=== PATIENT | female | born 1945 | race Caucasian/White ===

== ENCOUNTER → 2020-01-08 14:26 | Outpatient (CLI) | payer MEDICARE, SELFPAY ==
--- NOTE | 2020-01-08 | CT_ITS ---
PROCEDURE: CT SINUS WO CON CLINICAL HISTORY: DYSFUNCTION OF RT EUSTACHIAN TUBE Syncope COMPARISON: No exams were available for comparison TECHNIQUE: Axial images obtained with sagittal and coronal reformats. All CT scans at the facility use one or more dose reduction, viz: automated exposure control, ma/kV adjustment per patient size (including targeted exams where dose is matched to indication, i.e. head), or iterative reconstruction technique. FINDINGS: No sinus air-fluid level. Only minimal mucosal thickening of the ethmoid sinuses. The maxillary, sphenoid, and frontal sinuses are unremarkable. There is mild rightward nasal septal deviation superiorly. A small septal spur projects toward the left inferiorly which appears to be causing some luminal narrowing of the nasal passage. The mastoid sinuses have an unremarkable appearance. The middle ears are well aerated. Artifact is present from patient's dental work. There are moderate to severe osteoarthritic changes of the right TMJ and [id number] osteoarthritis of the left TMJ. IMPRESSION: 1. No evidence of acute sinusitis. There is only minimal mucosal thickening of the ethmoid sinuses. 2. Rightward nasal septal deviation superiorly with a small septal spur projecting toward the left inferiorly causing mild narrowing of the left nasal airway. 3. Bilateral TMJ osteoarthritic changes Dictated by: Oscar Cabrera MD 01/08/2020 17:16 Electronically signed by Oscar Cabrera MD in [facility] 01/08/2020 17:16
--- NOTE | 2020-01-08 | CT_ITS ---
PROCEDURE: CT HEAD/BRAIN WO CON CLINICAL INDICATION: SYNCOPE COMPARISON: No exams were available for comparison TECHNIQUE: Axial images obtained. All CT scans at the facility use one or more dose reduction, viz: automated exposure control, ma/kV adjustment per patient size (including targeted exams where dose is matched to indication, i.e. head), or iterative reconstruction technique. FINDINGS: No midline shift, mass effect, intracranial hemorrhage, hydrocephalus, or extra-axial fluid collection is evident. There is generalized atrophy with hypoattenuation of the periventricular white matter consistent with microangiopathic changes. 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 No mastoid effusion. No sinus air-fluid level. IMPRESSION: No acute intracranial finding Dictated by: Oscar Cabrera MD 01/08/2020 17:12 Electronically signed by Oscar Cabrera MD in [facility] 01/08/2020 17:12
== END ==
PROVIDERS: PCP Family Medicine; Visit Provider Nurse Practitioner
DX: R55 Syncope and collapse (principal); H69.81 Other specified disorders of Eustachian tube, right ear
CPT/HCPCS: 70450; 70486

== ENCOUNTER → 2020-05-31 15:03 | Outpatient (CLI) | payer MEDICARE, SELFPAY ==
[2020-05-31 16:53] LABS: Adenovirus,PCR Not Detected (NotDetected); Bordetella Pertussis Not Detected (NotDetected); Chlamydophila Pneumoniae, PCR Not Detected (NotDetected); Coronavirus 229E Not Detected (NotDetected); Coronavirus NL63 Not Detected (NotDetected); Coronavirus OC43 Not Detected (NotDetected); Coronovirus HKU1,PCR Not Detected (NotDetected); Human Metapneumovirus Not Detected (NotDetected); Influenza A, PCR Not Detected (NotDetected); Influenza AH1, 2009 Not Detected (NotDetected); Influenza AH1, PCR Not Detected (NotDetected); Influenza AH3,PCR Not Detected (NotDetected); Influenza B, PCR Not Detected (NotDetected); Mycoplasma Pneumoniae, PCR Not Detected (NotDetected); Parainfluenza 1, PCR Not Detected (NotDetected); Parainfluenza 2, PCR Not Detected (NotDetected); Parainfluenza 3, PCR Not Detected (NotDetected); Parainfluenza 4, PCR Not Detected (NotDetected); Respiratory Syncytial Virus Not Detected (NotDetected); Rhinovirus/Enterovirus Not Detected (NotDetected)
[2020-05-31 17:01] LABS: Basophils # 0.1 K/mm3 (0-0.2); Basophils % 0.8 % (0.1-2.0); Eosinophils # 0.1 K/mm3 (0.0-0.4); Eosinophils % 1.2 % (0.1-12.0); Hematocrit 44.7 % (37.0-47.0); Hemoglobin 14.6 g/dL (12.2-16.2); Lymphocytes # 1.9 K/mm3 (0.7-4.5); Lymphocytes % 26.6 % (10-50); Mean Corpuscular HGB Conc 32.5 g/dL (31.8-35.4); Mean Corpuscular Hemoglobin 30.1 pg (27.0-31.2); Mean Corpuscular Volume 92.4 fl (81-99); Mean Platelet Volume 8.5 fl (7.4-10.4); Monocytes # 0.3 K/mm3 (0.1-1.0); Monocytes % 4.8 % (1.7-9.3); Neutrophils # 4.7 K/mm3 (1.8-7.8); Neutrophils % 66.6 % (37.0-80.0); Platelet Count 204 K/mm3 (142-424); Red Blood Count 4.84 M/mm3 (4.20-5.40); Red Cell Distribution Width 14.3 % (11.5-17.5)
[2020-06-01 10:23] LABS: Adenovirus,PCR Not Detected (NotDetected); Bordetella Pertussis Not Detected (NotDetected); Chlamydophila Pneumoniae, PCR Not Detected (NotDetected); Coronavirus 19, PCR Not Detected (NotDetected); Coronavirus 229E Not Detected (NotDetected); Coronavirus NL63 Not Detected (NotDetected); Coronavirus OC43 Not Detected (NotDetected); Coronovirus HKU1,PCR Not Detected (NotDetected); Human Metapneumovirus Not Detected (NotDetected); Influenza A, PCR Not Detected (NotDetected); Influenza AH1, 2009 Not Detected (NotDetected); Influenza AH1, PCR Not Detected (NotDetected); Influenza AH3,PCR Not Detected (NotDetected); Influenza B, PCR Not Detected (NotDetected); Mycoplasma Pneumoniae, PCR Not Detected (NotDetected); Parainfluenza 1, PCR Not Detected (NotDetected); Parainfluenza 2, PCR Not Detected (NotDetected); Parainfluenza 3, PCR Not Detected (NotDetected); Parainfluenza 4, PCR Not Detected (NotDetected); Respiratory Syncytial Virus Not Detected (NotDetected); Rhinovirus/Enterovirus Not Detected (NotDetected)
== END ==
PROVIDERS: PCP Family Medicine; Visit Provider Nurse Practitioner
DX: Z03.818 Encounter for observation for suspected exposure to other biological agents ruled out (principal)
CPT/HCPCS: 36415; 85025; 87486; 87581; 87633; 87798; U0003; U0004

== ENCOUNTER → 2020-06-14 10:06 | Outpatient (CLI) | payer MEDICARE, SELFPAY ==
[2020-06-14 12:32] LABS: Adenovirus,PCR Not Detected (NotDetected); Bordetella Pertussis Not Detected (NotDetected); Chlamydophila Pneumoniae, PCR Not Detected (NotDetected); Coronavirus 229E Not Detected (NotDetected); Coronavirus NL63 Not Detected (NotDetected); Coronavirus OC43 Not Detected (NotDetected); Coronovirus HKU1,PCR Not Detected (NotDetected); Human Metapneumovirus Not Detected (NotDetected); Influenza A, PCR Not Detected (NotDetected); Influenza AH1, 2009 Not Detected (NotDetected); Influenza AH1, PCR Not Detected (NotDetected); Influenza AH3,PCR Not Detected (NotDetected); Influenza B, PCR Not Detected (NotDetected); Mycoplasma Pneumoniae, PCR Not Detected (NotDetected); Parainfluenza 1, PCR Not Detected (NotDetected); Parainfluenza 2, PCR Not Detected (NotDetected); Parainfluenza 3, PCR Not Detected (NotDetected); Parainfluenza 4, PCR Not Detected (NotDetected); Respiratory Syncytial Virus Not Detected (NotDetected); Rhinovirus/Enterovirus Not Detected (NotDetected)
[2020-06-14 12:49] LABS: Basophils # 0.1 K/mm3 (0-0.2); Basophils % 1.1 % (0.1-2.0); Eosinophils # 0.1 K/mm3 (0.0-0.4); Eosinophils % 2.9 % (0.1-12.0); Hematocrit 39.3 % (37.0-47.0); Hemoglobin 12.5 g/dL (12.2-16.2); Lymphocytes # 0.9 K/mm3 (0.7-4.5); Lymphocytes % 18.3 % (10-50); Mean Corpuscular HGB Conc 31.9 g/dL (31.8-35.4); Mean Corpuscular Hemoglobin 30.2 pg (27.0-31.2); Mean Corpuscular Volume 94.5 fl (81-99); Mean Platelet Volume 8.4 fl (7.4-10.4); Monocytes # 0.2 K/mm3 (0.1-1.0); Monocytes % 4.9 % (1.7-9.3); Neutrophils # 3.5 K/mm3 (1.8-7.8); Neutrophils % 72.8 % (37.0-80.0); Platelet Count 151 K/mm3 (142-424); Red Blood Count 4.15 M/mm3 (4.20-5.40); Red Cell Distribution Width 14.7 % (11.5-17.5); White Blood Count 4.9 K/mm3 (4.8-10.8)
[2020-06-14 17:15] LABS: Coronavirus 19, PCR Detected (NotDetected)
== END ==
PROVIDERS: PCP Nurse Practitioner; Visit Provider Nurse Practitioner
DX: Z20.828 Contact with and (suspected) exposure to other viral communicable diseases (principal); U07.1 COVID-19
CPT/HCPCS: 36415; 85025; 87581; 87633; 87798

== ENCOUNTER 2020-06-22 15:32 | Emergency (ER) | payer MEDICARE, SELFPAY ==
--- NOTE | 2020-06-22 15:40 | ECG_ITS ---
APPROVED REPORT Exam: Resting ECG HR:96 bpm ECG Measurements Heart Rate 96 AXES IA 138 P 40 QRSd 74 QRS 11 QT 346 T 40 QTc 437 Conclusion Normal sinus rhythm Normal ECG Electronically signed by : Jeff Gaona, 06/27/2020 07:40:26
--- NOTE | 2020-06-22 15:42 | XR_ITS ---
PROCEDURE: XR CHEST PORTABLE CLINICAL HISTORY: cough COVID 19 positive with shortness of air COMPARISON: No exams were available for comparison FINDINGS: The cardiomediastinal silhouette and pulmonary vascularity are within normal limits. Increased density is present in the mid and lower lung zones on both sides right greater than left consistent with pneumonia with atelectatic change. There are degenerative changes in the shoulders with severe right subacromial stenosis. IMPRESSION: Bilateral lower lobe pneumonia with atelectatic change Dictated by: Oscar Cabrera MD 06/22/2020 17:46 Oscar Cabrera MD in [facility] 06/22/2020 17:46
--- NOTE | 2020-06-22 15:46 | [facility].EDGENADL ---
ED Disposition Clinical Impression: Pneumonia due to COVID-19 virus Disposition: Home, Self-Care Condition on Discharge: Fair Instructions: DI for Pneumonia -- Adult, Preventing the Spread of Coronavirus Discharge Instructions Additional Instructions: You have been evaluated for generalized malaise, weakness. This is likely due to Covid pneumonia. Please take azithromycin and doxycycline as prescribed. Follow-up with your primary care doctor for recheck. Return to the emergency department if you have any new or worsening symptoms. Prescriptions: Azithromycin 500 mg PO DAILY 5 Days #5 tab Transmission Status: Pending to [facility] Doxycycline Hyclate [Doxycycline 100mg Capsule] 100 mg PO Q12 5 Days #10 cap Transmission Status: Pending to [facility] Referrals: Reshma Joshi APRN [Primary Care Provider] - Time of Disposition: 17:11 - Critical Care Critical Care Time: No Attestation: On 06/22/20, the high probability of a clinically significant, sudden or life threatening deterioration of the following system(s) required my full and direct attention, intervention and personal management. The time I documented below is in addition to time spent performing reported procedures but includes the following listed in this critical care notation. Medical Decision Making - Medical Records Medical records reviewed: Yes: I reviewed the patient's medical records. - [facility] Inquiry Pt receiving controlled substance: No Vital Signs: 06/22/20 15:57 06/22/20 16:16 06/22/20 16:37 Temperature 99.2 F Temperature Source Oral Pulse Rate [Right Radial] 100 H 97 H 96 H Respiratory Rate 22 Blood Pressure [Right Arm] 136/62 144/64 H 144/56 H Blood Pressure Mean [Right Arm] 86 90 85 Blood Pressure Source [Right Arm] Automatic Cuff Automatic Cuff Blood Pressure Position [Right Arm] Sitting Sitting 02 Sat by Pulse Oximetry 91 L 95 93 L Oxygen Delivery Method Room Air Room Air Room Air 06/22/20 17:19 Temperature Temperature Source Pulse Rate [Right Radial] 93 H Respiratory Rate Blood Pressure [Right Arm] 143/87 H Blood Pressure Mean [Right Arm] 105 Blood Pressure Source [Right Arm] Automatic Cuff Blood Pressure Position [Right Arm] Sitting 02 Sat by Pulse Oximetry 91 L Oxygen Delivery Method Room Air - Lab Data Lab Results 06/22/20 15:40: WBC 10.4, RBC 4.44, Hgb 13.1, Hct 40.8, MCV 91.9, MCH 29.5, MCHC 32.1, RDW 14.4, Plt Count 342, MPV 7.8, Neut % (Auto) 89.6 H, Lymph % (Auto) 8.0 L, Kem[place] % (Auto) 1.7, Eos % (Auto) 0.3, Baso % (Auto) 0.4, Neut # (Auto) 9.3 H, Lymph # (Auto) 0.8, Kem[place] # (Auto) 0.2, Eos # (Auto) 0.0, Baso # (Auto) 0.0, Total Counted 100, Neutrophils % (Manual) 87 H, Lymphocytes % (Manual) 13, Platelet Estimate Normal, RBC Morphology Normal 06/22/20 15:40: Sodium 138, Potassium 3.5, Chloride 106, Carbon Dioxide 25, Anion Gap 10.5, BUN 19 H, Creatinine 0.80, Estimated Creat Clear 57, Estimated GFR 70, Est GFR ( Amer) 84, Glucose 126 H, Calcium 8.3 L, Total Bilirubin 0.7, AST 60 H, ALT 55, Alkaline Phosphatase 167 H, Troponin I < 0.01, Total Protein 6.4, Albumin 3.3 L, Globulin 3.1, Albumin/Globulin Ratio 1.1 06/22/20 16:15: Influenza Type A Ag Negative, Influenza Type B Ag Negative 06/22/20 16:17: Urine Color Yellow, Urine Appearance Clear, Urine pH 6.0, Ur Specific [place] >= 1.030, Urine Protein 1+, Urine Glucose (UA) Negative, Urine Ketones Negative, Urine Blood Negative, Urine Nitrate Negative, Urine Bilirubin Negative, Urine Urobilinogen 1.0, Ur Leukocyte Esterase Negative, Urine WBC 3-5, Ur Squamous Epith Cells Occasional, Urine Bacteria 2+, Hyaline Casts 3-5, Fine Granular Casts Occasional Result diagrams: 06/22/20 15:40 06/22/20 15:40 Orders (Tests/Meds): ED MEDICATIONS Discontinued Medications Generic Name Dose Route Start Last Admin Trade Name Freq PRN Reason Stop Dose Admin Sodium Chloride 1,000 mls @ 999 mls/hr 06/22/20 15:45 06/22/20 15:54 S
[2020-06-22 15:57] VITALS: BP 136/62; PULSE 100; RESP 22; TEMP 37.3; O2SAT 91; BMI 28.5
[2020-06-22 16:16] VITALS: BP 144/64; PULSE 97; O2SAT 95
[2020-06-22 16:16] LABS: Basophils % 0.4 % (0.1-2.0); Eosinophils % 0.3 % (0.1-12.0); Hematocrit 40.8 % (37.0-47.0); Hemoglobin 13.1 g/dL (12.2-16.2); Lymphocytes # 0.8 K/mm3 (0.7-4.5); Mean Corpuscular HGB Conc 32.1 g/dL (31.8-35.4); Mean Corpuscular Hemoglobin 29.5 pg (27.0-31.2); Mean Corpuscular Volume 91.9 fl (81-99); Mean Platelet Volume 7.8 fl (7.4-10.4); Monocytes # 0.2 K/mm3 (0.1-1.0); Monocytes % 1.7 % (1.7-9.3); Neutrophils # 9.3 K/mm3 (1.8-7.8); Neutrophils % 89.6 % (37.0-80.0); Platelet Count 342 K/mm3 (142-424); Red Blood Count 4.44 M/mm3 (4.20-5.40); Red Cell Distribution Width 14.4 % (11.5-17.5); White Blood Count 10.4 K/mm3 (4.8-10.8)
[2020-06-22 16:17] LABS: MANUAL DIFFERENTIAL MANUAL DIFFERENTIAL (MANUAL DIFF)
[2020-06-22 16:18] LABS: Chloride 106 mmol/L (98-107); Potassium 3.5 mmoL/L (3.5-5.1); Sodium 138 mmol/L (136-145)
[2020-06-22 16:21] LABS: Alanine Aminotransferase 55 U/L (12-78); Albumin Level 3.3 g/dl (3.5-5.0); Albumin/Globulin Ratio 1.1 (1.1-1.8); Alkaline Phosphatase 167 U/L (38-126); Anion Gap 10.5 mEq/L (5-15); Aspartate Amino Transferase 60 U/L (14-36); Bilirubin,Total 0.7 mg/dl (0.2-1.3); Blood Urea Nitrogen 19 mg/dl (7-17); Carbon Dioxide 25 mmol/L (22.0-30.0); Creatinine Clearance Estimated 57 mL/min (50-200); Estimated Glomerular Filt Rate 70 ml/min (>60); GFR (African American) 84 ML/MIN (>60); Globulin 3.1 g/dL (1.3-3.2); Total Protein,Serum 6.4 g/dl (6.3-8.2)
[2020-06-22 16:22] LABS: Calcium 8.3 mg/dl (8.4-10.2); Glucose 126 mg/dl (74-100)
[2020-06-22 16:33] LABS: Lymphocytes % 13 % (10-50); Neutrophils % 87 % (42-76); Platelet Estimate Normal; RBC Morphology Normal; Total Cells Counted 100
[2020-06-22 16:37] VITALS: BP 144/56; PULSE 96; O2SAT 93
[2020-06-22 16:37] LABS: Microscopic, Urine URINE MICROSCOPIC (MICROSCOPIC)
[2020-06-22 16:39] LABS: Appearance,Urine CLEAR (Clear); Bilirubin,Urine Negative (Negative); Blood, Urine Negative (Negative); Color,Urine YELLOW (Yellow); Glucose,Urine (UA) Negative (Negative); Ketones,Urine Negative (Negative); Leukocyte Esterase,Urine Negative (Negative); Nitrate,Urine Negative (Negative); Protein,Urine 1+ (Negative); Specific Gravity, Urine >= 1.030 (1.005-1.030)
[2020-06-22 16:40] LABS: Troponin I < 0.01 ng/ml (0.00-0.034)
[2020-06-22 16:55] LABS: Bacteria,Urine 2+ /lpf; Fine Granular Casts,Urine Occasional #/lpf (0); Squamous Epithelial Cell,Urine Occasional #/hpf (0-5)
--- NOTE | 2020-06-22 16:56 | PC.NURSE ---
Pt given water upon request at this time.
[2020-06-22 17:19] VITALS: BP 143/87; PULSE 93; O2SAT 91
[2020-06-22 18:11] VITALS: BP 106/79; PULSE 91; RESP 19; TEMP 37.2; O2SAT 94
== END 2020-06-22 18:17 | disposition home or self-care (01) ==
PROVIDERS: Emergency Provider Emergency Medicine; PCP Nurse Practitioner
DX: J18.9 Pneumonia, unspecified organism (principal); U07.1 COVID-19; I10 Essential (primary) hypertension; E78.5 Hyperlipidemia, unspecified; Z79.899 Other long term (current) drug therapy; Z88.0 Allergy status to penicillin; Z88.2 Allergy status to sulfonamides
CPT/HCPCS: 71045; 80053; 81001; 84484; 85007; 85025; 87086; 87275; 87276; 93005; 96365; 99283

== ENCOUNTER → 2020-07-05 10:24 | Outpatient (CLI) | payer MEDICARE, SELFPAY ==
[2020-07-05 10:35] LABS: Adenovirus F 40/41, stool Not Detected (NotDetected); Astrovirus Not Detected (NotDetected); Campylobacter Not Detected (NotDetected); Clostridium Difficile A/B, PCR Not Detected (NotDetected); Cryptosporidium Not Detected (NotDetected); Cyclospora Cayetanesis Not Detected (NotDetected); Entamoeba histolytica Not Detected (NotDetected); Enteroaggregative E coli Not Detected (NotDetected); Enteropathogenic E coli Not Detected (NotDetected); Enterotoxigenic E coli Not Detected (NotDetected); Giardia lamblia Not Detected (NotDetected); Norovirus Not Detected (NotDetected); Plesimonas Shigalloides, PCR Not Detected (NotDetected); Rotavirus A Not Detected (NotDetected); Salmonella, PCR Not Detected (NotDetected); Sapovirus Not Detected (NotDetected); Shiga-like toxin E coli Not Detected (NotDetected); Shigella Enterovasive E coli Not Detected (NotDetected); Vibrio Cholerae Not Detected (NotDetected); Vibrio, PCR Not Detected (NotDetected); Yersinia Entercolitica, PCR Not Detected (NotDetected)
== END ==
PROVIDERS: Visit Provider Nurse Practitioner
DX: R19.7 Diarrhea, unspecified (principal)
CPT/HCPCS: 87506

== ENCOUNTER → 2021-06-07 09:19 | Outpatient (CLI) | payer MEDICARE, SELFPAY ==
[2021-06-07 10:08] LABS: Basophils # 0.1 K/mm3 (0-0.2); Basophils % 1.2 % (0.1-2.0); Eosinophils # 0.1 K/mm3 (0.0-0.4); Eosinophils % 2.3 % (0.1-12.0); Hematocrit 38.8 % (37.0-47.0); Hemoglobin 12.1 g/dL (12.2-16.2); Lymphocytes # 1.1 K/mm3 (0.7-4.5); Lymphocytes % 21.5 % (10-50); Mean Corpuscular HGB Conc 31.1 g/dL (31.8-35.4); Mean Corpuscular Hemoglobin 26.5 pg (27.0-31.2); Mean Corpuscular Volume 85.2 fl (81-99); Mean Platelet Volume 8.2 fl (7.4-10.4); Monocytes # 0.4 K/mm3 (0.1-1.0); Monocytes % 7.3 % (1.7-9.3); Neutrophils # 3.5 K/mm3 (1.8-7.8); Neutrophils % 67.8 % (37.0-80.0); Platelet Count 313 K/mm3 (142-424); Red Blood Count 4.55 M/mm3 (4.20-5.40); Red Cell Distribution Width 14.9 % (11.5-17.5); White Blood Count 5.2 K/mm3 (4.8-10.8)
[2021-06-07 10:53] LABS: Alanine Aminotransferase 22 U/L (12-78); Albumin Level 3.9 g/dl (3.5-5.0); Albumin/Globulin Ratio 1.4 (1.1-1.8); Alkaline Phosphatase 121 U/L (38-126); Amylase 60 U/L (30-110); Anion Gap 13.8 mEq/L (5-15); Aspartate Amino Transferase 27 U/L (14-36); Bilirubin,Total 0.2 mg/dl (0.2-1.3); Blood Urea Nitrogen 20 mg/dl (7-17); Calcium 9.3 mg/dl (8.4-10.2); Carbon Dioxide 24 mmol/L (22.0-30.0); Chloride 107 mmol/L (98-107); Estimated Glomerular Filt Rate 97 ml/min (>60); GFR (African American) 117 ML/MIN (>60); Globulin 2.8 g/dL (1.3-3.2); Glucose 99 mg/dl (74-100); Lipase 191 U/L (23-300); Potassium 4.8 mmoL/L (3.5-5.1); Sodium 140 mmol/L (136-145); Total Protein,Serum 6.7 g/dl (6.3-8.2)
[2021-06-08 14:12] LABS: H. pylori Breath Test Negative (Negative)
== END ==
PROVIDERS: Visit Provider Nurse Practitioner
DX: R10.13 Epigastric pain (principal); R19.7 Diarrhea, unspecified
CPT/HCPCS: 36415; 80053; 82150; 83013; 83690; 85025

== ENCOUNTER → 2021-06-09 10:59 | Outpatient (CLI) | payer MEDICARE, SELFPAY ==
[2021-06-09 11:03] LABS: Campylobacter Not Detected (NotDetected); Clostridium Difficile A/B, PCR Not Detected (NotDetected); Enteroaggregative E coli Not Detected (NotDetected); Plesimonas Shigalloides, PCR Not Detected (NotDetected); Salmonella, PCR Not Detected (NotDetected); Vibrio Cholerae Not Detected (NotDetected); Vibrio, PCR Not Detected (NotDetected); Yersinia Entercolitica, PCR Not Detected (NotDetected)
[2021-06-09 11:04] LABS: Adenovirus F 40/41, stool Not Detected (NotDetected); Astrovirus Not Detected (NotDetected); Cryptosporidium Not Detected (NotDetected); Cyclospora Cayetanesis Not Detected (NotDetected); Entamoeba histolytica Not Detected (NotDetected); Enteropathogenic E coli Not Detected (NotDetected); Enterotoxigenic E coli Not Detected (NotDetected); Giardia lamblia Not Detected (NotDetected); Norovirus Not Detected (NotDetected); Rotavirus A Not Detected (NotDetected); Sapovirus Not Detected (NotDetected); Shiga-like toxin E coli Not Detected (NotDetected); Shigella Enterovasive E coli Not Detected (NotDetected)
== END ==
PROVIDERS: Visit Provider Nurse Practitioner
DX: R10.13 Epigastric pain (principal); R19.7 Diarrhea, unspecified
CPT/HCPCS: 87506

== ENCOUNTER → 2021-07-30 11:00 | Outpatient (CLI) | payer MEDICARE, SELFPAY | PROVIDERS: PCP Nurse Practitioner; Visit Provider Nurse Practitioner Family | DX: Z20.822 Contact with and (suspected) exposure to COVID-19 (principal) | CPT/HCPCS: C9803; U0003; U0005 ==

== ENCOUNTER → 2022-02-07 08:24 | Outpatient (CLI) | payer MEDICARE, SELFPAY ==
--- NOTE | 2022-02-07 08:30 | MM_ITS ---
PROCEDURE INFORMATION: Exam: MG Bilateral Screening 3D Mammography Exam date and time: 02/07/2022 8:27 AM Age: 76 years old Clinical indication: Screening examination TECHNIQUE: Imaging protocol: Bilateral Screening tomosynthesis and 2D mammography including computer-aided detection (CAD) when performed. COMPARISON: MG MM MAMMO DIGITAL FAWAD SCREEN BILAT 12/03/2020 9:05 AM FINDINGS: MAMMOGRAPHY: Breast composition: The breast is heterogeneously dense, which may obscure small masses. Mass: None. Architectural distortion: No new or suspicious architectural distortion. Calcifications: No new or suspicious calcifications are present Asymmetric density: No new or suspicious asymmetric density is present Skin thickening: None. Axillary adenopathy: None. IMPRESSION: No mammographic evidence of malignancy. Recommend annual screening mammography unless otherwise clinically indicated. ASSESSMENT: BI-RADS category 1: Negative
--- NOTE | 2022-02-07 08:30 | XR_ITS ---
FINAL REPORT TECHNIQUE: Bone densitometry calculations of the lumbar spine and left hip were obtained. CLINICAL HISTORY: . osteoporosis, screening FINDINGS: DEXA BONE DENSITY AXIAL SKELETON Using L1-4, the bone mineral density of the spine is 1.379 g/cm2, corresponding to T-score of 3.0. Classified as normal bone mineral density however these values are likely falsely elevated secondary to sclerosis. Using the right hip, the bone mineral density of the femoral neck is 0.627 g/cm2, corresponding to a T-score of -2.0. Classified as osteopenia. Using the left forearm, the bone mineral density of the distal 1/3 is 0.633 g/cm2, corresponding to a T-score of -1.0. Classified as osteopenia. NOTE: T-score: Standard deviation compared with peak bone mass of young adult mean. *Following the recommendations of the International Society of Bone densitometry, classification of hip BMD is based on the lower of two T-scores; total hip or femoral neck. IMPRESSION: Diminished bone mineral density of the left forearm and right hip consistent with osteopenia. FRAX not reported because: treated for osteoporosis. Reviewed, Interpreted and Dictated by Gumaro Maldonado MD Transcribed by Breana Melendez Authenticated and . [facility]
== END ==
PROVIDERS: PCP Nurse Practitioner; Visit Provider Nurse Practitioner
DX: Z12.31 Encounter for screening mammogram for malignant neoplasm of breast (principal); M81.0 Age-related osteoporosis without current pathological fracture
CPT/HCPCS: 77063; 77067; 77080

== ENCOUNTER → 2022-03-01 06:06 | Outpatient (CLI) | payer MEDICARE, SELFPAY ==
[2022-02-28 18:02] LABS: Adenovirus,PCR Not Detected (NotDetected); Bordetella Pertussis Not Detected (NotDetected); Chlamydophila Pneumoniae, PCR Not Detected (NotDetected); Coronavirus 19, PCR Not Detected (NotDetected); Coronavirus 229E Not Detected (NotDetected); Coronavirus NL63 Not Detected (NotDetected); Coronavirus OC43 Not Detected (NotDetected); Coronovirus HKU1,PCR Not Detected (NotDetected); Human Metapneumovirus Not Detected (NotDetected); Influenza A, PCR Not Detected (NotDetected); Influenza AH1, 2009 Not Detected (NotDetected); Influenza AH1, PCR Not Detected (NotDetected); Influenza AH3,PCR Not Detected (NotDetected); Influenza B, PCR Not Detected (NotDetected); Mycoplasma Pneumoniae, PCR Not Detected (NotDetected); Parainfluenza 1, PCR Not Detected (NotDetected); Parainfluenza 2, PCR Not Detected (NotDetected); Parainfluenza 3, PCR Not Detected (NotDetected); Parainfluenza 4, PCR Not Detected (NotDetected); Respiratory Syncytial Virus Not Detected (NotDetected); Rhinovirus/Enterovirus Not Detected (NotDetected)
[2022-02-28 18:27] LABS: Basophils % 0.9 % (0.1-2.0); Eosinophils # 0.1 K/mm3 (0.0-0.4); Eosinophils % 1.7 % (0.1-12.0); Hematocrit 39.1 % (37.0-47.0); Hemoglobin 12.3 g/dL (12.2-16.2); Lymphocytes % 20.9 % (10-50); Mean Corpuscular HGB Conc 31.5 g/dL (31.8-35.4); Mean Corpuscular Hemoglobin 27.8 pg (27.0-31.2); Mean Corpuscular Volume 88.2 fl (81-99); Mean Platelet Volume 8.9 fl (7.4-10.4); Monocytes # 0.3 K/mm3 (0.1-1.0); Monocytes % 6.7 % (1.7-9.3); Neutrophils # 3.2 K/mm3 (1.8-7.8); Neutrophils % 69.8 % (37.0-80.0); Platelet Count 171 K/mm3 (142-424); Red Blood Count 4.43 M/mm3 (4.20-5.40); Red Cell Distribution Width 15.5 % (11.5-17.5); White Blood Count 4.6 K/mm3 (4.8-10.8)
== END ==
PROVIDERS: PCP Nurse Practitioner; Visit Provider Nurse Practitioner
DX: J06.9 Acute upper respiratory infection, unspecified (principal); R05.9 Cough, unspecified; Z20.822 Contact with and (suspected) exposure to COVID-19
CPT/HCPCS: 85025; 87581; 87632; 87798; C9803; U0003; U0005

== ENCOUNTER → 2022-11-06 23:28 | Outpatient (CLI) | payer MEDICARE, SELFPAY ==
[2022-11-06 19:09] LABS: Adenovirus,PCR Not Detected (NotDetected); Bordetella Pertussis Not Detected (NotDetected); Chlamydophila Pneumoniae, PCR Not Detected (NotDetected); Coronavirus 19, PCR Not Detected (NotDetected); Coronavirus 229E Not Detected (NotDetected); Coronavirus NL63 Not Detected (NotDetected); Coronavirus OC43 Not Detected (NotDetected); Coronovirus HKU1,PCR Not Detected (NotDetected); Human Metapneumovirus Not Detected (NotDetected); Influenza A, PCR Not Detected (NotDetected); Influenza AH1, 2009 Not Detected (NotDetected); Influenza AH1, PCR Not Detected (NotDetected); Influenza AH3,PCR Not Detected (NotDetected); Influenza B, PCR Not Detected (NotDetected); Mycoplasma Pneumoniae, PCR Not Detected (NotDetected); Parainfluenza 1, PCR Not Detected (NotDetected); Parainfluenza 2, PCR Not Detected (NotDetected); Parainfluenza 3, PCR Not Detected (NotDetected); Parainfluenza 4, PCR Not Detected (NotDetected); Respiratory Syncytial Virus Not Detected (NotDetected); Rhinovirus/Enterovirus Not Detected (NotDetected)
[2022-11-06 19:37] LABS: Basophils % 0.3 % (0.1-2.0); Eosinophils # 0.1 K/mm3 (0.0-0.4); Eosinophils % 1.3 % (0.1-12.0); Hematocrit 41.6 % (37.0-47.0); Hemoglobin 13.2 g/dL (12.2-16.2); Lymphocytes # 0.7 K/mm3 (0.7-4.5); Lymphocytes % 20.5 % (10-50); Mean Corpuscular HGB Conc 31.7 g/dL (31.8-35.4); Mean Corpuscular Hemoglobin 27.9 pg (27.0-31.2); Mean Corpuscular Volume 88.2 fl (81-99); Mean Platelet Volume 10.6 fl (7.4-10.4); Monocytes # 0.4 K/mm3 (0.1-1.0); Monocytes % 9.9 % (1.7-9.3); Neutrophils # 2.4 K/mm3 (1.8-7.8); Platelet Count 106 K/mm3 (142-424); Red Blood Count 4.72 M/mm3 (4.20-5.40); Red Cell Distribution Width 14.3 % (11.5-17.5); White Blood Count 3.6 K/mm3 (4.8-10.8)
[2022-11-06 19:46] LABS: Chloride 105 mmol/L (98-107); Potassium 4.8 mmoL/L (3.5-5.1); Sodium 139 mmol/L (136-145)
[2022-11-06 19:49] LABS: Anion Gap 13.8 mEq/L (5-15); Blood Urea Nitrogen 21 mg/dl (7-17); Calcium 9.2 mg/dl (8.4-10.2); Carbon Dioxide 25 mmol/L (22.0-30.0); Estimated Glomerular Filt Rate 69 ml/min (>60); GFR (African American) 84 ML/MIN (>60); Glucose 77 mg/dl (74-100)
== END ==
PROVIDERS: PCP Nurse Practitioner; Visit Provider Nurse Practitioner
DX: J06.9 Acute upper respiratory infection, unspecified (principal); J02.9 Acute pharyngitis, unspecified
CPT/HCPCS: 80048; 85025; 87581; 87632; 87798; C9803; U0003; U0005

== ENCOUNTER → 2022-12-12 23:32 | Outpatient (CLI) | payer MEDICARE, SELFPAY ==
[2022-12-12 19:14] LABS: Basophils % 0.6 % (0.1-2.0); Eosinophils # 0.1 K/mm3 (0.0-0.4); Eosinophils % 1.1 % (0.1-12.0); Hematocrit 44.3 % (37.0-47.0); Hemoglobin 14.3 g/dL (12.2-16.2); Lymphocytes # 1.1 K/mm3 (0.7-4.5); Lymphocytes % 21.8 % (10-50); Mean Corpuscular HGB Conc 32.2 g/dL (31.8-35.4); Monocytes # 0.3 K/mm3 (0.1-1.0); Monocytes % 5.9 % (1.7-9.3); Neutrophils # 3.6 K/mm3 (1.8-7.8); Neutrophils % 70.6 % (37.0-80.0); Platelet Count 169 K/mm3 (142-424); Red Blood Count 4.93 M/mm3 (4.20-5.40); Red Cell Distribution Width 14.7 % (11.5-17.5); White Blood Count 5.1 K/mm3 (4.8-10.8)
== END ==
LOC: LAB.DROPOF 23:32
PROVIDERS: PCP Nurse Practitioner; Visit Provider Nurse Practitioner
DX: J06.9 Acute upper respiratory infection, unspecified (principal); H92.03 Otalgia, bilateral
CPT/HCPCS: 85025; C9803; U0003; U0005

== ENCOUNTER → 2023-02-04 23:17 | Outpatient (CLI) | payer MEDICARE, SELFPAY ==
[2023-02-04 18:28] LABS: Microscopic, Urine URINE MICROSCOPIC (MICROSCOPIC)
[2023-02-04 19:27] LABS: Alanine Aminotransferase 25 U/L (12-78); Albumin Level 4.5 g/dl (3.5-5.0); Albumin/Globulin Ratio 1.7 (1.1-1.8); Alkaline Phosphatase 75 U/L (38-126); Anion Gap 13.4 mEq/L (5-15); Aspartate Amino Transferase 33 U/L (14-36); Bilirubin,Total 0.4 mg/dl (0.2-1.3); Blood Urea Nitrogen 21 mg/dl (7-17); Calcium 9.7 mg/dl (8.4-10.2); Carbon Dioxide 27 mmol/L (22.0-30.0); Chloride 105 mmol/L (98-107); Estimated Glomerular Filt Rate 69 ml/min (>60); GFR (African American) 84 ML/MIN (>60); Globulin 2.7 g/dL (1.3-3.2); Glucose 89 mg/dl (74-100); HDL Cholesterol 61 mg/dl (40-60); Potassium 4.4 mmoL/L (3.5-5.1); Sodium 141 mmol/L (136-145); Total Protein,Serum 7.2 g/dl (6.3-8.2); Triglycerides 278 mg/dl (30-150); VLDL Cholesterol 56 mg/dL (0-40)
[2023-02-04 19:28] LABS: Basophils % 0.6 % (0.1-2.0); Eosinophils # 0.1 K/mm3 (0.0-0.4); Eosinophils % 2.5 % (0.1-12.0); Hematocrit 42.6 % (37.0-47.0); Hemoglobin 13.6 g/dL (12.2-16.2); Lymphocytes % 20.8 % (10-50); Mean Corpuscular Hemoglobin 28.1 pg (27.0-31.2); Mean Corpuscular Volume 87.9 fl (81-99); Mean Platelet Volume 10.2 fl (7.4-10.4); Monocytes # 0.3 K/mm3 (0.1-1.0); Monocytes % 6.6 % (1.7-9.3); Neutrophils # 3.3 K/mm3 (1.8-7.8); Neutrophils % 69.5 % (37.0-80.0); Platelet Count 137 K/mm3 (142-424); Red Blood Count 4.84 M/mm3 (4.20-5.40); Red Cell Distribution Width 14.8 % (11.5-17.5); White Blood Count 4.7 K/mm3 (4.8-10.8)
[2023-02-04 19:37] LABS: Chol/HDL Ratio 5.3 (1-3.5); Cholesterol 324 mg/dl (140-200); Direct LDL Cholesterol 179.36 mg/dL (100-129)
[2023-02-04 19:42] LABS: Free T4 (Free Thyroxine) 1.38 ng/dl (0.78-2.19)
[2023-02-04 19:48] LABS: 25-OH Vitamin D, Total 43.5 ng/mL (30-100)
[2023-02-04 19:58] LABS: Thyroid Stimulating Hormone 0.03 uIU/mL (0.465-4.68)
[2023-02-04 20:04] LABS: Appearance,Urine CLEAR (Clear); Bilirubin,Urine Negative (Negative); Blood, Urine Negative (Negative); Color,Urine YELLOW (Yellow); Glucose,Urine (UA) Negative (Negative); Ketones,Urine Negative (Negative); Leukocyte Esterase,Urine 1+ (Negative); Nitrate,Urine Negative (Negative); PH,Urine 5.5 (5.0-8.5); Protein,Urine Negative (Negative); Specific Gravity, Urine 1.015 (1.005-1.030); Urobilinogen,Urine 0.2 EU/dl (0.2)
[2023-02-04 20:41] LABS: Erythrocyte Sedimentation Rate 63 mm/hr (0-30)
[2023-02-04 20:47] LABS: Vitamin B12 > 1000 pg/mL (239-931)
[2023-02-04 23:24] LABS: Creatinine,Urine Random 35 mg/dL (Not Estab.); Microalbumin < 6.000 mg/L (0-16.7)
[2023-02-06 16:24] LABS: Anti-Centromere B Antibodies <0.2 AI (0.0-0.9); Anti-DNA (DS) Ab Qn <1 IU/mL (0-9); Anti-Jo-1 <0.2 AI (0.0-0.9); Anti-Smith Antibody <0.2 AI (0.0-0.9); Antichromatin Antibodies 0.7 AI (0.0-0.9); Antiscleroderma-70 Antibodies <0.2 AI (0.0-0.9); RNP Antibodies 1.8 AI (0.0-0.9); Sjogren's Anti-SS-A <0.2 AI (0.0-0.9); Sjogren's Anti-SS-B 0.6 AI (0.0-0.9)
== END ==
PROVIDERS: PCP Nurse Practitioner; Visit Provider Nurse Practitioner
DX: E03.9 Hypothyroidism, unspecified (principal); E53.8 Deficiency of other specified B group vitamins; E55.9 Vitamin D deficiency, unspecified; E78.5 Hyperlipidemia, unspecified; I10 Essential (primary) hypertension; K21.9 Gastro-esophageal reflux disease without esophagitis; R53.83 Other fatigue; Z86.12 Personal history of poliomyelitis
CPT/HCPCS: 80053; 80061; 81001; 82043; 82306; 82570; 82607; 84439; 84443; 85025; 85651; 86140; 86225; 86235; 87086

== ENCOUNTER → 2023-02-13 11:21 | Outpatient (CLI) | payer MEDICARE, SELFPAY | PROVIDERS: PCP Nurse Practitioner; Visit Provider Nurse Practitioner | DX: R60.0 Localized edema (principal); Z86.12 Personal history of poliomyelitis | CPT/HCPCS: 93306 ==

== ENCOUNTER → 2023-03-18 23:00 | Outpatient (CLI) | payer MEDICARE, SELFPAY ==
[2023-03-18 18:57] LABS: Blood Urea Nitrogen 18 mg/dl (7-17); Calcium 9.5 mg/dl (8.4-10.2); Carbon Dioxide 28 mmol/L (22.0-30.0); Chloride 105 mmol/L (98-107); Estimated Glomerular Filt Rate 61 ml/min (>60); GFR (African American) 73 ML/MIN (>60); Glucose 95 mg/dl (74-100); Sodium 140 mmol/L (136-145)
[2023-03-18 19:14] LABS: Free T4 (Free Thyroxine) 0.98 ng/dl (0.78-2.19)
[2023-03-18 19:29] LABS: Thyroid Stimulating Hormone 0.11 uIU/mL (0.465-4.68)
== END ==
PROVIDERS: PCP Nurse Practitioner; Visit Provider Nurse Practitioner
DX: E03.9 Hypothyroidism, unspecified (principal); I10 Essential (primary) hypertension; K21.9 Gastro-esophageal reflux disease without esophagitis; J12.89 Other viral pneumonia; U07.1 COVID-19
CPT/HCPCS: 80048; 84439; 84443

== ENCOUNTER → 2023-05-15 23:20 | Outpatient (CLI) | payer MEDICARE, SELFPAY ==
[2023-05-15 18:28] LABS: Coronavirus 19, PCR Not Detected (NotDetected); Influenza A, PCR Not Detected (NotDetected); Influenza B, PCR Not Detected (NotDetected)
== END ==
PROVIDERS: PCP Nurse Practitioner; Visit Provider Nurse Practitioner
DX: J06.9 Acute upper respiratory infection, unspecified (principal)
CPT/HCPCS: 87636

== ENCOUNTER → 2023-06-17 08:26 | Outpatient (CLI) | payer MEDICARE, SELFPAY ==
[2023-06-17 19:31] LABS: Basophils # 0.1 K/mm3 (0-0.2); Eosinophils # 0.1 K/mm3 (0.0-0.4); Eosinophils % 1.4 % (0.1-12.0); Hematocrit 41.4 % (37.0-47.0); Hemoglobin 13.2 g/dL (12.2-16.2); Lymphocytes # 1.1 K/mm3 (0.7-4.5); Lymphocytes % 22.7 % (10-50); Mean Corpuscular HGB Conc 31.9 g/dL (31.8-35.4); Mean Corpuscular Hemoglobin 29.5 pg (27.0-31.2); Mean Corpuscular Volume 92.6 fl (81-99); Mean Platelet Volume 10.3 fl (7.4-10.4); Monocytes # 0.4 K/mm3 (0.1-1.0); Monocytes % 7.8 % (1.7-9.3); Neutrophils # 3.2 K/mm3 (1.8-7.8); Neutrophils % 67.2 % (37.0-80.0); Platelet Count 142 K/mm3 (142-424); Red Blood Count 4.47 M/mm3 (4.20-5.40); Red Cell Distribution Width 15.1 % (11.5-17.5); White Blood Count 4.7 K/mm3 (4.8-10.8)
[2023-06-17 19:54] LABS: Anion Gap 11.6 mEq/L (5-15); Blood Urea Nitrogen 15 mg/dl (7-17); Calcium 9.1 mg/dl (8.4-10.2); Carbon Dioxide 26 mmol/L (22.0-30.0); Chloride 104 mmol/L (98-107); Estimated Glomerular Filt Rate 69 ml/min (>60); GFR (African American) 84 ML/MIN (>60); Glucose 78 mg/dl (74-100); Potassium 4.6 mmoL/L (3.5-5.1); Sodium 137 mmol/L (136-145)
== END ==
PROVIDERS: PCP Nurse Practitioner; Visit Provider Nurse Practitioner
DX: Z01.818 Encounter for other preprocedural examination (principal)
CPT/HCPCS: 80048; 85025

== ENCOUNTER → 2023-07-18 09:18 | Outpatient (CLI) | payer MEDICARE, SELFPAY | LOC: LAB.DROPOF 07-19 09:19 | PROVIDERS: PCP Nurse Practitioner; Visit Provider Nurse Practitioner | DX: R30.0 Dysuria (principal) | CPT/HCPCS: 87086 ==

== ENCOUNTER 2024-02-19 18:59 | Outpatient (CLI) | payer MEDICARE, SELFPAY | END 2024-02-19 23:59 | disposition home or self-care (01) | LOC: LAB.DROPOF 19:00 | PROVIDERS: PCP Nurse Practitioner; Visit Provider Nurse Practitioner | DX: R30.0 Dysuria (principal) | CPT/HCPCS: 87086 ==

== ENCOUNTER 2024-09-28 15:46 | Outpatient (CLI) | payer MEDICARE, SELFPAY ==
[2024-09-28 20:47] LABS: Coronavirus 19, PCR Not Detected (NotDetected); Human Rhinovirus Not Detected (NotDetected); Influenza A, PCR Not Detected (NotDetected); Influenza B, PCR Not Detected (NotDetected); Respiratory Syncytial Virus Not Detected (NotDetected)
== END 2024-09-28 23:59 | disposition home or self-care (01) ==
LOC: LAB.DROPOF 10-01 09:18
PROVIDERS: PCP Nurse Practitioner; Visit Provider Nurse Practitioner
DX: J06.9 Acute upper respiratory infection, unspecified (principal); N39.0 Urinary tract infection, site not specified
CPT/HCPCS: 87086; 87631

== ENCOUNTER 2024-11-16 13:20 | Outpatient (CLI) | payer MEDICARE, SELFPAY | END 2024-11-16 23:59 | disposition home or self-care (01) | LOC: LAB.DROPOF 11-17 13:06 | PROVIDERS: PCP Nurse Practitioner; Visit Provider Nurse Practitioner | DX: N30.00 Acute cystitis without hematuria (principal); B96.20 Unspecified Escherichia coli [E. coli] as the cause of diseases classified elsewhere | CPT/HCPCS: 87086; 87088; 87186 ==

== ENCOUNTER 2024-12-22 14:20 | Outpatient (CLI) | payer MEDICARE, SELFPAY ==
[2024-12-22 18:27] LABS: Coronavirus 19, PCR Not Detected (NotDetected); Human Rhinovirus Not Detected (NotDetected); Influenza A, PCR Not Detected (NotDetected); Influenza B, PCR Not Detected (NotDetected); Respiratory Syncytial Virus Not Detected (NotDetected)
[2024-12-22 18:42] LABS: Basophils % 0.5 % (0.1-2.0); Eosinophils # 0.1 Kmm3 (0.0-0.4); Eosinophils % 0.9 % (0.1-12.0); Hematocrit 43.9 % (37.0-47.0); Hemoglobin 13.8 g/dL (12.2-16.2); Immature Granulocytes # 0.03 10^3uL; Immature Granulocytes % 0.5 %; Lymphocytes # 1.4 K/mm3 (0.7-4.5); Lymphocytes % 21.1 % (10-50); Mean Corpuscular HGB Conc 31.4 g/dL (31.8-35.4); Mean Corpuscular Hemoglobin 29.1 pg (27.0-31.2); Mean Corpuscular Volume 92.4 fl (81-99); Mean Platelet Volume 13.3 fl (7.4-10.4); Monocytes # 0.5 K/mm3 (0.1-1.0); Monocytes % 7.5 % (1.7-9.3); Neutrophils # 4.4 K/mm3 (1.8-7.8); Neutrophils % 69.5 % (37.0-80.0); Nucleated Red Blood Cells # 0 10^3/uL; Nucleated Red Blood Cells % 0 %; Red Blood Count 4.75 M/mm3 (4.20-5.40); Red Cell Distribution Width 14.6 % (11.5-17.5); White Blood Count 6.4 K/mm3 (4.8-10.8)
[2024-12-22 19:30] LABS: Platelet Count 93 K/mm3 (142-424)
== END 2024-12-22 23:59 | disposition home or self-care (01) ==
LOC: LAB.DROPOF 12-23 10:57
PROVIDERS: PCP Nurse Practitioner; Visit Provider Nurse Practitioner
DX: J06.9 Acute upper respiratory infection, unspecified (principal)
CPT/HCPCS: 85025; 87631

== ENCOUNTER 2025-03-08 11:14 | Outpatient (CLI) | payer MEDICARE, SELFPAY ==
--- OUTSIDE RECORDS SUMMARY | 2025-02-28 22:33 | XMS_ITS | Encounter Summary ---
Author Organization [place] [address] Care Team Providers Care Help Desk Rep Name Role Phone Theo Musa Primary Care Provider [phone] Bronson Raygoza MD Unavailable [phone] Reason for Referral * Vascular Imaging (Emergency) - Closed Specialty Diagnoses / Procedures Referred By Contac t Referred To Contact Radiology Diagnoses Cellulitis of right leg Procedures [facility] LOWER EXTREMITY VENOUS RIGHT Mu Stephens MD [address] [place] [phone] Phone: tel: fax: [facility] [address] [place] [address] Phone: tel: fax: Referral ID Status Reason Start Date Expiration Date Visits Re quested Visits Authorized [id number] Closed 02/28/2025 02/28/2027 1 1 Reason for Visit * Reason Comments Leg Swelling Right leg swelling & red. Started this afternoon. Encounter Details Date Type Department Care Team (Late st Contact Info) Description 02/28/2025 10:33 PM EDT - 02/28/2025 11:07 PM EDT Emergency [facility] Emergency [address] [place] [address] Mu Stephens MD [address] [facility] [address] Cellulitis of right leg (Primary Dx); History of poliomyelitis Discharge Disposition: Home or Self Care Social History Tobacco Use Types Packs/Day Years Used Date Smoking Tobacco: Never Smokeless Tobacco: Never Alcohol Use Standard Drinks/Week Comments No 0 (1 standard drink = 0.6 oz pur e alcohol) Overall Financial Resource Strain (CARDIA) Answe r Date Recorded How hard is it for you to pa y for the very basics like food, housing, medical care, and heating? Not hard at all 09/04/2021 Hunger Vital Sign Answer Date Recorded Within the past 12 months, y ou worried that your food would run out before you got the money to buy more. Never true 09/04/19 22 Within the past 12 months, t he food you bought just didn't last and you didn't have money to get more. Never true 09/04/2021 PRAPARE - Transportation Answer Date Re corded In the past 12 months, has l ack of transportation kept you from medical appointments or from getting medications? No 01/2022 In the past 12 months, has l ack of transportation kept you from meetings, work, or from getting things needed for daily living? No 09/04/2021 Sexually Active Control Partners Comments Never Comments No Sex and Gender Information Value Date Recorded Sex Assigned at Not on file Legal Sex Female 10:50 AM EDT Gender Identity Not on file Sexual Orientation Not on file Occupation Industry Job Start Date Job End Date Not on file Not on file Not on file Not on file documented as of this encounter Last Filed Vital Signs Vital Sign Reading Time Taken Comments Blood Pressure 155/79 02/28/2025 10:40 PM EDT Pulse 86 02/28/2025 10:29 PM EDT Temperature 35.9 C (96.7 F) 02/28/2025 10:29 PM EDT Respiratory Rate 16 02/28/2025 10:28 PM EDT Oxygen Saturation 100% 02/28/2025 11:00 PM EDT Inhaled Oxygen Concentration - - Weight 73.6 kg (162 lb 4.8 oz) 02/28/2025 10:29 PM EDT Height 160 cm (5' 3 ) 02/28/2025 10:29 PM EDT Body Mass Index 28.75 02/28/2025 10:29 PM EDT documented in this encounter Functional Status * Is the person deaf or does he/she have serious difficulty hearing? Answer Date of Assessment Author No 09/05/2021 2:18 PM Cherie Florez RN * Is the person blind or does he/she have serious difficulty seeing even when wearing glasses? Answer Date of Assessment Author No 09/05/2021 2:18 PM Cherie Florez RN * Does this person have serious difficulty walking or climbing stairs? Answer Date of Assessment Author Yes 09/05/2021 2:18 PM Cherie Florez RN * Does this person have difficulty dressing or bathing? Answer Date of Assessment Author Yes 09/05/2021 2:18 PM Cherie Florez RN * Because of a physical, mental or emotional condition, does this person have difficulty doing errands alone such as visiting a doctor's office or shopping? Answer Date of Assessment Author Yes 09/05/2021 2:18 PM Cherie Florez RN * Suicide Severity Rating Answer Date of Assessment Author No Risk 02/28/2025 10:34 PM EDT Rubén Mata, Validation Software Facilitator * Powell Suicide Severity Rating Scale (Q shift for moderate and high) Question Answer Date of Assessment Author 1. In the past month, have you wished you were or wished you could go to sleep and not wake up? 0 02/28/2025 10:34 PM EDT Pavan Mata Nur sing Student 2. In the past month, have you actually had any thoughts of killing yourself? (If no, skip to question 6) 0 02/28/2025 10:34 PM EDT Pavan Mata [employer] Student 6. Have you ever done anything, started to do anything, or prepared to do anything to end your life? 0 02/28/2025 10:34 PM EDT Stefano Mata, Validation Software Facilitator documented as of this encounter Mental Status * Because of a physical, mental or emotional condition, does this person have serious difficulty concentrating, remembering or making decisions? Answer Entry Date Author No 12/14/2018 1:39 PM EDT Jesi Kelsey RN documented in this encounter Discharge Instructions * Discharge Instructions* Mu Stephens MD - 02/28/2025 10:58 PM EDT You received an antibiotic injection for right leg cellulitis. Prescription antibiotic sent to pharmacy, take as directed. Next dose due in the morning Doppler study to look for possible DVT in your right leg ordered. Contact central scheduling to geta time slot. * Attachments The following attachments cannot be sent through Care Everywhere. * Cellulitis (skin infection) in adults ??? Discharge instructions (Cuban) documented in this encounter Medications at Time of Discharge albuterol (PROVENTIL HFA;VENTOLIN HFA) 90 mcg/actuation Inhl HFA Aerosol Inhaler 03/05/2022 alendronate (FOSAMAX) 70 mg Oral Tablet once a week. Take on Saturday's 06/23/2021 Bifidobacterium Infantis (ALIGN) 4 mg Oral CapsuleIndication s:Epigastric abdominal pain,Atrophic gastritis without hemorrhage,Passag e of loose stools Take 1 Capsule by mouth daily. 30 Capsule 2 09/23/2023 Biotin 5 mg Oral Capsule Take 5,000 Capsules by mouth. CALCIUM CITRATE/VITAMIN D3 (CITRACAL + D ORAL) Take 1 Tablet by mouth 2 times daily. Cholecalciferol, Vitamin D3, (VITAMIN D3) 125 mcg (5,000 unit) Oral Tablet Take 5,000 Units by mouth daily. cyanocobalamin 1,000 mcg tablet Take 1,000 mcg by mouth daily. cycloSPORINE (RESTASIS) 0.05 % Opht Dropperette Place 1 Drop into both eyes every 12 hours. docusate sodium (COLACE) 100 mg Oral Capsule Take 1 Capsule by mouth 2 times daily as needed for Constipation. 30 Capsule 09/04/2021 DULoxetine (CYMBALTA) 30 mg Oral Capsule, Delayed Release(E.C.) Take 1 Capsule by mouth daily. 90 Capsule 1 12/07/2024 guaiFENesin (MUCINEX) 600 mg Oral Tablet Extended Release 12hr Take 1,200 mg by mouth 2 times daily. ipratropium (ATROVENT) 42 mcg (0.06 %) Nasl [place], Non-AerosolIndica tions:Acute non-recurrent maxillary sinusitis 2 Sprays by Nasal route 4 times daily as needed for Rhinitis. 2 sprays each nostril 15 mL 04/24/2024 levoFLOXacin (LEVAQUIN) 500 mg Oral Tablet Take 500 mg by mouth every 24 hours. 04/16/2024 levothyroxine (SYNTHROID) 25 mcg tablet Take 25 mcg by mouth daily. lisinopril (PRINIVIL;ZESTRIL ) 20 mg tablet Take 20 mg by mouth daily. meclizine (ANTIVERT) 12.5 mg Oral Tablet Take 12.5 mg by mouth 2 times daily as needed. 02/28/2022 MULTIVITAMINS (MULTI-VITAMIN ORAL) Take 1 Tab by mouth daily. OMEGA-3 FATTY ACIDS/VITAMIN E (OMEGA-3 FISH OIL ORAL) Take 1,000 mg by mouth daily. pantoprazole (PROTONIX) 20 mg Oral Tablet, Delayed Release (E.C.) Take 20 mg by mouth 2 times daily. 07/25/2023 polyethylene glycol (GLYCOLAX, MIRALAX) 17 gram Oral Powder in Packet Take 2.9 g by mouth nightly. predniSONE (DELTASONE) 20 mg Oral Tablet TAKE 1 TABLET BY MOUTH TWICE DAILY FOR 5 DAYS. THEN TAKE 1 TABLET BY MOUTH ONCE DAILY FOR 5 DAYS. 06/24/2024 pregabalin (LYRICA) 50 mg Oral Capsule Take 50 mg by mouth 2 times daily. 05/14/2024 Psyllium Seed-Sucrose (METAMUCIL, SUGAR,) Oral Powder Take by mouth as needed. sucralfate (CARAFATE) 1 gram Oral Tablet Take 1 g by mouth Before every meal. 04/16/2024 tiZANidine (ZANAFLEX) 4 mg Oral Tablet Take 1 Tablet by mouth daily as needed for Muscle spasms. 90 Tablet 3 12/07/2024 triamcinolone acetonide (NASACORT ALLERGY NASL) by Nasal route daily. In am vitamin D3-folic acid 2,500 unit- 1 mg Oral Tablet Take 5,000 Int'l Units/L by mouth daily. doxycycline hyclate (VIBRA-TABS) 100 mg Oral Tablet Take 1 Tablet by mouth 2 times daily for 7 days. 14 Tablet 02/28/2025 5 documented as of this encounter Ordered Prescriptions Prescription Sig Dispense Quantity Refills Last Filled Start Date End Date doxycycline hyclate (VIBRA-TABS) 100 mg Oral Tablet Take 1 Tablet by mouth 2 times daily for 7 days. 14 Tablet 02/28/2025 03/07/2025 documented in this encounter Discharge Disposition Disposition Code Departure Means Destination Comment s Home or Self Group Home documented in this encounter ED Notes * Mu Stephens MD - 02/28/2025 10:27 PM EDT Images from the original note were not included. CHIEF COMPLAINT Chief Complaint Patient presents with Leg Swelling Right leg swelling & red. Started this afternoon. MEDICAL DECISION MAKING /PROBLEM LIST 1-right lower extremity cellulitis Bedside exam consistent with acute cellulitis of the right lower extremity. Strong pulses in the right foot noted. I am starting her on antibiotics for acute cellulitis. Rocephin IM injection given, prescription for doxycycline completed. No sign of sepsis related to cellulitis at this time 2-DVT? I am concerned about DVT of the right lower extremity. Evaluated during the late evening hours, no vascular lab staff available to complete Doppler study. I believe it can be done as an outpatient. Orders placed in epic. She is not having any chest pain or shortness of breath concerning for PE. 3-polio survivor HPI Darlene Hewitt is a 79 y.o. female. History from patient and EMR review Noted right leg redness for the past several days Slowly getting worse Can not recall any bite, scratch EXTR puncture wound Negative history of DVT Negative chest pain or shortness of breath over the last several days REVIEW OF SYSTEMS See HPI for pertinent ROS ROS otherwise negative. 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 Documented on 10/24/2021 by LISSETH ROTHMAN Thyroid disease FAMILY HISTORY Family History Problem Relation Age of Onset Arthritis Mother Heart Disease Mother High Blood Pressure Mother Hypertension Mother Arthritis Father Heart Disease Father High Blood Pressure Father Hypertension Father Hypertension Sister Arthritis Other Anesth Problems Neg Hx SOCIAL HISTORY Social History Socioeconomic History Marital status: Spouse name: Giancarlo Number of children: 0 Years of education: None Highest education level: None Occupational History Employer: [employer] Tobacco Use Smoking status: Never Smokeless tobacco: Never Vaping Use Vaping status: Never Used Substance and Sexual Activity Alcohol use: No Drug use: No Sexual activity: Never Social Drivers of Health Financial Resource Strain: Low Risk (09/04/2021) Overall Financial Resource Strain (CARDIA) Difficulty of Paying Living Expenses: Not hard at all Food Insecurity: No Food Insecurity (09/04/2021) Hunger Vital Sign Worried About Running Out of Food in the Last Year: Never true Ran Out of Food in the Last Year: Never true Transportation Needs: No Transportation Needs (09/04/2021) PRAPARE - Transportation Lack of Transportation (Medical): No Lack of Transportation (Non-Medical): No SURGICAL HISTORY Past Surgical History: Procedure Laterality Date CATARACT EXTRACTION W/ INTRAOCULAR LENS IMPLANT Right 08/26/2018 Dr. Puneet Madison CATARACT EXTRACTION W/ INTRAOCULAR LENS IMPLANT Right 09/02/2018 Dr. Puneet Madison CHOLECYSTECTOMY FOOT SURGERY x6 HAND SURGERY carpal tunnel right HARDWARE REMOVAL Right 09/01/2021 RIGHT TOTAL KNEE ARTHROPLASTY EXPLANT AND ANTIBIOTIC SPACER; Surgeon: Cristian Grossman MD; Location: [facility] OR; Service: Orthopedics HIP ARTHROPLASTY Left 12/11/2018 left hip total replacement anterior; Surgeon: Donnell Kim MD; Location: [facility] OR; Service: Orthopedics HIP SURGERY left pinning / pins removed KNEE SURGERY total knee replacement SHOULDER SURGERY x2 both shoulder rotator cuff TOENAIL EXCISION Right 04/22/2013 RIGHT GREAT TOE COMPLETE MATRIXECTOMY ; Surgeon: Romel Rutherford MD; Location: [facility]; Service: Orthopedics UPPER GASTROINTESTINAL ENDOSCOPY N/A 07/19/2021 Esophagogastroduodenoscopy with biopsy and control of bleeding; Surgeon: David Azar MD; Location: [facility]; Service: Endoscopy CURRENT MEDICATIONS No current facility-administered medications on file prior to encounter. Current Outpatient Medications on File Prior to Encounter Medication Sig Dispense Refill albuterol (PROVENTIL HFA;VENTOLIN HFA) 90 mcg/actuation Inhl HFA Aerosol Inhaler alendronate (FOSAMAX) 70 mg Oral Tablet once a week. Take on Bifidobacterium Infantis (ALIGN) 4 mg Oral Capsule Take 1 Capsule by mouth daily. 30 Capsule 2 Biotin 5 mg Oral Capsule Take 5,000 Capsules by mouth. CALCIUM CITRATE/VITAMIN D3 (CITRACAL + D ORAL) Take 1 Tablet by mouth 2 times daily. Cholecalciferol, Vitamin D3, (VITAMIN D3) 125 mcg (5,000 unit) Oral Tablet Take 5,000 Units by mouth daily. cyanocobalamin 1,000 mcg tablet Take 1,000 mcg by mouth daily. cycloSPORINE (RESTASIS) 0.05 % Opht Dropperette Place 1 Drop into both eyes every 12 hours. docusate sodium (COLACE) 100 mg Oral Capsule Take 1 Capsule by mouth 2 times daily as needed for Constipation. (Patient not taking: Reported on 12/07/2024) 30 Capsule 0 DULoxetine (CYMBALTA) 30 mg Oral Capsule, Delayed Release(E.C.) Take 1 Capsule by mouth daily. 90 Capsule 1 guaiFENesin (MUCINEX) 600 mg Oral Tablet Extended Release 12hr Take 1,200 mg by mouth 2 times daily. ipratropium (ATROVENT) 42 mcg (0.06 %) Nasl [place], Non-Aerosol 2 Sprays by Nasal route 4 times daily as needed for Rhinitis. 2 sprays each nostril 15 mL 0 levoFLOXacin (LEVAQUIN) 500 mg Oral Tablet Take 500 mg by mouth every 24 hours. (Patient not taking: Reported on 12/07/2024) levothyroxine (SYNTHROID) 25 mcg tablet Take 25 mcg by mouth daily. lisinopril (PRINIVIL;ZESTRIL) 20 mg tablet Take 20 mg by mouth daily. meclizine (ANTIVERT) 12.5 mg Oral Tablet Take 12.5 mg by mouth 2 times daily as needed. MULTIVITAMINS (MULTI-VITAMIN ORAL) Take 1 Tab by mouth daily. OMEGA-3 FATTY ACIDS/VITAMIN E (OMEGA-3 FISH OIL ORAL) Take 1,000 mg by mouth daily. pantoprazole (PROTONIX) 20 mg Oral Tablet, Delayed Release (E.C.) Take 20 mg by mouth 2 times daily. polyethylene glycol (GLYCOLAX, MIRALAX) 17 gram Oral Powder in Packet Take 2.9 g by mouth nightly. (Patient not taking: Reported on 12/07/2024) predniSONE (DELTASONE) 20 mg Oral Tablet TAKE 1 TABLET BY MOUTH TWICE DAILY FOR 5 DAYS. THEN TAKE 1TABLET BY MOUTH ONCE DAILY FOR 5 DAYS. (Patient not taking: Reported on 12/07/2024) pregabalin (LYRICA) 50 mg Oral Capsule Take 50 mg by mouth 2 times daily. (Patient not taking: Reported on 12/07/2024) Psyllium Seed-Sucrose (METAMUCIL, SUGAR,) Oral Powder Take by mouth as needed. sucralfate (CARAFATE) 1 gram Oral Tablet Take 1 g by mouth Before every meal. (Patient not taking: Reported on 12/07/2024) tiZANidine (ZANAFLEX) 4 mg Oral Tablet Take 1 Tablet by mouth daily as needed for Muscle spasms. 90Tablet 3 triamcinolone acetonide (NASACORT ALLERGY NASL) by Nasal route daily. In am vitamin D3-folic acid 2,500 unit- 1 mg Oral Tablet Take 5,000 Int'l Units/L by mouth daily. (Patient not taking: Reported on 12/07/2024) ALLERGIES Allergies Allergen Reactions Adhesive Other (See Comments) and Swelling Paper tape is acceptable Chocolate Flavor [place] Other (See Comments) Severe CUEVAS Erythromycin Guaifenesin Swelling Latex Rash Milk Penicillins Swelling and Other (See Comments) Edema of the hand, and erythema around injection site when patient was a child. Phenylpropanolamine Swelling Theobromine Other (See Comments) Severe CUEVAS Wheat Pseudoephedrine Nausea And Vomiting Savella [Milnacipran] Rash Skin reddness Skin reddness Sulfa (Sulfonamide Antibiotics) Rash Nausea Sulfasalazine Rash PHYSICAL EXAM VITAL SIGNS: ED Triage Vitals Temp 02/28/252228 96.7 ??F (35.9 ??C) Pulse 02/28/252227 92 Resp 02/28/252227 16 BP 02/28/252228 90/68 SpO2 02/28/252227 100 % Height 02/28/252228 5' 3 (1.6 m) Weight 02/28/252228 162 lb 4.8 oz (73.6 kg) Constitutional: Well-appearing, no acute distress HENT: Head: Normocephalic and atraumatic. Right Ear: External ear normal. Left Ear: External ear normal. Nose: Nose normal. Mouth/Throat: Oropharynx is clear and moist. Negative oropharyngeal exudate. Eyes: Conjunctivae and EOM are normal. Pupils are equal, round, and reactive to light. No scleral icterus. Neck: Normal range of motion. Neck supple. No JVD present. No tracheal deviation present. No thyromegaly present. Cardiovascular: Normal heart rate and rhythm, No murmurs, No rubs, No gallops. Normal pulses. Strong pulse in the right foot noted Pulmonary: Normal breath sounds, No respiratory distress, No wheezing, No chest tenderness. Abdominal: Normal abdomen exam, Bowel sounds normal, Soft, No tenderness, No masses, No pulsatile masses. No rebound or organomegly. Musculoskeletal: Right lower extremity below the knee noted to be erythematous and warm to touch. Negative Homans' sign. Negative visible abrasion, puncture wound or other skin injury noted to the right leg or right foot. Time spent inspecting the plantar surface of foot. Neuro: Alert and oriented x 3 All Cranial Nerves intact Fluent speech patern Symmetric 5/5 strength Nonfocal exam ED PROCEDURES DIAGNOSTIC STUDIES No results found for this visit on 02/28/25. ED MEDICATIONS Medications cefTRIAXone (ROCEPHIN) 1 g in lidocaine 10 mg/mL (1 %) 2.86 mL IM injection (1 g Intramuscular Given 02/28/25 9052) ED COURSE I reviewed the EMR for recent medical encounters including hospitalizations and office visits FINAL IMPRESSION 1. Cellulitis of right leg 2. History of poliomyelitis DISPOSITION Discharge DISCHARGE PRESCRIPTIONS : Venous Doppler right lower extremity rule out DVT Doxycycline Condition at Discharge/Transfer from Department: Improved CRITICAL CARE TIME NARXCARE report reviewed prior to completion of narcotic discharge prescription This chart was completed using voice recognition technology and may contain unintended errors Mu Stephens MD 03/02/25 0810 documented in this encounter Plan of Treatment Upcoming Encounters Date Type Department Care Team (Late st Contact Info) Description 03/10/2025 1:30 PM EDT Office Visit [facility] [address] [place] [id number] Lupe Church PA [address] [place] [address] [phone] 03/17/2025 9:45 AM EDT Office Visit [facility] [address] [place] [address] Bronson Raygoza MD [address] [place] [address] documented as of this encounter Results * [facility] LOWER EXTREMITY VENOUS RIGHT (03/02/2025 4:07 PM EDT) Anatomical Region Laterality Modality Vascular, Thigh, Leg Vascular Im aging 03/02/2025 3:46 PM EDT Impressions 03/02/2025 10:00 PM EDT Conclusions * No evidence of deep vein thrombosis identified in the right lower extremity. * No evidence of superficial vein thrombosis identified in the right lower extremity. * No evidence of thrombosis is noted in the contralateral left common femoral vein. Narrative Procedure Note Tuan Hoskins DO - 03/02/2025 IMPRESSION Conclusions * No evidence of deep vein thrombosis identified in the right lower extremity. * No evidence of superficial vein thrombosis identified in the rightlower extremity. * No evidence of thrombosis is noted in the contralateral left common femoral vein. Result [facility] Mu Stephens MD IMG VASCULAR ORDERABLES Rafaela caballero Result documented in this encounter Visit Diagnoses Diagnosis Cellulitis of right leg- Primary Cellulitis and abscess of leg, except foot History of poliomyelitis Personal history of poliomyelitis Cellulitis of right leg Cellulitis and abscess of leg, except foot documented in this encounter Administered Medications Inactive Administered Medications - up to 1 most recent administrations Medication Order MAR Action Action Date Dose Rate Site cefTRIAXone (ROCEPHIN) 1 g in lidocaine 10 mg/mL (1 %) 2.86 mL IM injection 1 g (rounded from 1,000 mg), Intramuscular, ONCE, 1 dose, On 02/28/25 at 2300, If using: - 250 mg vial - Reconstitute with 0.9 mL of lidocaine 1% for a final concentration of 250 mg/mL - 500 mg vial - Reconstitute with 1 mL of lidocaine 1% for a final concentration of 350 mg/mL - 1 g vial - Reconstitute with 2.1 mL of lidocaine 1% for a final concentration of 350 mg/mL, Reason for Therapy: Infection Documented, Indication: Skin/soft tissue Given 02/28/2025 11:02 PM EDT 1 g Left Ventral Gluteal documented in this encounter Active and Recently Administered Medications Times are shown in EDT. Scheduled Medication Order 02/26/2025 02/27/2025 02/28/2025 cefTRIAXone (ROCEPHIN) 1 g in lidocaine 10 mg/mL (1 %) 2.86 mL IM injection (COMPLETED) 1 g (rounded from 1,000 mg), Intramuscular, ONCE, 1 dose, On 02/28/25 at 2300, If using: - 250 mg vial - Reconstitute with 0.9 mL of lidocaine 1% for a final concentration of 250 mg/mL - 500 mg vial - Reconstitute with 1 mL of lidocaine 1% for a final concentration of 350 mg/mL - 1 g vial - Reconstitute with 2.1 mL of lidocaine 1% for a final concentration of 350 mg/mL, Reason for Therapy: Infection Documented, Indication: Skin/soft tissue 2302 (Given - Provid er: Scotty Baca RN) documented in this encounter Orders Medications Ordered That Juan J ht Not Have Been Administered Count Last Ordered Date First Ordered Date cefTRIAXone (ROCEPHIN) 1 g i n lidocaine 10 mg/mL (1 %) 2.86 mL IM injection 1 02/28/2025 documented in this encounter Care Teams Help Desk Rep Relationship Specialty Start Date End Date Theo Musa [address] [place] [address] [address] [place] [address] PCP - General 11/10/09 Bronson Raygoza MD [address] [place] [phone] Internal Medicine-Rheumatology 02/07/23 documented as of this encounter
--- OUTSIDE RECORDS SUMMARY | 2025-03-02 15:28 | XMS_ITS | Encounter Summary ---
Author Organization [place] [address] Care Team Providers Care Language Instructor Name Role Phone Theo Musa Primary Care Provider [phone] Bronson Raygoza MD Unavailable [phone] Reason for Referral * Vascular Imaging (Emergency) - Closed Specialty Diagnoses / Procedures Referred By Christy t Referred To Contact Radiology Diagnoses Cellulitis of right leg Procedures [facility] LOWER EXTREMITY VENOUS RIGHT Mu Stephens MD [address] [place] [address] [place] [address] Phone: tel: fax: [facility] [address] [place] [address] Phone: tel: fax: Referral ID Status Reason Start Date Expiration Date Visits Re quested Visits Authorized [id number] Closed 02/28/2025 02/28/2027 1 1 Reason for Visit * Vascular Imaging (Emergency) - Closed Specialty Diagnoses / Procedures Referred By Contmonster t Referred To Contact Radiology Diagnoses Cellulitis of right leg Procedures [facility] LOWER EXTREMITY VENOUS RIGHT Mu Stephens MD [address] [place] [address] [place] [address] Phone: tel: fax: [facility] [address] [place] [id number] Phone: tel: fax: Referral ID Status Reason Start Date Expiration Date Visits Re quested Visits Authorized [id number] Closed 02/28/2025 02/28/2027 1 1 Encounter Details Date Type Department Care Team (Latest Contact Info) Description 03/02/2025 3:28 PM EDT - 03/02/2025 11:59 PM EDT Hospital Encounter [facility] [address] [place] [phone] Mu Stephens MD [address] [place], [place] [address] Cellulitis of right leg Discharge Disposition: Home or Self Care Social [...] on file documented as of this encounter Functional Status * Is the [...] Yes 09/05/2021 2:18 PM Cherie Florez RN documented as of this encounter Mental Status * Because of a physical, mental or emotional condition, does this person have serious difficulty concentrating, remembering or making decisions? Answer Entry Date Author No 12/14/2018 1:39 PM RONNYT Jesi Kelsey RN documented in this encounter Medications at Time of Discharge albuterol (PROVENTIL HFA;VENTOLIN HFA) 90 mcg/actuation Inhl HFA Aerosol Inhaler 03/05/2022 alendronate (FOSAMAX) 70 mg Oral Tablet once a week. Take on Saturday'06/23/2021 Bifidobacterium Infantis (ALIGN) 4 mg Oral CapsuleIndication [...] ipratropium (ATROVENT) 42 mcg (0.06 %) Nasl [place], Non-AerosolIndica tions:Acute non-recurrent maxillary sinusitis 2 Sprays [...] daily for 7 days. 14 Tablet 02/28/2025 documented as of this encounter Discharge Disposition Disposition Code Departure Means Destination Home or Self Care documented in this encounter Plan of Treatment Upcoming Encounters Date Type Department Care Team (Late st Contact Info) Description 03/10/2025 1:30 PM EDT Office Visit [facility] [address] [id number] Lupe Church PA [address] [place] [address] [id number] 03/17/2025 9:45 AM EDT Office Visit [facility] [address] [place] [address] Bronson Raygoza MD [address] [place] [address] documented as of this encounter Procedures Procedure Name Priority Date/Time Associated Diagnosis Comments [facility] LOWER EXTREMITY VENOUS RIGHT STAT 03/02/2025 4:07 PM EDT Cellulitis of right leg documented in this encounter Results * [facility] LOWER EXTREMITY VENOUS RIGHT (03/02/2025 4:07 PM [...] common femoral vein. Narrative Procedure Note Tuan Hoskins, DO - 03/02/2025 IMPRESSION Conclusions * No evidence of deep vein thrombosis identified in the right lower extremity. * No evidence of superficial vein thrombosis identified in the rightlower extremity. * No evidence of thrombosis is noted in the contralateral left common femoral vein. Mu Stephens MD IMG VASCULAR ORDERABLES Rafaela federico Result documented in this encounter Visit Diagnoses Diagnosis Cellulitis of right leg Cellulitis and abscess of leg, except foot documented in this encounter Care Teams Language Instructor Relationship Specialty Start Date End Date Theo Musa [address] [place] [address] [address] [place] [address] PCP - General 11/10/09 Bronson Raygoza MD [address] [place] [address] Internal Medicine-Rheumatology 02/07/23 documented as of this encounter
[2025-03-08 15:13] LABS: Hematocrit 39.5 % (37.0-47.0); Hemoglobin 12.5 g/dL (12.2-16.2); Immature Granulocytes % 0.7 %; Mean Corpuscular HGB Conc 31.6 g/dL (31.8-35.4); Mean Corpuscular Hemoglobin 29.0 pg (27.0-31.2); Mean Corpuscular Volume 91.6 fl (81-99); Nucleated Red Blood Cells % 0 %; Platelet Count 101 K/mm3 (142-424); Red Blood Count 4.31 M/mm3 (4.20-5.40); Red Cell Distribution Width-SD 43.7 fL; White Blood Count 4.6 K/mm3 (4.8-10.8)
[2025-03-08 15:37] LABS: Chloride 104 mmol/L (98-107); Sodium 137 mmol/L (136-145)
[2025-03-08 15:38] LABS: Potassium 4.7 mmoL/L (3.5-5.1)
[2025-03-08 15:40] LABS: Blood Urea Nitrogen 25 mg/dl (7-17); Creatinine,Serum 0.80 mg/dl (0.52-1.04); Estimated Glomerular Filt Rate 69 ml/min (>60); GFR (African American) 84 ML/MIN (>60)
[2025-03-08 15:41] LABS: Anion Gap 9.7 mEq/L (5-15); Calcium 9.2 mg/dl (8.4-10.2); Carbon Dioxide 28 mmol/L (22.0-30.0); Glucose 92 mg/dl (74-100)
--- OUTSIDE RECORDS SUMMARY | 2025-03-09 10:52 | XMS_ITS | Encounter Summary ---
Author Organization [facility] Address [address] [place] [address] Care Team Providers Care Certified Master Safe Technician Name Role Phone Dimple Theo Kev Primary Care Provider [phone] Bronson Raygoza MD Unavailable [phone] Encounter Details Date Type Department Care Team (Late st Contact Info) Description 12/11/2024 Results Follow-Up [facility] [address] [place] [address] Bronson Raygoza MD [address] [place] [address] DX BONE DENSITY AXIAL SKELETON Social History Tobacco Use Types Packs/Day Years [...] Jesi Kelsey RN documented in this encounter Progress Notes * Bronson Raygoza MD - 12/11/2024 11:02 PM EDT Siddhartha Colon! I reviewed your DEXA results. Your bone density has declined a little since your previous bone denisty. However, you still do not have Osteoporosis, you have Osteopenia, which is good news. I will go over the results with you in more detail at your next visit. Hope you have a great day! -Dr. Simms documented in this encounter Plan of Treatment Upcoming Encounters Date Type Department Care Team (Late st Contact Info) Description 03/10/2025 1:30 PM EDT Office Visit [facility] [address] [address] Lupe Church PA [address] [place] [address] [id number] 03/17/2025 9:45 AM EDT Office Visit [facility] [address] [place] [address] Bronson Raygoza MD [address] [place] [address] documented as of this encounter Visit Diagnoses Not on filedocumented in this encounter Care Teams Certified Master Safe Technician Relationship Specialty Start Date End Date Theo Musa [address] [facility] [address] [place] [address] PCP - General 11/10/09 Bronson Raygoza MD [address] [place] [address] Internal Medicine-Rheumatology 02/07/23 documented as of this encounter
--- OUTSIDE RECORDS SUMMARY | 2025-03-09 10:52 | XMS_ITS | Encounter Summary ---
Author Organization [facility] [place] [address] Care Team Providers Care Application Analyst Name Role Phone Theo Musa Primary Care Provider [phone] Bronson Raygoza MD Unavailable [phone] Encounter Details Date Type Department Care Team (Latest Contact Info) Description 02/28/2025 Travel Social History Tobacco Use Types Packs/Day Years [...] Assessment Author No Risk 02/28/2025 10:34 PM Rubén Marsh, Shell Press Operator * [place] Suicide Severity Rating Scale (Q shift for moderate and high) Question Answer Date of Assessment Author 1. In the past month, have you wished you were or wished you could go to sleep and not wake up? 0 02/28/2025 10:34 PM Pavan Marsh Nur sing Student 2. In the past month, have you actually had any thoughts of killing yourself? (If no, skip to question 6) 0 02/28/2025 10:34 PM Pavan Marsh Nur sing Student 6. Have you ever done anything, started to do anything, or prepared to do anything to end your life? 0 02/28/2025 10:34 PM Stefano Marsh Shell Press Operator documented as of this encounter Mental Status * Because of a physical, mental or emotional condition, does this person have serious difficulty concentrating, remembering or making decisions? Answer Entry Date Author No 12/14/2018 1:39 PM EDT Jesi Kelsey RN documented in this encounter Plan of Treatment Upcoming Encounters Date Type Department Care Team (Late st Contact Info) Description 03/10/2025 1:30 PM EDT Office Visit [facility] [place] [address] [place] [address] Lupe Church PA [address] [place] [address] [phone] 03/17/2025 9:45 AM EDT Office Visit [facility] [address] [place] [address] Bronson Raygoza MD [address] [place] [address] documented as of this encounter Visit Diagnoses Not on filedocumented in this encounter Care Teams Application Analyst Relationship Specialty Start Date End Date Theo Musa [facility] [address] [place] [address] PCP - General 11/10/09 Bronson Raygoza MD [address] [place] [address] Internal Medicine-Rheumatology 02/07/23 documented as of this encounter
--- OUTSIDE RECORDS SUMMARY | 2025-03-09 10:52 | XMS_ITS | Encounter Summary ---
Author Organization [facility] Address [address] [place] [address] Care Team Providers Care Lugger Name Role Phone Theo Musa Primary Care Provider [phone] Bronson Raygoza MD Unavailable [phone] Encounter Details Date Type Department Care Team (Late st Contact Info) Description 12/11/2024 Results Follow-Up [facility] [address] [place] [address] Bronson Raygoza MD [address] [place] [address] XR HIP LEFT AP LATERAL W AP PELVIS Social History Tobacco Use Types Packs/Day Years [...] Notes * Bronson Raygoza MD - 12/11/2024 11:04 PM EDT Siddhartha Colon! I reviewed your Left Hip X-Ray results. The hip replacement looks to be in good shape, with no loosening, which is good news! Hope you have a great day! -Dr. Simms documented in this encounter Plan of Treatment Upcoming Encounters Date Type Department Care Team (Late st Contact Info) Description 03/10/2025 1:30 PM EDT Office Visit [facility] [place] [address] [place] [address] Lupe Church PA [address] [place] [address] [phone] 03/17/2025 9:45 AM EDT Office Visit [facility] [address] [place] [address] Bronson Raygoza MD [address] [place] [address] documented as of this encounter Visit Diagnoses Not on filedocumented in this encounter Care Teams Lugger Relationship Specialty Start Date End Date Theo Musa [address] [place] [address] PCP - General 11/10/09 Bronson Raygoza MD [address] [place] [address] Internal Medicine-Rheumatology 02/07/23 documented as of this encounter
--- OUTSIDE RECORDS SUMMARY | 2025-03-09 10:52 | XMS_ITS | Clinical Summary ---
Author Organization [facility] Address [address] [place] [address] Care Team Providers Care Bundles Hanger Name Role Phone Nonstaff, Referring MD Primary Care Provider [phone] Will Friedman MD Unavailable [phone] Cristian Grossman MD Unavailable [phone] Allergies Active Allergy Reactions Criticality Noted Date Comments Adhesive Medium 12/11/2018 Other reaction(s): Other (See Comments) Paper tape is acceptable Adhesive Tape-Silicones 12/20/2016 Irritates skin Can use paper tape Chocolate Flavor 04/16/2013 [place] Other (See Comments) 12/20/2016 Severe CUEVAS Erythromycin Diarrhea,Nausea Only Swelling Milk 04/16/2013 Milnacipran Rash Low 04/16/2013 Skin reddness Other 12/20/2016 Has had to have metal implants removed Penicillins Swelling 12/20/2016 Edema of the hand, and erythema around injection site when patient was a child. Pseudoephedrine Nausea And Vomiting Low 12/20/2016 Sulfa (Sulfonamide Antibiotics) Low Nausea Sulfasalazine Rash Low 12/20/2016 Theobromine 12/20/2016 Severe CUEVAS Wheat 04/16/2013 Wheat Containing Prod 12/20/2016 Nasal congestion Medications fexofenadine (MARIAN) 180 mg tablet Take 180 mg by mouth daily. Active lisinopril (PRINIVIL, ZESTRIL) 20 mg tablet Take 20 mg by mouth daily. Active venlafaxine (EFFEXOR) 75 mg tablet Take 75 mg by mouth daily. Active CALCIUM CARBONATE/VITAMI N D3 (CALCIUM 500 + D, D3, PO) Take by mouth. Active GLUCOSAMINE/EDD DR WERO PANTOJA (OSTEO BI-FLEX PO) Take by mouth daily. Active alendronate (FOSAMAX) 70 mg Tablet Take 70 mg by mouth every 7 days (once weekly). Active TIZANIDINE HCL (TIZANIDINE PO) Take 4 mg by mouth nightly. Active RESTASIS 0.05 % Dropperette 7 Active azelastine (ASTELIN) 137 mcg (0.1 %) Aerosol, [place] USE 2 SPRAYS IN EACH NOSTRIL TWICE A DAY 30 mL 7 9 Active Additional Information Patient taking differently: NIGHTLY, USE 2 SPRAYS IN EACH NOSTRIL TWICE A DAY, Reported on 05/26/2020 diclofenac (VOLTAREN) 75 mg EC tablet Take 75 mg by mouth daily. Active ciclesonide (Zetonna) 37 mcg/actuation HFA Aerosol Inhaler [place] 1 Puff into nose daily. 1 puff each nostril daily 3 Container 3 0 Active docosahexaenoic acid/epa (FISH OIL PO) Take by mouth. Activ e levothyroxine (SYNTHROID) 50 mcg tablet Take 50 mcg by mouth daily. Active CHOLECALCIFEROL, VITAMIN D3, PO Take 25 mcg by mouth. Active Guaifenesin (Mucinex) 1,200 mg Tablet Extended Release 12hr Take by mouth daily. Active multivitamin (THERAGRAN) Tablet Take 1 Tab by mouth daily. Active cyanocobalamin, vitamin B-12, (VITAMIN B12 PO) Take 2,500 mcg by mouth. Active docusate sodium (COLACE) 100 mg capsule Take 1 Cap (100 mg total) by mouth 3 times daily as needed for Constipation. 30 Cap 0 Active beclomethasone dipropionate (QNASL) 80 mcg/actuation HFA Aerosol InhalerIndicatio ns:Seasonal allergic rhinitis, unspecified trigger [place] 2 Sprays into nose daily. 1 Container 6 1 Active triamcinolone (NASACORT) 55 mcg Aerosol, SprayIndications :Seasonal allergic rhinitis, unspecified trigger [place] 2 Sprays into nose daily. 90 day supply 3 Inhaler 3 1 Active Active Problems Problem Noted Date Diagnosed Date Osteoarthritis of right knee 06/02/2020 Family History Medical History Relation Name Comments Stroke Father Heart Problems Mother Stroke Mother Anesthesia Complications Neg Hx Relation Name Status Comments Father Mother Social History Tobacco Use Types Packs/Day Years Used Date Smoking Tobacco: Never Smokeless Tobacco: Never Tobacco Cessation:Counseling Given: No Alcohol Use Standard Drinks/Week Comments Never 0 (1 standard drink = 0.6 oz pur e alcohol) AUDIT-C Answer Date Recorded Q1: How often do you have a drink containing alc ohol? Never 05/26/2020 Average Number of Drinks Not on file 020 Frequency of Binge Drinking Not on file 04/29 Comments No Sex and Gender Information Value Date Recorded Sex Assigned at Not on file Legal Sex Female 2:01 PM EST Gender Identity Not on file Sexual Orientation Not on file Last Filed Vital Signs Vital Sign Reading Time Taken Comments Blood Pressure 109/78 06/02/2020 4:47 PM EST Pulse 89 06/02/2020 4:47 PM EST Temperature 36.8 C (98.2 F) 06/02/2020 3:15 PM EST Respiratory Rate 16 06/02/2020 4:47 PM EST Oxygen Saturation 98% 06/02/2020 4:47 PM EST Inhaled Oxygen Concentration - - Weight 75 kg (165 lb 5.5 oz) 06/02/2020 9:19 AM EST Height 162.6 cm (5' 4 ) 06/02/2020 9:19 AM EST Body Mass Index 28.38 06/02/2020 9:19 AM EST Plan of Treatment Health Maintenance Due Date Last Done Comments Lipid Screening 1963 Tetanus Vaccination (Every 10 Years) 1962 Pneumococcal Vaccine: 50+ Ye ars (1 of 1 - PCV) 1994 Fall Risk Assessment 2009 Zoster-RZV(Shingrix) (2 of 2) 10/24/2018 08/29/2018 RSV Vaccines (1 - 1-dose 75+ series) 2019 COVID-19 Vaccine ( - season) 2024 Advance Care Planning 07/29/2024 Depression Screening 07/29/2024 Osteoporosis Screening 08/25/2024 08/25/2019 Influenza Vaccination (#1) 2025 03/29/2012, Influenza Vaccination (Yearly) Discontinued 03/29/2012 , 05/29/2007 Medical Devices Implanted Type Area Clinical Rehab Liaison Device Identifier Shelf Expiration Date Model / Serial / Lot [facility] [employer] Sz 3 - [id number] Implanted:Qty: 1 on 06/02/2020 by Cristian Grossman MD at [facility] Right: Knee * JAVIER \T\ NEPHEW 08/12/2027 [id number] / / [id number] Journey Ii Cruciate Retaining Cr Oxinium Fem Cmpnt Sz 4 Right - [id number] Implanted:Qty: 1 on 06/02/2020 by Cristian Grossman MD at [facility] Right: Knee * JAVIER \T\ NEPHEW 02/13/2030 [id number] / / [id number] Journey Ii Xlpe A/P 48mm,M/L 68mm Deep [facility] Articular Insert 9mm Size 3-4,Right - [id number] Implanted:Qty: 1 on 06/02/2020 by Cristian Grossman MD at [facility] Right: Knee * JAVIER \T\ NEPHEW 02/15/2030 [id number] / / [id number] Jrny Std 35mm 7.5mm Resfc Pat Compt - [id number] Implanted:Qty: 1 on 06/02/2020 by Cristian Grossman MD at [facility] Right: Knee * JAVIER \T\ NEPHEW 08/22/2028 [id number] / / [id number] Simplex Hv Full Dose Us - [id number] Implanted:Qty: 2 on 06/02/2020 by Cristian Grossman MD at [facility] Right: Knee * MEME 08/28/2021 [id number] / / [id number] Knee Sn Upchrg Jrny Ii Oxinium - [id number] Implanted:Qty: 1 on 06/02/2020 by Cristian Grossman MD at [facility] Right: Knee * HERRERA \T\ NEPHEW KNSNOXIN / / Knee Sn Upchrg Adv Pat - [id number] Implanted:Qty: 1 on 06/02/2020 by Cristian Grossman MD at [facility] Right: Knee * HERRERA \T\ NEPHEW KNSNADVPAT / / Knee Sn Cemented [employer] - [id number] Implanted:Qty: 1 on 06/02/2020 by Cristian Grossman MD at [facility] Right: Knee * HERRERA \T\ NEPHEW COURTNEYSDARNELLEMKIN / / Insurance [place] [id number] [facility] MEDICARE [facility] MEDICARE [place] [id number] Care Teams Bundles Hanger Relationship Specialty Start Date End Date RenaetaTay proctor MD [address] [facility] PCP - General 09/24/17 Will Friedman MD [address] [place] [address] [address] [place] [address] Otolaryngology 09/19/20 Cristian Grossman MD [address] [place] [address] Orthopedic Surgery 08/05/22
--- OUTSIDE RECORDS SUMMARY | 2025-03-09 10:52 | XMS_ITS | Encounter Summary ---
Author Organization [facility] [place] [address] Care Team Providers Care Assessment Clinician Name Role Phone Theo Musa Primary Care Provider Bronson Raygoza MD Unavailable [phone] Encounter Details Date Type Department Care Team (Latest Contact Info) Description 03/05/2025 Travel Social History Tobacco Use Types Packs/Day [...] 1:30 PM EDT Office Visit [facility] [address] [address] Lupe Church PA [address] [place] [address] 03/17/2025 9:45 AM EDT Office Visit [facility] [address] [place] [address] Bronson Raygoza MD [address] [place] [address] documented as of this encounter Visit Diagnoses Not on filedocumented in this encounter Care Teams Assessment Clinician Relationship Specialty Start Date End Date Theo Musa [address] [place] [address] PCP - General 11/10/09 Bronson Raygoza MD [address] [place] [address] Internal Medicine-Rheumatology 02/07/23 documented as of this encounter
--- OUTSIDE RECORDS SUMMARY | 2025-03-09 10:52 | XMS_ITS | Clinical Summary ---
Author Organization [facility] Address [address] [facility], [address] [place] [address] Care Team Providers Care Therapist Name Role Phone Shaun Musa MD Primary Care Provider [phone] Allergies Active Allergy Reactions Criticality Noted Date Comments Chocolate 12/20/2016 Severe CUEVAS Pseudoephedrine-Gg & Dm Nausea And Vomiting Low 12/20/2016 Other 12/20/2016 Has had to have metal implants removed Penicillins Swelling 12/20/2016 Milnacipran Rash Low 12/20/2016 Sulfa Antibiotics Rash Low 12/20/2016 Adhesive Tape 12/20/2016 Irritates skin Can use paper tape Wheat Extract 12/20/2016 Nasal congestion Medications lisinopril (PRINIVIL;ZESTR IL) 20 MG tablet Take 20 mg by mouth daily Active venlafaxine (EFFEXOR) 75 MG tablet Take 75 mg by mouth 3 times daily Active furosemide (LASIX) 20 MG tablet Take 20 mg by mouth 2 times daily Active fexofenadine (MARIAN ALLERGY) 180 MG tablet Take 180 mg by mouth daily Active Calcium Citrate (CITRACAL PO) Take 1 tablet by mouth 2 times daily Active tiZANidine (ZANAFLEX) 4 MG tablet Take 4 mg by mouth daily Take 1/2 tab daily Active Cholecalciferol (VITAMIN D3) 2000 UNITS CAPS Take 1,000 Units by mouth daily Active Sterling 3 1000 MG CAPS Take 1 capsule by mouth daily Active alendronate (FOSAMAX) 70 MG tablet Take 70 mg by mouth every 7 days Dose is 1500mg/70 mg Active Multiple Vitamins-Minera ls (OSTEO COMPLEX PO) Take 2 tablets by mouth daily Active levothyroxine (SYNTHROID) 25 MCG tablet Take 25 mcg by mouth Daily Active nitrofurantoin, macrocrystal-mo nohydrate, (MACROBID) 100 MG capsule TAKE 1 CAPSULE BY MOUTH EVERY 12 HOURS FOR 7 DAYS. TAKE WITH MEAL/FOOD 03/02/2024 Active pantoprazole (PROTONIX) 20 MG tablet Take 1 tablet by mouth 2 times daily 03/29/2023 Active PEG 8395-LDg-JhDir- NaCl-NaSulf (PEG-3350/ELECT ROLYTES) 236 g SOLR TAKE 4,000 ML BY MOUTH ONCE FOR 1 DOSE. 01/18/2024 Active guaiFENesin 1200 MG TB12 Take by mouth daily 02/28/2022 Active DULoxetine (CYMBALTA) 60 MG extended release capsule 01/16/2024 Act melissa docusate (COLACE, DULCOLAX) 100 MG CAPS Take 100 mg by mouth 2 times daily as needed 06/02/2020 Active triamcinolone (NASACORT) 55 MCG/ACT nasal inhaler 2 sprays by Nasal route daily 10/26/2020 Active Probiotic Product (ALIGN) 4 MG CAPS Take 1 capsule by mouth daily 09/23/2023 Active Family History Medical History Relation Name Comments Stroke Father Stroke Mother Relation Name Status Comments Father Mother Social History Tobacco Use Types Packs/Day Years Used Date Smoking Tobacco: Never Smokeless Tobacco: Never Tobacco Cessation:Counseling Given: Not Answered Alcohol Use Standard Drinks/Week Comments No 0 (1 standard drink = 0.6 oz pur e alcohol) Comments Unknown Sex and Gender Information Value Date Recorded Sex Assigned at Not on file Legal Sex Female 10:27 AM EDT Gender Identity Not on file Sexual Orientation Not on file Last Filed Vital Signs Vital Sign Reading Time Taken Comments Blood Pressure 117/62 12/20/2016 12:13 PM EDT Pulse 75 12/20/2016 12:13 PM EDT Temperature 36.8 C (98.3 F) 12/20/2016 12:17 PM EDT Respiratory Rate 18 12/20/2016 9:29 AM EDT Oxygen Saturation 96% 12/20/2016 12:13 PM EDT Inhaled Oxygen Concentration - - Weight 69.4 kg (153 lb) 04/09/2024 9:35 AM EDT Height 162.6 cm (5' 4 ) 04/09/2024 9:35 AM EDT Body Mass Index 26.26 04/09/2024 9:35 AM EDT Plan of Treatment Health Maintenance Due Date Last Done Comments Depression Screen 1957 Pneumococcal 50+ years Vaccine (1 of 1 - PCV) 1994 DTaP/Tdap/Td vaccine (1 - Tdap) 10/03/1996 10/02/1996 DEXA (modify frequency per FRAX score) 1999 Shingles vaccine (3 of 3) 10/24/2018 08/29/2018, Respiratory Syncytial Virus (RSV) or age 60 yrs+ (1 - 1-dose 75+ series) 2019 COVID-19 Vaccine ( season) 2024 05/30/2022, 05/29/2021, 10/17/2020, Additional history exists Annual Wellness Visit (Medicare Advantage) 07/29/2024 Flu vaccine (#1) 02/26/2025 05/03/2022, 05/2021, 04/14/2020, Additional history exists Hepatitis A vaccine Aged Out No longe r eligible based on patient's age to complete this topic Hepatitis B vaccine Aged Out No longe r eligible based on patient's age to complete this topic Hib vaccine Aged Out No longer eligi ble based on patient's age to complete this topic Meningococcal (ACWY) vaccine Aged Out No longer eligible based on patient's age to complete this topic Meningococcal B vaccine Aged Out No l onger eligible based on patient's age to complete this topic Polio vaccine Aged Out No longer elig ible based on patient's age to complete this topic Insurance [facility] [employer] Care Teams Therapist Relationship Specialty Start Date End Date Shaun Musa MD [facility] [address] [address] PCP - General 12/12/16
--- OUTSIDE RECORDS SUMMARY | 2025-03-09 10:52 | XMS_ITS | Clinical Summary ---
Author Organization [facility] Address [address] [place] [phone] Phone Care Team Providers Care Developer Designer Name Role Phone Unavailable Unavailable Conditions or Problems No information available. Medications No information available. Medications Administered No information available. Allergies, Adverse Reactions, Alerts No information available. Results No information available. Plan of Care No information available. Procedures No information available. Vital Signs No information available. Immunizations No information available. Advance Directives No information available.
--- OUTSIDE RECORDS SUMMARY | 2025-03-09 10:52 | XMS_ITS | Encounter Summary ---
Author Organization [facility] Address [address], [address] [place] [address] Care Team Providers Care Gate Tender Name Role Phone Shaun Musa MD Primary Care Provider [phone] Encounter Details Date Type Department Care Team (Late st Contact Info) Description 04/04/2021 Clinical Documentation [facility] [employer] Result, Unknown Provider Social History Tobacco Use Types Packs/Day Years Used Date Smoking Tobacco: Never Smokeless Tobacco: Never Alcohol Use Standard Drinks/Week Comments No 0 (1 standard drink = 0.6 oz pur e alcohol) Comments Unknown Sex and Gender Information Value Date Recorded Sex Assigned at Not on file Legal Sex Female 10:27 AM EDT Gender Identity Not on file Sexual Orientation Not on file documented as of this encounter Plan of Treatment Not on file documented as of this encounter Visit Diagnoses Not on filedocumented in this encounter Additional Health Concerns Assessment Noted Time A Body Mass Index follow-up plan has been documented for the patient 05/03/2020 10:43 AM EDT documented as of this encounter Care Teams Gate Tender Relationship Specialty Start Date End Date Shaun Musa MD [address] [place] [address] PCP - General 12/12/16 documented as of this encounter
--- OUTSIDE RECORDS SUMMARY | 2025-03-09 10:53 | XMS_ITS | Clinical Summary ---
Author Organization [facility] Address [facility] [place] [address] Care Team Providers Care Foxing Painter Name Role Phone Shaun Musa Primary Care Provider Anali lassiter Source Comments This information has been disclosed to you from confidential records protectedfrom disclosure by state law. You shall make no further disclosure of thisinformation without the specific, written, and informed release of theindividual to whom it pertains, or as otherwise permitted by law. A generalauthorization for the release of medical or other information is not sufficientfor the purposes of therelease of HIV test results or diagnoses. [id number] Active Problems Problem Noted Date Diagnosed Date Bicipital tenosynovitis 07/19/2009 Hypothyroidism 04/05/2009 Overview (04/28/2015): ICD-10 Transition Pure hypercholesterolemia 04/05/2009 Essential hypertension 04/05/2009 Overview (04/28/2015): ICD-10 Transition Allergic rhinitis due to pollen 04/05/2009 Esophageal reflux 04/05/2009 Myalgia and myositis 04/05/2009 Overview (04/28/2015): ICD-10 Transition Personal history of poliomyelitis 04/05/2009 Overview (11/16/2011): when 2 months old Rectocele 09/11/2006 Symptomatic menopausal or female climacteric sta estella 09/11/2006 Disorder of bone and cartilage 09/11/2006 Overview (04/28/2015): ICD-10 Transition Encounter for routine gynecological examination 09/11/2006 Overview (04/28/2015): ICD-10 Transition Immunizations Immunization Administration Dates Next Due Influenza, unspecified 05/29/2007 Social History Tobacco Use Types Packs/Day Years Used Date Smoking Tobacco: Never Assessed Comments Unknown Sex and Gender Information Value Date Recorded Sex Assigned at Not on file Legal Sex Female 4:13 PM EST Gender Identity Not on file Sexual Orientation Not on file Plan of Treatment Not on file Care Teams Foxing Painter Relationship Specialty Start Date End Date Shaun Musa PCP - General 08/21/06
--- OUTSIDE RECORDS SUMMARY | 2025-03-09 10:53 | XMS_ITS | Clinical Summary ---
Author Organization [facility] Address [address] [place] [address] Care Team Providers Care Store Host Name Role Phone AdiReshma Mendez PEDRAZA Primary Care Provider [phone] Social History Tobacco Use Types Packs/Day Years Used Date Smoking Tobacco: Never Assessed Comments Unknown Sex and Gender Information Value Date Recorded Sex Assigned at Not on file Legal Sex Female 1:44 PM EDT Gender Identity Not on file Sexual Orientation Not on file Last Filed Vital Signs Vital Sign Reading Time Taken Comments Blood Pressure 134/68 02/13/2023 4:59 PM EDT Pulse - - Temperature - - Respiratory Rate - - Oxygen Saturation - - Inhaled Oxygen Concentration - - Weight 72.1 kg (159 lb) 02/13/2023 4:59 PM EDT Height 160 cm (5' 3 ) 02/13/2023 4:59 PM EDT Body Mass Index 28.17 02/13/2023 4:59 PM EDT Plan of Treatment Health Maintenance Due Date Last Done Comments [facility]-Bone Density Scan 1944 [facility]-Depression Screening 1944 [facility]-Infant/Child/Adol SDOH Screenings 1944 [facility]- SDOH Screenings 1962 [facility]-Adult SDOH Screenings 1962 [facility]-Pneumococcal Vaccine: 50+ Years (1 of 1 - PCV) 1994 [facility]-DTaP,Tdap,and Td Vaccines (1 - Tdap) 10/03/1996 10/02/1996 [facility]-Zoster Vaccines (3 of 3) 10/24/2018 08/29/2018, 09/21/2009 [facility]-RSV Vaccine: 60+ Years or (1 - 1-dose 75+ series) 2019 DHN-WKJGY-24 Vaccine ( season) 2024 05/30/2022, 05/29/2021, 10/17/2020, Additional history exists [facility]-Influenza Vaccine (#1) 2025 05/08/2021 HPV Vaccines Aged Out No longer eligi ble based on patient's age to complete this topic [facility]-HIB Vaccines Aged Out No longer e ligible based on patient's age to complete this topic [facility]-Hepatitis A Vaccines Aged Out No longer eligible based on patient's age to complete this topic [facility]-IPV Vaccines Aged Out No longer e ligible based on patient's age to complete this topic [facility]-Rotavirus Vaccines Aged Out No lo nger eligible based on patient's age to complete this topic Insurance Care Teams Store Host Relationship Specialty Start Date End Date Reshma Joshi APRN [facility] [place] [address] PCP - General 02/14/23
--- OUTSIDE RECORDS SUMMARY | 2025-03-09 10:53 | XMS_ITS | Encounter Summary ---
Author Organization [place] [address] Care Team Providers Care Bar Steward Name Role Phone Theo Musa Primary Care Provider [phone] Bronson Raygoza MD Unavailable [phone] Encounter Details Date Type Department Care Team (Latest Contact Info) Description 09/20/2021 Lab Requisition [facility] [address] 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 No / Unsure 09/01/2021 11:57 AM EST documented as of this encounter Functional Status [...] PM EDT Office Visit [facility] [address] [facility] [place] [address] Lupe Church PA [address] [facility] [place], [place] [id number] 03/17/2025 9:45 AM EDT Office Visit [facility] [address] [place] [address] Bronson Raygoza MD [address] [place] [address] documented as of this encounter Procedures Procedure Name Priority Date/Time Associated Diagnosis Comments VANCOMYCIN LEVEL TROUGH Routine 09/20/2021 10:45 AM EST Other staphylococcus as the cause of diseases classified elsewhere documented in this encounter Results * (ABNORMAL) VANCOMYCIN LEVEL TROUGH (09/20/2021 10:45 AM EST) Vanco Tr 7.9(L) 10.0-<20.0 mcg/mL 09/20/2021 5:38 PM EST [facility] Blood VENOUS BLOOD / Unknown 09/20/2021 10:45 AM EST 09/20/2021 3:34 PM EST Narrative [facility] - 09/20/2021 5:38 PM EST Minimum serum concentration for infection control is 10 mcg/mL; a target therapeutic range of 15-20 mcg/mL is recommended for significant infections such as S. aureus. Toxicity does not correlate well with serum concentrations. Supratherapeutic levels are considered to be > 20 mcg/mL. 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
--- OUTSIDE RECORDS SUMMARY | 2025-03-09 10:53 | XMS_ITS | Encounter Summary ---
Author Organization [facility] [place] [address] Care Team Providers Care Inset Cutter Name Role Phone Theo Musa Primary Care Provider [phone] Bronson Raygoza MD Unavailable [phone] Encounter Details Date Type Department Care Team (Latest Contact Info) Description 09/18/2021 Lab Requisition [facility] [address] 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; Other staphylococcus as the cause of diseases classified elsewhere Social History Tobacco Use Types Packs/Day Years [...] PM EDT Office Visit [facility] [address] [place] [address] [place] [address] Lupe Church PA [address] [facility] [place], [place] [id number] 03/17/2025 9:45 AM EDT Office Visit [facility] [address] [place] [address] Bronson Raygoza MD [address] [place] [address] documented as of this encounter Procedures Procedure Name Priority Date/Time Associated Diagnosis Comments C-REACTIVE PROTEIN Routine 09/18/2021 10 :30 AM EST Infection and 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, initial encounter (HCC) snf (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 Other staphylococcus as the cause of diseases classified elsewhere VANCOMYCIN LEVEL TROUGH Routine 09/18/2021 10:30 AM EST Infection and 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, initial encounter (HCC) snf (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 Other staphylococcus as the cause of diseases classified elsewhere COMPREHENSIVE METABOLIC PANEL Routine 09/18/2021 10:30 AM EST Infection and 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, initial encounter (HCC) snf (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 Other staphylococcus as the cause of diseases classified elsewhere documented in this encounter Results * (ABNORMAL) COMPREHENSIVE METABOLIC PANEL (09/18/2021 10:30 AM EST) Sodium 144 136 - 145 mmol/L 09/18/2021 7:18 PM EST [facility] Potassium 4.1 3.5 - 5.0 mmol/L 09/18/2021 7:18 PM EST [facility] Chloride 108(H) 98 - 107 mmol/L 09/18/2021 7:18 PM EST [facility] Total CO2 20(L) 22 - 29 mmol/L 09/18/2021 7:18 PM EST [facility] Anion Gap 16 7 - 16 mmol/L 09/18/2021 7:18 PM EST [facility] Calcium 9.2 8.8 - 10.4 mg/dL 09/18/2021 7:18 PM EST [facility] Glucose Lvl 119(H) 82 - 100 mg/dL 09/18/2021 7:18 PM EST [facility] BUN 12 8 - 23 mg/dL 09/18/2021 7:18 PM EST [facility] Creatinine 0.77 0.51 - 1.30 mg/dL 09/18/2021 7:18 PM EST [facility] Albumin 3.9 3.2 - 4.6 gm/dL 09/18/2021 7:18 PM EST [facility] Total Protein 6.5 6.4 - 8.3 gm/dL 09/18/2021 7:18 PM EST [facility] Bili Total 0.2 0.1 - 1.3 mg/dL 09/18/2021 7:18 PM EST [facility] ALT 5 <=41 U/L 09/18/2021 7:18 PM EST [facility] AST 10 <=40 U/L 09/18/2021 7:18 PM EST [facility] Alk Phos 137(H) 36 - 123 U/L 09/18/2021 7:18 PM EST [facility] eGFR (CKD-EPIcr 2020) 79 >=60 mL/min/1.7 3 m2 09/18/2021 7:18 PM EST [facility] Comment:Estimated GFR was ca lculated using the CKD-EPIcr (2020) equation refit without race. The equation is recommended by the National Kidney [employer] - [employer] Neph[employer] Task Force. Blood VENOUS BLOOD / Unknown 09/18/2021 10:30 AM EST 09/18/2021 6:16 PM EST us Fior Armstrong MD CHEMISTRY ORDERABLES Fin al Result [facility] [address] [facility] , [address] [place] [id number] [facility] [address] [place] [id number] * (ABNORMAL) C-REACTIVE PROTEIN (09/18/2021 10:30 AM EST) CRP 89.21(H) <=5.00 mg/L 09/18/2021 7:18 PM EST [facility] Blood VENOUS BLOOD / Unknown 09/18/2021 10:30 AM EST 09/18/2021 6:16 PM EST Fior Armstrong MD CHEMISTRY ORDERABLES Fin al Result [facility] [id number] , [place] [address] * (ABNORMAL) VANCOMYCIN LEVEL TROUGH (09/18/2021 10:30 AM EST) Vanco Tr 33.0(HH) 10.0-<20.0 mcg/mL 09/18/2021 7:23 PM EST [facility] Blood VENOUS BLOOD / Unknown 09/18/2021 10:30 AM EST 09/18/2021 6:16 PM EST Narrative [facility] [facility] - 09/18/2021 7:23 PM EST Minimum serum concentration for infection control is 10 mcg/mL; a target therapeutic range of 15-20 mcg/mL is recommended for significant infections such as S. aureus. Toxicity does not correlate well with serum concentrations. Supratherapeutic levels are considered to be > 20 mcg/mL. 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
--- OUTSIDE RECORDS SUMMARY | 2025-03-09 10:53 | XMS_ITS | Clinical Summary ---
Author Organization [facility] Address [address] [place] [address] Phone Care Team Providers Care Top Loader Name Role Phone Theo Musa Primary Care Provider [phone] Dayna Raygoza MD Unavailable [phone] Allergies Active Allergy Reactions Criticality Noted Date Comments Adhesive Other (See Comments),Swellin g Medium 12/11/2018 Paper tape is acceptable Chocolate Flavor 04/16/2013 [place] Other (See Comments) 12/20/2016 Severe CUEVAS Erythromycin Guaifenesin Swelling 03/05/2022 Latex Rash 08/08/2021 Milk 04/16/2013 Penicillins Swelling,Other (See Comments) 06/04/2023 Edema of the hand, and erythema around injection site when patient was a child. Phenylpropanolamine Swelling 03/05/2022 Pseudoephedrine Nausea And Vomiting Low 12/20/2016 Milnacipran Rash Low 04/16/2013 Skin reddness Skin reddness Sulfa (Sulfonamide Antibiotics) Rash Low 12/20/2016 Nausea Sulfasalazine Rash Low 12/20/2016 Theobromine Other (See Comments) 12/20/2016 Severe CUEVAS Wheat 04/16/2013 Medications lisinopril (PRINIVIL;ZESTR IL) 20 mg tablet Take 20 mg by mouth daily. Active MULTIVITAMINS (MULTI-VITAMIN ORAL) Take 1 Tab by mouth daily. Active levothyroxine (SYNTHROID) 25 mcg tablet Take 25 mcg by mouth daily. Active CALCIUM CITRATE/VITAMIN D3 (CITRACAL + D ORAL) Take 1 Tablet by mouth 2 times daily. Active OMEGA-3 FATTY ACIDS/VITAMIN E (OMEGA-3 FISH OIL ORAL) Take 1,000 mg by mouth daily. Active cyanocobalamin 1,000 mcg tablet Take 1,000 mcg by mouth daily. Active triamcinolone acetonide (NASACORT ALLERGY NASL) by Nasal route daily. In am Active alendronate (FOSAMAX) 70 mg Oral Tablet once a week. Take on Saturday's 1 Active Biotin 5 mg Oral Capsule Take 5,000 Capsules by mouth. Active vitamin D3-folic acid 2,500 unit- 1 mg Oral Tablet Take 5,000 Int'l Units/L by mouth daily. Active docusate sodium (COLACE) 100 mg Oral Capsule Take 1 Capsule by mouth 2 times daily as needed for Constipation. 30 Capsule 2 Active Additional Information Patient not taking.Reason: Therapy Completed, Reported on 12/07/2024 albuterol (PROVENTIL HFA;VENTOLIN HFA) 90 mcg/actuation Inhl HFA Aerosol Inhaler 2 Active pantoprazole (PROTONIX) 20 mg Oral Tablet, Delayed Release (E.C.) Take 20 mg by mouth 2 times daily. 3 Active cycloSPORINE (RESTASIS) 0.05 % Opht [place] Place 1 Drop into both eyes every 12 hours. Active Bifidobacterium Infantis (ALIGN) 4 mg Oral CapsuleIndicati ons:Epigastric abdominal pain,Atrophic gastritis without hemorrhage,Pass age of loose stools Take 1 Capsule by mouth daily. 30 Capsule 2 4 Active meclizine (ANTIVERT) 12.5 mg Oral Tablet Take 12.5 mg by mouth 2 times daily as needed. 2 Active polyethylene glycol (GLYCOLAX, MIRALAX) 17 gram Oral Powder in Packet Take 2.9 g by mouth nightly. Active levoFLOXacin (LEVAQUIN) 500 mg Oral Tablet Take 500 mg by mouth every 24 hours. 4 Active sucralfate (CARAFATE) 1 gram Oral Tablet Take 1 g by mouth Before every meal. 4 Active ipratropium (ATROVENT) 42 mcg (0.06 %) Nasl [place], Non-AerosolIndi cations:Acute non-recurrent maxillary sinusitis 2 Sprays by Nasal route 4 times daily as needed for Rhinitis. 2 sprays each nostril 15 mL 4 Active pregabalin (LYRICA) 50 mg Oral Capsule Take 50 mg by mouth 2 times daily. 4 Active predniSONE (DELTASONE) 20 mg Oral Tablet TAKE 1 TABLET BY MOUTH TWICE DAILY FOR 5 DAYS. THEN TAKE 1 TABLET BY MOUTH ONCE DAILY FOR 5 DAYS. 4 Active Psyllium Seed-Sucrose (METAMUCIL, SUGAR,) Oral Powder Take by mouth as needed. Active Cholecalciferol , Vitamin D3, (VITAMIN D3) 125 mcg (5,000 unit) Oral Tablet Take 5,000 Units by mouth daily. Active guaiFENesin (MUCINEX) 600 mg Oral Tablet Extended Release 12hr Take 1,200 mg by mouth 2 times daily. Active DULoxetine (CYMBALTA) 30 mg Oral Capsule, Delayed Release(E.C.) Take 1 Capsule by mouth daily. 90 Capsule 1 5 Active tiZANidine (ZANAFLEX) 4 mg Oral Tablet Take 1 Tablet by mouth daily as needed for Muscle spasms. 90 Tablet 3 5 Active doxycycline hyclate (VIBRA-TABS) 100 mg Oral Tablet Take 1 Tablet by mouth 2 times daily for 7 days. 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 Overview (08/25/2021): Added automatically from request for surgery [id number] Allergic rhinitis due to pollen 04/05/2009 Esophageal reflux 04/05/2009 Personal history of poliomyelitis 04/05/2009 Overview (12/11/2018): Overview: when 2 months old Pure hypercholesterolemia 04/05/2009 Gastro-esophageal reflux disease without esophag itis 04/05/2009 Rectocele 09/11/2006 Essential hypertension Overview (12/11/2018): Overview: ICD-10 Transition Stomach disorder Arthritis Depression Hypothyroidism Overview (12/11/2018): Overview: ICD-10 Transition Osteopenia Resolved Problems Problem Noted Date Diagnosed Date Resolved Date Pneumonia due to COVID-19 virus 04/24/2024 04/24/2024 Staphylococcal arthritis, right knee 04/24/2024 04/24/2024 Overview (04/24/2024): Documented on 10/24/2021 by LISSETH ROTHMAN Infection and inflammatory r eaction due to internal right knee prosthesis, initial encounter 09/05/2021 04/24/2024 Epigastric abdominal pain 07/17/2021 Overview (07/17/2021): Added automatically from request for surgery [id number] Leukocytosis 07/12/2012 04/24/2024 Cellulitis of right leg 07/12/201203/30 Encounters Date Type Department Care Team Description 03/05/2025 Travel 03/02/2025 3:28 PM EDT - 03/02/2025 11:59 PM EDT Hospital Encounter [facility] [address] [place] [address] Mu Stephens MD Cellulitis of right leg Discharge Disposition: Home or Self Care 02/28/2025 10:33 PM EDT - 02/28/2025 11:07 PM EDT Emergency [facility] [address] [place] [address] Mu Stephens MD Cellulitis of right leg (Primary Dx); History of poliomyelitis Discharge Disposition: Home or Self Care 02/28/2025 Travel 12/11/2024 11:57 AM EDT - 12/11/2024 11:59 PM EDT Hospital Encounter [facility] [address] [place] [address] Left hip pain Discharge Disposition: Home or Self Care 12/11/2024 9:33 AM EDT - 12/11/2024 11:56 AM EDT Hospital Encounter [place] [facility] [address] [place] [address] Dayna Raygoza MD Age-related osteoporosis without current pathological fracture Discharge Disposition: Home or Self Care 12/11/2024 Results Follow-Up [facility] [address] [place] [address] Dayna Raygoza MD XR HIP LEFT AP LATERAL W AP PELVIS 12/11/2024 Abstract [facility] [address] [place] [address] Dayna Raygoza MD 12/11/2024 Results Follow-Up [facility] [address] [place] [address] Dayna Raygoza MD DX BONE DENSITY AXIAL SKELETON 12/07/2024 1:30 PM EDT Office Visit [facility] [address] [place] [address] Dayna Raygoza MD Cervical disc disease (Primary Dx); Degeneration of intervertebral disc of lumbar region with discogenic back pain; Fibromyalgia; High risk medication use; Left hip pain from Last 3 Months Immunizations Immunization Administration Dates Next Due Influenza High Dose 04/14/2020,04/07/2019,2017,04/02/2017 Influenza Patient Reported 03/29/2012,05/29/2007 Quadrivalent Influenza High Dose 05/08/2021 Td (Adult), Absorbed 10/02/1996 Zoster 09/21/2009 Zoster Recombinant 08/29/2018 Surgical History Surgery Date Site/Laterality Comments CHOLECYSTECTOMY FOOT SURGERY x6 HAND SURGERY carpal tunnel right TOENAIL EXCISION 04/22/2013 Foot/Right RIGHT GREAT TOE COMPLETE MATRIXECTOMY ; Surgeon: Romel Rutherford MD; Location: [facility]; Service: Orthopedics HIP SURGERY left pinning / pins removed SHOULDER SURGERY x2 both shoulder rotator cuff CATARACT EXTRACTION W/ INTRAOCULAR LENS IMPLANT 08/26/[address] Puneet [place] CATARACT EXTRACTION W/ INTRAOCULAR LENS IMPLANT 09/02/[address] Puneet [place] HIP ARTHROPLASTY 12/11/2018 Left left hip total replacement anterior; Surgeon: Donnell Kim MD; Location: [facility]; Service: Orthopedics Medical devices from this surgery are in the Medical Devices section. UPPER GASTROINTESTINAL ENDOSCOPY 07/19/2021 N/A Esophagogastroduodenoscopy with biopsy and control of bleeding; Surgeon: David Azar MD; Location: [facility]; Service: Endoscopy KNEE SURGERY total knee replacement HARDWARE REMOVAL 09/01/2021 Knee/Right RIGHT TOTAL KNEE ARTHROPLASTY EXPLANT AND ANTIBIOTIC SPACER; Surgeon: Cristian Grossman MD; Location: [facility]; Service: Orthopedics Medical devices from this surgery are in the Medical Devices section. 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 Hyperlipidemia Osteoarthritis Neuromuscular disorder (HCC) fib romyalgia Postoperative nausea and vomiting Osteoporosis Motion sickness Staphylococcal arthritis, ri ght knee (HCC) 04/24/2024 Documented on 10/24/2021 by LISSETH ROTHMAN Infection and inflammatory r eaction due to internal right knee prosthesis, initial encounter 09/05/2021 Shingles Family History Medical History Relation Name Comments Arthritis Father Heart Disease Father High Blood Pressure Father Hypertension Father Arthritis Mother Heart Disease Mother High Blood Pressure Mother Hypertension Mother Arthritis Other Hypertension Sister Anesth Problems Neg Hx Relation Name Status Comments Father Mother Other Sister Social History Tobacco Use Types Packs/Day Years [...] file Not on file Not on file Obstetrics History Para Term AB IAB SAB Ectopic Multiple Livin g Live Births 0 0 Last Filed Vital Signs Vital Sign Reading [...] Mass Index 28.75 02/28/2025 10:29 PM EDT Plan of Treatment Upcoming Encounters Date Type Department Care Team (Late st Contact Info) Description 03/10/2025 1:30 PM EDT Office Visit [facility] [address] [address] Lupe Church PA [address] [place] [id number] 03/17/2025 9:45 AM EDT Office Visit [facility] [address] [place] [address] Dayna Raygoza MD [address] [place] [address] Health Maintenance Due Date Last Done Comments Wellness Exam Medicare 1948 Pneumococcal Vaccine 50+ (1 of 1 - PCV) 1994 DTaP/TDaP/Td (1 - Tdap) 10/03/1996 10/02/1996 Zoster (3 of 3) 10/24/2018 08/29/2018, 09/21/2009 RSV or 60+ (1 - 1-dose 75+ series) 2019 COVID-19 Vaccine ( season) 2024 05/30/2022, 05/29/2021, 10/17/2020, Additional history exists Influenza Vaccine (#1) 2025 4, 05/03/2022, 05/08/2021, Additional history exists Colonoscopy Discontinued 01/23/2024 Bone Density Screening Completed 5, 12/03/2020, 08/25/2019, Additional history exists Hepatitis B Vaccine Aged Out No longe r eligible based on patient's age to complete this topic Meningococcal B Vaccine Aged Out No l onger eligible based on patient's age to complete this topic Medical Devices Implanted Type Area Health Administrator Device Identifier Shelf Expiration Date Model / Serial / Lot Hardware Right: Knee Shell Acetabular Trident Ii Tritanium D 50mm Screwhole Clust - [id number] Implanted:Qty: 1 on 12/11/2018 by Donnell Kim MD at [facility] Left: Hip [facility] 07/30/2023 [id number] / / [id number] Insert Trident X 3 0 Degree 36mm D - [id number] Implanted:Qty: 1 on 12/11/2018 by Donnell Kim MD at [facility] Left: Hip EMME:[facility] 09/04/2023 623-00-36D / / [id number] 6.5mm Low Profile Hex Screw 30mm - [id number] Implanted:Qty: 1 on 12/11/2018 by Donnell Kim MD at [facility] Left: Hip [facility]E:[facility] 11/02/2023 [id number] / / [id number] Screw Trident Ii Hex Low Profile 6.5mm X 25mm - [id number] Implanted:Qty: 1 on 12/11/2018 by Donnell Kim MD at [facility] Left: Hip [facility] 10/20/2023 [id number] / / [id number] Stem Hip Angle Neck 132 Degree V40 Accolade Ii Sz #3 30mm Neck 102mm Stem - [id number] Implanted:Qty: 1 on 12/11/2018 by Donnell Kim MD at [facility] Left: Hip [facility] 04/10/2022 [id number] / / [id number] Head Fem +0mm Ofst Tpr 36mm Hip Blx D V40 Strl - [id number] Implanted:Qty: 1 on 12/11/2018 by Donnell Kim MD at [facility] Left: Hip [facility] 01/08/2022 6570-0-136 / / [id number] Pin Speed Non Rim 65 Mm Sterile - [id number] Implanted:Qty: 1 on 09/01/2021 by Cristian Grossman MD at [facility] Right: Knee [employer]:ORTH[facility] [id number] 06/13/2031 [id number] / / [id number] Legion Ps Oxin Fem Sz3 Rt - [id number] Implanted:Qty: 1 on 09/01/2021 by Cristian Grossman MD at [facility] Right: Knee [employer] 04/06/2027 [id number] / / [id number] Pros Patella Gns Ii Sz 3 - [id number] Implanted:Qty: 1 on 09/01/2021 by Cristian Grossman MD at [facility] Right: Knee [employer]:OR[employer] 04/10/2031 [id number] / / [id number] Gii Cm Tib Size 2 {} Right - [id number] Implanted:Qty: 1 on 09/01/2021 by Cristian Grossman MD at [facility] Right: Knee [employer] 01/22/2031 [id number] / / [id number] G2 Const Insrt Sz1-2 25mm - [id number] Implanted:Qty: 1 on 09/01/2021 by Cristian Grossman MD at [facility] Right: Knee [employer]:ORTH[employer] 04/21/2028 [id number] / / [id number] Cement Simplx Hv 20ml 40gm Gent Antbtc Bn Pwdr - [id number] Implanted:Qty: 2 on 09/01/2021 by Cristian Grossman MD at [facility] Right: Knee MEME 12/26/2022 [id number] / / [id number] Pin Speed Rim 45mm Sterile - [id number] Implanted:Qty: 1 on 09/01/2021 by Cristian Grossman MD at [facility] Right: Knee [employer]:ORTHO [id number] 05/30/2031 [id number] / / [id number] Procedures Procedure Name Priority Date/Time Associated Diagnosis Comments [facility] LOWER EXTREMITY VENOUS RIGHT STAT 03/02/2025 4:07 PM EDT Cellulitis of right leg XR HIP LEFT AP LATERAL W AP PELVIS Routine 12/11/2024 12:02 PM EDT Left hip pain DX BONE DENSITY AXIAL SKELETON Routine 12/11/2024 10:13 AM EDT Age-related osteoporosis without current pathological fracture COLONOSCOPY Routine 01/23/2024 8:37 AM EDT Constipation, chronic Rectal pain from Last 3 Months or Most Recently Relevant to Health Maintenance Results * [facility] LOWER EXTREMITY VENOUS RIGHT (03/02/2025 4:07 [...] left common femoral vein. Mu Stephens MD [facility] ORDERABLES Rafaela l Result * XR HIP LEFT AP LATERAL W AP PELVIS (12/11/2024 12:02 PM EDT) Anatomical Region Laterality Modality Hip Radiographic Tiki ging 12/11/2024 12:0 2 PM EDT Impressions 12/11/2024 1:07 PM EDT No acute osseous findings. Narrative 12/11/2024 1:07 PM EDT XR HIP LEFT AP LATERAL W AP PELVIS, 12/11/2024 12:02 PM CLINICAL HISTORY: M25.552-Pain in left [id number]-32-CM COMPARISON: 09/09/2023. PROCEDURE COMMENTS: AP view of the pelvis with AP and frog-leg views of the hip. FINDINGS: There was previous left total hip arthroplasty. The femoral stem tip is slightly angled medially without periprosthetic osteolysis. No fracture is evident. Procedure Note Satish Brar MD - 12/11/2024 XR HIP LEFT AP LATERAL W AP PELVIS, 12/11/2024 12:02 PM CLINICAL HISTORY: M25.552-Pain in left upf-LRQ-24-[id number] COMPARISON: 09/09/2023. PROCEDURE COMMENTS: AP view of the pelvis with AP and frog-leg views ofthe hip. FINDINGS: There was previous left total hip arthroplasty. The femoral stem tip isslightly angled medially without periprosthetic osteolysis. No fracture isevident. IMPRESSION: No acute osseous findings. Dayna Raygoza MD [facility] NG ORDERABLES Final Result * DX BONE DENSITY AXIAL SKELETON (12/11/2024 10:13 AM EDT) Anatomical Region Laterality Modality Dexa Scan 12/11/2024 Impressions 12/11/2024 11:54 AM EDT Indication: The patient is a female age 65 or older who requires a bone density assessment. Study was performed on [employer] 5. Bone Density: Region BMD T-score Z-score Femoral Neck (Right) 0.623 -2.0 0.3 Total Hip (Right) 0.761 -1.5 0.6 1/3 Radius (Left) 0.634 -1.0 2.2 World Health Organization criteria for BMD interpretation classify patients as: Normal (T-score at or above -1.0), Low Bone Density (T-score between -1.0 and -2.5), or Osteoporotic (T-score at or below -2.5). T Scores are reported in Postmenopausal women and in men age 50 and older. Z-scores are reported in females prior to menopause and in males younger than age 50. 10-year Fracture Risk: FRAX not reported because: Prior hip or vertebral fracture Previous Exams: Region Date Age BMD T-score BMD Change Total Hip(Right) 12/11/2024 79 0.761 -1.5 -3.0%* 12/03/2020 75 0.784 -1.3 -3.3%* 08/25/2019 74 0.811 -1.1 2.0% 07/05/2014 69 0.795 -1.2 2.1% 05/01/2012 67 0.779 -1.3 1/3 Forearm(Left) 12/11/2024 79 0.634 -1.0 -7.4%* 12/03/2020 75 0.685 -0.2 1.0% 08/25/2019 74 0.678 -0.3 4.6%* 07/05/2014 69 0.648 -0.8 -2.9% 05/01/2012 67 0.667 -0.4 *Denotes significance at 95% confidence level, LSC for AP Spine = 0.032g/cm2, LSC for Total Hip = 0.024 g/cm2, LSC for Distal 1/3 Radius = 0.026 g/cm2, site specific LSC for Total Hip = 0.022 g/cm2, site specific LSC for 1/3 Forearm = 0.026 g/cm2 BMD is shown in g/cm2 and BMD Change indicates change vs previous BMD Clinical Information Provided by Patient: Have had a previous hip or vertebral fracture Has had a low trauma fracture Has used or is currently using the following medications: Calcium, Vitamin D, Thyroid medication Has had or currently has the following medical conditions: Back pain, Hip pain Patient maximum height was 63 Menopause Age: 52 Patient is Postmenopausal Woman Priors 06,12,14,20,21 Interpretation: Bone mineral density is in the low bone density range. A minimum of two years may be required between bone density studies due to inherent testing precision limitations. Intervals between BMD testing should be determined according to each patient's clinical status: typically one year after initiation or change of therapy is appropriate, with longer intervals once therapeutic effect is established. The spine portion of the study is omitted due to scoliosis within the region of interest. The right hip bone mineral density is significantly decreased since the last exam. Although not approved for monitoring therapy the forearm bone mineral density is significantly decreased since the last exam. Reported by: Erum Cabrera PA-C, CCD on 12/11/2024 10:20:00 AM. us Dayna Raygoza MD [facility] DEXA ORDERABLES Final Result * COLONOSCOPY (01/23/2024 8:37 AM EDT) Anatomical Region Laterality Modality Endoscopy Narrative 01/23/2024 8:38 AM EDT Table formatting from the original result was not included. Findings Multiple medium, scattered diverticula of moderate severity with no inflammation in the descending colon and sigmoid colon; no bleeding was identified One 10 mm sessile and benign-appearing polyp in the ascending colon; no bleeding was identified; performed cold snare with complete piecemeal removal; performed hot snare with complete en bloc removal and retrieved specimen Internal small hemorrhoids observed during retroflexion; no bleeding was identified Recommendation Await pathology results Recommend a high fiber diet. Follow up with PCP Pre-Procedure Diagnosis / Indication Rectal pain Change in bowel habit Post-Procedure Diagnosis Colon polyp Colonic diverticulosis Staff Staff Role Shereen Mcclelland RN News Agent David Azar MD Performing Provider Shauna Retana RN Endoscopy Nurse Shawnee Santiago MD Anesthesiologist Jodie Alejandro, SHARRI MANAGER OF SELECTION AND ASSESSMENT Medications See Anesthesia Record. Preprocedure A history and physical has been performed, and patient medication allergies have been reviewed. The patient's tolerance of previous anesthesia has been reviewed. The risks and benefits of the procedure and the sedation options and risks were discussed with the patient. All questions were answered and informed consent obtained. ASA 3 - Patient with severe systemic disease Details of the Procedure The patient underwent monitored anesthesia care, which was administered by an anesthesia professional. The patient's blood pressure, heart rate, level of consciousness, oxygen, respirations, ECG and ETCO2 were monitored throughout the procedure. A digital rectal exam was performed. The scope was introduced through the anus and advanced to the cecum. Retroflexion was performed in the rectum. Bowel prep was adequate. The patient's estimated blood loss was minimal (<5 mL). The procedure was not difficult. The patient tolerated the procedure well. There were no apparent adverse events. Patient provided education and educated on specific discharge instructions. Patient educated on medications given during the procedure and new medications for discharge. Patient verbalizes understanding of discharge education. Patient stable and awaiting transport for discharge. Events Procedure Events Event Event Time ENDO SCOPE IN TIME 01/23/2024 8:17 AM ENDO CECUM REACHED 01/23/2024 8:22 AM ENDO SCOPE OUT TIME 01/23/2024 8:35 AM Specimens ID Type Source Tests Collected by Time 1 : Gastric antrum biopsies via forceps Tissue Gastric PATHOLOGY TISSUE REQUEST David Azar MD 01/23/2024 0804 2 : gastric polypectomy via forceps Tissue Gastric PATHOLOGY TISSUE REQUEST David Azar MD 01/23/2024 0806 3 : gastric body biopsies via forceps Tissue Gastric PATHOLOGY TISSUE REQUEST David Azar MD 01/23/2024 0807 4 : gastric incisura biopsies via forceps Tissue Gastric PATHOLOGY TISSUE REQUEST David Azar MD 01/23/2024 0809 5 : ascending colon polypectomy via hot snare and cold snare Tissue Large Intestine, Right/Ascending Colon PATHOLOGY TISSUE REQUEST David Azar MD 01/23/2024 0830 Anesthesia Event Time In Patient In - Proc. Room 07:47 AM David Azar MD ENDOSCOPY PROCEDURE ORDERAB LES Final Result from Last 3 Months or Most Recently Relevant to Health Maintenance Insurance MEDICARE PPO MR [employer] MEDICARE PPO MR MEDICARE PPO MR MEDICARE PPO MR [employer] MEDICARE PPO MR Advance Directives For more information, please contact: [phone] * Full Code (Latest Code Status on File) Date Activated Date Inactivated Comments 09/02/2021 4:48 AM 09/05/2021 8:26 PM * Full Code Date Activated Date Inactivated Comments 12/11/2018 3:49 PM 12/14/2018 8:12 PM Care Teams Top Loader Relationship Specialty Start Date End Date Theo Musa [facility] [address] [place] [address] PCP - General 11/10/09 Dayna Raygoza MD [address] [place] [id number] Internal Medicine-Rheumatology 02/07/23
--- OUTSIDE RECORDS SUMMARY | 2025-03-09 10:53 | XMS_ITS | Encounter Summary ---
Author Organization [place] [address] Care Team Providers Care Water System Operator Name Role Phone Theo Musa Primary Care Provider [phone] Bronson Raygoza MD Unavailable [phone] Encounter Details Date Type Department Care Team (Latest Contact Info) Description 10/02/2021 Lab Requisition [facility] [address] 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; Other staphylococcus as [...] 1:30 PM EDT Office Visit [facility] [address] [address] Lupe Church, ABRAHAM [address] [place] [address] [place] [address] 03/17/2025 9:45 AM EDT Office Visit [facility] [address] [place] [address] Bronson Raygzoa MD [address] [place] [address] documented as of this encounter Procedures Procedure Name Priority Date/Time Associated Diagnosis Comments EXTRA GOLD SST Routine 10/02/2021 10:23 AM EST Infection and 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, initial encounter (HCC) prison (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 Other staphylococcus as the cause of diseases classified elsewhere SEDIMENTATION RATE AUTOMATED Routine 10/02/2021 10:23 AM EST Infection and 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, initial encounter (HCC) 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 care 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 Other staphylococcus as the cause of diseases classified elsewhere CBC WITH DIFF Routine 10/02/2021 10:23 AM EST Infection and 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, initial encounter (HCC) 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 care 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 Other staphylococcus as the cause of diseases classified elsewhere C-REACTIVE PROTEIN Routine 10/02/2021 10 :23 AM EST Infection and 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, initial encounter (HCC) 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 term care 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 Other staphylococcus as the cause of diseases classified elsewhere VANCOMYCIN LEVEL TROUGH Routine 10/02/2021 10:23 AM EST Infection and 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, initial encounter (HCC) 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 care 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 Other staphylococcus as the cause of diseases classified elsewhere COMPREHENSIVE METABOLIC PANEL Routine 10/02/2021 10:23 AM EST Infection and 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, initial encounter (HCC) prison (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 Other staphylococcus as the cause of diseases classified elsewhere documented in this encounter Results * EXTRA GOLD SST (10/02/2021 10:23 AM EST) Blood VENOUS BLOOD / Unknown 10/02/2021 10:23 AM EST 10/02/2021 6:30 PM EST us Fior Armstrong MD CHEMISTRY ORDERABLES [place] [address] * (ABNORMAL) COMPREHENSIVE METABOLIC PANEL (10/02/2021 10:23 AM EST) Sodium 141 136 - 145 mmol/L 10/02/2021 8:25 PM EST [facility] Potassium 4.0 3.5 - 5.0 mmol/L 10/02/2021 8:25 PM EST [facility] Chloride 107 98 - 107 mmol/L 10/02/2021 8:25 PM EST [facility] Total CO2 22 22 - 29 mmol/L 10/02/2021 8:25 PM EST [facility] Anion Gap 12 7 - 16 mmol/L 10/02/2021 8:25 PM EST [facility] Calcium 9.5 8.8 - 10.4 mg/dL 10/02/2021 8:25 PM EST [facility] Glucose Lvl 170(H) 82 - 100 mg/dL 10/02/2021 8:25 PM EST [facility] BUN 17 8 - 23 mg/dL 10/02/2021 8:25 PM EST [facility] Creatinine 0.77 0.51 - 1.30 mg/dL 10/02/2021 8:25 PM EST [facility] Albumin 3.9 3.2 - 4.6 gm/dL 10/02/2021 8:25 PM EST [facility] Total Protein 6.5 6.4 - 8.3 gm/dL 10/02/2021 8:25 PM EST [facility] Bili Total 0.2 0.1 - 1.3 mg/dL 10/02/2021 8:25 PM EST [facility] ALT 11 <=41 U/L 10/02/2021 8:25 PM EST [facility] AST 16 <=40 U/L 10/02/2021 8:25 PM EST [facility] Alk Phos 101 36 - 123 U/L 10/02/2021 8:25 PM EST [facility] [employer], [facility] eGFR (CKD-EPIcr 2020) 79 >=60 mL/min/1.7 3 m2 10/02/2021 8:25 PM EST [facility] Comment:Estimated GFR was ca lculated using the CKD-EPIcr (2020) equation refit without race. The equation is recommended by the National Kidney Foundation - [place] [employer] of Nephrology Task Force. Blood VENOUS BLOOD / Unknown 10/02/2021 10:23 AM EST 10/02/2021 6:30 PM EST Fior Armstrong MD CHEMISTRY ORDERABLES Fin al Result Performing Organization Address [facility] de Phone Number [facility] [employer], [place] [address] [facility] [address] [place] [address] * VANCOMYCIN LEVEL TROUGH (10/02/2021 10:23 AM EST) Vanco Tr 13.0 10.0-<20.0 mcg/mL 10/02/2021 8:31 PM EST [facility] [employer], [facility] Blood VENOUS BLOOD / Unknown 10/02/2021 10:23 AM EST 10/02/2021 6:30 PM EST Narrative [facility] - 10/02/2021 8:31 PM EST Minimum serum concentration for infection control is 10 mcg/mL; a target therapeutic range of 15-20 mcg/mL is recommended for significant infections such as S. aureus. Toxicity does not correlate well with serum concentrations. Supratherapeutic levels are considered to be > 20 mcg/mL. Fior Armstrong MD CHEMISTRY ORDERABLES Fin al Result Performing Organization Address [facility] Co de Phone Number [facility] [employer] , [place] [address] * C-REACTIVE PROTEIN (10/02/2021 10:23 AM EST) [facility] CRP <3.00 <=5.00 mg/L 10/02/2021 8:27 PM EST [facility] Blood VENOUS BLOOD / Unknown 10/02/2021 10:23 AM EST 10/02/2021 6:30 PM EST Fior Armstrong MD CHEMISTRY ORDERABLES Fin al Result Performing Organization Address City/[facility]/ZIP Co de Phone Number [facility] [address] [facility], [place] [address] * SEDIMENTATION RATE AUTOMATED (10/02/2021 10:23 AM EST) [facility] Sed Rate 25 0 - 30 mm/hr 10/02/2021 7:28 PM EST [facility] Blood VENOUS BLOOD / Unknown 10/02/2021 10:23 AM EST 10/02/2021 6:30 PM EST Fior Armstrong MD HEMATOLOGY ORDERABLES Fi nal Result Performing Organization Address [facility] [place] [address] * (ABNORMAL) CBC WITH DIFF (10/02/2021 10:23 AM EST) [facility] WBC 4.8 3.7 - 10.3 x10(3)/mcL 10/02/2021 7:12 PM EST [facility] RBC 4.20 3.90 - 5.20 x10(6)/mcL 10/02/2021 7:12 PM EST [facility] Hgb 9.6(L) 11.2 - 15.7 g/dL 10/02/2021 7:12 PM EST [facility] Hct 32.6(L) 34.0 - 45.0 % 10/02/2021 7:12 PM EST [facility] MCV 77.6(L) 80.0 - 100.0 fL 10/02/2021 7:12 PM EST [facility] MCH 22.9(L) 26.0 - 34.0 pg 10/02/2021 7:12 PM EST [facility], [facility] MCHC 29.4(L) 30.7 - 35.5 g/dL 10/02/2021 7:12 PM EST [facility], [facility] RDW 18.2(H) <=14.9 % 10/02/2021 7:12 PM EST [facility], [facility] Platelet 334 155 - 369 x10(3)/mcL 10/02/2021 7:12 PM EST [facility], [facility] MPV 10.2 8.8 - 12.5 fL 10/02/2021 7:12 PM EST [facility] Neut Percent 75.5 % 10/02/2021 7:12 PM EST [facility] Comment:Neutrophils equals s egs plus bands Imm Gran% 0.6 % 10/02/2021 7:12 PM EST [facility] Comment:Automated count of m etamyelocytes, myelocytes and promyelocytes. Lymph Percent 20.2 % 10/02/2021 7:12 PM EST [facility], [facility] [place] Percent 3.1 % 10/02/2021 7:12 PM EST [facility] Eos Percent 0.2 % 10/02/2021 7:12 PM EST [facility] Baso Percent 0.4 % 10/02/2021 7:12 PM EST [facility] Neut # 3.6 1.6 - 6.1 x10(3)/mcL 10/02/2021 7:12 PM EST [facility] Comment:Neutrophils equals s egs plus bands IMMGRAN# 0.0 0.0 - 0.1 x10(3)/mcL 10/02/2021 7:12 PM EST [facility] Comment:Automated count of m etamyelocytes, myelocytes and promyelocytes. An absolute IG <0.1 is reported as 0.0. Lymph # 1.0(L) 1.2 - 3.9 x10(3)/mcL 10/02/2021 7:12 PM EST [facility], [facility] [place] # 0.2(L) 0.3 - 0.9 x10(3)/mcL 10/02/2021 7:12 PM EST [facility] Eos# 0.0 0.0 - 0.5 x10(3)/mcL 10/02/2021 7:12 PM EST [facility] Baso # 0.0 0.0 - 0.1 x10(3)/mcL 10/02/2021 7:12 PM EST [facility] Blood VENOUS BLOOD / Unknown 10/02/2021 10:23 AM EST 10/02/2021 6:30 PM EST us Fior Armstrong MD HEMATOLOGY ORDERABLES Fi nal Result [facility] [employer] [facility], [facility] [address] [facility] , [place] [address] documented in this encounter Visit Diagnoses Diagnosis Infection and 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
--- OUTSIDE RECORDS SUMMARY | 2025-03-09 10:53 | XMS_ITS | Encounter Summary ---
Author Organization [place] [address] Care Team Providers Care Squad Leader Name Role Phone Theo Musa Primary Care Provider [phone] Bronson Raygoza MD Unavailable [phone] Encounter Details Date Type Department Care Team (Late st Contact Info) Description 09/15/2021 Lab Requisition [facility] [address] [place] [id number] Fior Armstrong MD [address] [place] [address] [address] Infection and 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, initial encounter Social History Tobacco Use Types Packs/Day Years [...] 1:30 PM EDT Office Visit [facility] [place] [address] [place] [address] Lupe Church PA [address] [place] [address] 03/17/2025 9:45 AM EDT Office Visit [facility] [address] [place] [address] Bronson Raygoza MD [address] [place] [address] documented as of this encounter Procedures Procedure Name Priority Date/Time Associated Diagnosis Comments EXTRA GOLD SST Routine 09/15/2021 10:15 AM EST Infection and 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, initial encounter (HCC) VANCOMYCIN LEVEL TROUGH Routine 09/15/2021 10:15 AM EST Infection and 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, initial encounter ([facility]) documented in this encounter Results * EXTRA GOLD SST (09/15/2021 10:15 AM EST) Blood VENOUS BLOOD / Unknown 09/15/2021 10:15 AM EST 09/15/2021 8:07 PM EST us Fior Armstrong MD CHEMISTRY ORDERABLES Fin al Result [facility] [address] [place] [address] * (ABNORMAL) VANCOMYCIN LEVEL TROUGH (09/15/2021 10:15 AM EST) Vanco Tr 9.1(L) 10.0-<20.0 mcg/mL 09/15/2021 9:30 PM EST [facility] Blood VENOUS BLOOD / Unknown 09/15/2021 10:15 AM EST 09/15/2021 8:06 PM EST Narrative [facility] - 09/15/2021 9:30 PM EST Minimum serum concentration for infection control is 10 mcg/mL; a target therapeutic range of 15-20 mcg/mL is recommended for significant infections such as S. aureus. Toxicity does not correlate well with serum concentrations. Supratherapeutic levels are considered to be > 20 mcg/mL. us Fior Armstrong MD CHEMISTRY ORDERABLES Fin al Result [facility] [address] [facility], [place] [address] documented in this encounter Visit Diagnoses Diagnosis Infection and 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, initial encounter documented in this encounter Care Teams Squad Leader Relationship Specialty Start Date End Date Theo Musa [facility] [address] [place] [address] PCP - General 11/10/09 [place] [address] [place] [address] Internal Medicine-Rheumatology 02/07/23 documented as of this encounter
--- OUTSIDE RECORDS SUMMARY | 2025-03-09 10:53 | XMS_ITS | Encounter Summary ---
Author Organization [facility] [place] [address] Care Team Providers Care Folder Machine Adjuster Name Role Phone Theo Musa Primary Care Provider [phone] Bronson Raygoza MD Unavailable [phone] Encounter Details Date Type Department Care Team (Late st Contact Info) Description 09/11/2021 Lab Requisition [facility] [place] [address] Fior Armstrong MD [address] [place] [address] DR MERLOS [address] [place] [address] Broken internal right knee prosthesis, initial encounter Social [...] of Assessment Author No 09/05/2021 2:18 PM EST Cherie Galvez RN * Does this person have serious difficulty walking or climbing stairs? Answer Date of Assessment Author Yes 09/05/2021 2:18 PM Cherie Florez RN * Does this person have difficulty dressing or bathing? Answer Date of Assessment Author Yes 09/05/2021 2:18 PM EST Cherie Galvez RN * Because of a physical, mental [...] EDT Office Visit [facility] [address] [place] [address] Lupe Church PA [address] [facility] [place] [address] 03/17/2025 9:45 AM EDT Office Visit [facility] [address] [place] [address] Bronson Raygoza MD [address] [place] [address] documented as of this encounter Procedures Procedure Name Priority Date/Time Associated Diagnosis Comments EXTRA GOLD SST Routine 09/11/2021 8:20 AM EST Broken internal right knee prosthesis, initial encounter (HCC) SEDIMENTATION RATE AUTOMATED Routine 09/11/2021 8:20 AM EST Broken internal right knee prosthesis, initial encounter ([facility]) CBC WITH DIFF Routine 09/11/2021 8:20 AM EST Broken internal right knee prosthesis, initial encounter (HCC) C-REACTIVE PROTEIN Routine 09/11/2021 8: 20 AM EST Broken internal right knee prosthesis, initial encounter (HCC) VANCOMYCIN LEVEL TROUGH Routine 09/11/2021 8:20 AM EST Broken internal right knee prosthesis, initial encounter ([facility]) COMPREHENSIVE METABOLIC PANEL Routine 09/11/2021 8:20 AM EST Broken internal right knee prosthesis, initial encounter ([facility]) documented in this encounter Results * EXTRA GOLD SST (09/11/2021 8:20 AM EST) Blood VENOUS BLOOD / Unknown 09/11/2021 8:20 AM EST 09/11/2021 2:43 PM EST us Fior Armstrong MD CHEMISTRY ORDERABLES Fin al Result [facility] [address] [place] [address] * (ABNORMAL) VANCOMYCIN LEVEL TROUGH (09/11/2021 8:20 AM EST) Vanco Tr 25.4(HH) 10.0-<20.0 mcg/mL 09/11/2021 3:47 PM EST [facility] Blood VENOUS BLOOD / Unknown 09/11/2021 8:20 AM EST 09/11/2021 2:42 PM EST Narrative [email or web address] - 09/11/2021 3:47 PM EST Minimum serum concentration for infection control is 10 mcg/mL; a target therapeutic range of 15-20 mcg/mL is recommended for significant infections such as S. aureus. Toxicity does not correlate well with serum concentrations. Supratherapeutic levels are considered to be > 20 mcg/mL. Fior Armstrong MD CHEMISTRY ORDERABLES Fin al Result Performing Organization Address [facility]/ZIP Co de Phone Number [email or web address] [address] , [place] [address] * (ABNORMAL) C-REACTIVE PROTEIN (09/11/2021 8:20 AM EST) Pathologist [facility] [place] CRP 113.75(H) <=5.00 mg/L 09/11/2021 3:44 PM EST [facility] Blood VENOUS BLOOD / Unknown 09/11/2021 8:20 AM EST 09/11/2021 2:42 PM EST Fior Armstrong MD CHEMISTRY ORDERABLES Fin al Result Performing Organization Address City/[facility]/ZIP Co de Phone Number [facility] [email or web address] [address] , [place] [address] * (ABNORMAL) COMPREHENSIVE METABOLIC PANEL (09/11/2021 8:20 AM EST) Pathologist [facility] [place] Sodium 141 136 - 145 mmol/L 09/11/2021 3:44 PM EST [facility] [place] Potassium 3.8 3.5 - 5.0 mmol/L 09/11/2021 3:44 PM EST [facility] [place] Chloride 108(H) 98 - 107 mmol/L 09/11/2021 3:44 PM EST [facility] Total CO2 22 22 - 29 mmol/L 09/11/2021 3:44 PM EST [facility] Anion Gap 11 7 - 16 mmol/L 09/11/2021 3:44 PM EST [facility] Calcium 9.0 8.8 - 10.4 mg/dL 09/11/2021 3:44 PM EST [facility] Glucose Lvl 103(H) 82 - 100 mg/dL 09/11/2021 3:44 PM EST [facility] BUN 10 8 - 23 mg/dL 09/11/2021 3:44 PM EST [facility] Creatinine 0.82 0.51 - 1.30 mg/dL 09/11/2021 3:44 PM EST [facility] Albumin 3.4 3.2 - 4.6 gm/dL 09/11/2021 3:44 PM EST [facility] Total Protein 6.2(L) 6.4 - 8.3 gm/dL 09/11/2021 3:44 PM EST [facility] Bili Total 0.3 0.1 - 1.3 mg/dL 09/11/2021 3:44 PM EST [facility] ALT 12 <=41 U/L 09/11/2021 3:44 PM EST [facility] AST 12 <=40 U/L 09/11/2021 3:44 PM EST [facility] Alk Phos 114 36 - 123 U/L 09/11/2021 3:44 PM EST [facility] eGFR (CKD-EPIcr 2020) 73 >=60 mL/min/1.7 3 m2 09/11/2021 3:44 PM EST [facility] Comment:Estimated GFR was ca lculated using the CKD-EPIcr (2020) equation refit without race. The equation is recommended by the National Kidney Foundation - [place] Society of Nephrology Task Force. Blood VENOUS BLOOD / Unknown 09/11/2021 8:20 AM EST 09/11/2021 2:42 PM EST us Fior Armstrong MD CHEMISTRY ORDERABLES Fin al Result Performing Organization Address City/[facility]/ZIP Co de Phone Number [facility] [address] [facility] , [address] [place] [id number] [facility] 1 [place] [address] * (ABNORMAL) SEDIMENTATION RATE AUTOMATED (09/11/2021 8:20 AM EST) Sed Rate 40(H) 0 - 30 mm/hr 09/11/2021 3:47 PM EST [facility] Blood VENOUS BLOOD / Unknown 09/11/2021 8:20 AM EST 09/11/2021 2:42 PM EST us Fior Armstrong MD HEMATOLOGY ORDERABLES Fi nal Result Performing Organization Address [facility]/ZIP Co de Phone Number [facility] [address] [facility] , [place] [address] * (ABNORMAL) CBC WITH DIFF (09/11/2021 8:20 AM EST) WBC 4.9 3.7 - 10.3 x10(3)/mcL 09/11/2021 3:13 PM EST [facility] RBC 3.84(L) 3.90 - 5.20 x10(6)/mcL 09/11/2021 3:13 PM EST [facility] Hgb 9.2(L) 11.2 - 15.7 g/dL 09/11/2021 3:13 PM EST [facility] Hct 30.9(L) 34.0 - 45.0 % 09/11/2021 3:13 PM EST [facility] MCV 80.5 80.0 - 100.0 fL 09/11/2021 3:13 PM EST [facility] MCH 24.0(L) 26.0 - 34.0 pg 09/11/2021 3:13 PM EST [facility] MCHC 29.8(L) 30.7 - 35.5 g/dL 09/11/2021 3:13 PM EST [facility] RDW 17.4(H) <=14.9 % 09/11/2021 3:13 PM EST [facility] Platelet 275 155 - 369 x10(3)/mcL 09/11/2021 3:13 PM EST [facility] MPV 10.7 8.8 - 12.5 fL 09/11/2021 3:13 PM EST [facility] Neut Percent 62.5 % 09/11/2021 3:13 PM EST [facility] Comment:Neutrophils equals s egs plus bands Imm Gran% 0.8 % 09/11/2021 3:13 PM EST [facility] Comment:Automated count of m etamyelocytes, myelocytes and promyelocytes. Lymph Percent 23.1 % 09/11/2021 3:13 PM EST [facility] [place] Percent 9.9 % 09/11/2021 3:13 PM EST [facility] Eos Percent 3.1 % 09/11/2021 3:13 PM EST [facility] Baso Percent 0.6 % 09/11/2021 3:13 PM EST [facility] Neut # 3.0 1.6 - 6.1 x10(3)/[facility] 09/11/2021 3:13 PM EST [facility] Comment:Neutrophils equals s egs plus bands IMMGRAN# 0.0 0.0 - 0.1 x10(3)/[facility] 09/11/2021 3:13 PM EST [facility] Comment:Automated count of m etamyelocytes, myelocytes and promyelocytes. An absolute IG <0.1 is reported as 0.0. Lymph # 1.1(L) 1.2 - 3.9 x10(3)/[facility] 09/11/2021 3:13 PM EST [facility] [place] # 0.5 0.3 - 0.9 x10(3)/mcL 09/11/2021 3:13 PM EST [facility] Eos# 0.2 0.0 - 0.5 x10(3)/[facility] 09/11/2021 3:13 PM EST [facility] Baso # 0.0 0.0 - 0.1 x10(3)/[facility] 09/11/2021 3:13 PM EST [facility] Blood VENOUS BLOOD / Unknown 09/11/2021 8:20 AM EST 09/11/2021 2:42 PM EST us Fior Armstrnog MD HEMATOLOGY ORDERABLES Fi nal Result [facility] [address] [facility], [place] [address] documented in this encounter Visit Diagnoses Diagnosis Broken internal right knee prosthesis, initial encounter documented in this encounter Care Teams Folder Machine Adjuster Relationship Specialty Start Date End Date Theo Musa [address] [facility] [address] [place] [address] PCP - General 11/10/09 Bronson Raygoza MD [address] [place] [address] Internal Medicine-Rheumatology 02/07/23 documented as of this encounter
--- OUTSIDE RECORDS SUMMARY | 2025-03-09 10:53 | XMS_ITS | Encounter Summary ---
Author Organization [place] [address] Care Team Providers Care Fund Raiser Name Role Phone Theo Musa Primary Care Provider [phone] Bronson Raygoza MD Unavailable [phone] Encounter Details Date Type Department Care Team (Latest Contact Info) Description 10/09/2021 Lab Requisition [facility] [address] [place] [id number] Fior Armstrong MD [address] [place] [phone] Infection and 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, initial encounter; Other staphylococcus as the cause of diseases classified elsewhere; 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 Social History Tobacco [...] 1:30 PM EDT Office Visit [facility] [address] [address] Lupe Church, ABRAHAM [address] [place] [address] [place] [address] 03/17/2025 9:45 AM EDT Office Visit [facility] [address] [place] [address] Bronson Raygoza MD [address] [place] [address] documented as of this encounter Procedures Procedure Name Priority Date/Time Associated Diagnosis Comments EXTRA GOLD SST Routine 10/09/2021 10:27 AM EDT Infection and 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, initial encounter (HCC) Other staphylococcus as the cause of diseases classified elsewhere 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 SEDIMENTATION RATE AUTOMATED Routine 10/09/2021 10:27 AM EDT Infection and 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, initial encounter (HCC) Other staphylococcus as the cause of diseases classified elsewhere 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 CBC WITH DIFF Routine 10/09/2021 10:27 AM EDT Infection and 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, initial encounter (HCC) Other staphylococcus as the cause of diseases classified elsewhere 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 C-REACTIVE PROTEIN Routine 10/09/2021 10 :27 AM EDT Infection and 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, initial encounter (HCC) Other staphylococcus as the cause of diseases classified elsewhere 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 VANCOMYCIN LEVEL TROUGH Routine 10/09/2021 10:27 AM EDT Infection and 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, initial encounter (HCC) Other staphylococcus as the cause of diseases classified elsewhere 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 COMPREHENSIVE METABOLIC PANEL Routine 10/09/2021 10:27 AM EDT Infection and 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, initial encounter (HCC) Other staphylococcus as the cause of diseases classified elsewhere 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/ZIP Co de Phone Number [facility] [address] [place] [address] * (ABNORMAL) VANCOMYCIN LEVEL TROUGH (10/09/2021 10:27 AM EDT) Vanco Tr 9.6(L) 10.0-<20.0 mcg/mL 10/09/2021 8:34 PM EDT [facility] Blood VENOUS BLOOD / Unknown 10/09/2021 10:27 AM EDT 10/09/2021 7:23 PM EDT Narrative [facility] - 10/09/2021 8:34 PM EDT Minimum serum concentration for infection control is 10 mcg/mL; a target therapeutic range of 15-20 mcg/mL is recommended for significant infections such as S. aureus. Toxicity does not correlate well with serum concentrations. Supratherapeutic levels are considered to be > 20 mcg/mL. us Fior Armstrong MD CHEMISTRY ORDERABLES Fin al Result Performing Organization Address [facility] Co de Phone Number [facility] [address] [facility], [place] [address] * (ABNORMAL) C-REACTIVE PROTEIN (10/09/2021 10:27 AM EDT) CRP 16.27(H) <=5.00 mg/L 10/09/2021 8:33 PM EDT [facility] Blood VENOUS BLOOD / Unknown 10/09/2021 10:27 AM EDT 10/09/2021 7:23 PM EDT us Fior Armstrong MD CHEMISTRY ORDERABLES Fin al Result [facility] [address] [facility] , [place] [address] * (ABNORMAL) COMPREHENSIVE METABOLIC PANEL (10/09/2021 10:27 AM EDT) Sodium 143 136 - 145 mmol/L 10/09/2021 8:35 PM EDT [facility] Potassium 3.9 3.5 - 5.0 mmol/L 10/09/2021 8:35 PM EDT [facility] Chloride 106 98 - 107 mmol/L 10/09/2021 8:35 PM EDT [facility] Total CO2 20(L) 22 - 29 mmol/L 10/09/2021 8:35 PM EDT [facility] Anion Gap 17(H) 7 - 16 mmol/L 10/09/2021 8:35 PM EDT [facility] Calcium 9.0 8.8 - 10.4 mg/dL 10/09/2021 8:35 PM EDT [facility] Glucose Lvl 125(H) 82 - 100 mg/dL 10/09/2021 8:35 PM EDT [facility] BUN 14 8 - 23 mg/dL 10/09/2021 8:35 PM EDT [facility] Creatinine 0.78 0.51 - 1.30 mg/dL 10/09/2021 8:35 PM EDT [facility] Albumin 3.9 3.2 - 4.6 gm/dL 10/09/2021 8:35 PM EDT [facility] Total Protein 6.1(L) 6.4 - 8.3 gm/dL 10/09/2021 8:35 PM EDT [facility] Bili Total 0.3 0.1 - 1.3 mg/dL 10/09/2021 8:35 PM EDT [facility] ALT 10 <=41 U/L 10/09/2021 8:35 PM EDT [facility] AST 17 <=40 U/L 10/09/2021 8:35 PM EDT [facility] Alk Phos 88 36 - 123 U/L 10/09/2021 8:35 PM EDT [facility] eGFR (CKD-EPIcr 2020) 78 >=60 mL/min/1.7 3 m2 10/09/2021 8:35 PM EDT [facility] Comment:Estimated GFR was ca lculated using the CKD-EPIcr (2020) equation refit without race. The equation is recommended by the National Kidney Foundation - [place] [employer] of Nephrology Task Force. Blood VENOUS BLOOD / Unknown 10/09/2021 10:27 AM EDT 10/09/2021 7:23 PM EDT Fior Armstrong MD CHEMISTRY ORDERABLES Fin al Result Performing Organization Address [facility]/ZIP Co de Phone Number [facility], [address] , [place] [address] [facility] [address] [place] [address] * SEDIMENTATION RATE AUTOMATED (10/09/2021 10:27 AM EDT) Sed Rate 19 0 - 30 mm/hr 10/09/2021 8:05 PM EDT [facility], [facility] Blood VENOUS BLOOD / Unknown 10/09/2021 10:27 AM EDT 10/09/2021 7:23 PM EDT Fior Armstrong MD HEMATOLOGY ORDERABLES Fi nal Result Performing Organization Address [facility]/ZIP Co de Phone Number [facility], [address] , [place] [phone] * (ABNORMAL) CBC WITH DIFF (10/09/2021 10:27 AM EDT) WBC 3.7 3.7 - 10.3 x10(3)/mcL 10/09/2021 7:53 PM EDT [facility], [facility] RBC 4.16 3.90 - 5.20 x10(6)/mcL 10/09/2021 7:53 PM EDT [facility] Hgb 9.7(L) 11.2 - 15.7 g/dL 10/09/2021 7:53 PM EDT [facility] Hct 33.5(L) 34.0 - 45.0 % 10/09/2021 7:53 PM EDT [facility] MCV 80.5 80.0 - 100.0 fL 10/09/2021 7:53 PM EDT [facility] MCH 23.3(L) 26.0 - 34.0 pg 10/09/2021 7:53 PM EDT [facility] MCHC 29.0(L) 30.7 - 35.5 g/dL 10/09/2021 7:53 PM EDT [facility] RDW 20.0(H) <=14.9 % 10/09/2021 7:53 PM EDT [facility] Platelet 161 155 - 369 x10(3)/mcL 10/09/2021 7:53 PM EDT [facility] MPV 10.7 8.8 - 12.5 fL 10/09/2021 7:53 PM EDT [facility] Neut Percent 69.3 % 10/09/2021 7:53 PM EDT [facility] Comment:Neutrophils equals s egs plus bands Imm Gran% 0.3 % 10/09/2021 7:53 PM EDT [facility] Comment:Automated count of m etamyelocytes, myelocytes and promyelocytes. Lymph Percent 17.5 % 10/09/2021 7:53 PM EDT [facility] [place] Percent 8.8 % 10/09/2021 7:53 PM EDT [facility] Eos Percent 3.3 % 10/09/2021 7:53 PM EDT [facility] Baso Percent 0.8 % 10/09/2021 7:53 PM EDT [facility] Neut # 2.5 1.6 - 6.1 x10(3)/mcL 10/09/2021 7:53 PM EDT [facility] Comment:Neutrophils equals s egs plus bands IMMGRAN# 0.0 0.0 - 0.1 x10(3)/mcL 10/09/2021 7:53 PM EDT [facility] Comment:Automated count of m etamyelocytes, myelocytes and promyelocytes. An absolute IG <0.1 is reported as 0.0. Lymph # 0.6(L) 1.2 - 3.9 x10(3)/mcL 10/09/2021 7:53 PM EDT [facility] [place] # 0.3 0.3 - 0.9 x10(3)/mcL 10/09/2021 7:53 PM EDT [facility] Eos# 0.1 0.0 - 0.5 x10(3)/mcL 10/09/2021 7:53 PM EDT [facility] Baso # 0.0 0.0 - 0.1 x10(3)/mcL 10/09/2021 7:53 PM EDT [facility] Blood VENOUS BLOOD / Unknown 10/09/2021 10:27 AM EDT 10/09/2021 7:23 PM EDT us Fior Armstrong MD HEMATOLOGY ORDERABLES Fi nal Result [facility] 1 [facility] , [place] [address] documented in this encounter Visit Diagnoses Diagnosis Infection and 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, initial encounter Other staphylococcus as the cause of diseases classified elsewhere 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 documented in this encounter Care Teams Fund Raiser Relationship Specialty Start Date End Date Theo Musa [address] [place] [address] PCP - General 11/10/09 Bronson Raygoza MD [address] [place] [id number] Internal Medicine-Rheumatology 02/07/23 documented as of this encounter
--- OUTSIDE RECORDS SUMMARY | 2025-03-09 10:53 | XMS_ITS | Encounter Summary ---
Author Organization [place] [address] Care Team Providers Care Financial Auditor Name Role Phone Theo Musa Primary Care Provider [phone] Bronson Raygoza MD Unavailable [phone] Encounter Details Date Type Department Care Team (Latest Contact Info) Description 09/25/2021 Lab Requisition [facility] [address] [place] [id number] Fior Armstrong MD [address] [place] [phone] Infection and 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, initial encounter; Other staphylococcus as the cause of diseases classified elsewhere; shelter (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 Social History Tobacco [...] PM EDT Office Visit [facility] [place] [address] [place] [address] [phone] Lupe Church PA [address] [facility] [place], [place] [phone] 03/17/2025 9:45 AM EDT Office Visit [facility] [address] [place] [address] Bronson Raygoza MD [address] [place] [address] documented as of this encounter Procedures Procedure Name Priority Date/Time Associated Diagnosis Comments EXTRA GOLD SST Routine 09/25/2021 10:44 AM EST Infection and 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, initial encounter (HCC) Other staphylococcus as the cause of diseases classified elsewhere 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 SEDIMENTATION RATE AUTOMATED Routine 09/25/2021 10:44 AM EST Infection and 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, initial encounter (HCC) Other staphylococcus as the cause of diseases classified elsewhere 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 CBC WITH DIFF Routine 09/25/2021 10:44 AM EST Infection and 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, initial encounter (HCC) Other staphylococcus as the cause of diseases classified elsewhere shelter (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 C-REACTIVE PROTEIN Routine 09/25/2021 10 :44 AM EST Infection and 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, initial encounter (HCC) Other staphylococcus as the cause of diseases classified elsewhere shelter (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 VANCOMYCIN LEVEL TROUGH Routine 09/25/2021 10:44 AM EST Infection and 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, initial encounter (HCC) Other staphylococcus as the cause of diseases classified elsewhere 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 COMPREHENSIVE METABOLIC PANEL Routine 09/25/2021 10:44 AM EST Infection and 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, initial encounter (HCC) Other staphylococcus as the cause of diseases classified elsewhere shelter (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 documented in this encounter Results * EXTRA GOLD SST (09/25/2021 10:44 AM EST) Blood VENOUS BLOOD / Unknown 09/25/2021 10:44 AM EST 09/25/2021 3:04 PM EST Fior Armstrong MD CHEMISTRY ORDERABLES Fin al Result Performing Organization Address [facility] de Phone Number [address] [address] * (ABNORMAL) VANCOMYCIN LEVEL TROUGH (09/25/2021 10:44 AM EST) Vanco Tr 8.4(L) 10.0-<20.0 mcg/mL 09/25/2021 5:24 PM EST [facility] [employer] Blood VENOUS BLOOD / Unknown 09/25/2021 10:44 AM EST 09/25/2021 3:04 PM EST Narrative [facility] [employer] - 09/25/2021 5:24 PM EST Minimum serum concentration for infection control is 10 mcg/mL; a target therapeutic range of 15-20 mcg/mL is recommended for significant infections such as S. aureus. Toxicity does not correlate well with serum concentrations. Supratherapeutic levels are considered to be > 20 mcg/mL. Fior Armstrong MD CHEMISTRY ORDERABLES Fin al Result Performing Organization Address [facility] Co de Phone Number [facility] [address] [place] [address], [place] [address] * (ABNORMAL) C-REACTIVE PROTEIN (09/25/2021 10:44 AM EST) Pathologist [facility] CRP 29.26(H) <=5.00 mg/L 09/25/2021 5:19 PM EST [facility] Blood VENOUS BLOOD / Unknown 09/25/2021 10:44 AM EST 09/25/2021 3:04 PM EST us Fior Armstrong MD CHEMISTRY ORDERABLES Fin al Result [facility] 1 [facility] , [address] [place] [phone] * (ABNORMAL) COMPREHENSIVE METABOLIC PANEL (09/25/2021 10:44 AM EST) Sodium 143 136 - 145 mmol/L 09/25/2021 5:19 PM EST [facility] Potassium 3.9 3.5 - 5.0 mmol/L 09/25/2021 5:19 PM EST [facility] Chloride 108(H) 98 - 107 mmol/L 09/25/2021 5:19 PM EST [facility] Total CO2 21(L) 22 - 29 mmol/L 09/25/2021 5:19 PM EST [facility] Anion Gap 14 7 - 16 mmol/L 09/25/2021 5:19 PM EST [facility] Calcium 9.1 8.8 - 10.4 mg/dL 09/25/2021 5:19 PM EST [facility] Glucose Lvl 139(H) 82 - 100 mg/dL 09/25/2021 5:19 PM EST [facility] BUN 12 8 - 23 mg/dL 09/25/2021 5:19 PM EST [facility] Creatinine 0.78 0.51 - 1.30 mg/dL 09/25/2021 5:19 PM EST [facility] Albumin 3.6 3.2 - 4.6 gm/dL 09/25/2021 5:19 PM EST [facility] Total Protein 6.4 6.4 - 8.3 gm/dL 09/25/2021 5:19 PM EST [facility] Bili Total 0.2 0.1 - 1.3 mg/dL 09/25/2021 5:19 PM EST [facility] ALT 7 <=41 U/L 09/25/2021 5:19 PM EST [facility] AST 18 <=40 U/L 09/25/2021 5:19 PM EST [facility] Alk Phos 125(H) 36 - 123 U/L 09/25/2021 5:19 PM EST [facility] [employer] [facility] eGFR (CKD-EPIcr 2020) 78 >=60 mL/min/1.7 3 m2 09/25/2021 5:19 PM EST [facility] Comment:Estimated GFR was ca lculated using the CKD-EPIcr (2020) equation refit without race. The equation is recommended by the National Kidney Foundation - [place] [employer] of Nephrology Task Force. Blood VENOUS BLOOD / Unknown 09/25/2021 10:44 AM EST 09/25/2021 3:04 PM EST Fior Armstrong MD CHEMISTRY ORDERABLES Fin al Result Performing Organization Address City/[facility]/ZIP Co de Phone Number [facility] [employer] [address] , [place] [address] [facility] [address] [place], [place] [id number] * (ABNORMAL) SEDIMENTATION RATE AUTOMATED (09/25/2021 10:44 AM EST) Sed Rate 51(H) 0 - 30 mm/hr 09/25/2021 5:10 PM EST [facility] [employer] [facility] Blood VENOUS BLOOD / Unknown 09/25/2021 10:44 AM EST 09/25/2021 3:04 PM EST Fior Armstrong MD HEMATOLOGY ORDERABLES Fi nal Result Performing Organization Address City/[facility]/ZIP Co de Phone Number [facility] [employer] , [place] [phone] * (ABNORMAL) CBC WITH DIFF (09/25/2021 10:44 AM EST) WBC 3.2(L) 3.7 - 10.3 x10(3)/mc L 09/25/2021 5:23 PM EST [facility] [employer] [facility] RBC 3.97 3.90 - 5.20 x10(6)/mc L 09/25/2021 5:23 PM EST [facility] [employer], [facility] Hgb 9.0(L) 11.2 - 15.7 g/dL 09/25/2021 5:23 PM EST [facility] Hct 31.4(L) 34.0 - 45.0 % 09/25/2021 5:23 PM EST [facility] MCV 79.1(L) 80.0 - 100.0 fL 09/25/2021 5:23 PM EST [facility] MCH 22.7(L) 26.0 - 34.0 pg 09/25/2021 5:23 PM EST [facility] MCHC 28.7(L) 30.7 - 35.5 g/dL 09/25/2021 5:23 PM EST [facility] RDW 17.0(H) <=14.9 % 09/25/2021 5:23 PM EST [facility] Platelet 299 155 - 369 x10(3)/mc L 09/25/2021 5:23 PM EST [facility] MPV 10.3 8.8 - 12.5 fL 09/25/2021 5:23 PM EST [facility] Neut Percent 62.4 % 09/25/2021 5:23 PM EST [facility] Comment:Neutrophils equals s egs plus bands Imm Gran% 0.6 % 09/25/2021 5:23 PM EST [facility] Comment:Automated count of m etamyelocytes, myelocytes and promyelocytes. Lymph Percent 20.2 % 09/25/2021 5:23 PM EST [facility] [place] Percent 10.9 % 09/25/2021 5:23 PM EST [facility] Eos Percent 5.0 % 09/25/2021 5:23 PM EST [facility] Baso Percent 0.9 % 09/25/2021 5:23 PM EST [facility] Neut # 2.0 1.6 - 6.1 x10(3)/mc L 09/25/2021 5:23 PM EST [facility] Comment:Neutrophils equals s egs plus bands IMMGRAN# 0.0 0.0 - 0.1 x10(3)/mc L 09/25/2021 5:23 PM EST [facility] Comment:Automated count of m etamyelocytes, myelocytes and promyelocytes. An absolute IG <0.1 is reported as 0.0. Lymph # 0.7(L) 1.2 - 3.9 x10(3)/mc L 09/25/2021 5:23 PM EST [facility] [place] # 0.4 0.3 - 0.9 x10(3)/mc L 09/25/2021 5:23 PM EST [facility] Eos# 0.2 0.0 - 0.5 x10(3)/mc L 09/25/2021 5:23 PM EST [facility] Baso # 0.0 0.0 - 0.1 x10(3)/mc L 09/25/2021 5:23 PM EST [facility] Aniso Slight 09/25/2021 5:23 PM EST [facility] Polychrom Slight 09/25/2021 5:23 PM EST [facility] Hypochrom Moderate 09/25/2021 5:23 PM EST [facility] Ovalocyte Occasional 09/25/2021 5:23 PM EST [facility] Elliptocyte Occasional 09/25/2021 5:23 PM EST [facility] Target Cell Occasional 09/25/2021 5:23 PM EST [facility] Teardrop Cell Occasional 09/25/2021 5:23 PM EST [facility] Schistocyte 0-1 /HPF 09/25/2021 5:23 PM EST [facility] Blood VENOUS BLOOD / Unknown 09/25/2021 10:44 AM EST 09/25/2021 3:04 PM EST us Fior Armstrong MD HEMATOLOGY ORDERABLES Fi nal Result [facility] 1 [facility] , [address] [place] [phone] documented in this encounter Visit Diagnoses Diagnosis Infection and 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, initial encounter Other staphylococcus as the cause of diseases classified elsewhere shelter (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 documented in this encounter Care Teams Financial Auditor Relationship Specialty Start Date End Date Theo Musa [address] [facility] [address] [place] [address] PCP - General 11/10/09 Bronson Raygoza MD [address] [place] [id number] Internal Medicine-Rheumatology 02/07/23 documented as of this encounter
--- OUTSIDE RECORDS SUMMARY | 2025-03-09 10:53 | XMS_ITS | Encounter Summary ---
Author [place] [address] Care Team Providers Care Manager Club Name Role Phone Theo Musa Primary Care Provider [phone] Bronson Raygoza MD Unavailable [phone] Encounter Details Date Type Department Care Team (Latest Contact Info) Description 09/19/2021 Lab Requisition [facility] [address] [place] [id number] Fior Armstrong MD [address] [place] [id number] Infection and 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, initial encounter; Other staphylococcus as the cause of diseases classified elsewhere; [facility] (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 Social History Tobacco [...] PM EDT Office Visit [facility] [place] [address] [place] [address] [place], [place] [id number] Lupe Church PA [address] [facility] [place] [phone] 03/17/2025 9:45 AM EDT Office Visit [facility] [address] [place] [address] Bronson Raygoza MD [address] [place] [address] documented as of this encounter Procedures Procedure Name Priority Date/Time Associated Diagnosis Comments EXTRA GOLD SST Routine 09/19/2021 8:15 AM EST Infection and 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, initial encounter (HCC) Other staphylococcus as the cause of diseases classified elsewhere 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 SEDIMENTATION RATE AUTOMATED Routine 09/19/2021 8:15 AM EST Infection and 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, initial encounter (HCC) Other staphylococcus as the cause of diseases classified elsewhere [facility] (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 CBC WITH DIFF Routine 09/19/2021 8:15 AM EST Infection and 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, initial encounter (HCC) Other staphylococcus as the cause of diseases classified elsewhere 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 C-REACTIVE PROTEIN Routine 09/19/2021 8: 15 AM EST Infection and 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, initial encounter (HCC) Other staphylococcus as the cause of diseases classified elsewhere [facility] (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 COMPREHENSIVE METABOLIC PANEL Routine 09/19/2021 8:15 AM EST Infection and 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, initial encounter (HCC) Other staphylococcus as the cause of diseases classified elsewhere [facility] (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 documented in this encounter Results * EXTRA GOLD SST (09/19/2021 8:15 AM EST) Blood VENOUS BLOOD / Unknown 09/19/2021 8:15 AM EST 09/19/2021 3:17 PM EST Fior Armstrong MD CHEMISTRY ORDERABLES Fin al Result [facility] [address] [place] [address] * (ABNORMAL) C-REACTIVE PROTEIN (09/19/2021 8:15 AM EST) CRP 73.25(H) <=5.00 mg/L 09/19/2021 4:29 PM EST [facility] Blood VENOUS BLOOD / Unknown 09/19/2021 8:15 AM EST 09/19/2021 3:16 PM EST Fior Armstrong MD CHEMISTRY ORDERABLES Fin al Result Performing Organization Address City/[facility]/ZIP Co de Phone Number [facility] [address] [facility], [place] [address] * (ABNORMAL) COMPREHENSIVE METABOLIC PANEL (09/19/2021 8:15 AM EST) Sodium 139 136 - 145 mmol/L 09/19/2021 4:29 PM EST [facility] Potassium 3.8 3.5 - 5.0 mmol/L 09/19/2021 4:29 PM EST [facility] Chloride 107 98 - 107 mmol/L 09/19/2021 4:29 PM EST [facility] Total CO2 21(L) 22 - 29 mmol/L 09/19/2021 4:29 PM EST [facility] Anion Gap 11 7 - 16 mmol/L 09/19/2021 4:29 PM EST [facility] Calcium 9.3 8.8 - 10.4 mg/dL 09/19/2021 4:29 PM EST [facility] Glucose Lvl 69(L) 82 - 100 mg/dL 09/19/2021 4:29 PM EST [facility] BUN 12 8 - 23 mg/dL 09/19/2021 4:29 PM EST [facility] Creatinine 0.75 0.51 - 1.30 mg/dL 09/19/2021 4:29 PM EST [facility] Albumin 3.6 3.2 - 4.6 gm/dL 09/19/2021 4:29 PM EST [facility] Total Protein 6.3(L) 6.4 - 8.3 gm/dL 09/19/2021 4:29 PM EST [facility] Bili Total 0.2 0.1 - 1.3 mg/dL 09/19/2021 4:29 PM EST [facility] ALT 6 <=41 U/L 09/19/2021 4:29 PM EST [facility] AST 15 <=40 U/L 09/19/2021 4:29 PM EST [facility] Alk Phos 118 36 - 123 U/L 09/19/2021 4:29 PM EST [facility] eGFR (CKD-EPIcr 2020) 82 >=60 mL/min/1.7 3 m2 09/19/2021 4:29 PM EST [facility] Comment:Estimated GFR was ca lculated using the CKD-EPIcr (2020) equation refit without race. The equation is recommended by the [employer] Kid[employer] - [place] [employer] Neph[employer] Task Force. Blood VENOUS BLOOD / Unknown 09/19/2021 8:15 AM EST 09/19/2021 3:16 PM EST us Fior Armstrong MD CHEMISTRY ORDERABLES Fin al Result [facility] [address] [facility] , [address] [place] [phone] [facility] [address] [place], [place] [phone] * (ABNORMAL) SEDIMENTATION RATE AUTOMATED (09/19/2021 8:15 AM EST) Sed Rate 60(H) 0 - 30 mm/hr 09/19/2021 4:25 PM EST [facility] Blood VENOUS BLOOD / Unknown 09/19/2021 8:15 AM EST 09/19/2021 3:16 PM EST us Fior Armstrong MD HEMATOLOGY ORDERABLES Fi nal Result [address] [address] * (ABNORMAL) CBC WITH DIFF (09/19/2021 8:15 AM EST) WBC 3.6(L) 3.7 - 10.3 x10(3)/mcL 09/19/2021 4:06 PM EST [facility] RBC 3.72(L) 3.90 - 5.20 x10(6)/mcL 09/19/2021 4:06 PM EST [facility] Hgb 8.6(L) 11.2 - 15.7 g/dL 09/19/2021 4:06 PM EST [facility] Hct 28.9(L) 34.0 - 45.0 % 09/19/2021 4:06 PM EST [facility] MCV 77.7(L) 80.0 - 100.0 fL 09/19/2021 4:06 PM EST [facility] MCH 23.1(L) 26.0 - 34.0 pg 09/19/2021 4:06 PM EST [facility] MCHC 29.8(L) 30.7 - 35.5 g/dL 09/19/2021 4:06 PM EST [facility] RDW 17.0(H) <=14.9 % 09/19/2021 4:06 PM EST [facility] Platelet 304 155 - 369 x10(3)/mcL 09/19/2021 4:06 PM EST [facility] MPV 9.9 8.8 - 12.5 fL 09/19/2021 4:06 PM EST [facility] Neut Percent 61.2 % 09/19/2021 4:06 PM EST [facility] Comment:Neutrophils equals s egs plus bands Imm Gran% 0.6 % 09/19/2021 4:06 PM EST [facility] Comment:Automated count of m etamyelocytes, myelocytes and promyelocytes. Lymph Percent 24.4 % 09/19/2021 4:06 PM EST [facility] Nye Percent 10.0 % 09/19/2021 4:06 PM EST [facility] Eos Percent 3.0 % 09/19/2021 4:06 PM EST [facility] Baso Percent 0.8 % 09/19/2021 4:06 PM EST [facility] Neut # 2.2 1.6 - 6.1 x10(3)/[facility] 09/19/2021 4:06 PM EST [facility] Comment:Neutrophils equals s egs plus bands IMMGRAN# 0.0 0.0 - 0.1 x10(3)/mcL 09/19/2021 4:06 PM EST [facility] Comment:Automated count of m etamyelocytes, myelocytes and promyelocytes. An absolute IG <0.1 is reported as 0.0. Lymph # 0.9(L) 1.2 - 3.9 x10(3)/[facility] 09/19/2021 4:06 PM EST [facility] Nye # 0.4 0.3 - 0.9 x10(3)/[facility] 09/19/2021 4:06 PM EST [facility] Eos# 0.1 0.0 - 0.5 x10(3)/[facility] 09/19/2021 4:06 PM EST [facility] Baso # 0.0 0.0 - 0.1 x10(3)/[facility] 09/19/2021 4:06 PM EST [facility] Blood VENOUS BLOOD / Unknown 09/19/2021 8:15 AM EST 09/19/2021 3:16 PM EST us Fior Armstrong MD HEMATOLOGY ORDERABLES Fi nal Result [facility] [address] [facility] , [place] [address] documented in this encounter Visit Diagnoses Diagnosis Infection and 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, initial encounter Other staphylococcus as the cause of diseases classified elsewhere [facility] (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 documented in this encounter Care Teams Manager Club Relationship Specialty Start Date End Date Theo Musa [facility] [address] [facility] [address] PCP - General 11/10/09 Bronson Raygoza MD [address] [place] [id number] Internal Medicine-Rheumatology 02/07/23 documented as of this encounter
== END 2025-03-08 23:59 | disposition home or self-care (01) ==
LOC: LAB.DROPOF 03-09 10:47
PROVIDERS: PCP Nurse Practitioner; Visit Provider Nurse Practitioner
DX: L03.115 Cellulitis of right lower limb (principal)
CPT/HCPCS: 80048; 85025

== ENCOUNTER 2025-07-08 14:29 | Outpatient (CLI) | payer MEDICARE, SELFPAY ==
[2025-07-08 18:46] LABS: Hematocrit 41.1 % (37.0-47.0); Hemoglobin 13.4 g/dL (12.2-16.2); Immature Granulocytes % 0.6 %; Mean Corpuscular HGB Conc 32.6 g/dL (31.8-35.4); Mean Corpuscular Hemoglobin 30.0 pg (27.0-31.2); Mean Corpuscular Volume 91.9 fl (81-99); Nucleated Red Blood Cells % 0 %; Platelet Count 77 K/mm3 (142-424); Red Blood Count 4.47 M/mm3 (4.20-5.40); Red Cell Distribution Width-SD 48.2 fL; White Blood Count 6.2 K/mm3 (4.8-10.8)
[2025-07-08 18:59] LABS: Albumin Level 4.2 g/dl (3.5-5.0); Chloride 106 mmol/L (98-107)
[2025-07-08 19:00] LABS: Potassium 4.6 mmoL/L (3.5-5.1); Sodium 142 mmol/L (136-145)
[2025-07-08 19:02] LABS: Alanine Aminotransferase 28 U/L (12-78); Albumin/Globulin Ratio 1.6 (1.1-1.8); Alkaline Phosphatase 65 U/L (38-126); Anion Gap 14.6 mEq/L (5-15); Aspartate Amino Transferase 27 U/L (14-36); Bilirubin,Total 0.4 mg/dl (0.2-1.3); Blood Urea Nitrogen 26 mg/dl (7-17); Carbon Dioxide 26 mmol/L (22.0-30.0); Cholesterol 233 mg/dl (140-200); Creatinine,Serum 0.90 mg/dl (0.52-1.04); Estimated Glomerular Filt Rate 60 ml/min (>60); GFR (African American) 73 ML/MIN (>60); Globulin 2.6 g/dL (1.3-3.2); Total Protein,Serum 6.8 g/dl (6.3-8.2); Triglycerides 230 mg/dl (30-150)
[2025-07-08 19:03] LABS: Calcium 9.2 mg/dl (8.4-10.2); Glucose 83 mg/dl (74-100); HDL Cholesterol 66 mg/dl (40-60); Magnesium 2.0 mg/dl (1.6-2.3); Phosphorous 4.0 mg/dl (2.5-4.5)
[2025-07-08 19:19] LABS: 25-OH Vitamin D, Total 53.1 ng/mL (30-100)
[2025-07-08 19:22] LABS: Free T4 (Free Thyroxine) 0.96 ng/dl (0.78-2.19)
[2025-07-08 19:37] LABS: Thyroid Stimulating Hormone 1.53 uIU/mL (0.465-4.68)
[2025-07-08 20:00] LABS: Vitamin B12 > 1000 pg/mL (239-931)
== END 2025-07-08 23:59 | disposition home or self-care (01) ==
LOC: LAB.DROPOF 07-09 12:29
PROVIDERS: PCP Nurse Practitioner; Visit Provider Nurse Practitioner
DX: E78.5 Hyperlipidemia, unspecified (principal); I10 Essential (primary) hypertension; E03.9 Hypothyroidism, unspecified; Z86.12 Personal history of poliomyelitis; K21.9 Gastro-esophageal reflux disease without esophagitis; E53.8 Deficiency of other specified B group vitamins; E55.9 Vitamin D deficiency, unspecified; N30.90 Cystitis, unspecified without hematuria
CPT/HCPCS: 80053; 80061; 82306; 82607; 83735; 84100; 84439; 84443; 85025; 87086; 87088; 87186

== ENCOUNTER 2025-07-13 13:46 | Outpatient (CLI) | payer MEDICARE, SELFPAY ==
--- OUTSIDE RECORDS SUMMARY | 2025-05-31 10:15 | XMS_ITS | Encounter Summary ---
Author Organization [facility] Address [address] [place] [address] Care Team Providers Care Medical Voucher Clerk Name Role Phone DimpleTheo munoz Primary Care Provider [phone] Bronson Raygoza MD Unavailable [phone] Reason for Visit * Reason Comments Degenerative Disc Disease Encounter Details Date Type Department Care Team (Late st Contact Info) Description 05/31/2025 10:15 AM EST Office Visit [facility] [address] [place] [address] Bronson Raygoza MD [address] [place] [address] Nontraumatic incomplete tear of right [...] her PCP for Osteopenia 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 # OSTEOARTHRITIS GENERALIZED # OSTEOARTHRITIS RIGHT KNEE [...] on 1st Toe by Dr. Daniels at [place] -Fibromyalgia Features of Widespread Pain in Muscles and Joints, Fatigue, Sleep Disturbance, Headaches, Neuropathic Features. -Degenerative Disc Disease on Imaging. 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 Low Back Pain. Left Hip Pain with a 12/11/[address] Kim. 12/11/2024 Left Hip X-Ray at [facility] without loosening. I advise to follow up with Dr. Kim if it is still causing issues. 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 IMAGING 05/22/2012 MRI of the Right Shoulder at [facility]: IMPRESSION: 1. Full-thickness, full width tear/re-tear of the supraspinatus with retraction and atrophy. 2. Full-thickness partial-width tear of the infraspinatus tendon. 3. Thinning and undermining of the subscapularis. 4. Thinning and tendinopathy of the long head of the biceps proximally. 5. Degenerative changes of the AC joint. 07/25/2018 MRI of the C-Spine at [facility]: IMPRESSION: 1.Multilevel cervical degenerative disc and facet disease as described in detail above. 2. For instance, at C3-4, advanced right-sided facet arthropathy in conjunction with relatively mild discogenic disease contributes to severe right foraminal stenosis. 3. Multilevel thecal sac effacement without cord compression. See above detailed level by level discussion. 02/18/2020 L-S Spine MRI at [facility]: IMPRESSION: 1. Multilevel degenerative disc disease as [...] on 1st Toe by Dr. Daniels at [place] 06/26/2023 Right Foot Surgery on 1st Toe by Dr. Daniels at [place] Today, I reviewed her 06/04/[address] Daniels at [place] Right foot hallux valgus with osteophyte Reviewed [...] facilities such as a gym with a care trainer, Yoga class, or Pilates class, which [...] SPINAL MANAGEMENT Consultation with Dr. Bradford at [place]. Responsive to MARY, but she prefers to Avoid due to SE of Corticosteroids. On the Last MARY, SE of Dryness from the Corticosteroids. Eyes Became Worse. She wants to Avoid MARY. CHRONIC PAIN Failed Tramadol. SE Drowsiness and Itching. SPINAL SURGERY Consultation with Dr. Ortiz at [place]. Right now, Dr. Ortiz does not Advise [...] Today, I reviewed her 12/11/2024 DEXA at [facility]: Right Femoral Neck T Score = -2.0 [...] tape is acceptable ??? Chocolate Flavor ??? [place] Other (See Comments) Severe CUEVAS ??? Erythromycin [...] ipratropium (ATROVENT) 42 mcg (0.06 %) Nasl [place], Non-Aerosol 2 Sprays by Nasal route 4 [...] for the 05/31/25 encounter (Office Visit) with Bronsno Raygoza MD Medication Dose Route Frequency Provider [...] Visit [facility] [address] [place] [address] 09/06/2025 10:30 AM EST Office Visit [facility] [address] [place] [address] Sarita Case MD [address] [place] [address] 11/29/2025 10:15 AM EDT Office Visit [facility] [address] [place] [address] Bronson Raygoza MD [address] [place] [address] documented as of this encounter Visit Diagnoses [...] documented as of this encounter Care Teams Medical Voucher Clerk Relationship Specialty Start Date End Date Theo Musa [address] [place] [address] [address] [place] [address] PCP - General 11/10/09 Bronson Raygoza MD [address] [place] [address] Internal Medicine-Rheumatology 02/07/23 documented as of this encounter
--- OUTSIDE RECORDS SUMMARY | 2025-07-13 13:53 | XMS_ITS | Clinical Summary ---
Author Organization [employer] [facility] Address [address] [place] [address] Phone Care Team Providers Care [employer] Name Role Phone Unavailable Unavailable Conditions or Problems No information available. Medications No information available. Medications Administered No information available. Allergies, Adverse Reactions, Alerts No information available. Results No information available. Plan of Care No information available. Procedures No information available. Vital Signs No information available. Immunizations No information available. Advance Directives No information available.
--- OUTSIDE RECORDS SUMMARY | 2025-07-13 13:54 | XMS_ITS | Clinical Summary ---
Author Organization [facility] Address [facility] [place] [address] Care Team Providers Care Fireproof Door Maker Name Role Phone Shaun Musa Primary Care [...] therelease of HIV test results or diagnoses. [id number] Active Problems Problem Noted Date Diagnosed [...] of Treatment Not on file Care Teams Fireproof Door Maker Relationship Specialty Start Date End Date Shaun Musa PCP - General 08/21/06
--- OUTSIDE RECORDS SUMMARY | 2025-07-13 13:54 | XMS_ITS | Encounter Summary ---
Author Organization [facility] Address [address], [address] [place] [address] Care Team Providers Care Lodging Facilities Attendant Name Role Phone Shaun Musa MD Primary Care Provider [phone] Encounter Details Date Type Department Care Team [...] documented as of this encounter Care Teams Lodging Facilities Attendant Relationship Specialty Start Date End Date Shaun Musa MD [address] [place] [address] PCP - General 12/12/16 documented as of this encounter
--- OUTSIDE RECORDS SUMMARY | 2025-07-13 13:54 | XMS_ITS | Encounter Summary ---
Author [place] [address] Care Team Providers Care Packer Fuser Name Role Phone Theo Musa Primary Care Provider [phone] Bronson Raygoza MD Unavailable [phone] Encounter Details Date Type Department Care Team (Latest Contact Info) Description 10/02/2021 Lab Requisition [facility] [address] [place] [phone] Fior Armstrong MD [address] [place] [phone] Infection and 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, initial encounter; half-way (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; Other staphylococcus as [...] Visit [facility] [address] [place] [address] 09/06/2025 10:30 AM EST Office Visit [facility] [place] [address] [place] [address] [place] [address] Sarita Case MD [address] [place] [address] [place] [address] 11/29/2025 10:15 AM EDT Office Visit [facility] [address] [place] [address] Bronson Raygoza MD [address] [place] [address] documented as of this encounter Procedures Procedure Name Priority Date/Time Associated Diagnosis Comments EXTRA GOLD SST Routine 10/02/2021 10:23 AM EST Infection and 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, initial encounter (HCC) half-way (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 Other staphylococcus as the cause of diseases classified elsewhere SEDIMENTATION RATE AUTOMATED Routine 10/02/2021 10:23 AM EST Infection and 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, initial encounter (HCC) exterminator termite (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 Other staphylococcus as the cause of diseases classified elsewhere CBC WITH DIFF Routine 10/02/2021 10:23 AM EST Infection and 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, initial encounter (HCC) half-way (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 Other staphylococcus as the cause of diseases classified elsewhere C-REACTIVE PROTEIN Routine 10/02/2021 10 :23 AM EST Infection and 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, initial encounter (HCC) half-way (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 Other staphylococcus as the cause of diseases classified elsewhere VANCOMYCIN LEVEL TROUGH Routine 10/02/2021 10:23 AM EST Infection and 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, initial encounter (HCC) half-way (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 Other staphylococcus as the cause of diseases classified elsewhere COMPREHENSIVE METABOLIC PANEL Routine 10/02/2021 10:23 AM EST Infection and 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, initial encounter (HCC) exterminator termite (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 Other staphylococcus as the cause of diseases classified elsewhere documented in this encounter Results * EXTRA GOLD SST (10/02/2021 10:23 AM EST) Blood VENOUS BLOOD / Unknown 10/02/2021 10:23 AM EST 10/02/2021 6:30 PM EST us Fior Armstrong MD CHEMISTRY ORDERABLES Joseph walters Result [facility] [address] [place], [place] [phone] * (ABNORMAL) COMPREHENSIVE METABOLIC PANEL (10/02/2021 10:23 [...] 11 <=41 U/L 10/02/2021 8:25 PM EST [facility], [facility] AST 16 <=40 U/L 10/02/2021 8:25 PM EST [email or web address], [facility] Alk Phos 101 36 - 123 U/L 10/02/2021 8:25 PM EST [facility], [facility] eGFR (CKD-EPIcr 2020) 79 >=60 mL/min/1.7 3 m2 10/02/2021 8:25 PM EST [facility] Comment:Estimated GFR was ca lculated using the CKD-EPIcr (2020) equation refit without race. The equation is recommended by the National Kidney Foundation - [place] [employer] Nephrology Task Force. Blood VENOUS BLOOD / Unknown 10/02/2021 10:23 AM EST 10/02/2021 6:30 PM EST Fior Armstrong MD CHEMISTRY ORDERABLES Fin al Result Performing Organization Address [facility] de Phone Number [email or web address], [address] , [place] [address] [facility] [address] [place] [address] * VANCOMYCIN LEVEL TROUGH (10/02/2021 10:23 AM EST) [facility] Vanco Tr 13.0 10.0-<20.0 mcg/mL 10/02/2021 8:31 PM EST [email or web address], [facility] Blood VENOUS BLOOD / Unknown 10/02/2021 10:23 AM EST 10/02/2021 6:30 PM EST Narrative [email or web address], [facility] - 10/02/2021 8:31 PM EST Minimum serum concentration for infection control is 10 mcg/mL; a target therapeutic range of 15-20 mcg/mL is recommended for significant infections such as S. aureus. Toxicity does not correlate well with serum concentrations. Supratherapeutic levels are considered to be > 20 mcg/mL. Fior Armstrong MD CHEMISTRY ORDERABLES Fin al Result Performing Organization Address [facility] de Phone Number [facility], [address] , [address] [place] [phone] * C-REACTIVE PROTEIN (10/02/2021 10:23 AM EST) [facility] CRP <3.00 <=5.00 mg/L 10/02/2021 8:27 PM EST [facility], [facility] Blood VENOUS BLOOD / Unknown 10/02/2021 10:23 AM EST 10/02/2021 6:30 PM EST Fior Armstrong MD CHEMISTRY ORDERABLES Fin al Result [email or web address], [address] , [place] [address] * SEDIMENTATION RATE AUTOMATED (10/02/2021 10:23 AM EST) [facility] Sed Rate 25 0 - 30 mm/hr 10/02/2021 7:28 PM EST [facility] Blood VENOUS BLOOD / Unknown 10/02/2021 10:23 AM EST 10/02/2021 6:30 PM EST Fior Armstrong MD HEMATOLOGY ORDERABLES Fi nal Result [facility] [address] [place] [address] * (ABNORMAL) CBC WITH DIFF (10/02/2021 10:23 AM EST) [facility] WBC 4.8 3.7 - 10.3 x10(3)/mcL 10/02/2021 7:12 PM EST [facility] RBC 4.20 3.90 - 5.20 x10(6)/mcL 10/02/2021 7:12 PM EST [facility], [facility] Hgb 9.6(L) 11.2 - 15.7 g/dL 10/02/2021 7:12 PM EST [facility], [facility] Hct 32.6(L) 34.0 - 45.0 % 10/02/2021 7:12 PM EST [facility], [facility] MCV 77.6(L) 80.0 - 100.0 fL 10/02/2021 7:12 PM EST [facility], [facility] MCH 22.9(L) 26.0 - 34.0 pg 10/02/2021 7:12 PM EST [facility], [facility] MCHC 29.4(L) 30.7 - 35.5 g/dL 10/02/2021 7:12 PM EST [facility], [facility] RDW 18.2(H) <=14.9 % 10/02/2021 7:12 PM EST [facility], [facility] Platelet 334 155 - 369 x10(3)/mcL 10/02/2021 7:12 PM EST [facility], [facility] MPV 10.2 8.8 - 12.5 fL 10/02/2021 7:12 PM EST [facility], [facility] Neut Percent 75.5 % 10/02/2021 7:12 PM EST [facility], [facility] Comment:Neutrophils equals s egs plus bands Imm Gran% 0.6 % 10/02/2021 7:12 PM EST [facility], [facility] Comment:Automated count of m etamyelocytes, myelocytes and promyelocytes. Lymph Percent 20.2 % 10/02/2021 7:12 PM EST [facility], [facility] [place] Percent 3.1 % 10/02/2021 7:12 PM EST [facility], [facility] Eos Percent 0.2 % 10/02/2021 7:12 PM EST [facility], [facility] Baso Percent 0.4 % 10/02/2021 7:12 PM EST [facility], [facility] Neut # 3.6 1.6 - 6.1 x10(3)/mcL 10/02/2021 7:12 PM EST [facility], [facility] Comment:Neutrophils equals s egs plus bands IMMGRAN# 0.0 0.0 - 0.1 x10(3)/mcL 10/02/2021 7:12 PM EST [facility], [facility] Comment:Automated count of m etamyelocytes, myelocytes and promyelocytes. An absolute IG <0.1 is reported as 0.0. Lymph # 1.0(L) 1.2 - 3.9 x10(3)/mcL 10/02/2021 7:12 PM EST [facility], [facility] [place] # 0.2(L) 0.3 - 0.9 x10(3)/mcL 10/02/2021 7:12 PM EST [facility] Eos# 0.0 0.0 - 0.5 x10(3)/mcL 10/02/2021 7:12 PM EST [facility] Baso # 0.0 0.0 - 0.1 x10(3)/mcL 10/02/2021 7:12 PM EST [facility], [facility] Blood VENOUS BLOOD / Unknown 10/02/2021 10:23 AM EST 10/02/2021 6:30 PM EST us Fior Armstrong MD HEMATOLOGY ORDERABLES Fi nal Result [email or web address], [facility] [address] [facility] , [place] [address] documented in this encounter Visit Diagnoses Diagnosis Infection and 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, initial encounter half-way (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 Other staphylococcus as the cause of diseases classified elsewhere documented in this encounter Care Teams Packer Fuser Relationship Specialty Start Date End Date Theo Musa [facility] [address] [place] [address] PCP - General 11/10/09 Bronson Raygoza MD [address] [place] [address] Internal Medicine-Rheumatology 02/07/23 documented as of this encounter
--- OUTSIDE RECORDS SUMMARY | 2025-07-13 13:54 | XMS_ITS | Encounter Summary ---
Author Organization [place] [address] Care Team Providers Care Systems Mgr Name Role Phone Theo Musa Primary Care Provider Bronson Raygoza MD Unavailable [phone] Encounter Details Date Type Department Care Team (Latest Contact Info) Description 10/09/2021 Lab Requisition [facility] [address] 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 Social History Tobacco [...] Visit [facility] [address] [place] [address] 09/06/2025 10:30 AM EST Office Visit [facility] [place] [address] [place] [address] [place] [address] [address] Sarita Case MD [address] [place] [address] [place] [address] 11/29/2025 10:15 AM EDT Office Visit [facility] [address] [place] [address] Bronson Raygoza MD [address] [place] [address] documented as of this encounter Procedures Procedure Name Priority Date/Time Associated Diagnosis Comments EXTRA GOLD SST Routine 10/09/2021 10:27 AM EDT Infection and 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, initial encounter (HCC) Other staphylococcus as the cause of diseases classified elsewhere [facility] (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 SEDIMENTATION RATE AUTOMATED Routine 10/09/2021 10:27 AM EDT Infection and 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, initial encounter (HCC) Other staphylococcus as the cause of diseases classified elsewhere [facility] (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 CBC WITH DIFF Routine 10/09/2021 10:27 AM EDT Infection and 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, initial encounter (HCC) Other staphylococcus as the cause of diseases classified elsewhere [facility] (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 C-REACTIVE PROTEIN Routine 10/09/2021 10 :27 AM EDT Infection and 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, initial encounter (HCC) Other staphylococcus as the cause of diseases classified elsewhere 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 VANCOMYCIN LEVEL TROUGH Routine 10/09/2021 10:27 AM EDT Infection and 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, initial encounter (HCC) Other staphylococcus as the cause of diseases classified elsewhere 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 COMPREHENSIVE METABOLIC PANEL Routine 10/09/2021 10:27 AM EDT Infection and 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, initial encounter (HCC) Other staphylococcus as the cause of diseases classified elsewhere [facility] (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 documented in this encounter Results * EXTRA GOLD SST (10/09/2021 10:27 AM EDT) Blood VENOUS BLOOD / Unknown 10/09/2021 10:27 AM EDT 10/09/2021 7:27 PM EDT Fior Armstrong MD CHEMISTRY ORDERABLES Fin al Result Performing Organization Address [facility] de Phone Number [address] [address] * (ABNORMAL) VANCOMYCIN LEVEL TROUGH (10/09/2021 10:27 AM EDT) Pathologist [facility] Vanco Tr 9.6(L) 10.0-<20.0 mcg/mL 10/09/2021 8:34 PM EDT [facility] Blood VENOUS BLOOD / Unknown 10/09/2021 10:27 AM EDT 10/09/2021 7:23 PM EDT Narrative [facility] - 10/09/2021 8:34 PM EDT Minimum serum concentration for infection control is 10 mcg/mL; a target therapeutic range of 15-20 mcg/mL is recommended for significant infections such as S. aureus. Toxicity does not correlate well with serum concentrations. Supratherapeutic levels are considered to be > 20 mcg/mL. Fior Armstrong MD CHEMISTRY ORDERABLES Fin al Result Performing Organization Address [facility] de Phone Number [facility] [employer] [address] [place] [address], [place] [address] * (ABNORMAL) C-REACTIVE PROTEIN (10/09/2021 10:27 AM EDT) Pathologist [facility] CRP 16.27(H) <=5.00 mg/L 10/09/2021 8:33 PM EDT [facility] Blood VENOUS BLOOD / Unknown 10/09/2021 10:27 AM EDT 10/09/2021 7:23 PM EDT us Fior Armstrong MD CHEMISTRY ORDERABLES Fin al Result [facility] [address] [facility] , [address] [place] [phone] * (ABNORMAL) COMPREHENSIVE METABOLIC PANEL (10/09/2021 10:27 [...] - 123 U/L 10/09/2021 8:35 PM EDT [facility] [employer], [facility] eGFR (CKD-EPIcr 2020) 78 >=60 mL/min/1.7 3 m2 10/09/2021 8:35 PM EDT [facility] Comment:Estimated GFR was ca lculated using the CKD-EPIcr (2020) equation refit without race. The equation is recommended by the National Kidney Foundation - [place] [employer] of Nephrology Task Force. Blood VENOUS BLOOD / Unknown 10/09/2021 10:27 AM EDT 10/09/2021 7:23 PM EDT Fior Armstrong MD CHEMISTRY ORDERABLES [facility] al Result Performing Organization Address [facility] Co de Phone Number [facility] [employer], [address] , [place] [address] [facility] [address] [place] [address] * SEDIMENTATION RATE AUTOMATED (10/09/2021 10:27 AM EDT) Sed Rate 19 0 - 30 mm/hr 10/09/2021 8:05 PM EDT [facility] [employer], [facility] Blood VENOUS BLOOD / Unknown 10/09/2021 10:27 AM EDT 10/09/2021 7:23 PM EDT Fior Armstrong MD HEMATOLOGY ORDERABLES Fi nal Result Performing Organization Address [facility]/ZIP Co de Phone Number [facility] [employer], [address] , [address] [place] [phone] * (ABNORMAL) CBC WITH DIFF (10/09/2021 10:27 AM EDT) WBC 3.7 3.7 - 10.3 x10(3)/mcL 10/09/2021 7:53 PM EDT [facility], [facility] RBC 4.16 3.90 - 5.20 x10(6)/mcL 10/09/2021 7:53 PM EDT [facility] Hgb 9.7(L) 11.2 - 15.7 g/dL 10/09/2021 7:53 PM EDT [facility] Hct 33.5(L) 34.0 - 45.0 % 10/09/2021 7:53 PM EDT [facility] MCV 80.5 80.0 - 100.0 fL 10/09/2021 7:53 PM EDT [facility] MCH 23.3(L) 26.0 - 34.0 pg 10/09/2021 7:53 PM EDT [facility] MCHC 29.0(L) 30.7 - 35.5 g/dL 10/09/2021 7:53 PM EDT [facility] RDW 20.0(H) <=14.9 % 10/09/2021 7:53 PM EDT [facility] Platelet 161 155 - 369 x10(3)/mcL 10/09/2021 7:53 PM EDT [facility] MPV 10.7 8.8 - 12.5 fL 10/09/2021 7:53 PM EDT [facility] Neut Percent 69.3 % 10/09/2021 7:53 PM EDT [facility] Comment:Neutrophils equals s egs plus bands Imm Gran% 0.3 % 10/09/2021 7:53 PM EDT [facility] Comment:Automated count of m etamyelocytes, myelocytes and promyelocytes. Lymph Percent 17.5 % 10/09/2021 7:53 PM EDT [facility] [place] Percent 8.8 % 10/09/2021 7:53 PM EDT [facility] Eos Percent 3.3 % 10/09/2021 7:53 PM EDT [facility] Baso Percent 0.8 % 10/09/2021 7:53 PM EDT [facility] Neut # 2.5 1.6 - 6.1 x10(3)/mcL 10/09/2021 7:53 PM EDT [facility] Comment:Neutrophils equals s egs plus bands IMMGRAN# 0.0 0.0 - 0.1 x10(3)/mcL 10/09/2021 7:53 PM EDT [facility] Comment:Automated count of m etamyelocytes, myelocytes and promyelocytes. An absolute IG <0.1 is reported as 0.0. Lymph # 0.6(L) 1.2 - 3.9 x10(3)/mcL 10/09/2021 7:53 PM EDT [facility] [place] # 0.3 0.3 - 0.9 x10(3)/mcL 10/09/2021 7:53 PM EDT [facility] Eos# 0.1 0.0 - 0.5 x10(3)/[facility] 10/09/2021 7:53 PM EDT [facility] [place] # 0.0 0.0 - 0.1 x10(3)/[facility] 10/09/2021 7:53 PM EDT [facility] Blood VENOUS BLOOD / Unknown 10/09/2021 10:27 AM EDT 10/09/2021 7:23 PM EDT us Fior Armstrong MD HEMATOLOGY ORDERABLES Fi nal Result [facility], [facility] [address] [facility] , [place] [address] documented in this encounter Visit Diagnoses Diagnosis Infection and 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, initial encounter Other staphylococcus as the cause of diseases classified elsewhere 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
--- OUTSIDE RECORDS SUMMARY | 2025-07-13 13:54 | XMS_ITS | Encounter Summary ---
Author [place] [address] Care Team Providers Care Vest Maker Name Role Phone Theo Musa Primary Care Provider [phone] Bronson Raygoza MD Unavailable [phone] Encounter Details Date Type Department Care Team (Latest Contact Info) Description 09/19/2021 Lab Requisition [facility] [address] 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 Social History Tobacco [...] of Assessment Author No 09/05/2021 2:18 PM hCerie Florez RN * Does this person have [...] Visit [facility] [address] [place] [address] 09/06/2025 10:30 AM EST Office Visit [facility] [address] [place], [place] [phone] Sarita Case MD [address] [place] [address] [place] [address] 11/29/2025 10:15 AM EDT Office Visit [facility] [address] [place] [address] Bronson Raygoza MD [address] [place] [address] documented as of this encounter Procedures Procedure Name Priority Date/Time Associated Diagnosis Comments EXTRA GOLD SST Routine 09/19/2021 8:15 AM EST Infection and 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, initial encounter (HCC) Other staphylococcus as the cause of diseases classified elsewhere 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 SEDIMENTATION RATE AUTOMATED Routine 09/19/2021 8:15 AM EST Infection and 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, initial encounter (HCC) Other staphylococcus as the cause of diseases classified elsewhere 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 CBC WITH DIFF Routine 09/19/2021 8:15 AM EST Infection and 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, initial encounter (HCC) Other staphylococcus as the cause of diseases classified elsewhere 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 C-REACTIVE PROTEIN Routine 09/19/2021 8: 15 AM EST Infection and 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, initial encounter (HCC) Other staphylococcus as the cause of diseases classified elsewhere 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 COMPREHENSIVE METABOLIC PANEL Routine 09/19/2021 8:15 AM EST Infection and 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, initial encounter (HCC) Other staphylococcus as the cause of diseases classified elsewhere 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 documented in this encounter Results * EXTRA GOLD SST (09/19/2021 8:15 AM EST) Blood VENOUS BLOOD / Unknown 09/19/2021 8:15 AM EST 09/19/2021 3:17 PM EST Fior Armstrong MD CHEMISTRY ORDERABLES Fin al Result Performing Organization Address City/[facility]/[place] [address] * (ABNORMAL) C-REACTIVE PROTEIN (09/19/2021 8:15 AM EST) CRP 73.25(H) <=5.00 mg/L 09/19/2021 4:29 PM EST [facility] Blood VENOUS BLOOD / Unknown 09/19/2021 8:15 AM EST 09/19/2021 3:16 PM EST Fior Armstrong MD CHEMISTRY ORDERABLES Fin al Result Performing Organization Address [facility]/ZIP Co de Phone Number [facility] 1 [facility], [place] [address] * (ABNORMAL) COMPREHENSIVE METABOLIC PANEL (09/19/2021 8:15 [...] 09/19/2021 4:29 PM EST [facility] BUN 12 8 - 23 mg/dL 09/19/2021 4:29 PM EST [facility] Creatinine 0.75 0.51 - 1.30 mg/dL 09/19/2021 4:29 PM EST [facility] Albumin 3.6 3.2 - 4.6 gm/dL 09/19/2021 4:29 PM EST [facility] Total Protein 6.3(L) 6.4 - 8.3 gm/dL 09/19/2021 4:29 PM EST [facility] Bili Total 0.2 0.1 - 1.3 mg/dL 09/19/2021 4:29 PM EST [facility] ALT 6 <=41 U/L 09/19/2021 4:29 PM EST [facility] AST 15 <=40 U/L 09/19/2021 4:29 PM EST [facility] Alk Phos 118 36 - 123 U/L 09/19/2021 4:29 PM EST [facility] eGFR (CKD-EPIcr 2020) 82 >=60 mL/min/1.7 3 m2 09/19/2021 4:29 PM EST [facility] Comment:Estimated GFR was ca lculated using the CKD-EPIcr (2020) equation refit without race. The equation is recommended by the National Kidney Foundation - [employer] Society of Nephrology Task Force. Blood VENOUS BLOOD / Unknown 09/19/2021 8:15 AM EST 09/19/2021 3:16 PM EST us Fior Armstrong MD CHEMISTRY ORDERABLES Fin al Result [facility] 1 [facility] , [place] [address] [facility] 1 [place] [address] * (ABNORMAL) SEDIMENTATION RATE AUTOMATED (09/19/2021 8:15 AM EST) Sed Rate 60(H) 0 - 30 mm/hr 09/19/2021 4:25 PM EST [facility] Blood VENOUS BLOOD / Unknown 09/19/2021 8:15 AM EST 09/19/2021 3:16 PM EST us Fior Armstrong MD HEMATOLOGY ORDERABLES Fi nal Result [facility] 1 [place] [address] * (ABNORMAL) CBC WITH DIFF (09/19/2021 8:15 [...] Gran% 0.6 % 09/19/2021 4:06 PM EST [facility] [employer], [facility] Comment:Automated count of m etamyelocytes, myelocytes and promyelocytes. Lymph Percent 24.4 % 09/19/2021 4:06 PM EST [facility] Whatcom Percent 10.0 % 09/19/2021 4:06 PM EST [facility] Eos Percent 3.0 % 09/19/2021 4:06 PM EST [facility] Baso Percent 0.8 % 09/19/2021 4:06 PM EST [facility] Neut # 2.2 1.6 - 6.1 x10(3)/[facility] 09/19/2021 4:06 PM EST [facility] Comment:Neutrophils equals s egs plus bands IMMGRAN# 0.0 0.0 - 0.1 x10(3)/[facility] 09/19/2021 4:06 PM EST [facility] [employer], [facility] Comment:Automated count of m etamyelocytes, myelocytes and promyelocytes. An absolute IG <0.1 is reported as 0.0. Lymph # 0.9(L) 1.2 - 3.9 x10(3)/[facility] 09/19/2021 4:06 PM EST [facility] Whatcom # 0.4 0.3 - 0.9 x10(3)/[facility] 09/19/2021 4:06 PM EST [facility] Eos# 0.1 0.0 - 0.5 x10(3)/[facility] 09/19/2021 4:06 PM EST [facility] Baso # 0.0 0.0 - 0.1 x10(3)/[facility] 09/19/2021 4:06 PM EST [facility] [employer], [facility] Blood VENOUS BLOOD / Unknown 09/19/2021 8:15 AM EST 09/19/2021 3:16 PM EST us Fior Armstrong MD HEMATOLOGY ORDERABLES Fi nal Result [facility] [employer] 1 [facility] , [place] [address] documented in this encounter Visit Diagnoses Diagnosis Infection and 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, initial encounter Other staphylococcus as the cause of diseases classified elsewhere 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
--- OUTSIDE RECORDS SUMMARY | 2025-07-13 13:54 | XMS_ITS | Clinical Summary ---
Author Organization [facility] Address [address] [facility], [address] [place] [address] Care Team Providers Care Post Office Markup Clerk Name Role Phone Shaun Musa MD Primary Care Provider [phone] Allergies Active Allergy Reactions Criticality Noted Date [...] Take 1,000 Units by mouth daily Active Huxford 3 1000 MG CAPS Take 1 capsule [...] mouth 2 times daily 03/29/2023 Active PEG [id number]-RsCge- NaCl-NaSulf (PEG-3350/ELECT ROLYTES) 236 g SOLR TAKE [...] yrs+ (1 - 1-dose 75+ series) 2019 Annual Wellness Visit (Medicare Advantage) 07/29/2024 Flu vaccine (#1) 02/26/2025 05/03/2022, 05/2021, 04/14/2020, Additional history exists COVID-19 Vaccine ( season) 2025 05/30/2022, 05/29/2021, 10/17/2020, Additional history exists Hepatitis A vaccine Aged [...] patient's age to complete this topic Insurance [facility] [employer] Care Teams Post Office Markup Clerk Relationship Specialty Start Date End Date Shaun Musa MD [facility] [address] [address] PCP - General 12/12/16
--- OUTSIDE RECORDS SUMMARY | 2025-07-13 13:54 | XMS_ITS | Encounter Summary ---
Author Organization [place] [address] Care Team Providers Care Manager Transition Name Role Phone Theo Musa Primary Care Provider [phone] Bronson Raygoza MD Unavailable [phone] Encounter Details Date Type Department Care Team (Latest Contact Info) Description 09/25/2021 Lab Requisition [facility] [address] 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 Social History [...] [facility] [address] [place] [address] 09/06/2025 10:30 AM EST Office Visit [facility] [address] [place] [address] Sarita Case MD [address] [place] [address] [place] [address] 11/29/2025 10:15 AM EDT Office Visit [facility] [address] [place] [address] Bronson Raygoza MD [address] [place] [address] documented as of this encounter Procedures Procedure Name Priority Date/Time Associated Diagnosis Comments EXTRA GOLD SST Routine 09/25/2021 10:44 AM EST Infection and 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, initial encounter (HCC) Other staphylococcus as the cause of diseases classified elsewhere 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 SEDIMENTATION RATE AUTOMATED Routine 09/25/2021 10:44 AM EST Infection and 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, initial encounter (HCC) Other staphylococcus as the cause of diseases classified elsewhere 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 CBC WITH DIFF Routine 09/25/2021 10:44 AM EST Infection and 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, initial encounter (HCC) Other staphylococcus as the cause of diseases classified elsewhere 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 C-REACTIVE PROTEIN Routine 09/25/2021 10 :44 AM EST Infection and 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, initial encounter (HCC) Other staphylococcus as the cause of diseases classified elsewhere 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 VANCOMYCIN LEVEL TROUGH Routine 09/25/2021 10:44 AM EST Infection and 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, initial encounter (HCC) Other staphylococcus as the cause of diseases classified elsewhere 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 COMPREHENSIVE METABOLIC [...] ORDERABLES Fin al Result Performing Organization Address [facility] Co de Phone Number [place] [phone] * (ABNORMAL) VANCOMYCIN LEVEL TROUGH (09/25/2021 10:44 AM EST) Vanco Tr 8.4(L) 10.0-<20.0 mcg/mL 09/25/2021 5:24 PM EST [facility] Blood VENOUS BLOOD / Unknown 09/25/2021 10:44 AM EST 09/25/2021 3:04 PM EST Narrative [facility] - 09/25/2021 5:24 PM EST Minimum serum concentration for infection control is 10 mcg/mL; a target therapeutic range of 15-20 mcg/mL is recommended for significant infections such as S. aureus. Toxicity does not correlate well with serum concentrations. Supratherapeutic levels are considered to be > 20 mcg/mL. Fior Armstrong MD CHEMISTRY ORDERABLES Fin al Result Performing Organization Address [facility] Co de Phone Number [employer] [address] [place] [address], [place] [address] * (ABNORMAL) C-REACTIVE PROTEIN (09/25/2021 10:44 AM EST) CRP 29.26(H) <=5.00 mg/L 09/25/2021 5:19 PM EST [facility] Blood VENOUS BLOOD / Unknown 09/25/2021 10:44 AM EST 09/25/2021 3:04 PM EST us Fior Armstrong MD CHEMISTRY ORDERABLES Joseph al Result [facility] 1 [facility], [place] [address] * (ABNORMAL) COMPREHENSIVE METABOLIC PANEL (09/25/2021 10:44 [...] U/L 09/25/2021 5:19 PM EST [facility] Alk Phos 125(H) 36 - 123 U/L 09/25/2021 5:19 PM EST [facility] Doctor [employer], [facility] eGFR (CKD-EPIcr 2020) 78 >=60 mL/min/1.7 3 m2 09/25/2021 5:19 PM EST [facility] Comment:Estimated GFR was ca lculated using the CKD-EPIcr (2020) equation refit without race. The equation is recommended by the National Kidney Foundation - Stateless Society of Nephrology Task Force. Blood VENOUS BLOOD / Unknown 09/25/2021 10:44 AM EST 09/25/2021 3:04 PM EST Fior Armstrong MD CHEMISTRY ORDERABLES [facility] al Result Performing Organization Address [facility] Co de Phone Number [facility] Doctor [employer] , [place] [address] [facility] [address] [place] [address] * (ABNORMAL) SEDIMENTATION RATE AUTOMATED (09/25/2021 10:44 AM EST) Pathologist [facility] Sed Rate 51(H) 0 - 30 mm/hr 09/25/2021 5:10 PM EST [facility] [employer] [facility] Blood VENOUS BLOOD / Unknown 09/25/2021 10:44 AM EST 09/25/2021 3:04 PM EST Fior Armstrong MD HEMATOLOGY ORDERABLES nal Result Performing Organization Address [facility]/ZIP Co de Phone Number [facility] Doctor [employer] , [address] [place] [phone] * (ABNORMAL) CBC WITH DIFF (09/25/2021 10:44 AM EST) Pathologist [facility] WBC 3.2(L) 3.7 - 10.3 x10(3)/mc L 09/25/2021 5:23 PM EST [facility] [employer], [facility] RBC 3.97 3.90 - 5.20 x10(6)/mc L 09/25/2021 5:23 PM EST [facility] Hgb 9.0(L) 11.2 - 15.7 g/dL 09/25/2021 5:23 PM EST [facility] Hct 31.4(L) 34.0 - 45.0 % 09/25/2021 5:23 PM EST [facility] MCV 79.1(L) 80.0 - 100.0 fL 09/25/2021 5:23 PM EST [facility] MCH 22.7(L) 26.0 - 34.0 pg 09/25/2021 5:23 PM EST [facility] MCHC 28.7(L) 30.7 - 35.5 g/dL 09/25/2021 5:23 PM EST [facility] RDW 17.0(H) <=14.9 % 09/25/2021 5:23 PM EST [facility] Platelet 299 155 - 369 x10(3)/mc L 09/25/2021 5:23 PM EST [facility] MPV 10.3 8.8 - 12.5 fL 09/25/2021 5:23 PM EST [facility] Neut Percent 62.4 % 09/25/2021 5:23 PM EST [facility] Comment:Neutrophils equals s egs plus bands Imm Gran% 0.6 % 09/25/2021 5:23 PM EST [facility] Comment:Automated count of m etamyelocytes, myelocytes and promyelocytes. Lymph Percent 20.2 % 09/25/2021 5:23 PM EST [facility] Wright Percent 10.9 % 09/25/2021 5:23 PM EST [facility] Eos Percent 5.0 % 09/25/2021 5:23 PM EST [facility] Baso Percent 0.9 % 09/25/2021 5:23 PM EST [facility] Neut # 2.0 1.6 - 6.1 x10(3)/mc L 09/25/2021 5:23 PM EST [facility] Comment:Neutrophils equals s egs plus bands IMMGRAN# 0.0 0.0 - 0.1 x10(3)/mc L 09/25/2021 5:23 PM EST [facility] Comment:Automated count of m etamyelocytes, myelocytes and promyelocytes. An absolute IG <0.1 is reported as 0.0. Lymph # 0.7(L) 1.2 - 3.9 x10(3)/mc L 09/25/2021 5:23 PM EST [facility] Wright # 0.4 0.3 - 0.9 x10(3)/mc L [...] nal Result [facility] 1 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
--- OUTSIDE RECORDS SUMMARY | 2025-07-13 13:54 | XMS_ITS | Encounter Summary ---
Author [place] [address] Care Team Providers Care Tattoo Identifier Name Role Phone Theo Musa Primary Care Provider [phone] Bronson Raygoza MD Unavailable [phone] Encounter Details Date Type Department Care Team (Latest Contact Info) Description 09/18/2021 Lab Requisition [facility] [address] [place] [phone] Fior Armstrong MD [address] [place] [phone] Infection and 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, initial encounter; detention (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; Other staphylococcus as [...] [facility] [address] [place] [address] 09/06/2025 10:30 AM EST Office Visit [facility] [address] [place] [address] Sarita Case MD [address] [place] [address] 11/29/2025 10:15 AM EDT Office Visit [facility] [address] [place] [address] Bronson Raygoza MD [address] [place] [address] documented as of this encounter Procedures Procedure Name Priority Date/Time Associated Diagnosis Comments C-REACTIVE PROTEIN Routine 09/18/2021 10 :30 AM EST Infection and 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, initial encounter (HCC) detention (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 Other staphylococcus as the cause of diseases classified elsewhere VANCOMYCIN LEVEL TROUGH Routine 09/18/2021 10:30 AM EST Infection and 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, initial encounter (HCC) detention (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 Other staphylococcus as the cause of diseases classified elsewhere COMPREHENSIVE METABOLIC PANEL Routine 09/18/2021 10:30 AM EST Infection and 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, 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 Total CO2 20(L) 22 - 29 mmol/L 09/18/2021 7:18 PM EST [facility] Anion Gap 16 7 - 16 mmol/L 09/18/2021 7:18 PM EST [facility] Calcium 9.2 8.8 - 10.4 mg/dL 09/18/2021 7:18 PM EST [facility] Glucose Lvl 119(H) 82 - 100 mg/dL 09/18/2021 7:18 PM EST [facility] BUN 12 8 - 23 mg/dL 09/18/2021 7:18 PM EST [facility] Creatinine 0.77 0.51 - 1.30 mg/dL 09/18/2021 7:18 PM EST [facility] Albumin 3.9 3.2 - 4.6 gm/dL 09/18/2021 7:18 PM EST [facility] Total Protein 6.5 6.4 - 8.3 gm/dL 09/18/2021 7:18 PM EST [facility] Bili Total 0.2 0.1 - 1.3 mg/dL 09/18/2021 7:18 PM EST [facility] ALT 5 <=41 U/L 09/18/2021 7:18 PM EST [facility] AST 10 <=40 U/L 09/18/2021 7:18 PM EST [facility] Alk Phos 137(H) 36 - 123 U/L 09/18/2021 7:18 PM EST [facility] eGFR (CKD-EPIcr 2020) 79 >=60 mL/min/1.7 3 m2 09/18/2021 7:18 PM EST [facility] Comment:Estimated GFR was ca lculated using the CKD-EPIcr (2020) equation refit without race. The equation is recommended by the National Kidney Foundation - [place] Society of Nephrology Task Force. Blood VENOUS BLOOD / Unknown 09/18/2021 10:30 AM EST 09/18/2021 6:16 PM EST us Fior Armstrong MD CHEMISTRY ORDERABLES Fin al Result [place] [employer], [address] , [place] [address] [facility] [address] [place] [address] * (ABNORMAL) C-REACTIVE PROTEIN (09/18/2021 10:30 AM EST) CRP 89.21(H) <=5.00 mg/L 09/18/2021 7:18 PM EST [facility] [employer] Blood VENOUS BLOOD / Unknown 09/18/2021 10:30 AM EST 09/18/2021 6:16 PM EST Fior Armstrong MD CHEMISTRY ORDERABLES Fin al Result Performing Organization Address [facility] de Phone Number [place] [employer] , [place] [address] * (ABNORMAL) VANCOMYCIN LEVEL TROUGH (09/18/2021 10:30 AM EST) Vanco Tr 33.0(HH) 10.0-<20.0 mcg/mL 09/18/2021 7:23 PM EST [facility] [employer] Blood VENOUS BLOOD / Unknown 09/18/2021 10:30 AM EST 09/18/2021 6:16 PM EST Narrative [place] [employer] [facility] - 09/18/2021 7:23 PM EST Minimum serum concentration for infection control is 10 mcg/mL; a target therapeutic range of 15-20 mcg/mL is recommended for significant infections such as S. aureus. Toxicity does not correlate well with serum concentrations. Supratherapeutic levels are considered to be > 20 mcg/mL. Fior Armstrong MD CHEMISTRY ORDERABLES Joseph al Result Performing Organization Address [facility] Co de Phone Number [place] [employer] [address] , [place] [address] documented in this encounter Visit Diagnoses Diagnosis Infection and 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, initial encounter detention (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 Other staphylococcus as the cause of diseases classified elsewhere documented in this encounter Care Teams Tattoo Identifier Relationship Specialty Start Date End Date Theo Musa [facility] [address] [facility] [address] PCP - General 11/10/09 Bronson Raygoza MD [address] [place] [address] Internal Medicine-Rheumatology 02/07/23 documented as of this encounter
--- OUTSIDE RECORDS SUMMARY | 2025-07-13 13:54 | XMS_ITS | Encounter Summary ---
Author Organization [place] [address] Care Team Providers Care Hamper Maker Machine Name Role Phone Theo Musa Primary Care Provider [phone] Bronson Raygoza MD Unavailable [phone] Encounter Details Date Type Department Care Team (Latest Contact Info) Description 09/20/2021 Lab Requisition [facility] [address] 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 Social History Tobacco [...] Visit [facility] [address] [place] [address] 09/06/2025 10:30 AM EST Office Visit [facility] [address] [facility] [place] [address] Sarita Case MD [address] [place] [address] 11/29/2025 10:15 AM EDT Office Visit [facility] [address] [place] [address] Bronson Raygoza MD [address] [place] [address] documented as of this encounter Procedures Procedure Name Priority Date/Time Associated Diagnosis Comments VANCOMYCIN LEVEL TROUGH Routine 09/20/2021 10:45 AM EST Other staphylococcus as the cause of diseases classified elsewhere documented in this encounter Results * (ABNORMAL) VANCOMYCIN LEVEL TROUGH (09/20/2021 10:45 AM EST) Vanco Tr 7.9(L) 10.0-<20.0 mcg/mL 09/20/2021 5:38 PM EST PREFERRED [employer] Blood VENOUS BLOOD / Unknown 09/20/2021 10:45 AM EST 09/20/2021 3:34 PM EST Narrative PREFERRED [employer] - 09/20/2021 5:38 PM EST Minimum serum concentration for infection control is 10 mcg/mL; a target therapeutic range of 15-20 mcg/mL is recommended for significant infections such as S. aureus. Toxicity does not correlate well with serum concentrations. Supratherapeutic levels are considered to be > 20 mcg/mL. us Fior Armstrong MD CHEMISTRY ORDERABLES Fin al Result PREFERRED [employer], [employer] [place] [employer] [address] [facility] , [address] [place] [id number] documented in this encounter Visit Diagnoses Diagnosis Other staphylococcus as the cause of diseases classified elsewhere Infection and 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, initial encounter detention (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 documented in this encounter Care Teams Hamper Maker Machine Relationship Specialty Start Date End Date Theo Musa [facility] [address] [place] [address] PCP - General 11/10/09 Bronson Raygoza MD [address] [place] [address] Internal Medicine-Rheumatology 02/07/23 documented as of this encounter
--- OUTSIDE RECORDS SUMMARY | 2025-07-13 13:54 | XMS_ITS | Clinical Summary ---
Author Organization [facility] Address [address] [place] [address] Care Team Providers Care Millinery Worker Name Role Phone Nonstaff, Referring MD Primary Care Provider [phone] Will Friedman MD Unavailable [phone] Cristian Grossman MD Unavailable [phone] Allergies Active Allergy Reactions Criticality Noted Date Comments Adhesive Medium 12/11/2018 Other reaction(s): Other (See Comments) Paper tape is acceptable Adhesive Tape-Silicones 12/20/2016 Irritates skin Can use paper tape Chocolate Flavor 04/16/2013 [place] Other (See Comments) 12/20/2016 Severe CUEVAS Erythromycin [...] azelastine (ASTELIN) 137 mcg (0.1 %) Aerosol, Grant USE 2 SPRAYS IN EACH NOSTRIL TWICE A DAY 30 mL 7 9 Active Additional Information Patient taking differently: NIGHTLY, USE 2 SPRAYS IN EACH NOSTRIL TWICE A DAY, Reported on 05/26/2020 diclofenac (VOLTAREN) 75 mg EC tablet Take 75 mg by mouth daily. Active ciclesonide (Zetonna) 37 mcg/actuation HFA Aerosol Inhaler Grant 1 Puff into nose daily. 1 puff [...] Aerosol InhalerIndicatio ns:Seasonal allergic rhinitis, unspecified trigger Grant 2 Sprays into nose daily. 1 Container 6 1 Active triamcinolone (NASACORT) 55 mcg Aerosol, SprayIndications :Seasonal allergic rhinitis, unspecified trigger Grant 2 Sprays into nose daily. 90 day [...] Maintenance Due Date Last Done Comments Lipid Monitoring 1961 Tetanus Vaccination (Every 10 Years) 1962 Pneumococcal Vaccine: 50+ Ye ars (1 of 1 - PCV) 1994 Fall Risk Assessment 2009 Zoster-RZV(Shingrix) (2 of 2) 10/24/2018 08/29/2018 RSV Vaccines (1 - 1-dose 75+ series) 2019 Advance Care Planning 07/29/2024 Depression Screening 07/29/2024 Osteoporosis Screening 08/25/2024 08/25/2019 COVID-19 Vaccine ( - season) 2025 Influenza Vaccination (#1) 2025 03/29/2012, Influenza Vaccination (Yearly) Discontinued 03/29/2012 , 05/29/2007 Medical Devices Implanted Type Area Maid Housekeeper Device Identifier Shelf Expiration Date Model / Serial / Lot [facility] [employer] Sz 3 - [id number] Implanted:Qty: 1 on 06/02/2020 by Cristian Grossman MD at [facility] Right: Knee * JAVIER \T\ NEPHEW 08/12/2027 [id number] / / [id number] Journey Ii Cruciate Retaining Cr Oxinium Fem Cmpnt Sz 4 Right - [id number] Implanted:Qty: 1 on 06/02/2020 by Cristian Grossman MD at [facility] Right: Knee * JAVIER \T\ NEPHEW 02/13/2030 [id number] / / [id number] Journey Ii Xlpe A/P 48mm,M/L 68mm Deep [place] Articular Insert 9mm Size 3-4,Right - [id number] Implanted:Qty: 1 on 06/02/2020 by Cristian Grossman MD at [facility] Right: Knee * JAVIER \T\ NEPHEW 02/15/2030 [id number] / / [id number] Jrny Std 35mm 7.5mm Resfc Pat Compt - [id number] Implanted:Qty: 1 on 06/02/2020 by Cristian Grossman MD at [facility] Right: Knee * JAVIER \T\ NEPHEW 08/22/2028 [id number] / / [id number] Simplex Hv Full Dose Us - [id number] Implanted:Qty: 2 on 06/02/2020 by Cristian Grossman MD at [facility] Right: Knee * MEME 08/28/2021 [id number] / / [id number] Knee Sn Upchrg Jrny Ii Oxinium - [id number] Implanted:Qty: 1 on 06/02/2020 by Cristian Grossman MD at [facility] Right: Knee * HERRERA \T\ NEPHEW KNSNOXIN / / Knee Sn Upchrg Adv Pat - [id number] Implanted:Qty: 1 on 06/02/2020 by Cristian Grossman MD at [facility] Right: Knee * HERRERA \T\ NEPHEW KNSNADVPAT / / Knee Sn Cemented [employer] - [id number] Implanted:Qty: 1 on 06/02/2020 by Cristian Grossman MD at [facility] Right: Knee * HERRERA \T\ NEPHEW COURTNEYSDARNELLEMKIN / / Insurance [place] [id number] [facility] MEDICARE [facility] MEDICARE [place] [id number] Care Teams Millinery Worker Relationship Specialty Start Date End Date RenaetaTay proctor MD [address] [facility] PCP - General 09/24/17 Will Friedman MD [address] [place] [address] [address] [place] [address] Otolaryngology 09/19/20 Cristian Grossman MD [address] [place] [address] Orthopedic Surgery 08/05/22
--- OUTSIDE RECORDS SUMMARY | 2025-07-13 13:54 | XMS_ITS | Clinical Summary ---
Author Organization [facility] Address [address] [place] [address] Phone Care Team Providers Care Cloth Roll Winder Name Role Phone Theo Musa Primary Care Provider [phone] Dayna Raygoza MD Unavailable [phone] Allergies Active Allergy Reactions Criticality Noted Date Comments Adhesive Other (See Comments),Swellin g Medium 12/11/2018 Paper tape is acceptable Chocolate Flavor 04/16/2013 [place] Other (See Comments) 12/20/2016 Severe CUEVAS Erythromycin [...] Oral Tablet once a week. Take on Saturday'06/23/20 21 Active Biotin 5 mg Oral Capsule Take 5,000 Capsules by mouth. Active vitamin D3-folic acid 2,500 unit- 1 mg Oral Tablet Take 5,000 Int'l Units/L by mouth daily. Active docusate sodium (COLACE) 100 mg Oral Capsule Take 1 Capsule by mouth 2 times daily as needed for Constipation. 30 Capsule 09/04/19 22 Active albuterol (PROVENTIL HFA;VENTOLIN HFA) 90 mcg/actuation Inhl HFA Aerosol Inhaler 03/05/20 22 Active pantoprazole (PROTONIX) 20 mg Oral Tablet, Delayed Release (E.C.) Take 20 mg by mouth 2 times daily. 07/25/20 23 Active cycloSPORINE (RESTASIS) 0.05 % Opht Dropperette Place 1 Drop into both eyes every 12 hours. Active Bifidobacterium Infantis (ALIGN) 4 mg Oral CapsuleIndicati ons:Epigastric abdominal pain,Atrophic gastritis without hemorrhage,Pass age of loose stools Take 1 Capsule by mouth daily. 30 Capsule 2 09/23/19 24 Active meclizine (ANTIVERT) 12.5 mg Oral Tablet Take 12.5 mg by mouth 2 times daily as needed. 02/29/20 22 Active ipratropium (ATROVENT) 42 mcg (0.06 %) Nasl Guy, Non-AerosolIndi cations:Acute non-recurrent maxillary sinusitis 2 Sprays by Nasal route 4 times daily as needed for Rhinitis. 2 sprays each nostril 15 mL 04/24/20 24 Active Psyllium Seed-Sucrose (METAMUCIL, SUGAR,) Oral Powder Take by mouth as needed. Active Cholecalciferol , Vitamin D3, (VITAMIN D3) 125 mcg (5,000 unit) Oral Tablet Take 5,000 Units by mouth daily. Active guaiFENesin (MUCINEX) 600 mg Oral Tablet Extended Release 12hr Take 1,200 mg by mouth 2 times daily. Active tiZANidine (ZANAFLEX) 4 mg Oral Tablet Take 1 Tablet by mouth daily as needed for Muscle spasms. 90 Tablet 3 12/08/19 Active Additional Information Patient not taking.Reason: Therapy Completed, Reported on 05/31/2025 clindamycin (CLEOCIN) 300 mg Oral Capsule Take 300 mg by mouth 3 times daily. 03/08/20 Active Magic Mouthwash (Lido/Diph/Nyst at) oral compound Swish and spit 5-10 mL by mouth every 4-6 hours as needed. This product was compounded by the pharmacy (nystatin 100,000 unit/mL Susp 200 mL, diphenhydrAMINE 12.5 mg/5 mL Liqd 170 mL, lidocaine 2 % Soln 50 mL, willis syrup Liqd 30 mL) 450 mL 05/20/20 Active Additional Information Patient not taking.Reason: haven't picked up, Reported on 05/31/2025 DULoxetine (CYMBALTA) 30 mg Oral Capsule, Delayed Release(E.C.) Take 1 Capsule by mouth daily. 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 Overview (08/25/2021): Added automatically from request for surgery [id number] Allergic rhinitis due to pollen 04/05/2009 Esophageal [...] (07/17/2021): Added automatically from request for surgery [id number] Leukocytosis 07/12/2012 04/24/2024 Cellulitis of right leg 07/12/201203/30 Encounters Date Type Department Care Team Description 05/31/2025 10:15 AM EST Office Visit [facility] [address] [place] [address] Dayna Raygoza MD Nontraumatic incomplete tear of right rotator cuff (Primary Dx); Osteoarthrosis, generalized, involving multiple sites; Fibromyalgia; Discogenic syndrome, lumbar; High risk medication use from Last 3 Months Immunizations Immunization Administration Dates Next Due Influenza High Dose 04/14/2020,04/07/2019,2017,04/02/2017 Influenza Patient Reported 03/29/2012,05/29/2007 Quadrivalent Influenza High Dose 05/08/2021 Td (Adult), Absorbed 10/02/1996 Zoster 09/21/2009 Zoster Recombinant 08/29/2018 Surgical History Surgery Date Site/Laterality Comments CHOLECYSTECTOMY FOOT SURGERY x6 HAND SURGERY carpal tunnel right TOENAIL EXCISION 04/22/2013 Foot/Right RIGHT GREAT TOE COMPLETE MATRIXECTOMY ; Surgeon: Romel Rutherford MD; Location: [facility]; Service: Orthopedics HIP SURGERY left pinning / pins removed SHOULDER SURGERY x2 both shoulder rotator cuff CATARACT EXTRACTION W/ INTRAOCULAR LENS IMPLANT 08/26/[address] Puneet Madison CATARACT EXTRACTION W/ INTRAOCULAR LENS IMPLANT 09/02/[address] Puneet Madison HIP ARTHROPLASTY 12/11/2018 Left left hip total replacement anterior; Surgeon: Donnell Kmi MD; Location: [facility] MAIN OR; Service: Orthopedics Medical devices from this surgery are in the Medical Devices section. UPPER GASTROINTESTINAL ENDOSCOPY 07/19/2021 N/A Esophagogastroduodenoscopy with biopsy and control of bleeding; Surgeon: David Azar MD; Location: [facility] ENDOSCOPY; Service: Endoscopy KNEE SURGERY total knee replacement HARDWARE REMOVAL 09/01/2021 Knee/Right RIGHT TOTAL KNEE ARTHROPLASTY EXPLANT AND ANTIBIOTIC SPACER; Surgeon: Cristian Grossman MD; Location: [facility] MAIN OR; Service: Orthopedics Medical devices from [...] Pressure 128/60 05/31/2025 11:00 AM EST Pulse 76 03/10/2025 1:03 PM EDT Temperature 36.2 C (97.1 F) 05/31/2025 11:00 AM EST Respiratory Rate 16 02/28/2025 10:28 PM EDT Oxygen Saturation 100% 02/28/2025 11:00 PM EDT Inhaled Oxygen Concentration - - Weight 72 kg (158 lb 12.8 oz) 05/31/2025 11:00 A M EST Height 157.5 cm (5' 2 ) 05/31/2025 11:00 AM EST Body Mass Index 29.04 05/31/2025 11:00 AM EST Plan of Treatment Upcoming Encounters Date Type Department Care Team (Late st Contact Info) Description 08/11/2025 9:00 AM EST Office Visit [facility] [address] [place] [address] 09/06/2025 10:30 AM EST Office Visit [facility] [address] [address] Sarita Case MD [address] [place] [address] 11/29/2025 10:15 AM EDT Office Visit [facility] [address] [place] [address] Dayna Raygoza MD [address] [place] [address] Health Maintenance Due Date Last Done Comments Wellness Exam Medicare 1948 Pneumococcal Vaccine 50+ (1 of 1 - PCV) 1994 DTaP/TDaP/Td (1 - Tdap) 10/03/1996 10/02/1996 Zoster (3 of 3) 10/24/2018 08/29/2018, 09/21/2009 RSV or 60+ (1 - 1-dose 75+ series) 2019 COVID-19 Vaccine ( season) 2025 05/30/2022, 05/29/2021, 10/17/2020, Additional history exists Influenza [...] this topic Medical Devices Implanted Type Area Well Tender Device Identifier Shelf Expiration Date Model / Serial / Lot Hardware Right: Knee Shell Acetabular Trident Ii Tritanium D 50mm Screwhole Clust - [id number] Implanted:Qty: 1 on 12/11/2018 by Donnell Kim MD at [facility] Left: Hip MEME:ORTHOPED ICS 07/30/2023 [id number] / / [id number] Insert Trident X 3 0 Degree 36mm D - [id number] Implanted:Qty: 1 on 12/11/2018 by Donnell Kim MD at [facility] Left: Hip MEME:ORTHOPED ICS 09/04/2023 [id number] / / [id number] 6.5mm Low Profile Hex Screw 30mm - [id number] Implanted:Qty: 1 on 12/11/2018 by Donnell Kim MD at [facility] Left: Hip MEME:ORTHOPED ICS 11/02/2023 [id number] / / [id number] Screw Trident Ii Hex Low Profile 6.5mm X 25mm - [id number] Implanted:Qty: 1 on 12/11/2018 by Donnell Kim MD at [facility] Left: Hip MEME:ORTHOPED [facility] 10/20/2023 [id number] / / [id number] [id number] Hip Angle Neck 132 Degree V40 Accolade Ii Sz #3 30mm Neck 102mm Stem - [id number] Implanted:Qty: 1 on 12/11/2018 by Donnell Kim MD at [facility] Left: Hip MEME:ORTHOPED [facility] 04/10/2022 [id number] / / [id number] Head Fem +0mm Ofst Tpr 36mm Hip Blx D V40 Strl - [id number] Implanted:Qty: 1 on 12/11/2018 by Donnell Kim MD at [facility] Left: Hip MEME:ORTHOPED [facility] 01/08/2022 6570-0-136 / / [id number] Pin Speed Non Rim 65 Mm Sterile - [id number] Implanted:Qty: 1 on 09/01/2021 by Cristian Grossman MD at [facility] Right: Knee HERRERA & NEPHEW:ORTHO [id number] 06/13/2031 [id number] / / [id number] Legion Ps Oxin Fem Sz3 Rt - [id number] Implanted:Qty: 1 on 09/01/2021 by Cristian Grossman MD at [facility] Right: Knee HERRERA & NEPHEW:ORTHO 04/06/2027 [id number] / / [id number] Pros Patella Gns Ii Sz 3 - [id number] Implanted:Qty: 1 on 09/01/2021 by Cristian Grossman MD at [facility] Right: Knee HERRERA & NEPHEW:ORTHO 04/10/2031 [id number] / / [id number] Gii Cm Tib Size 2 {} Right - [id number] Implanted:Qty: 1 on 09/01/2021 by Cristian Grossman MD at [facility] Right: Knee HERRERA & NEPHEW:ORTHO 01/22/2031 [id number] / / [id number] G2 Const Insrt Sz1-2 25mm - [id number] Implanted:Qty: 1 on 09/01/2021 by Cristian Grossman MD at [facility] Right: Knee HERRERA & NEPHEW:ORTHO 04/21/2028 [id number] / / [id number] Cement Simplx Hv 20ml 40gm Gent Antbtc Bn Pwdr - [id number] Implanted:Qty: 2 on 09/01/2021 by Cristian Grossman MD at [facility] Right: Knee MEME 12/26/2022 6195-1-010 / / [id number] Pin Speed Rim 45mm Sterile - [id number] Implanted:Qty: 1 on 09/01/2021 by Cristian Grossman MD at [facility] Right: Knee HERRERA & NEPHEW:ORTHO [id number] 05/30/2031 [id number] / / [id number] Procedures Procedure Name Priority Date/Time Associated Diagnosis Comments DX BONE DENSITY AXIAL SKELETON Routine 12/11/2024 10:13 AM EDT Age-related osteoporosis without current pathological fracture COLONOSCOPY Routine 01/23/2024 8:37 AM EDT Constipation, chronic Rectal pain from Last 3 Months or Most Recently Relevant to Health Maintenance Results * DX BONE DENSITY AXIAL SKELETON (12/11/2024 10:13 AM EDT) Anatomical Region Laterality Modality Dexa Scan 12/11/2024 Impressions 12/11/2024 11:54 AM EDT Indication: The patient is a female age 65 or older who requires a bone density assessment. Study was performed on Tapomat 5. Bone Density: Region BMD T-score Z-score [...] 12/11/2024 10:20:00 AM. us Dayna Raygoza MD [facility] ORDERABLES Final Result * COLONOSCOPY (01/23/2024 [...] polyp Colonic diverticulosis Staff Staff Role Shereen Mcclelland, RN Moose Hunter David Azar MD Performing Provider Shauna Retana RN Endoscopy Nurse Shawnee Santiago MD Anesthesiologist Jodie Alejandro, ELEVATOR REPAIRER HELPER ELEVATOR REPAIRER HELPER Medications See Anesthesia Record. Preprocedure A history [...] to Health Maintenance Insurance MEDICARE PPO MR MEDICARE PPO MR MEDICARE PPO [place] [address] [facility] MEDICARE PPO MR Advance Directives For more information, please contact: [phone] Documents on File Type Date Recorded Patient Youth Agent Expl anation Power of Physician Primary Care Sports Medicine 04/07/2025 11:28 AM 03/31 exp * Full Code (Latest Code Status on File) Date Activated Date Inactivated Comments 09/02/2021 4:48 AM 09/05/2021 8:26 PM * Full Code Date Activated Date Inactivated Comments 12/11/2018 3:49 PM 12/14/2018 8:12 PM Care Teams Cloth Roll Winder Relationship Specialty Start Date End Date Theo Musa [facility] [place] [id number] [address] [facility] [address] PCP - General 11/10/09 Dayna Raygoza MD [address] [place] [address] Internal Medicine-Rheumatology 02/07/23
--- OUTSIDE RECORDS SUMMARY | 2025-07-13 13:54 | XMS_ITS | Clinical Summary ---
Author Organization [facility] Address [address] [place] [address] Care Team Providers Care Quill Fixer Name Role Phone DaiReshma Mendez PEDRAZA Primary Care Provider [phone] Social History Tobacco Use Types Packs/Day Years [...] [facility]-Bone Density Scan 1944 [facility]-Depression Screening 1944 [facility]-/Child/Adol SDOH Screenings 1944 [facility]- SDOH Screenings 1962 [facility]-Adult SDOH Screenings 1962 [facility]-Pneumococcal Vaccine: 50+ Years (1 of 1 - PCV) 1994 [facility]-DTaP,Tdap,and Td Vaccines (1 - Tdap) 10/03/1996 10/02/1996 [facility]-Zoster Vaccines (3 of 3) 10/24/2018 08/29/2018, 09/21/2009 [facility]-RSV Vaccine: 60+ Years or (1 - 1-dose 75+ series) 2019 WET-ATDGG-51 Vaccine ( season) 2025 05/30/2022, 05/29/2021, 10/17/2020, Additional history exists [facility]-Influenza Vaccine (#1) 2025 05/08/2021 HPV Vaccines (No Doses Required) Completed [facility]-HIB Vaccines Aged Out No longer e [...] to complete this topic Insurance Care Teams Quill Fixer Relationship Specialty Start Date End Date Reshma Joshi APRN [address] [place] [address] PCP - General 02/14/23
--- OUTSIDE RECORDS SUMMARY | 2025-07-13 13:54 | XMS_ITS | Encounter Summary ---
Author Organization [facility] [address] Care Team Providers Care Therapy Site Coordinator Name Role Phone Theo Musa Primary Care Provider [phone] Bronson Raygoza MD Unavailable [phone] Encounter Details Date Type Department Care Team (Late st Contact Info) Description 09/15/2021 Lab Requisition [facility] [address] [place] [id number] Fior Armstrong MD [address] [place] [address] [address] Infection and inflammatory reaction due [...] Author No 12/14/2018 1:39 PM EDT Jesi Kelsye RN documented in this encounter Plan of Treatment Upcoming Encounters Date Type Department Care Team (Late st Contact Info) Description 08/11/2025 9:00 AM EST Office Visit [facility] [address] [place] [address] 09/06/2025 10:30 AM EST Office Visit [facility] [address] [place] [address] Sarita Case MD [address] [place] [address] 11/29/2025 10:15 AM EDT Office Visit [facility] [address] [place] [address] Bronson Raygoza MD [address] [place] [address] documented as of this encounter Procedures Procedure Name Priority Date/Time Associated Diagnosis Comments EXTRA GOLD SST Routine 09/15/2021 10:15 AM EST Infection and 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, initial encounter (HCC) VANCOMYCIN LEVEL TROUGH Routine 09/15/2021 10:15 AM EST Infection and 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, initial encounter ([facility]) documented in this encounter Results * EXTRA GOLD SST (09/15/2021 10:15 AM EST) Blood VENOUS BLOOD / Unknown 09/15/2021 10:15 AM EST 09/15/2021 8:07 PM EST us Fior Armstrong MD CHEMISTRY ORDERABLES Fin al Result [facility] [address] [place] [address] * (ABNORMAL) VANCOMYCIN LEVEL TROUGH (09/15/2021 10:15 AM EST) Vanco Tr 9.1(L) 10.0-<20.0 mcg/mL 09/15/2021 9:30 PM EST [facility] Blood VENOUS BLOOD / Unknown 09/15/2021 10:15 AM EST 09/15/2021 8:06 PM EST Narrative [facility] - 09/15/2021 9:30 PM EST Minimum serum concentration for infection control is 10 mcg/mL; a target therapeutic range of 15-20 mcg/mL is recommended for significant infections such as S. aureus. Toxicity does not correlate well with serum concentrations. Supratherapeutic levels are considered to be > 20 mcg/mL. us Fior Armstrong MD CHEMISTRY ORDERABLES Fin al Result PREFERRED [facility] [address] [facility] , [place] [address] documented in this encounter Visit Diagnoses Diagnosis Infection and 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, initial encounter documented in this encounter Care Teams Therapy Site Coordinator Relationship Specialty Start Date End Date Theo Musa [address] [place] [address] [address] [place] [address] PCP - General 11/10/09 Bronson Raygoza MD [address] [place] [address] Internal Medicine-Rheumatology 02/07/23 documented as of this encounter
--- OUTSIDE RECORDS SUMMARY | 2025-07-13 13:54 | XMS_ITS | Encounter Summary ---
Author Organization [facility] [address] Care Team Providers Care Lithographer Apprentice Name Role Phone Theo Musa Primary Care Provider Bronson Raygoza MD Unavailable [phone]- [phone] Encounter Details Date Type Department Care Team (Late st Contact Info) Description 09/11/2021 Lab Requisition [facility] [place] [address] Fior Armstrong MD [address] [place] [address] DR MERLOS [address] [place] [phone] Broken internal right knee prosthesis, initial [...] Office Visit [facility] [address] [place] [address] 09/06/2025 10:30 AM EST Office Visit [facility] [address] [facility] [place] [address] Sarita Case MD [address] [facility] [place] [address] 11/29/2025 10:15 AM EDT Office Visit [facility] [address] [place] [address] Bronson Raygoza MD [address] [place] [address] documented as of this encounter Procedures Procedure Name Priority Date/Time Associated Diagnosis Comments EXTRA GOLD SST Routine 09/11/2021 8:20 AM EST Broken internal right knee prosthesis, initial encounter (HCC) SEDIMENTATION RATE AUTOMATED Routine 09/11/2021 8:20 AM EST Broken internal right knee prosthesis, initial encounter (HCC) CBC WITH DIFF Routine 09/11/2021 8:20 AM EST Broken internal right knee prosthesis, initial encounter (HCC) C-REACTIVE PROTEIN Routine 09/11/2021 8: 20 AM EST Broken internal right knee prosthesis, initial encounter (HCC) VANCOMYCIN LEVEL TROUGH Routine 09/11/2021 8:20 AM EST Broken internal right knee prosthesis, initial encounter (HCC) COMPREHENSIVE METABOLIC PANEL Routine 09/11/2021 8:20 AM EST Broken internal right knee prosthesis, initial encounter (HCC) documented in this encounter Results * EXTRA GOLD SST (09/11/2021 8:20 AM EST) Blood VENOUS BLOOD / Unknown 09/11/2021 8:20 AM EST 09/11/2021 2:43 PM EST us Fior Armstrong MD CHEMISTRY ORDERABLES Fin al Result [facility] [address] [place] [address] * (ABNORMAL) VANCOMYCIN LEVEL TROUGH (09/11/2021 8:20 AM EST) Pathologist [facility] Vanco Tr 25.4(HH) 10.0-<20.0 mcg/mL 09/11/2021 3:47 PM EST [facility] [employer] Blood VENOUS BLOOD / Unknown 09/11/2021 8:20 AM EST 09/11/2021 2:42 PM EST Narrative PREFERRED [employer] - 09/11/2021 3:47 PM EST Minimum serum concentration for infection control is 10 mcg/mL; a target therapeutic range of 15-20 mcg/mL is recommended for significant infections such as S. aureus. Toxicity does not correlate well with serum concentrations. Supratherapeutic levels are considered to be > 20 mcg/mL. Fior Armstrong MD CHEMISTRY ORDERABLES Fin al Result Performing Organization Address [facility] Co de Phone Number [facility] [employer] [address] [facility] , [place] [address] * (ABNORMAL) C-REACTIVE PROTEIN (09/11/2021 8:20 AM EST) [facility] CRP 113.75(H) <=5.00 mg/L 09/11/2021 3:44 PM EST PREFERRED [employer] Blood VENOUS BLOOD / Unknown 09/11/2021 8:20 AM EST 09/11/2021 2:42 PM EST Fior Armstrong MD CHEMISTRY ORDERABLES Fin al Result Performing Organization Address [facility] Co de Phone Number [employer], [facility] [address] [facility] , [place] [address] * (ABNORMAL) COMPREHENSIVE METABOLIC PANEL (09/11/2021 8:20 AM EST) Pathologist [facility] Sodium 141 136 - 145 mmol/L 09/11/2021 3:44 PM EST [facility] Potassium 3.8 3.5 - 5.0 mmol/L 09/11/2021 3:44 PM EST [facility] Chloride 108(H) 98 - 107 mmol/L 09/11/2021 [...] 3:44 PM EST [facility] eGFR (CKD-EPIcr 2020) 73 >=60 mL/min/1.7 3 m2 09/11/2021 3:44 PM EST [facility] Comment:Estimated GFR was ca lculated using the CKD-EPIcr (2020) equation refit without race. The equation is recommended by the National Kidney Foundation - [place] Society of Nephrology Task Force. Blood VENOUS BLOOD / Unknown 09/11/2021 8:20 AM EST 09/11/2021 2:42 PM EST Fior Armstrong MD CHEMISTRY ORDERABLES Fin al Result Performing Organization Address City/[facility]/ZIP Co de Phone Number [facility], [facility] [address] [facility] , [place] [address] [facility] [address] [place] [address] * (ABNORMAL) SEDIMENTATION RATE AUTOMATED (09/11/2021 8:20 AM EST) Pathologist [facility] Sed Rate 40(H) 0 - 30 mm/hr 09/11/2021 3:47 PM EST [facility] Blood VENOUS BLOOD / Unknown 09/11/2021 8:20 AM EST 09/11/2021 2:42 PM EST Fior Armstrong MD HEMATOLOGY ORDERABLES Fi nal Result Performing Organization Address City/[facility]/ZIP Co de Phone Number [facility], [facility] [address] [facility] , [address] [place] [id number] * (ABNORMAL) CBC WITH DIFF (09/11/2021 8:20 AM EST) Pathologist [facility] WBC 4.9 3.7 - 10.3 x10(3)/mcL 09/11/2021 [...] 09/11/2021 3:13 PM EST [facility], [facility] RDW 17.4(H) <=14.9 % 09/11/2021 3:13 PM EST [facility], [facility] Platelet 275 155 - 369 x10(3)/mcL 09/11/2021 3:13 PM EST [facility], [facility] MPV 10.7 8.8 - 12.5 fL 09/11/2021 3:13 PM EST [facility] Neut Percent 62.5 % 09/11/2021 3:13 PM EST [facility], [facility] Comment:Neutrophils equals s egs plus bands Imm Gran% 0.8 % 09/11/2021 3:13 PM EST [facility], [facility] Comment:Automated count of m etamyelocytes, myelocytes and promyelocytes. Lymph Percent 23.1 % 09/11/2021 3:13 PM EST [facility], [facility] [place] Percent 9.9 % 09/11/2021 3:13 PM EST [facility], [facility] Eos Percent 3.1 % 09/11/2021 3:13 PM EST [facility], [facility] Baso Percent 0.6 % 09/11/2021 3:13 PM EST [facility], [facility] Neut # 3.0 1.6 - 6.1 x10(3)/mcL 09/11/2021 3:13 PM EST [facility] Comment:Neutrophils equals s egs plus bands IMMGRAN# 0.0 0.0 - 0.1 x10(3)/mcL 09/11/2021 3:13 PM EST [facility], [facility] Comment:Automated count of m etamyelocytes, myelocytes and promyelocytes. An absolute IG <0.1 is reported as 0.0. Lymph # 1.1(L) 1.2 - 3.9 x10(3)/mcL 09/11/2021 3:13 PM EST [facility] [place] # 0.5 0.3 - 0.9 x10(3)/mcL 09/11/2021 3:13 PM EST [facility] Eos# 0.2 0.0 - 0.5 x10(3)/mcL 09/11/2021 3:13 PM EST [facility], [facility] Baso # 0.0 0.0 - 0.1 x10(3)/mcL 09/11/2021 3:13 PM EST [facility] [employer] Blood VENOUS BLOOD / Unknown 09/11/2021 8:20 AM EST 09/11/2021 2:42 PM EST us Fior Armstrong MD HEMATOLOGY ORDERABLES Fi nal Result [facility] [employer] [address] [facility] , [place] [address] documented in this encounter Visit Diagnoses Diagnosis Broken internal right knee prosthesis, initial encounter documented in this encounter Care Teams Lithographer Apprentice Relationship Specialty Start Date End Date Theo Musa [address] [place] [address] [address] [place] [address] PCP - General 11/10/09 Bronson Raygoza MD [address] [place] [address] Internal Medicine-Rheumatology 02/07/23 documented as of this encounter
[2025-07-13 14:00] VITALS: BP 137/60; PULSE 84; RESP 18; O2SAT 99
[2025-07-13 15:31] VITALS: BP 128/68; PULSE 79; RESP 18; O2SAT 98
--- NOTE | 2025-07-13 15:51 | PC.NURSE ---
1530-collected peak level per pharmacy
[2025-07-13 17:05] LABS: Tobramycin,Peak 16.8 ug/ml (5.0-12.0)
== END 2025-07-13 23:59 | disposition home or self-care (01) ==
PROVIDERS: PCP Nurse Practitioner; Visit Provider Nurse Practitioner
DX: N39.0 Urinary tract infection, site not specified (principal)
CPT/HCPCS: 80200; 96365; J3260

== ENCOUNTER 2025-07-15 14:04 | Outpatient (CLI) | payer MEDICARE, SELFPAY ==
--- OUTSIDE RECORDS SUMMARY | 2025-05-31 10:15 | XMS_ITS | Encounter Summary ---
Author Organization [facility] Address [address] [place] [address] Care Team Providers Care Embedded Systems Engineer Name Role Phone DimpleTheo munoz Primary Care Provider [phone] Bronson Raygoza MD Unavailable [phone] Reason for Visit * Reason Comments Degenerative Disc Disease Encounter Details Date Type Department Care Team (Late st Contact Info) Description 05/31/2025 10:15 AM EST Office Visit [facility] [address] [place] [address] Bronson Raygoza MD [address] [place] [address] Nontraumatic incomplete tear of right [...] presents with ??? 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 # OSTEOARTHRITIS GENERALIZED # OSTEOARTHRITIS RIGHT KNEE [...] on 1st Toe by Dr. Daniels at [place] -Fibromyalgia Features of Widespread Pain in Muscles and Joints, Fatigue, Sleep Disturbance, Headaches, Neuropathic Features. -Degenerative Disc Disease on Imaging. 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 Low Back Pain. Left Hip Pain with a 12/11/[address] Kim. 12/11/2024 Left Hip X-Ray at [facility] without loosening. I advise to follow up with Dr. Kim if it is still causing issues. 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 IMAGING 05/22/2012 MRI of the Right Shoulder at [facility]: IMPRESSION: 1. Full-thickness, full width tear/re-tear of the supraspinatus with retraction and atrophy. 2. Full-thickness partial-width tear of the infraspinatus tendon. 3. Thinning and undermining of the subscapularis. 4. Thinning and tendinopathy of the long head of the biceps proximally. 5. Degenerative changes of the AC joint. 07/25/2018 MRI of the C-Spine at [facility]: IMPRESSION: 1.Multilevel cervical degenerative disc and facet disease as described in detail above. 2. For instance, at C3-4, advanced right-sided facet arthropathy in conjunction with relatively mild discogenic disease contributes to severe right foraminal stenosis. 3. Multilevel thecal sac effacement without cord compression. See above detailed level by level discussion. 02/18/2020 L-S Spine MRI at [facility]: IMPRESSION: 1. Multilevel degenerative disc disease as [...] on 1st Toe by Dr. Daniels at [place] Feet 06/26/2023 Right Foot Surgery on 1st Toe by Dr. Daniels at [place] Today, I reviewed her 06/04/[address] Daniels at [place] Right foot hallux valgus with osteophyte Reviewed [...] Physical Therapy for guidance, I advise a senior care commitment to an exercise program using facilities such as a gym with a link trainer, Yoga class, or Pilates class, which [...] SPINAL MANAGEMENT Consultation with Dr. Bradford at [place]. Responsive to MARY, but she prefers to Avoid due to SE of Corticosteroids. On the Last MARY, SE of Dryness from the Corticosteroids. Eyes Became Worse. She wants to Avoid MARY. CHRONIC PAIN Failed Tramadol. SE Drowsiness and Itching. SPINAL SURGERY Consultation with Dr. Ortiz at [place]. Right now, Dr. Ortiz does not Advise [...] Today, I reviewed her 12/11/2024 DEXA at [facility]: Right Femoral Neck T Score = -2.0 [...] tape is acceptable ??? Chocolate Flavor ??? [place] Other (See Comments) Severe CUEVAS ??? Erythromycin [...] ipratropium (ATROVENT) 42 mcg (0.06 %) Nasl [place], Non-Aerosol 2 Sprays by Nasal route 4 [...] Visit [facility] [address] [place] [address] 09/06/2025 10:30 AM EST Office Visit [facility] [address] [place] [address] Sarita Case MD [address] [place] [address] 11/29/2025 10:15 AM EDT Office Visit [facility] [address] [place] [address] Bronson Raygoza MD [address] [place] [id number] documented as of this encounter Visit Diagnoses [...] documented as of this encounter Care Teams Embedded Systems Engineer Relationship Specialty Start Date End Date Theo Musa [address] [place] [address] [address] [place] [address] PCP - General 11/10/09 Bronson Raygoza MD [address] [place] [address] Internal Medicine-Rheumatology 02/07/23 documented as of this encounter
--- OUTSIDE RECORDS SUMMARY | 2025-07-15 14:25 | XMS_ITS | Clinical Summary ---
Author Organization [employer] [facility] Address [address] [place] [phone] Phone Care Team Providers Care Assistant Family Teacher Name Role Phone Unavailable Unavailable Conditions or Problems No information available. Medications No information available. Medications Administered No information available. Allergies, Adverse Reactions, Alerts No information available. Results No information available. Plan of Care No information available. Procedures No information available. Vital Signs No information available. Immunizations No information available. Advance Directives No information available.
--- OUTSIDE RECORDS SUMMARY | 2025-07-15 14:26 | XMS_ITS | Clinical Summary ---
Author Organization [facility] Address [address] [facility], [address] [place] [address] Care Team Providers Care Vascular Sonographer Name Role Phone Shaun Musa MD Primary Care Provider [phone]- [phone] Allergies Active Allergy Reactions Criticality Noted Date [...] Take 1,000 Units by mouth daily Active [facility] 3 1000 MG CAPS Take 1 capsule [...] mouth 2 times daily 03/29/2023 Active PEG 1140-KBf-DnMil- NaCl-NaSulf (PEG-3350/ELECT ROLYTES) 236 g SOLR TAKE [...] age to complete this topic Insurance [facility] [employer] Care Teams Vascular Sonographer Relationship Specialty Start Date End Date Shaun Musa MD [facility] [address] [address] PCP - General 12/12/16
--- OUTSIDE RECORDS SUMMARY | 2025-07-15 14:26 | XMS_ITS | Encounter Summary ---
Author Organization [place] [address] Care Team Providers Care Radar Signal Processing Engineer Name Role Phone Theo Musa Primary Care Provider [phone] Bronson Raygoza MD Unavailable [phone] Encounter Details Date Type Department Care Team (Latest Contact Info) Description 09/20/2021 Lab Requisition [facility] [address] 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 Social History Tobacco [...] Visit [facility] [address] [place] [address] 09/06/2025 10:30 AM EST Office Visit [facility] [address] [facility] [place] [address] Sarita Case MD [address] [place] [address] 11/29/2025 10:15 AM EDT Office Visit [facility] [address] [place] [address] Bronson Raygoza MD [address] [place] [address] documented as of this encounter Procedures Procedure Name Priority Date/Time Associated Diagnosis Comments VANCOMYCIN LEVEL TROUGH Routine 09/20/2021 10:45 AM EST Other staphylococcus as the cause of diseases classified elsewhere documented in this encounter Results * (ABNORMAL) VANCOMYCIN LEVEL TROUGH (09/20/2021 10:45 AM EST) Vanco Tr 7.9(L) 10.0-<20.0 mcg/mL 09/20/2021 5:38 PM EST PREFERRED [employer] Blood VENOUS BLOOD / Unknown 09/20/2021 10:45 AM EST 09/20/2021 3:34 PM EST Narrative PREFERRED [employer] - 09/20/2021 5:38 PM EST Minimum serum concentration for infection control is 10 mcg/mL; a target therapeutic range of 15-20 mcg/mL is recommended for significant infections such as S. aureus. Toxicity does not correlate well with serum concentrations. Supratherapeutic levels are considered to be > 20 mcg/mL. 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
--- OUTSIDE RECORDS SUMMARY | 2025-07-15 14:26 | XMS_ITS | Encounter Summary ---
Author Organization [facility] Address [address] [facility], [address] [place] [address] Care Team Providers Care Data Modeler Name Role Phone Shaun Musa MD Primary Care Provider [phone] Encounter Details Date Type Department Care Team [...] documented as of this encounter Care Teams Data Modeler Relationship Specialty Start Date End Date Shaun Musa MD [address] [place] [address] PCP - General 12/12/16 documented as of this encounter
--- OUTSIDE RECORDS SUMMARY | 2025-07-15 14:26 | XMS_ITS | Encounter Summary ---
Author Organization [place] [address] Care Team Providers Care Rock Loader Name Role Phone Theo Musa Primary Care Provider [phone] Bronson Raygoza MD Unavailable [phone]- [phone] Encounter Details Date Type Department Care Team (Latest Contact Info) Description 10/09/2021 Lab Requisition [facility] [address] 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 Social History Tobacco [...] Visit [facility] [address] [place] [address] 09/06/2025 10:30 AM EST Office Visit [facility] [address] [place] [address] [place] [place] [address] Sarita Case MD [address] [place] [address] [place] [address] 11/29/2025 10:15 AM EDT Office Visit [facility] [address] [place] [address] Bronson Raygoza MD [address] [place] [address] documented as of this encounter Procedures Procedure Name Priority Date/Time Associated Diagnosis Comments EXTRA GOLD SST Routine 10/09/2021 10:27 AM EDT Infection and 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, initial encounter (HCC) Other staphylococcus as the cause of diseases classified elsewhere 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 RATE AUTOMATED Routine 10/09/2021 10:27 AM EDT Infection and 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, initial encounter (HCC) Other staphylococcus as the cause of diseases classified elsewhere 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 CBC WITH DIFF Routine 10/09/2021 10:27 AM EDT Infection and 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, initial encounter (HCC) Other staphylococcus as the cause of diseases classified elsewhere 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 C-REACTIVE PROTEIN Routine 10/09/2021 10 :27 AM EDT Infection and 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, initial encounter (HCC) Other staphylococcus as the cause of diseases classified elsewhere 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 VANCOMYCIN LEVEL TROUGH Routine 10/09/2021 10:27 AM EDT Infection and 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, initial encounter (HCC) Other staphylococcus as the cause of diseases classified elsewhere 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 COMPREHENSIVE METABOLIC PANEL Routine 10/09/2021 10:27 AM EDT Infection and 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, initial encounter (HCC) Other staphylococcus as the cause of diseases classified elsewhere 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 documented in this encounter Results * EXTRA GOLD SST (10/09/2021 10:27 AM EDT) Blood VENOUS BLOOD / Unknown 10/09/2021 10:27 AM EDT 10/09/2021 7:27 PM EDT Fior Armstrong MD CHEMISTRY ORDERABLES Fin al Result Performing Organization Address [facility] de Phone Number [address] [address] * (ABNORMAL) VANCOMYCIN LEVEL TROUGH (10/09/2021 10:27 AM EDT) Pathologist [facility] Vanco Tr 9.6(L) 10.0-<20.0 mcg/mL 10/09/2021 8:34 PM EDT [facility]REFERR[facility] [employer] Blood VENOUS BLOOD / Unknown 10/09/2021 10:27 AM EDT 10/09/2021 7:23 PM EDT Narrative [facility]REF[facility] [employer] - 10/09/2021 8:34 PM EDT Minimum serum concentration for infection control is 10 mcg/mL; a target therapeutic range of 15-20 mcg/mL is recommended for significant infections such as S. aureus. Toxicity does not correlate well with serum concentrations. Supratherapeutic levels are considered to be > 20 mcg/mL. Fior Armstrong MD CHEMISTRY ORDERABLES Fin al Result Performing Organization Address [facility] de Phone Number [facility] [employer] [address] [place] [address], [place] [address] * (ABNORMAL) C-REACTIVE PROTEIN (10/09/2021 10:27 AM EDT) Pathologist [facility] CRP 16.27(H) <=5.00 mg/L 10/09/2021 8:33 PM EDT [facility] [employer] Blood VENOUS BLOOD / Unknown 10/09/2021 10:27 AM EDT 10/09/2021 7:23 PM EDT us Fior Armstrong MD CHEMISTRY ORDERABLES Fin al Result [facility] [address] [facility] , [address] [place] [phone] * (ABNORMAL) COMPREHENSIVE METABOLIC PANEL (10/09/2021 10:27 [...] - 123 U/L 10/09/2021 8:35 PM EDT [facility] [employer], [facility] eGFR (CKD-EPIcr 2020) 78 >=60 mL/min/1.7 3 m2 10/09/2021 8:35 PM EDT [facility] Comment:Estimated GFR was ca lculated using the CKD-EPIcr (2020) equation refit without race. The equation is recommended by the National Kidney Foundation - [place] Society of Nephrology Task Force. Blood VENOUS BLOOD / Unknown 10/09/2021 10:27 AM EDT 10/09/2021 7:23 PM EDT Fior Armstrong MD CHEMISTRY ORDERABLES [facility] al Result Performing Organization Address [facility] Co de Phone Number [facility] [employer], [address] , [place] [address] [facility] [address] [place] [address] * SEDIMENTATION RATE AUTOMATED (10/09/2021 10:27 AM EDT) Sed Rate 19 0 - 30 mm/hr 10/09/2021 8:05 PM EDT [facility] [employer], [facility] Blood VENOUS BLOOD / Unknown 10/09/2021 10:27 AM EDT 10/09/2021 7:23 PM EDT Fior Armstrong MD HEMATOLOGY ORDERABLES Fi nal Result Performing Organization Address [facility]/ZIP Co de Phone Number [facility] [employer], [address] , [address] [place] [phone] * (ABNORMAL) CBC WITH DIFF (10/09/2021 10:27 AM EDT) WBC 3.7 3.7 - 10.3 x10(3)/mcL 10/09/2021 7:53 PM EDT [facility] [employer], [facility] RBC 4.16 3.90 - 5.20 x10(6)/mcL 10/09/2021 [...] 7:53 PM EDT [facility] [place] Percent 8.8 % 10/09/2021 7:53 PM EDT [...] 7:53 PM EDT [facility] [place] # 0.3 0.3 - 0.9 x10(3)/mcL 10/09/2021 7:53 PM EDT [facility] Eos# 0.1 0.0 - 0.5 x10(3)/[facility] 10/09/2021 7:53 PM EDT [facility] Baso # 0.0 0.0 - 0.1 x10(3)/[facility] 10/09/2021 7:53 PM EDT [facility] [employer] [employer] Blood VENOUS BLOOD / Unknown 10/09/2021 10:27 AM EDT 10/09/2021 7:23 PM EDT us Fior Armstrong MD HEMATOLOGY ORDERABLES Fi nal Result [facility] [employer], [facility] [address] [facility] , [place] [address] documented in this encounter Visit Diagnoses Diagnosis Infection and 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
--- OUTSIDE RECORDS SUMMARY | 2025-07-15 14:26 | XMS_ITS | Clinical Summary ---
Author Organization [facility] Address [address] [place] [address] Care Team Providers Care Lifter/Driver Name Role Phone Nonstaff, Referring MD Primary Care Provider [phone] Will Friedman MD Unavailable [phone] Cristian Grossman MD Unavailable [phone] Allergies Active Allergy Reactions Criticality Noted Date Comments Adhesive Medium 12/11/2018 Other reaction(s): Other (See Comments) Paper tape is acceptable Adhesive Tape-Silicones 12/20/2016 Irritates skin Can use paper tape Chocolate Flavor 04/16/2013 [place] Other (See Comments) 12/20/2016 Severe CUEVAS Erythromycin [...] Take by mouth. Active GLUCOSAMINE/EDD DR WERO PATNOJA (OSTEO BI-FLEX PO) Take by mouth daily. Active alendronate (FOSAMAX) 70 mg Tablet Take 70 mg by mouth every 7 days (once weekly). Active TIZANIDINE HCL (TIZANIDINE PO) Take 4 mg by mouth nightly. Active RESTASIS 0.05 % Dropperette 7 Active azelastine (ASTELIN) 137 mcg (0.1 %) Aerosol, Harleigh USE 2 SPRAYS IN EACH NOSTRIL TWICE A DAY 30 mL 7 9 Active Additional Information Patient taking differently: NIGHTLY, USE 2 SPRAYS IN EACH NOSTRIL TWICE A DAY, Reported on 05/26/2020 diclofenac (VOLTAREN) 75 mg EC tablet Take 75 mg by mouth daily. Active ciclesonide (Zetonna) 37 mcg/actuation HFA Aerosol Inhaler Harleigh 1 Puff into nose daily. 1 puff [...] Aerosol InhalerIndicatio ns:Seasonal allergic rhinitis, unspecified trigger Harleigh 2 Sprays into nose daily. 1 Container 6 1 Active triamcinolone (NASACORT) 55 mcg Aerosol, SprayIndications :Seasonal allergic rhinitis, unspecified trigger Harleigh 2 Sprays into nose daily. 90 day [...] , 05/29/2007 Medical Devices Implanted Type Area Colorist Photography Device Identifier Shelf Expiration Date Model / Serial / Lot [facility] [employer] Sz 3 - [id number] Implanted:Qty: 1 on 06/02/2020 by Cristian Grossman MD at [facility] Right: Knee * JAVIER \T\ NEPHEW 08/12/2027 [id number] / / [id number] Journey Ii Cruciate Retaining Cr Oxinium Fem Cmpnt Sz 4 Right - [id number] Implanted:Qty: 1 on 06/02/2020 by Cristian Grossman MD at [facility] Right: Knee * JAVIER \T\ NEPHEW 02/13/2030 [id number] / / [id number] Journey Ii Xlpe A/P 48mm,M/L 68mm Deep [facility] Articular Insert 9mm Size 3-4,Right - [id number] Implanted:Qty: 1 on 06/02/2020 by Cristian Grossman MD at [facility] Right: Knee * JAVIER \T\ NEPHEW 02/15/2030 [id number] / / [id number] Jrny Std 35mm 7.5mm Resfc Pat Compt - [id number] Implanted:Qty: 1 on 06/02/2020 by Cristian Grossman MD at [facility] Right: Knee * JAVIER \T\ NEPHEW 08/22/2028 [id number] / / [id number] Simplex Hv Full Dose Us - [id number] Implanted:Qty: 2 on 06/02/2020 by Cristian Grossman MD at [facility] Right: Knee * MEME 08/28/2021 [id number] / / [id number] Knee Sn Upchrg Jrny Ii Oxinium - [id number] Implanted:Qty: 1 on 06/02/2020 by Cristian Grossman MD at [facility] Right: Knee * HERRERA \T\ NEPHEW KNSNOXIN / / Knee Sn Upchrg Adv Pat - [id number] Implanted:Qty: 1 on 06/02/2020 by Cristian Grossman MD at [facility] Right: Knee * HERRERA \T\ NEPHEW KNSNADVPAT / / Knee Sn Cemented [employer] - [id number] Implanted:Qty: 1 on 06/02/2020 by Cristian Grossman MD at [facility] Right: Knee * HERRERA \T\ NEPHEW COURTNEYSDARNELLEMKIN / / Insurance [place] [id number] [facility] MEDICARE [facility] MEDICARE [place] [id number] Care Teams Lifter/Driver Relationship Specialty Start Date End Date RenaetaTay proctor MD [address] [place] PCP - General 09/24/17 Will Friedman MD [address] [place] [address] [address] [place] [address] Otolaryngology 09/19/20 Cristian Grossman MD [address] [place] [address] Orthopedic Surgery 08/05/22
--- OUTSIDE RECORDS SUMMARY | 2025-07-15 14:26 | XMS_ITS | Encounter Summary ---
Author Organization [place] [address] Care Team Providers Care Daycare Worker Name Role Phone Theo Musa Primary Care Provider [phone] Bronson Raygoza MD Unavailable [phone] Encounter Details Date Type Department Care Team (Latest Contact Info) Description 10/02/2021 Lab Requisition [facility] LABORAT[facility] [address] [place] [id number] Fior Armstrong MD [address] [place] [phone] Infection and 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, initial encounter; [facility] (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; Other staphylococcus as [...] Visit [facility] [address] [place] [address] 09/06/2025 10:30 AM EST Office Visit [facility] [place] [address] [place] [address] [place] [address] Sarita Case MD [address] [place] [address] [place] [address] 11/29/2025 10:15 AM EDT Office Visit [facility] [address] [place] [address] Bronson Raygoza MD [address] [place] [address] documented as of this encounter Procedures Procedure Name Priority Date/Time Associated Diagnosis Comments EXTRA GOLD SST Routine 10/02/2021 10:23 AM EST Infection and 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, initial encounter (HCC) [facility] (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 Other staphylococcus as the cause of diseases classified elsewhere SEDIMENTATION RATE AUTOMATED Routine 10/02/2021 10:23 AM EST Infection and 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, initial encounter (HCC) 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 Other staphylococcus as the cause of diseases classified elsewhere CBC WITH DIFF Routine 10/02/2021 10:23 AM EST Infection and 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, initial encounter (HCC) [facility] (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 Other staphylococcus as the cause of diseases classified elsewhere C-REACTIVE PROTEIN Routine 10/02/2021 10 :23 AM EST Infection and 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, initial encounter (HCC) [facility] (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 Other staphylococcus as the cause of diseases classified elsewhere VANCOMYCIN LEVEL TROUGH Routine 10/02/2021 10:23 AM EST Infection and 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, initial encounter (HCC) [facility] (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 Other staphylococcus as the cause of diseases classified elsewhere COMPREHENSIVE METABOLIC PANEL Routine 10/02/2021 10:23 AM EST Infection and 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, initial encounter (HCC) 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 Other staphylococcus as the cause of diseases classified elsewhere documented in this encounter Results * EXTRA GOLD SST (10/02/2021 10:23 AM EST) Blood VENOUS BLOOD / Unknown 10/02/2021 10:23 AM EST 10/02/2021 6:30 PM EST us Fior Armstrong MD CHEMISTRY ORDERABLES Joseph walters Result [facility] [address] [place], [place] [id number] * (ABNORMAL) COMPREHENSIVE METABOLIC PANEL (10/02/2021 10:23 [...] 11 <=41 U/L 10/02/2021 8:25 PM EST [facility] [employer] [facility], [facility] AST 16 <=40 U/L 10/02/2021 8:25 PM EST [facility], [facility] Alk Phos 101 36 - 123 U/L 10/02/2021 8:25 PM EST [facility] [employer] [facility], [facility] eGFR (CKD-EPIcr 2020) 79 >=60 mL/min/1.7 3 m2 10/02/2021 8:25 PM EST [facility] Comment:Estimated GFR was ca lculated using the CKD-EPIcr (2020) equation refit without race. The equation is recommended by the National Kidney Foundation - [place] Society of Nephrology Task Force. Blood VENOUS BLOOD / Unknown 10/02/2021 10:23 AM EST 10/02/2021 6:30 PM EST Fior Armstrong MD CHEMISTRY ORDERABLES Fin al Result Performing Organization Address [facility] de Phone Number [facility], [address] , [place] [address] [facility] [address] [place] [address] * VANCOMYCIN LEVEL TROUGH (10/02/2021 10:23 AM EST) [facility] Vanco Tr 13.0 10.0-<20.0 mcg/mL 10/02/2021 8:31 PM EST [facility], [facility] Blood VENOUS BLOOD / Unknown 10/02/2021 10:23 AM EST 10/02/2021 6:30 PM EST Narrative [facility], [facility] - 10/02/2021 8:31 PM EST Minimum serum concentration for infection control is 10 mcg/mL; a target therapeutic range of 15-20 mcg/mL is recommended for significant infections such as S. aureus. Toxicity does not correlate well with serum concentrations. Supratherapeutic levels are considered to be > 20 mcg/mL. Fior Armstrong MD CHEMISTRY ORDERABLES Fin al Result Performing Organization Address [facility] de Phone Number [facility], [address] , [address] [place] [phone] * C-REACTIVE PROTEIN (10/02/2021 10:23 AM EST) [facility] CRP <3.00 <=5.00 mg/L 10/02/2021 8:27 PM EST [facility], [facility] Blood VENOUS BLOOD / Unknown 10/02/2021 10:23 AM EST 10/02/2021 6:30 PM EST Fior Armstrong MD CHEMISTRY ORDERABLES Fin al Result [facility], [address] , [place] [address] * SEDIMENTATION RATE AUTOMATED (10/02/2021 10:23 AM EST) [facility] Sed Rate 25 0 - 30 mm/hr 10/02/2021 7:28 PM EST [facility] Blood VENOUS BLOOD / Unknown 10/02/2021 10:23 AM EST 10/02/2021 6:30 PM EST Fior Armstrong MD HEMATOLOGY ORDERABLES Fi nal Result [facility] [address] [place] [address] * (ABNORMAL) CBC WITH DIFF (10/02/2021 10:23 AM EST) [facility] WBC 4.8 3.7 - 10.3 x10(3)/mcL 10/02/2021 7:12 PM EST [facility] RBC 4.20 3.90 - 5.20 x10(6)/mcL 10/02/2021 7:12 PM EST [facility], [facility] Hgb 9.6(L) 11.2 - 15.7 g/dL 10/02/2021 7:12 PM EST [facility], [facility] Hct 32.6(L) 34.0 - 45.0 % 10/02/2021 7:12 PM EST [facility], [facility] MCV 77.6(L) 80.0 - 100.0 fL 10/02/2021 7:12 PM EST [facility], [facility] MCH 22.9(L) 26.0 - 34.0 pg 10/02/2021 7:12 PM EST [facility], [facility] MCHC 29.4(L) 30.7 - 35.5 g/dL 10/02/2021 7:12 PM EST [facility], [facility] RDW 18.2(H) <=14.9 % 10/02/2021 7:12 PM EST [facility], [facility] Platelet 334 155 - 369 x10(3)/mcL 10/02/2021 7:12 PM EST [facility], [facility] MPV 10.2 8.8 - 12.5 fL 10/02/2021 7:12 PM EST [facility] Neut Percent 75.5 % 10/02/2021 7:12 PM EST [facility] Comment:Neutrophils equals s egs plus bands Imm Gran% 0.6 % 10/02/2021 7:12 PM EST [facility] Comment:Automated count of m etamyelocytes, myelocytes and promyelocytes. Lymph Percent 20.2 % 10/02/2021 7:12 PM EST [facility] Linn Percent 3.1 % 10/02/2021 7:12 PM EST [facility] Eos Percent 0.2 % 10/02/2021 7:12 PM EST [facility] Baso Percent 0.4 % 10/02/2021 7:12 PM EST [facility] Neut # 3.6 1.6 - 6.1 x10(3)/mcL 10/02/2021 7:12 PM EST [facility] Comment:Neutrophils equals s egs plus bands IMMGRAN# 0.0 0.0 - 0.1 x10(3)/mcL 10/02/2021 7:12 PM EST [facility] Comment:Automated count of m etamyelocytes, myelocytes and promyelocytes. An absolute IG <0.1 is reported as 0.0. Lymph # 1.0(L) 1.2 - 3.9 x10(3)/mcL 10/02/2021 7:12 PM EST [facility], [facility] Linn # 0.2(L) 0.3 - 0.9 x10(3)/mcL 10/02/2021 7:12 PM EST [facility] Eos# 0.0 0.0 - 0.5 x10(3)/mcL 10/02/2021 7:12 PM EST [facility] Baso # 0.0 0.0 - 0.1 x10(3)/mcL 10/02/2021 7:12 PM EST [facility], [facility] Blood VENOUS BLOOD / Unknown 10/02/2021 10:23 AM EST 10/02/2021 6:30 PM EST us Fior Armstrong MD HEMATOLOGY ORDERABLES Fi nal Result [facility], [employer] [address] [facility] , [place] [address] documented in this encounter Visit Diagnoses Diagnosis Infection and 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, initial encounter [facility] (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 Other staphylococcus as the cause of diseases classified elsewhere documented in this encounter Care Teams Daycare Worker Relationship Specialty Start Date End Date Theo Musa [facility] [address] [place] [address] PCP - General 11/10/09 Bronson Raygoza MD [address] [place] [address] Internal Medicine-Rheumatology 02/07/23 documented as of this encounter
--- OUTSIDE RECORDS SUMMARY | 2025-07-15 14:26 | XMS_ITS | Encounter Summary ---
Author Organization [place] [address] Care Team Providers Care Machine Bobbin Winder Name Role Phone Theo Musa Primary Care Provider [phone] Bronson Raygoza MD Unavailable [phone] Encounter Details Date Type Department Care Team (Latest Contact Info) Description 09/25/2021 Lab Requisition [facility] LABORATORY [facility] [address] 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 Social History Tobacco [...] Visit [facility] [address] [place] [address] 09/06/2025 10:30 AM EST Office Visit [facility] [place] [address] [place] [address] Sarita Case MD [address] [place] [address] [place] [address] 11/29/2025 10:15 AM EDT Office Visit [facility] [address] [place] [address] Bronson Raygoza MD [address] [place] [address] documented as of this encounter Procedures Procedure Name Priority Date/Time Associated Diagnosis Comments EXTRA GOLD SST Routine 09/25/2021 10:44 AM EST Infection and 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, initial encounter (HCC) Other staphylococcus as the cause of diseases classified elsewhere care home (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 SEDIMENTATION RATE AUTOMATED Routine 09/25/2021 10:44 AM EST Infection and 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, initial encounter (HCC) Other staphylococcus as the cause of diseases classified elsewhere 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 CBC WITH DIFF Routine 09/25/2021 10:44 AM EST Infection and 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, initial encounter (HCC) Other staphylococcus as the cause of diseases classified elsewhere 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 C-REACTIVE PROTEIN Routine 09/25/2021 10 :44 AM EST Infection and 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, initial encounter (HCC) Other staphylococcus as the cause of diseases classified elsewhere 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 VANCOMYCIN LEVEL TROUGH Routine 09/25/2021 10:44 AM EST Infection and 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, initial encounter (HCC) Other staphylococcus as the cause of diseases classified elsewhere 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 Co de Phone Number [place] [phone] * (ABNORMAL) VANCOMYCIN LEVEL TROUGH (09/25/2021 10:44 AM EST) Vanco Tr 8.4(L) 10.0-<20.0 mcg/mL 09/25/2021 5:24 PM EST [facility] Blood VENOUS BLOOD / Unknown 09/25/2021 10:44 AM EST 09/25/2021 3:04 PM EST Narrative [facility] - 09/25/2021 5:24 PM EST Minimum serum concentration for infection control is 10 mcg/mL; a target therapeutic range of 15-20 mcg/mL is recommended for significant infections such as S. aureus. Toxicity does not correlate well with serum concentrations. Supratherapeutic levels are considered to be > 20 mcg/mL. Fior Armstrong MD CHEMISTRY ORDERABLES Fin al Result Performing Organization Address [facility] Co de Phone Number [employer] [address] [place] [address], [place] [address] * (ABNORMAL) C-REACTIVE PROTEIN (09/25/2021 10:44 AM EST) CRP 29.26(H) <=5.00 mg/L 09/25/2021 5:19 PM EST [facility] Blood VENOUS BLOOD / Unknown 09/25/2021 10:44 AM EST 09/25/2021 3:04 PM EST us Fior Armstrong MD CHEMISTRY ORDERABLES Joseph al Result [facility] [address] [facility], [place] [address] * (ABNORMAL) COMPREHENSIVE METABOLIC PANEL (09/25/2021 10:44 [...] U/L 09/25/2021 5:19 PM EST [facility] [employer] [facility] Alk Phos 125(H) 36 - 123 U/L 09/25/2021 5:19 PM EST [facility] [employer], [facility] eGFR (CKD-EPIcr 2020) 78 >=60 mL/min/1.7 3 m2 09/25/2021 5:19 PM EST [facility] Comment:Estimated GFR was ca lculated using the CKD-EPIcr (2020) equation refit without race. The equation is recommended by the National Kidney Foundation - [place] Society of Nephrology Task Force. Blood VENOUS BLOOD / Unknown 09/25/2021 10:44 AM EST 09/25/2021 3:04 PM EST Fior Armstrong MD CHEMISTRY ORDERABLES [facility] al Result Performing Organization Address [facility] Co de Phone Number [facility] [employer] , [place] [address] [facility] [address] [place] [address] * (ABNORMAL) SEDIMENTATION RATE AUTOMATED (09/25/2021 10:44 AM EST) Pathologist [facility] Sed Rate 51(H) 0 - 30 mm/hr 09/25/2021 5:10 PM EST [facility] [employer] [facility] Blood VENOUS BLOOD / Unknown 09/25/2021 10:44 AM EST 09/25/2021 3:04 PM EST Fior Armstrong MD HEMATOLOGY ORDERABLES nal Result Performing Organization Address [facility]/ZIP Co de Phone Number [facility] [employer] , [address] [place] [phone] * (ABNORMAL) CBC WITH DIFF (09/25/2021 10:44 AM EST) Pathologist [facility] WBC 3.2(L) 3.7 - 10.3 x10(3)/mc L 09/25/2021 5:23 PM EST [facility] [employer], [facility] RBC 3.97 3.90 - 5.20 x10(6)/mc [...] 5:23 PM EST [facility] [place] Percent 10.9 % 09/25/2021 5:23 PM EST [...] 5:23 PM EST [facility] [place] # 0.4 0.3 - 0.9 x10(3)/mc L [...] nal Result [facility] [address] [facility] , [place] [address] documented in this encounter Visit Diagnoses Diagnosis Infection and 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, initial encounter Other staphylococcus as the cause of diseases classified elsewhere 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
--- OUTSIDE RECORDS SUMMARY | 2025-07-15 14:27 | XMS_ITS | Clinical Summary ---
Author Organization [facility] Address [address] [place] [address] Phone Care Team Providers Care Storage Receipt Poster Name Role Phone Theo Musa Primary Care Provider [phone] Dayna Raygoza MD Unavailable [phone] Allergies Active Allergy Reactions Criticality Noted Date Comments Adhesive Other (See Comments),Swellin g Medium 12/11/2018 Paper tape is acceptable Chocolate Flavor 04/16/2013 Blue Bell Other (See Comments) 12/20/2016 Severe CUEVAS Erythromycin [...] ipratropium (ATROVENT) 42 mcg (0.06 %) Nasl [place], Non-AerosolIndi cations:Acute non-recurrent maxillary sinusitis 2 Sprays [...] (08/25/2021): Added automatically from request for surgery [id number] Allergic rhinitis due to pollen 04/05/2009 Esophageal [...] (07/17/2021): Added automatically from request for surgery [id number] Leukocytosis 07/12/2012 04/24/2024 Cellulitis of right leg 07/12/201203/30 Encounters Date Type Department Care Team Description 05/31/2025 10:15 AM EST Office Visit [facility] [address] [place] [address] Dayna Raygoza MD Nontraumatic incomplete tear of [...] MATRIXECTOMY ; Surgeon: Romel Rutherford MD; Location: [facility]; Service: Orthopedics HIP SURGERY left pinning / pins removed SHOULDER SURGERY x2 both shoulder rotator cuff CATARACT EXTRACTION W/ INTRAOCULAR LENS IMPLANT 08/26/[address] Puneet [place] CATARACT EXTRACTION W/ INTRAOCULAR LENS IMPLANT 09/02/[address] Puneet [place] HIP ARTHROPLASTY 12/11/2018 Left left hip total replacement anterior; Surgeon: Donnell Kim MD; Location: ED MAIN OR; Service: Orthopedics Medical devices from this surgery are in the Medical Devices section. UPPER GASTROINTESTINAL ENDOSCOPY 07/19/2021 N/A Esophagogastroduodenoscopy with biopsy and control of bleeding; Surgeon: David Azar MD; Location: [facility]; Service: Endoscopy KNEE SURGERY total knee [...] Visit [facility] [address] [place] [address] 09/06/2025 10:30 AM EST Office Visit [facility] [address] [address] Sarita Case MD [address] [place] [address] 11/29/2025 10:15 AM EDT Office Visit [facility] [address] [place] [address] Dayna Raygoza MD [address] [place] [address] Health Maintenance Due Date Last [...] this topic Medical Devices Implanted Type Area Computer Operations Specialist Device Identifier Shelf Expiration Date Model / Serial / Lot Hardware Right: Knee Shell Acetabular Trident Ii Tritanium D 50mm Screwhole Clust - [id number] Implanted:Qty: 1 on 12/11/2018 by Donnell Kim MD at [facility] Left: Hip MEME:[employer] 07/30/2023 702-04-50D / / [id number] Insert Trident X 3 0 Degree 36mm D - [id number] Implanted:Qty: 1 on 12/11/2018 by Donnell Kim MD at [facility] Left: Hip MEME:OR[employer] 09/04/2023 623-00-36D / / [id number] 6.5mm Low Profile Hex Screw 30mm - [id number] Implanted:Qty: 1 on 12/11/2018 by Donnell Kim MD at [facility] Left: Hip [employer]E:OR[employer] 11/02/2023 [id number] / / [id number] Screw Trident Ii Hex Low Profile 6.5mm X 25mm - [id number] Implanted:Qty: 1 on 12/11/2018 by Donnell Kim MD at [facility] Left: Hip MEME:ORTHOPED [facility] 10/20/2023 [id number] / / [id number] Stem Hip Angle Neck 132 Degree V40 Accolade Ii Sz #3 30mm Neck 102mm Stem - [id number] Implanted:Qty: 1 on 12/11/2018 by Donnell Kim MD at [facility] Left: Hip MEME:ORTHOPED [facility] 04/10/2022 [id number] / / [id number] Head Fem +0mm Ofst Tpr 36mm Hip Blx D V40 Strl - [id number] Implanted:Qty: 1 on 12/11/2018 by Donnell Kim MD at [facility] Left: Hip MEME:ORTHOPED [facility] 01/08/2022 6570-0-136 / / [id number] Pin Speed Non Rim 65 Mm Sterile - [id number] Implanted:Qty: 1 on 09/01/2021 by Cristian Grossman MD at [facility] Right: Knee [employer]:ORTHO [id number] 06/13/2031 [id number] / / [id number] Legion Ps Oxin Fem Sz3 Rt - [id number] Implanted:Qty: 1 on 09/01/2021 by Cristian Grossman MD at [facility] Right: Knee [employer]:ORTHO 04/06/2027 [id number] / / [id number] Pros Patella Gns Ii Sz 3 - [id number] Implanted:Qty: 1 on 09/01/2021 by Cristian Grossman MD at [facility] Right: Knee [employer]:ORTHO 04/10/2031 [id number] / / [id number] Gii Cm Tib Size 2 {} Right - [id number] Implanted:Qty: 1 on 09/01/2021 by Cristian Grossman MD at [facility] Right: Knee [employer]:ORTH[employer] 01/22/2031 [id number] / / [id number] G2 Const Insrt Sz1-2 25mm - [id number] Implanted:Qty: 1 on 09/01/2021 by Cristian Grossman MD at [facility] Right: Knee [employer]:ORTHO 04/21/2028 [id number] / / [id number] Cement Simplx Hv 20ml 40gm Gent Antbtc Bn Pwdr - [id number] Implanted:Qty: 2 on 09/01/2021 by Cristian Grossman MD at [facility] Right: Knee MEME 12/26/2022 [id number] / / [id number] Pin Speed Rim 45mm Sterile - [id number] Implanted:Qty: 1 on 09/01/2021 by Cristian Grossman MD at [facility] Right: Knee [employer]:ORTHO [id number] 05/30/2031 [id number] / / [id number] Procedures Procedure Name Priority Date/Time Associated Diagnosis [...] bone density assessment. Study was performed on Kabbage 5. Bone Density: Region BMD T-score Z-score [...] 12/11/2024 10:20:00 AM. us Dayna Raygoza MD [facility] ORDERABLES Final Result * COLONOSCOPY (01/23/2024 [...] diverticulosis Staff Staff Role Shereen Mcclelland, RN Account Review Specialist David Azar MD Performing Provider Shuana Retana RN Endoscopy Nurse Shawnee Santiago MD Anesthesiologist Jodie Alejandro, BUFFER INFLATED PAD BUFFER INFLATED PAD Medications See Anesthesia Record. Preprocedure A history [...] MEDICARE [place] [address] 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
--- OUTSIDE RECORDS SUMMARY | 2025-07-15 14:27 | XMS_ITS | Encounter Summary ---
Author Organization [facility] [place] [address] Care Team Providers Care Bowstring Maker Name Role Phone Theo Musa Primary Care Provider Bronson Raygoza MD Unavailable [phone] Encounter Details Date Type Department Care Team (Late st Contact Info) Description 09/11/2021 Lab Requisition [facility] [address] Fior Armstrong MD [address] [place] [address] DR MERLOS [address] [place] [phone] Broken internal right knee prosthesis, initial [...] Office Visit [facility] [address] [place] [address] 09/06/2025 10:30 AM EST Office Visit [facility] [address] [facility] [place] [address] Sarita Case MD [address] [facility] [place] [place] [address] 11/29/2025 10:15 AM EDT Office Visit [facility] [address] [place] [address] Bronson Raygoza MD [address] [place] [address] documented as of this encounter [...] Armstrong MD CHEMISTRY ORDERABLES Fin al Result [facility] [address] [place] [address] * (ABNORMAL) VANCOMYCIN LEVEL TROUGH (09/11/2021 8:20 AM EST) Pathologist [facility] Vanco Tr 25.4(HH) 10.0-<20.0 mcg/mL 09/11/2021 3:47 PM EST PREF[facility]ED [employer] Blood VENOUS BLOOD / Unknown 09/11/2021 8:20 AM EST 09/11/2021 2:42 PM EST Narrative PREFERRED [employer], [employer] - 09/11/2021 3:47 PM EST Minimum serum concentration for infection control is 10 mcg/mL; a target therapeutic range of 15-20 mcg/mL is recommended for significant infections such as S. aureus. Toxicity does not correlate well with serum concentrations. Supratherapeutic levels are considered to be > 20 mcg/mL. Fior Armstrong MD CHEMISTRY ORDERABLES Fin al Result Performing Organization Address [facility] Co de Phone Number [facility] [employer] [address] [facility] [place] , [place] [address] * (ABNORMAL) C-REACTIVE PROTEIN (09/11/2021 8:20 AM EST) [facility] CRP 113.75(H) <=5.00 mg/L 09/11/2021 3:44 PM EST PREFERRED [employer] Blood VENOUS BLOOD / Unknown 09/11/2021 8:20 AM EST 09/11/2021 2:42 PM EST Fior Armstrong MD CHEMISTRY ORDERABLES Fin al Result Performing Organization Address [facility] Co de Phone Number [employer]), [facility] [address] [facility] [place] , [place] [address] * (ABNORMAL) COMPREHENSIVE METABOLIC PANEL (09/11/2021 8:20 AM EST) Pathologist [facility] Sodium 141 136 - 145 mmol/L 09/11/2021 [...] recommended by the National Kidney Foundation - [place] Society of Nephrology Task Force. Blood VENOUS BLOOD / Unknown 09/11/2021 8:20 AM EST 09/11/2021 2:42 PM EST Fior Armstrong MD CHEMISTRY ORDERABLES Fin al Result Performing Organization Address City/[facility]/ZIP Co de Phone Number [facility] [address] [facility] [place] , [place] [address] [facility] [address] [place] [address] * (ABNORMAL) SEDIMENTATION RATE AUTOMATED (09/11/2021 8:20 AM EST) Pathologist [facility] Sed Rate 40(H) 0 - 30 mm/hr 09/11/2021 3:47 PM EST [facility] Blood VENOUS BLOOD / Unknown 09/11/2021 8:20 AM EST 09/11/2021 2:42 PM EST Fior Armstrong MD HEMATOLOGY ORDERABLES Fi nal Result Performing Organization Address City/[facility]/ZIP Co de Phone Number [facility], [facility] [address] [facility] [place] , [address] [place] [id number] * (ABNORMAL) CBC WITH DIFF (09/11/2021 8:20 AM EST) Pathologist [facility] WBC 4.9 3.7 - 10.3 x10(3)/mcL 09/11/2021 [...] 09/11/2021 3:13 PM EST [facility] RDW 17.4(H) <=14.9 % 09/11/2021 3:13 PM EST [facility] Platelet 275 155 - 369 x10(3)/mcL 09/11/2021 3:13 PM EST [facility] MPV 10.7 8.8 - 12.5 fL 09/11/2021 3:13 PM EST [facility] Neut Percent 62.5 % 09/11/2021 3:13 PM EST [facility] Comment:Neutrophils equals s egs plus bands Imm Gran% 0.8 % 09/11/2021 3:13 PM EST [facility] Comment:Automated count of m etamyelocytes, myelocytes and promyelocytes. Lymph Percent 23.1 % 09/11/2021 3:13 PM EST [facility] Sampson Percent 9.9 % 09/11/2021 3:13 PM EST [facility] Eos Percent 3.1 % 09/11/2021 3:13 PM EST [facility] Baso Percent 0.6 % 09/11/2021 3:13 PM EST [facility] Neut # 3.0 1.6 - 6.1 x10(3)/mcL 09/11/2021 3:13 PM EST [facility] Comment:Neutrophils equals s egs plus bands IMMGRAN# 0.0 0.0 - 0.1 x10(3)/mcL 09/11/2021 3:13 PM EST [facility], [facility] Comment:Automated count of m etamyelocytes, myelocytes and promyelocytes. An absolute IG <0.1 is reported as 0.0. Lymph # 1.1(L) 1.2 - 3.9 x10(3)/mcL 09/11/2021 3:13 PM EST [facility] Sampson # 0.5 0.3 - 0.9 x10(3)/mcL 09/11/2021 3:13 PM EST [facility] Eos# 0.2 0.0 - 0.5 x10(3)/mcL 09/11/2021 3:13 PM EST [facility] Baso # 0.0 0.0 - 0.1 x10(3)/mcL 09/11/2021 3:13 PM EST [facility] [employer] Blood VENOUS BLOOD / Unknown 09/11/2021 8:20 AM EST 09/11/2021 2:42 PM EST us Fior Armstrong MD HEMATOLOGY ORDERABLES Fi nal Result PREFERRED [employer] [address] [facility] [place] , [place] [address] documented in this encounter Visit Diagnoses Diagnosis Broken internal right knee prosthesis, initial encounter documented in this encounter Care Teams Bowstring Maker Relationship Specialty Start Date End Date Theo Musa [address] [place] [address] [address] [place] [address] PCP - General 11/10/09 Bronson Raygoza MD [address] [place] [address] Internal Medicine-Rheumatology 02/07/23 documented as of this encounter
--- OUTSIDE RECORDS SUMMARY | 2025-07-15 14:27 | XMS_ITS | Encounter Summary ---
Author Organization [place] [address] Care Team Providers Care Carving Machine Operator Name Role Phone Theo Musa Primary Care Provider [phone] Bronson Raygoza MD Unavailable [phone] Encounter Details Date Type Department Care Team (Latest Contact Info) Description 09/19/2021 Lab Requisition [facility] [address] 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 Social History [...] Visit [facility] [address] [place] [address] 09/06/2025 10:30 AM EST Office Visit [facility] [address] [place], [place] [phone] Sarita Case MD [address] [place] [address] [place] [address] 11/29/2025 10:15 AM EDT Office Visit [facility] [address] [place] [address] Bronson Raygoza MD [address] [place] [address] documented as of this encounter Procedures Procedure Name Priority Date/Time Associated Diagnosis Comments EXTRA GOLD SST Routine 09/19/2021 8:15 AM EST Infection and 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, initial encounter (HCC) Other staphylococcus as the cause of diseases classified elsewhere detention (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 SEDIMENTATION RATE AUTOMATED Routine 09/19/2021 8:15 AM EST Infection and 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, initial encounter (HCC) Other staphylococcus as the cause of diseases classified elsewhere detention (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 CBC WITH DIFF Routine 09/19/2021 8:15 AM EST Infection and 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, initial encounter (HCC) Other staphylococcus as the cause of diseases classified elsewhere detention (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 C-REACTIVE PROTEIN Routine 09/19/2021 8: 15 AM EST Infection and 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, initial encounter (HCC) Other staphylococcus as the cause of diseases classified elsewhere detention (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 COMPREHENSIVE METABOLIC PANEL Routine 09/19/2021 8:15 AM EST Infection and 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, initial encounter (HCC) Other staphylococcus as the cause of diseases classified elsewhere detention (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 documented in this encounter Results * EXTRA GOLD SST (09/19/2021 8:15 AM EST) Blood VENOUS BLOOD / Unknown 09/19/2021 8:15 AM EST 09/19/2021 3:17 PM EST Fior Armstrong MD CHEMISTRY ORDERABLES Fin al Result Performing Organization Address City/[facility]/[place] [address] * (ABNORMAL) C-REACTIVE PROTEIN (09/19/2021 8:15 AM EST) CRP 73.25(H) <=5.00 mg/L 09/19/2021 4:29 PM EST [facility] Blood VENOUS BLOOD / Unknown 09/19/2021 8:15 AM EST 09/19/2021 3:16 PM EST Fior Armstrong MD CHEMISTRY ORDERABLES Fin al Result Performing Organization Address [facility]/ZIP Co de Phone Number [facility] [address] [facility], [place] [address] * (ABNORMAL) COMPREHENSIVE METABOLIC PANEL (09/19/2021 8:15 [...] 09/19/2021 4:29 PM EST [facility] BUN 12 8 - 23 mg/dL 09/19/2021 4:29 PM EST [facility] Creatinine 0.75 0.51 - 1.30 mg/dL 09/19/2021 4:29 PM EST [facility] Albumin 3.6 3.2 - 4.6 gm/dL 09/19/2021 4:29 PM EST [facility] Total Protein 6.3(L) 6.4 - 8.3 gm/dL 09/19/2021 4:29 PM EST [facility] Bili Total 0.2 0.1 - 1.3 mg/dL 09/19/2021 4:29 PM EST [facility] ALT 6 <=41 U/L 09/19/2021 4:29 PM EST [facility] AST 15 <=40 U/L 09/19/2021 4:29 PM EST [facility] Alk Phos 118 36 - 123 U/L 09/19/2021 4:29 PM EST [facility] eGFR (CKD-EPIcr 2020) 82 >=60 mL/min/1.7 3 m2 09/19/2021 4:29 PM EST [facility] Comment:Estimated GFR was ca lculated using the CKD-EPIcr (2020) equation refit without race. The equation is recommended by the National Kidney Foundation - [place] Society of Nephrology Task Force. Blood VENOUS BLOOD / Unknown 09/19/2021 8:15 AM EST 09/19/2021 3:16 PM EST us Fior Armstrong MD CHEMISTRY ORDERABLES Fin al Result [facility] [address] [facility] , [place] [address] [facility] 1 [place] [address] * (ABNORMAL) SEDIMENTATION RATE AUTOMATED (09/19/2021 8:15 AM EST) Sed Rate 60(H) 0 - 30 mm/hr 09/19/2021 4:25 PM EST [facility] Blood VENOUS BLOOD / Unknown 09/19/2021 8:15 AM EST 09/19/2021 3:16 PM EST us Fior Armstrong MD HEMATOLOGY ORDERABLES Fi nal Result [facility] 1 [place] [address] * (ABNORMAL) CBC WITH DIFF (09/19/2021 8:15 [...] Gran% 0.6 % 09/19/2021 4:06 PM EST [facility] [employer], [facility] Comment:Automated count of m etamyelocytes, myelocytes and promyelocytes. Lymph Percent 24.4 % 09/19/2021 4:06 PM EST [facility] Alcorn Percent 10.0 % 09/19/2021 4:06 PM EST [facility] Eos Percent 3.0 % 09/19/2021 4:06 PM EST [facility] Baso Percent 0.8 % 09/19/2021 4:06 PM EST [facility] Neut # 2.2 1.6 - 6.1 x10(3)/[facility] 09/19/2021 4:06 PM EST [facility], [facility] Comment:Neutrophils equals s egs plus bands IMMGRAN# 0.0 0.0 - 0.1 x10(3)/[facility] 09/19/2021 4:06 PM EST [facility] [employer], [facility] Comment:Automated count of m etamyelocytes, myelocytes and promyelocytes. An absolute IG <0.1 is reported as 0.0. Lymph # 0.9(L) 1.2 - 3.9 x10(3)/[facility] 09/19/2021 4:06 PM EST [facility], [facility] Alcorn # 0.4 0.3 - 0.9 x10(3)/[facility] 09/19/2021 4:06 PM EST [facility], [facility] Eos# 0.1 0.0 - 0.5 x10(3)/[facility] 09/19/2021 4:06 PM EST [facility], [facility] Baso # 0.0 0.0 - 0.1 x10(3)/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
--- OUTSIDE RECORDS SUMMARY | 2025-07-15 14:27 | XMS_ITS | Encounter Summary ---
Author Organization [place] [address] Care Team Providers Care Sewer Bricklayer Name Role Phone Theo Musa Primary Care Provider Bronson Raygoza MD Unavailable [phone] Encounter Details Date Type Department Care Team (Latest Contact Info) Description 09/18/2021 Lab Requisition [facility] [address] [place] [phone] Fior Armstrong MD [address] [place] [address] Infection and 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, initial encounter; retirement (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; Other staphylococcus as [...] [facility] [address] [place] [address] 09/06/2025 10:30 AM EST Office Visit [facility] [address] [place] [address] Sarita Case MD [address] [place] [address] 11/29/2025 10:15 AM EDT Office Visit [facility] [address] [place] [address] Bronson Raygoza MD [address] [place] [address] documented as of this encounter Procedures Procedure Name Priority Date/Time Associated Diagnosis Comments C-REACTIVE PROTEIN Routine 09/18/2021 10 :30 AM EST Infection and 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, initial encounter (HCC) retirement (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 Other staphylococcus as the cause of diseases classified elsewhere VANCOMYCIN LEVEL TROUGH Routine 09/18/2021 10:30 AM EST Infection and 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, initial encounter (HCC) retirement (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 Other staphylococcus as the cause of diseases classified elsewhere COMPREHENSIVE METABOLIC PANEL Routine 09/18/2021 10:30 AM EST Infection and 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, initial encounter (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 Other staphylococcus as [...] 09/18/2021 7:18 PM EST [facility] Total CO2 20(L) 22 - 29 mmol/L [...] 09/18/2021 7:18 PM EST [facility] Total Protein 6.5 6.4 - 8.3 gm/dL 09/18/2021 7:18 PM EST [facility] Bili Total 0.2 0.1 - 1.3 mg/dL 09/18/2021 7:18 PM EST [facility] ALT 5 <=41 U/L 09/18/2021 7:18 PM EST [facility] AST 10 <=40 U/L 09/18/2021 7:18 PM EST [facility] Alk Phos 137(H) 36 - 123 U/L 09/18/2021 7:18 PM EST [facility] eGFR (CKD-EPIcr 2020) 79 >=60 mL/min/1.7 3 m2 09/18/2021 7:18 PM EST [facility] Comment:Estimated GFR was ca lculated using the CKD-EPIcr (2020) equation refit without race. The equation is recommended by the National Kidney Foundation - [place] Society of Nephrology Task Force. Blood VENOUS BLOOD / Unknown 09/18/2021 10:30 AM EST 09/18/2021 6:16 PM EST us Fior Armstrong MD CHEMISTRY ORDERABLES Fin al Result [facility] [employer], [address] , [place] [address] [facility] [address] [place] [address] * (ABNORMAL) C-REACTIVE PROTEIN (09/18/2021 10:30 AM EST) CRP 89.21(H) <=5.00 mg/L 09/18/2021 7:18 PM EST [facility] [employer] Blood VENOUS BLOOD / Unknown 09/18/2021 10:30 AM EST 09/18/2021 6:16 PM EST Fior Armstrong MD CHEMISTRY ORDERABLES Fin al Result Performing Organization Address [facility] de Phone Number [facility] [employer] , [place] [address] * (ABNORMAL) VANCOMYCIN LEVEL TROUGH (09/18/2021 10:30 AM EST) Vanco Tr 33.0(HH) 10.0-<20.0 mcg/mL 09/18/2021 7:23 PM EST [facility] [employer] Blood VENOUS BLOOD / Unknown 09/18/2021 10:30 AM EST 09/18/2021 6:16 PM EST Narrative [facility] [employer] [facility] - 09/18/2021 7:23 PM EST Minimum serum concentration for infection control is 10 mcg/mL; a target therapeutic range of 15-20 mcg/mL is recommended for significant infections such as S. aureus. Toxicity does not correlate well with serum concentrations. Supratherapeutic levels are considered to be > 20 mcg/mL. Fior Armstrong MD CHEMISTRY ORDERABLES Joseph al Result Performing Organization Address [facility] Co de Phone Number [facility] [employer] [address] , [place] [address] documented in this encounter Visit Diagnoses Diagnosis Infection and 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, initial encounter retirement (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 Other staphylococcus as the cause of diseases classified elsewhere documented in this encounter Care Teams Sewer Bricklayer Relationship Specialty Start Date End Date Theo Musa [facility] [address] [facility] [address] PCP - General 11/10/09 Bronson Raygoza MD [address] [place] [address] Internal Medicine-Rheumatology 02/07/23 documented as of this encounter
--- OUTSIDE RECORDS SUMMARY | 2025-07-15 14:27 | XMS_ITS | Clinical Summary ---
Author Organization [facility] Address [address] [place] [address] Care Team Providers Care Pharmacy Customer Care Specialist Name Role Phone AdiReshma Mendez PEDRAZA Primary Care Provider [phone] Social History Tobacco Use Types Packs/Day Years [...] or (1 - 1-dose 75+ series) 2019 [id number] Vaccine ( season) 2025 05/30/2022, 05/29/2021, 10/17/2020, [...] to complete this topic Insurance Care Teams Pharmacy Customer Care Specialist Relationship Specialty Start Date End Date Reshma Joshi APRN [address] [place] [address] PCP - General 02/14/23
--- OUTSIDE RECORDS SUMMARY | 2025-07-15 14:27 | XMS_ITS | Encounter Summary ---
Author Organization [place] [address] Care Team Providers Care Riverine Assault Craft Crewman Name Role Phone Theo Musa Primary Care Provider [phone] Bronson Raygoza MD Unavailable [phone] Encounter Details Date Type Department Care Team (Late st Contact Info) Description 09/15/2021 Lab Requisition [facility] [address] [place] [phone] Fior Armstrong MD [address] [place] [address] [address] Infection and inflammatory reaction due [...] Visit [facility] [address] [place] [address] 09/06/2025 10:30 AM EST Office Visit [facility] [address] [place] [address] Sarita Case MD [address] [place] [address] 11/29/2025 10:15 AM EDT Office Visit [facility] [address] [place] [address] Bronson Raygoza MD [address] [place] [address] documented as of this encounter Procedures Procedure Name Priority Date/Time Associated Diagnosis Comments EXTRA GOLD SST Routine 09/15/2021 10:15 AM EST Infection and 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, initial encounter (HCC) VANCOMYCIN LEVEL TROUGH Routine 09/15/2021 10:15 AM EST Infection and 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, initial encounter ([facility]) documented in this encounter Results * EXTRA GOLD SST (09/15/2021 10:15 AM EST) Blood VENOUS BLOOD / Unknown 09/15/2021 10:15 AM EST 09/15/2021 8:07 PM EST us Fior Armstrong MD CHEMISTRY ORDERABLES Fin al Result [facility] 1 [place] [address] * (ABNORMAL) VANCOMYCIN LEVEL TROUGH (09/15/2021 10:15 AM EST) Vanco Tr 9.1(L) 10.0-<20.0 mcg/mL 09/15/2021 9:30 PM EST [facility] [employer], [facility] Blood VENOUS BLOOD / Unknown 09/15/2021 10:15 [...] MD CHEMISTRY ORDERABLES Fin al Result [id number] [address] [facility] , [place] [address] documented in this encounter Visit Diagnoses Diagnosis Infection and 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, initial encounter documented in this encounter Care Teams Riverine Assault Craft Crewman Relationship Specialty Start Date End Date Theo Musa [address] [place] [address] [address] [place] [address] PCP - General 11/10/09 Bronson Raygoza MD [address] [place] [address] Internal Medicine-Rheumatology 02/07/23 documented as of this encounter
--- OUTSIDE RECORDS SUMMARY | 2025-07-15 14:27 | XMS_ITS | Clinical Summary ---
Author Organization [facility] Address [facility] [place] [address] Care Team Providers Care Complaint Specialist Name Role Phone Shaun Musa Primary Care [...] therelease of HIV test results or diagnoses. [id number] Active Problems Problem Noted Date Diagnosed [...] of Treatment Not on file Care Teams Complaint Specialist Relationship Specialty Start Date End Date Shaun Musa PCP - General 08/21/06
[2025-07-15 14:29] LABS: Chloride 108 mmol/L (98-107); Potassium 4.2 mmoL/L (3.5-5.1); Sodium 135 mmol/L (136-145)
[2025-07-15 14:32] LABS: Anion Gap 7.2 mEq/L (5-15); Blood Urea Nitrogen 28 mg/dl (7-17); Calcium 8.8 mg/dl (8.4-10.2); Carbon Dioxide 24 mmol/L (22.0-30.0); Creatinine,Serum 1.10 mg/dl (0.52-1.04); Estimated Glomerular Filt Rate 48 ml/min (>60); GFR (African American) 58 ML/MIN (>60); Glucose 120 mg/dl (74-100)
[2025-07-15 15:15] LABS: Tobramycin,Trough < 0.6 ug/ml (0-2.0)
[2025-07-15] MEDS: SODIUM CHLORIDE 0.9% 10ML FLUSH SYRINGE 10 ML IV (15:38)
[2025-07-15 16:27] VITALS: BP 109/67; PULSE 71
== END 2025-07-15 23:59 | disposition home or self-care (01) ==
LOC: INF 14:05
PROVIDERS: PCP Nurse Practitioner; Visit Provider Nurse Practitioner
DX: N39.0 Urinary tract infection, site not specified (principal)
CPT/HCPCS: 80048; 80200; 96365; J3260

== ENCOUNTER 2025-07-17 12:38 | Outpatient (CLI) | payer MEDICARE, SELFPAY ==
--- OUTSIDE RECORDS SUMMARY | 2025-05-31 10:15 | XMS_ITS | Encounter Summary ---
Author Organization [facility] Address [address] [place] [address] Care Team Providers Care Professional Athlete Name Role Phone DimpleTheo munoz Primary Care Provider [phone] Bronson Raygoza MD Unavailable [phone] Reason for Visit * Reason Comments Degenerative Disc Disease Encounter Details Date Type Department Care Team (Late st Contact Info) Description 05/31/2025 10:15 AM EST Office Visit [facility] [address] [place] [address] Bronson Raygoza MD [address] [place] [address] Nontraumatic incomplete tear of right rotator cuff (Primary Dx); Osteoarthrosis, generalized, involving multiple sites; Fibromyalgia; Discogenic syndrome, lumbar; High risk medication use Social History Tobacco Use Types Packs/Day Years [...] Sign Reading Time Taken Comments Blood Pressure 128/60 05/31/2025 11:00 AM EST Pulse - - Temperature 36.2 C (97.1 F) 05/31/2025 11:00 AM EST Respiratory Rate - - Oxygen Saturation - - Inhaled Oxygen Concentration - - Weight 72 kg (158 lb 12.8 oz) 05/31/2025 11:00 A M EST Height 157.5 cm (5' 2 ) 05/31/2025 11:00 AM EST Body Mass Index 29.04 05/31/2025 11:00 AM EST documented in this encounter Functional Status * Is the person deaf or does he/she have serious difficulty hearing? Answer Date of Assessment Author No 09/05/2021 2:18 PM Cherie Florez RN * Is the person blind or does he/she have serious difficulty seeing even when wearing glasses? Answer Date of Assessment Author No 09/05/2021 2:18 PM EST Cheire Galvez RN * Does this person have serious difficulty walking or climbing stairs? Answer Date of Assessment Author Yes 09/05/2021 2:18 PM Cherie Florez RN * Does this person have difficulty dressing or bathing? Answer Date of Assessment Author Yes 09/05/2021 2:18 PM Helen Florez RN * Because of a physical, mental or emotional condition, does this person have difficulty doing errands alone such as visiting a doctor's office or shopping? Answer Date of Assessment Author Yes 09/05/2021 2:18 PM EST Cherie Galvez RN documented as of this encounter Mental Status * Because of a physical, mental or emotional condition, does this person have serious difficulty concentrating, remembering or making decisions? Answer Entry Date Author No 12/14/2018 1:39 PM EDT Theo Kelsey RN documented in this encounter Ordered Prescriptions Prescription Sig Dispense Quantity Refills Last Filled Start Date End Date DULoxetine (CYMBALTA) 30 mg Oral Capsule, Delayed Release(E.C.) Take 1 Capsule by mouth daily. 90 Capsule 2 05/31/2025 documented in this encounter Progress Notes * Bronson Raygoza MD - 05/31/2025 10:15 AM EST Images from the original note were not included. Subjective Subjective: Patient ID: Darlene Hewitt is a 80 y.o. female. Chief Complaint Patient presents with ??? Degenerative Disc Disease HPI: Dralene Hewitt is a 80 y.o.femalewho presents with 6.5/10 aching throbbing pain, located in the lower back, worse with activity, alleviated with rest, associated with stiffness which resolves within twenty minutes. The pain / function / disease activity questionnaire was filled out by the patient and reviewed with me. Function on mHAQ = 3.7/10 Pain on 10-cm VAS = 6.5/10 Disease Activity on RAPID 3 = 5.3/10 REVIEW OF SYSTEMS The patient denies fever, weight loss, rash, weakness, nausea, vomiting, abdominal pain, melena, chest pain, cough, and shortness of breath. Otherwise, ROS are as stated in the HPI, and all others are negative. Past Medical History[1] Social History Tobacco Use ??? Smoking status: Never ??? Smokeless tobacco: Never Substance Use Topics ??? Alcohol use: No Family History[1] Allergies[1] Medications Taking[1] Objective: Vital Signs: BP 128/60 (BP Location: Left arm, Patient Position: Sitting) Temp 97.1 ??F (36.2 ??C) (Forehead) Ht 5' 2 (1.575 m) Wt 158 lb 12.8 oz (72 kg) BMI 29.04 kg/m?? Body mass index is 29.04 kg/m??. Physical Exam CONST: well developed, well nourished, no apparent distress EYES: pupils equal/ round/ sclera white, conjunctiva pink and moist ENT: oropharynx clear without exudates, mucus membranes moist NECK: supple without lymphadenopathy, no thyromegaly, no masses RESP: clear to auscultation bilaterally without wheezes/rhonchi/rales CV: regular rate and rhythm without murmurs/rubs/gallops, no edema/cyanosis/clubbing SKIN: no rash, no indurations, nodules, or tightening. MSK: Refer to Assessment and Plan section for MSK exam Assessment and Plan: MSK: Both hands with CMC joint squaring and tenderness, Naren and Heberden nodes of the PIP and DIP joints consistent with degenerative arthritis. MCP joints with no swelling, subluxation, or lateral deviation. Lower lumber paraspinal tenderness with a normal straight and cross leg raise test on the left and right. Full strength of hip flexors / extensors, knee flexors / extensors, ankle flexors / extensors. Soc / FHx Update: . (Giancarlo) Works for the [employer]. PMHx Update: -Osteopenia. Treatment with Alendronate (Fosamax) through her PCP for Osteopenia PCP, Reshma Joshi [employer]. # OSTEOARTHRITIS GENERALIZED # OSTEOARTHRITIS RIGHT KNEE # OSTEOARTHRITIS LEFT HIP # ROTATOR CUFF SYNDROME RIGHT SHOULDER # CERVICAL DISC DISEASE # FIBROMYALGIA # LUMBAR DISC DISEASE # TROCHANTERIC BURSITIS RIGHT HIP Chronic, active. -Rotator Cuff Syndrome, Right Shoulder. 2004 (Approximately) Right Shoulder Surgery by Dr. Fung. 2009 (Approximately) Left Shoulder Surgery by Dr. Fung. -Osteoarthritis on Imaging. 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 1955 (Age 11) Right Foot Surgery with Muscle Transfer due to Polio. 11/10/2015 Right Foot Surgery by Dr. Mackenzie. Right Great Toe Fusion, 2 and 3 Toe Straightening. 12/21/2016 Right Foot Surgery by Dr. Mackenzie. Removal of Screw from Right Hallux. 1953 (Age 9) Left Foot Surgery Triple Arthrodeisis due to Polio. 2004 (Approximately) Right Shoulder Surgery by Dr. Fung. 2006 Left Hip Fracture Repair (not a THR, but a fracture repair) by Dr. Gibson. 2009 (Approximately) Left Shoulder Surgery by Dr. Fung. 12/11/[address] Kim. 06/02/[address] Kim. Complicated by an infection with MRSA 09/01/20[address] Revision by Dr. Grossman. 06/26/2023 Right Foot Surgery on [address]st Toe [address]. Daniels at [place] -Fibromyalgia Features of Widespread Pain in Muscles and Joints, Fatigue, Sleep Disturbance, Headaches, Neuropathic Features. -Degenerative Disc Disease on Imaging. 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 Low Back Pain. Left Hip Pain with a 12/11/[address] Kim. 12/11/2024 Left Hip X-Ray at [facility] without loosening. I advise to follow up with Dr. Kim if it is still causing issues. 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 IMAGING 05/22/2012 MRI of the Right Shoulder at [facility]: IMPRESSION: 1. Full-thickness, full width tear/re-tear of the supraspinatus with retraction and atrophy. 2. Full-thickness partial-width tear of the infraspinatus tendon. 3. Thinning and undermining of the subscapularis. 4. Thinning and tendinopathy of the long head of the biceps proximally. 5. Degenerative changes of the AC joint. 07/25/2018 MRI of the C-Spine at [facility]: IMPRESSION: 1.Multilevel cervical degenerative disc and facet disease as described in detail above. 2. For instance, at C3-4, advanced right-sided facet arthropathy in conjunction with relatively mild discogenic disease contributes to severe right foraminal stenosis. 3. Multilevel thecal sac effacement without cord compression. See above detailed level by level discussion. 02/18/2020 L-S Spine MRI at [facility]: IMPRESSION: 1. Multilevel degenerative disc disease as described in detail above with multiple areas of potential neural impingement as discussed. 2. At T12-L1 there is a broad-based disc protrusion extending to the left of midline resulting in left lateral recess effacement and moderate left foraminal narrowing. Disc material abuts the conus without compression. 3. Discogenic and facet disease at L3-4 contributes to moderate central canal stenosis with moderate right foraminal narrowing. 4. Disc osteophyte complex to the left at L4-5 results in moderate left foraminal narrowing and mild left lateral recess effacement. 5. Moderate levoscoliotic curvature lumbar spine. Today, I Reviewed her 09/09/2023 Feet X-Rays at . : Right: There is no fracture deformity. No acute malalignment. Resection arthroplasty at the fifth MTP. Fourth proximal phalanx resection. Arthrodesis hardware at the second PIP, bony fusion across the hallux IP joint. Prior hallux metatarsal osteotomy. There is mild dorsal forefoot soft tissue swelling. Dorsal midfoot osteophytes at the talonavicular joint and tarsometatarsal articulations. Small plantar heel spur. Left: No erosive disease or periostitis. No fracture deformity or acute malalignments. There is bony fusion across the subtalar articulations, talonavicular joint, calcaneal cuboid articulations. Bony fusion as well at the second tarsometatarsal. Moderate first tarsometatarsal osteoarthritis. Small plantar heel spur. Heterotopic bone formation overlies the noninsertional mid Achilles tendon. IMPRESSION: Postsurgical changes as described without acute abnormality. Today, I Reviewed her 09/09/2023 Right Elbow X-Rays at . : Corticated ossific densities adjacent to both humeral condyles compatible with either old trauma or tendinitis. IMPRESSION: Mild degenerative changes. Today, I Reviewed her 09/09/2023 Right Hip X-Rays at . : Bony structure of the pelvis and hips intact. No fracture or dislocation. Joint spaces overall well-maintained. Minimal spurring lateral aspect of the head. IMPRESSION: No acute abnormality of the hip or pelvis. Today, I Reviewed her 10/05/2024 L-S Spine X-Ray at . : The bones are demineralized. No acute compression fractures evident. There is moderate levoscoliosis. Advanced multilevel degenerative disc and facet disease is present, overall progressed from 2021. IMPRESSION: Progressive advanced degenerative changes. Her Chiropractor thinks her Scoliosis is worse. Today, I Reviewed her 12/11/2024 Left Hip X-Ray at . : There was previous left total hip arthroplasty. The femoral stem tip is slightly angled medially without periprosthetic osteolysis. No fracture is evident. IMPRESSION: No acute osseous findings. Discussed treatment options: NSAIDs Can not take Celecoxib (Celebrex) due to a Sulfa Allergy. Failed Meloxicam Failed Nabumetone. Failed Diclofenac. SE Bleeding Gastric Ulcerations even on Prevacid and Pepcid. Not an NSAID Candidate, she had a GIB on NSAIDs with a PPI. EGD 07/19/2021. Bleeding Clcerations despite Prevacid / Pepcid. Responsive to Tylenol OTC prn. Responsive to Voltaren Gel. I Advise to clear with GI. SUPPLEMENTS Today, discussed the limited evidence of supplements that are thought to help with both osteoarthritis and inflammatory arthritis. Data is limited on supplements. There are a multitude of supplements with non- validated anecdotal claims of efficacy, but very limited data with proof of efficacy. In general, supplementation with glucosamine 1500mg per day, omega 3 fatty acids 1200mg per day, and turmeric 500mg per day are thought to be effective, but not proven. Different sources such as Theralogix were discussed. CORTICOSTEROIDS Responsive to Depo-Medrol 120mg IM. Today, decided to give a Depo-Medrol 120mg IM. IA INJECTIONS Right Shoulder Responsive to an Injection from Dr. Fung. Left CMC Responsive to an Injection. Right Third MCP Responsive to Injection. Right MTP Cannot Inject due to Joint Prosthesis. Right CMC Responsive to an Injection. Left Trochanteric Bursitis, Responsive to Injections using MSKUS Guidance. Right Trochanteric Bursitis, Responsive to Injections using MSKUS Guidance. Right Shoulder Responsive to an Injection from TAR using MSKUS Guidance. ORTHOPEDICS Consultation with Dr. Kim of Orthopedics. Consultation with Dr. Grossman of Orthopedics. Consultation with Dr. Maher of Orthopedics for her feet. Consultation with Dr. Fung of Orthopedics for the Shoulders. 1956 (Age 11) Right Foot Surgery with Muscle Transfer due to Polio. 11/10/2015 Right Foot Surgery by Dr. Mackenzie. Right Great Toe Fusion, 2 and 3 Toe Straightening. 12/21/2016 Right Foot Surgery by Dr. Mackenzie. Removal of Screw from Right Hallux. 1953 (Age 9) Left Foot Surgery Triple Arthrodeisis due to Polio. 2004 (Approximately) Right Shoulder Surgery by Dr. Fung. 2006 Left Hip Fracture Repair (not a THR, but a fracture repair) by Dr. Gibson. 2009 (Approximately) Left Shoulder Surgery by Dr. Fung. 12/11/[address] Kim. 06/02/[address] Kim. Complicated by an infection with MRSA 09/01/2021 Right [address] Revision by Dr. Grossman. 06/26/2023 Right Foot Surgery on 1st Toe by Dr. Daniels at [place] Feet 06/26/2023 Right Foot Surgery on 1st Toe by Dr. Daniels at [place] Today, I reviewed her 06/04/[address] Daniels at [place] Right foot hallux valgus with osteophyte Reviewed surgical and non-surgical options Advanced Osteoarthritis on Imaging. I advise to Follow Up with Orthopedics as Required. I advise [employer] [facility] for the Feet. Shoulders 2004 (Approximately) Right Shoulder Surgery by Dr. Fung. 2009 (Approximately) Left Shoulder Surgery by Dr. Fung. She is going to Follow up with Dr. Fung of Orthopedics for an Evaluation. THERAPY We discussed the benefits of conditioning exercise on fatigue, widespread pain, and back pain. Specifically, I recommended considering hydrotherapy. Although I recommend to begin with Physical Therapy for guidance, I advise a snf commitment to an exercise program using facilities such as a gym with a ict trainer, Yoga class, or Pilates class, which has been shown to be beneficial in Rheumatologic conditions. Today, I Advise PT for Involved Areas. She is Followed by a Massage Therapist and a Chiropractor. Her Chiropractor thinks her Scoliosis is getting Worse. TP INJECTIONS Failed TP Injections. Discussed treatment options. MEDICATIONS Failed Gabapentin. SE Edema / Weight Gain. Failed Milnaxipran (Savella). SE Rash. Failed Cyclobenzaprine (Flexeril). SE Somnolence. Failed Low Dose Naltrexone (LDN) due to Side Effects. Failed Venlafaxine (Effexor). Failed Tizanidine. SE of Somnolence / Fatigue. Responsive to Duloxetine (Cymbalta) 30mg po qd. SE of Change in Dreams and Somnolence. Today, we discussed the option of Increasing Duloxetine (Cymbalta), but she is Concerned about SE. We Discussed the option of Pregabalin (Lyrica), but she does not want to take it due to Concerns about Weight, and SE on Gabapentin. She has been Rx Pregabalin (Lyrica) by her PCP for Shingles, and she is Undecided about Taking. Today, her biggest concern about side effects is Somnolence, as she has Fatigue. INTERVENTIONAL SPINAL MANAGEMENT Consultation with Dr. Bradford at [place]. Responsive to MARY, but she prefers to Avoid due to SE of Corticosteroids. On the Last MARY, SE of Dryness from the Corticosteroids. Eyes Became Worse. She wants to Avoid MARY. CHRONIC PAIN Failed Tramadol. SE Drowsiness and Itching. SPINAL SURGERY Consultation with Dr. Ortiz at [place]. Right now, Dr. Ortiz does not Advise Surgery, but will be Following Her. He feels her Left Drop foot is from Polio. # MEDICATION TOXICITY MONITORED Corticosteroids The risks of corticosteroids were reviewed by me with the patient, including (but not limited to) weight gain, osteoporosis acceleration, bone fractures, a- vascular necrosis, elevated blood sugars, and cataract acceleration. Today, I reviewed her 12/11/2024 DEXA at [facility]: Right Femoral Neck T Score = -2.0 Treatment with Alendronate (Fosamax) through her PCP for Osteopenia PCP, Reshma Joshi NP. PROCEDURES 120mg methylprednisolone IM given without complication. The risks of methylprednisolone were reviewed by me with the patient, including (but not limited to) weight gain, osteoporosis acceleration, bone fractures, a-vascular necrosis, elevated blood sugars, and cataract acceleration. If she follows up in 6 Months, she might call in 3 Months for a Depo-Medrol. [1] Past Medical History: Diagnosis Date ??? Back pain ??? Depression ??? Hyperlipidemia ??? Hypertension ??? Infection and 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, initial encounter 09/05/2021 ??? Motion sickness ??? Neuromuscular disorder (HCC) fibromyalgia ??? Osteoarthritis ??? Osteoporosis ??? Polio as a child/ has dropped left foot ??? Postoperative nausea and vomiting ??? Shingles ??? 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 Thyroid disease [1] Family History Problem Relation Age of Onset ??? Arthritis Mother ??? Heart Disease Mother ??? High Blood Pressure Mother ??? Hypertension Mother ??? Arthritis Father ??? Heart Disease Father ??? High Blood Pressure Father ??? Hypertension Father ??? Hypertension Sister ??? Arthritis Other ??? Anesth Problems Neg Hx [1] Allergies Allergen Reactions ??? Adhesive Other (See Comments) and Swelling Paper tape is acceptable ??? Chocolate Flavor ??? [place] Other (See Comments) Severe CUEVAS ??? Erythromycin ??? Guaifenesin Swelling ??? Latex Rash ??? Milk ??? Penicillins Swelling and Other (See Comments) Edema of the hand, and erythema around injection site when patient was a child. ??? Phenylpropanolamine Swelling ??? Theobromine Other (See Comments) Severe CUEVAS ??? Wheat ??? Pseudoephedrine Nausea And Vomiting ??? Savella [Milnacipran] Rash Skin reddness Skin reddness ??? Sulfa (Sulfonamide Antibiotics) Rash Nausea ??? Sulfasalazine Rash [1] Outpatient Medications Marked as Taking for the 05/31/25 encounter (Office Visit) with Bronson Raygoza MD Medication Sig Dispense Refill ??? albuterol (PROVENTIL HFA;VENTOLIN HFA) 90 mcg/actuation Inhl HFA Aerosol Inhaler ??? alendronate (FOSAMAX) 70 mg Oral Tablet once a week. Take on Saturday's ??? Bifidobacterium Infantis (ALIGN) 4 mg Oral Capsule Take 1 Capsule by mouth daily. 30 Capsule 2 ??? Biotin 5 mg Oral Capsule Take 5,000 Capsules by mouth. ??? CALCIUM CITRATE/VITAMIN D3 (CITRACAL + D ORAL) Take 1 Tablet by mouth 2 times daily. ??? Cholecalciferol, Vitamin D3, (VITAMIN D3) 125 mcg (5,000 unit) Oral Tablet Take 5,000 Units by mouth daily. ??? cyanocobalamin 1,000 mcg tablet Take 1,000 mcg by mouth daily. ??? cycloSPORINE (RESTASIS) 0.05 % Opht Dropperette Place 1 Drop into both eyes every 12 hours. ??? docusate sodium (COLACE) 100 mg Oral Capsule Take 1 Capsule by mouth 2 times daily as needed for Constipation. 30 Capsule 0 ??? DULoxetine (CYMBALTA) 30 mg Oral Capsule, Delayed Release(E.C.) Take 1 Capsule by mouth daily. 90 Capsule 2 ??? [DISCONTINUED] DULoxetine (CYMBALTA) 30 mg Oral Capsule, Delayed Release(E.C.) Take 1 Capsule by mouth daily. 90 Capsule 2 ??? guaiFENesin (MUCINEX) 600 mg Oral Tablet Extended Release 12hr Take 1,200 mg by mouth 2 times daily. ??? ipratropium (ATROVENT) 42 mcg (0.06 %) Nasl [place], Non-Aerosol 2 Sprays by Nasal route 4 times daily as needed for Rhinitis. 2 sprays each nostril 15 mL 0 ??? levothyroxine (SYNTHROID) 25 mcg tablet Take 25 mcg by mouth daily. ??? lisinopril (PRINIVIL;ZESTRIL) 20 mg tablet Take 20 mg by mouth daily. ??? meclizine (ANTIVERT) 12.5 mg Oral Tablet Take 12.5 mg by mouth 2 times daily as needed. ??? MULTIVITAMINS (MULTI-VITAMIN ORAL) Take 1 Tab by mouth daily. ??? OMEGA-3 FATTY ACIDS/VITAMIN E (OMEGA-3 FISH OIL ORAL) Take 1,000 mg by mouth daily. ??? pantoprazole (PROTONIX) 20 mg Oral Tablet, Delayed Release (E.C.) Take 20 mg by mouth 2 times daily. ??? Psyllium Seed-Sucrose (METAMUCIL, SUGAR,) Oral Powder Take by mouth as needed. ??? triamcinolone acetonide (NASACORT ALLERGY NASL) by Nasal route daily. In am ??? vitamin D3-folic acid 2,500 unit- 1 mg Oral Tablet Take 5,000 Int'l Units/L by mouth daily. Current Facility-Administered Medications for the 05/31/25 encounter (Office Visit) with Bronson Raygoza MD Medication Dose Route Frequency Provider Last Rate Last Admin ??? methylPREDNISolone acetate (DEPO-Medrol) injection 40 mg 40 mg Intramuscular Once ??? methylPREDNISolone acetate (DEPO-Medrol) injection 80 mg 80 mg Intramuscular Once * Penelope Dai RMA - 05/31/2025 10:15 AM EST Depo Medrol injection 120 mg IM in left upper gluteus muscle. Pt tolerated well. documented in this encounter Plan of Treatment Upcoming Encounters Date Type Department Care Team (Late st Contact Info) Description 08/11/2025 9:00 AM EST Office Visit [facility] [address] [place] [address] 09/06/2025 10:30 AM EST Office Visit [facility] [address] [place] [id number] Sarita Case MD [address] [place] [id number] 11/29/2025 10:15 AM EDT Office Visit [facility] [address] [place] [address] Bronson Raygoza MD [address] [place] [id number] documented as of this encounter Visit Diagnoses Diagnosis Nontraumatic incomplete tear of right rotator cuff- Primary Osteoarthrosis, generalized, involving multiple sites Generalized osteoarthrosis, involving multiple sites Fibromyalgia Mylagia and myositis, unspecified Discogenic syndrome, lumbar Displacement of lumbar intervertebral disc without myelopathy High risk medication use Encounter for long-term (current) use of other medications documented in this encounter Administered Medications Inactive Administered Medications - up to 1 most recent administrations Medication Order MAR Action Action Date Dose Rate Site methylPREDNISolone acetate (DEPO-Medrol) injection 40 mg 40 mg, Intramuscular, ONCE, 1 dose, On Sat05/31/25 at 1130, Dx: 1. Discogenic syndrome, lumbarIndications:Discog enic syndrome, lumbar Given 05/31/2025 11:46 AM EST 40 mg Left upper gluteus methylPREDNISolone acetate (DEPO-Medrol) injection 80 mg 80 mg, Intramuscular, ONCE, 1 dose, On Sat05/31/25 at 1130, Dx: 1. Discogenic syndrome, lumbarIndications:Discog enic syndrome, lumbar Given 05/31/2025 1:36 PM EST 80 mg Left upper gluteus documented in this encounter Discontinued Medications Medication Sig Discontinue Reason Start Date End Da te DULoxetine (CYMBALTA) 30 mg Oral Capsule, Delayed Release(E.C.) Take 1 Capsule by mouth daily. Reorder 03/17/2025 05/31/2025 documented as of this encounter Care Teams Professional Athlete Relationship Specialty Start Date End Date Theo Musa [address] [place] [address] [address] [place] [address] PCP - General 11/10/09 Bronson Raygoza MD [address] [place] [id number] Internal Medicine-Rheumatology 02/07/23 documented as of this encounter
--- OUTSIDE RECORDS SUMMARY | 2025-07-17 12:40 | XMS_ITS | Clinical Summary ---
Author Organization [facility] Address [address] [place] [address] Phone Care Team Providers Care Contact Lens Blocker Name Role Phone Unavailable Unavailable Conditions or Problems No information available. Medications No information available. Medications Administered No information available. Allergies, Adverse Reactions, Alerts No information available. Results No information available. Plan of Care No information available. Procedures No information available. Vital Signs No information available. Immunizations No information available. Advance Directives No information available.
--- OUTSIDE RECORDS SUMMARY | 2025-07-17 12:41 | XMS_ITS | Encounter Summary ---
Author Organization [facility] [place] [address] Care Team Providers Care Refinery Operator Reforming Unit Name Role Phone Theo Musa Primary Care Provider [phone] Bronson Raygoza MD Unavailable [phone] Encounter Details Date Type Department Care Team (Late st Contact Info) Description 09/15/2021 Lab Requisition [facility] [address] [place] [id number] Fior Armstrong MD [address] [place] [address] DR MERLOS [address] [place] [phone] Infection and inflammatory reaction due to [...] Visit [facility] [address] [place] [address] 09/06/2025 10:30 AM EST [facility] [address] [place] [address] Sarita Case MD [address] [place] [address] 11/29/2025 10:15 AM EDT Office Visit [facility] [address] [place] [address] Bronson Raygoza MD [address] [place] [address] documented as of this encounter Procedures Procedure Name Priority Date/Time Associated Diagnosis Comments EXTRA GOLD SST Routine 09/15/2021 10:15 AM EST Infection and 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, initial encounter (HCC) VANCOMYCIN LEVEL TROUGH Routine 09/15/2021 10:15 AM EST Infection and 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, initial encounter ([facility]) documented in this encounter Results * EXTRA GOLD SST (09/15/2021 10:15 AM EST) Blood VENOUS BLOOD / Unknown 09/15/2021 10:15 AM EST 09/15/2021 8:07 PM EST us Fior Armstrong MD CHEMISTRY ORDERABLES Fin al Result [facility] [address] [place] [address] * (ABNORMAL) VANCOMYCIN LEVEL TROUGH (09/15/2021 10:15 AM EST) Vanco Tr 9.1(L) 10.0-<20.0 mcg/mL 09/15/2021 9:30 PM EST [facility] Blood VENOUS BLOOD / Unknown 09/15/2021 [...] Armstrong MD CHEMISTRY ORDERABLES Fin al Result [employer] [address] [facility] , [place] [address] documented in this encounter Visit Diagnoses Diagnosis Infection and 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, initial encounter documented in this encounter Care Teams Refinery Operator Reforming Unit Relationship Specialty Start Date End Date Theo Musa [address] [place] [address] [address] [place] [address] PCP - General 11/10/09 Bronson Raygoza MD [address] [place] [address] Internal Medicine-Rheumatology 02/07/23 documented as of this encounter
--- OUTSIDE RECORDS SUMMARY | 2025-07-17 12:41 | XMS_ITS | Clinical Summary ---
Author Organization [facility] Address [address] [facility], [address] [place] [address] Care Team Providers Care Glove Factory Sewer Name Role Phone Shaun Musa MD Primary Care Provider [phone] Allergies Active Allergy Reactions Criticality Noted Date [...] Take 1,000 Units by mouth daily Active Kitzmiller 3 1000 MG CAPS Take 1 capsule [...] mouth 2 times daily 03/29/2023 Active PEG 5795-BPe-IrNky- NaCl-NaSulf (PEG-3350/ELECT ROLYTES) 236 g SOLR TAKE 4,000 ML BY MOUTH ONCE FOR 1 DOSE. 01/18/2024 Active guaiFENesin 1200 MG TB12 Take by mouth daily 02/28/2022 Active DULoxetine (CYMBALTA) 60 MG extended release capsule 01/16/2024 Act melisas docusate (COLACE, DULCOLAX) 100 MG CAPS Take [...] patient's age to complete this topic Insurance [facility] [employer] Care Teams Glove Factory Sewer Relationship Specialty Start Date End Date Shaun Musa MD formerly [facility]0 [facility] [address] [address] PCP - General 12/12/16
--- OUTSIDE RECORDS SUMMARY | 2025-07-17 12:41 | XMS_ITS | Encounter Summary ---
Author [place] [address] Care Team Providers Care Real Estate Consultant Name Role Phone Theo Musa Primary Care Provider [phone] Bronson Raygoza MD Unavailable [phone] Encounter Details Date Type Department Care Team (Latest Contact Info) Description 10/09/2021 Lab Requisition [facility] [address] 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 [...] Visit [facility] [address] [place] [address] 09/06/2025 10:30 AM EST [facility] Visit [facility] [address] [facility] [place] [address] Sarita Case MD [address] [facility] [address] 11/29/2025 10:15 AM EDT Office Visit [facility] [address] [place] [address] Bronson Raygoza MD [address] [place] [address] documented as of this encounter Procedures Procedure Name Priority Date/Time Associated Diagnosis Comments EXTRA GOLD SST Routine 10/09/2021 10:27 AM EDT Infection and 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, initial encounter (HCC) Other staphylococcus as the cause of diseases classified elsewhere retirement (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 SEDIMENTATION RATE AUTOMATED Routine 10/09/2021 10:27 AM EDT Infection and 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, initial encounter (HCC) Other staphylococcus as the cause of diseases classified elsewhere retirement (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 CBC WITH DIFF Routine 10/09/2021 10:27 AM EDT Infection and 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, initial encounter (HCC) Other staphylococcus as the cause of diseases classified elsewhere retirement (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 C-REACTIVE PROTEIN Routine 10/09/2021 10 :27 AM EDT Infection and 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, initial encounter (HCC) Other staphylococcus as the cause of diseases classified elsewhere 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 VANCOMYCIN LEVEL TROUGH Routine 10/09/2021 10:27 AM EDT Infection and 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, initial encounter (HCC) Other staphylococcus as the cause of diseases classified elsewhere retirement (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 COMPREHENSIVE METABOLIC PANEL Routine 10/09/2021 10:27 AM EDT Infection and 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, initial encounter (HCC) Other staphylococcus as the cause of diseases classified elsewhere 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 de Phone Number [address] [address] * (ABNORMAL) VANCOMYCIN LEVEL TROUGH (10/09/2021 10:27 AM EDT) Pathologist [facility] Vanco Tr 9.6(L) 10.0-<20.0 mcg/mL 10/09/2021 8:34 PM EDT [facility] Blood VENOUS BLOOD / Unknown 10/09/2021 10:27 AM EDT 10/09/2021 7:23 PM EDT Narrative [facility] - 10/09/2021 8:34 PM EDT Minimum serum concentration for infection control is 10 mcg/mL; a target therapeutic range of 15-20 mcg/mL is recommended for significant infections such as S. aureus. Toxicity does not correlate well with serum concentrations. Supratherapeutic levels are considered to be > 20 mcg/mL. Fior Armstrong MD CHEMISTRY ORDERABLES Fin al Result Performing Organization Address [facility] de Phone Number [facility] [address] [place] [address], [place] [address] * (ABNORMAL) C-REACTIVE PROTEIN (10/09/2021 10:27 AM EDT) Pathologist [facility] CRP 16.27(H) <=5.00 mg/L 10/09/2021 8:33 PM EDT [facility] Blood VENOUS BLOOD / Unknown 10/09/2021 10:27 AM EDT 10/09/2021 7:23 PM EDT us Fior Armstrong MD CHEMISTRY ORDERABLES Fin al Result [facility] [address] [facility], [address] [place] [id number] * (ABNORMAL) COMPREHENSIVE METABOLIC PANEL (10/09/2021 10:27 [...] - 123 U/L 10/09/2021 8:35 PM EDT [facility], [facility] eGFR (CKD-EPIcr 2020) 78 >=60 mL/min/1.7 3 m2 10/09/2021 8:35 PM EDT [facility] Comment:Estimated GFR was ca lculated using the CKD-EPIcr (2020) equation refit without race. The equation is recommended by the National Kidney Foundation - [place] [employer] of Nephrology Task Force. Blood VENOUS BLOOD / Unknown 10/09/2021 10:27 AM EDT 10/09/2021 7:23 PM EDT Fior Armstrong MD CHEMISTRY ORDERABLES [facility] al Result Performing Organization Address [facility] de Phone Number [facility] [employer], [address] , [place] [phone] [facility] [address] [place], [place] [id number] * SEDIMENTATION RATE AUTOMATED (10/09/2021 10:27 AM EDT) Sed Rate 19 0 - 30 mm/hr 10/09/2021 8:05 PM EDT [facility] [employer], [facility] Blood VENOUS BLOOD / Unknown 10/09/2021 10:27 AM EDT 10/09/2021 7:23 PM EDT Fior Armstrong MD HEMATOLOGY ORDERABLES Fi nal Result Performing Organization Address [facility]/ZIP Co de Phone Number [facility] [employer], [address] , [place] [address] * (ABNORMAL) CBC WITH DIFF (10/09/2021 10:27 AM EDT) WBC 3.7 3.7 - 10.3 x10(3)/mcL 10/09/2021 7:53 PM EDT [facility] [employer], [facility] RBC 4.16 3.90 - 5.20 [...] 7:53 PM EDT [facility] [place] Percent 8.8 % 10/09/2021 7:53 PM EDT [...] 0.0. Lymph # 0.6(L) 1.2 - 3.9 x10(3)/[facility] 10/09/2021 7:53 PM EDT [facility] [place] # 0.3 0.3 - 0.9 x10(3)/[facility] 10/09/2021 7:53 PM EDT [facility] Eos# 0.1 0.0 - 0.5 x10(3)/[facility] 10/09/2021 7:53 PM EDT [facility] Baso # 0.0 0.0 - 0.1 x10(3)/[facility] 10/09/2021 7:53 PM EDT [facility] Blood VENOUS BLOOD / Unknown 10/09/2021 10:27 AM EDT 10/09/2021 7:23 PM EDT us Fior Armstrong MD HEMATOLOGY ORDERABLES Fi nal Result [facility], [facility] [address] [facility] , [place] [address] documented in this encounter Visit Diagnoses Diagnosis Infection and 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, initial encounter Other staphylococcus as the cause of diseases classified elsewhere retirement (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 documented in this encounter Care Teams Real Estate Consultant Relationship Specialty Start Date End Date Theo Musa [facility]0 [place] [id number] [address] [place] [address] PCP - General 11/10/09 Bronson Raygoza MD [address] [place] [phone] Internal Medicine-Rheumatology 02/07/23 documented as of this encounter
--- OUTSIDE RECORDS SUMMARY | 2025-07-17 12:41 | XMS_ITS | Encounter Summary ---
Author Organization [place] [address] Care Team Providers Care Switch Tender Name Role Phone Theo Musa Primary Care Provider [phone] Bronson Raygoza MD Unavailable [phone] Encounter Details Date Type Department Care Team (Latest Contact Info) Description 10/02/2021 Lab Requisition [facility] [address] 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, initial encounter; nursing home (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; Other staphylococcus as [...] of Assessment Author Yes 09/05/2021 2:18 PM Cehrie Florez RN * Because of a physical, [...] Visit [facility] [address] [place] [address] 09/06/2025 10:30 AM EST Office Visit [facility] [address] [facility] [place] [place] [address] Sarita Case MD [address] [place] [address] 11/29/2025 10:15 AM EDT Office Visit [facility] [address] [place] [address] Bronson Raygoza MD [address] [place] [address] documented as of this encounter Procedures Procedure Name Priority Date/Time Associated Diagnosis Comments EXTRA GOLD SST Routine 10/02/2021 10:23 AM EST Infection and 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, initial encounter (HCC) nursing home (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 Other staphylococcus as the cause of diseases classified elsewhere SEDIMENTATION RATE AUTOMATED Routine 10/02/2021 10:23 AM EST Infection and 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, initial encounter (HCC) nursing home (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 Other staphylococcus as the cause of diseases classified elsewhere CBC WITH DIFF Routine 10/02/2021 10:23 AM EST Infection and 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, initial encounter (HCC) 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 Other staphylococcus as the cause of diseases classified elsewhere C-REACTIVE PROTEIN Routine 10/02/2021 10 :23 AM EST Infection and 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, initial encounter (HCC) 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 Other staphylococcus as the cause of diseases classified elsewhere VANCOMYCIN LEVEL TROUGH Routine 10/02/2021 10:23 AM EST Infection and 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, initial encounter (HCC) nursing home (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 Other staphylococcus as the cause of diseases classified elsewhere COMPREHENSIVE METABOLIC PANEL Routine 10/02/2021 10:23 AM EST Infection and 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, initial encounter (HCC) nursing home (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 Other staphylococcus as the cause of diseases classified elsewhere documented in this encounter Results * EXTRA GOLD SST (10/02/2021 10:23 AM EST) Blood VENOUS BLOOD / Unknown 10/02/2021 10:23 AM EST 10/02/2021 6:30 PM EST us Fior Armstrong MD CHEMISTRY ORDERABLES Fin al Result [facility] [address] [place], [place] [id number] * (ABNORMAL) COMPREHENSIVE METABOLIC PANEL (10/02/2021 10:23 [...] U/L 10/02/2021 8:25 PM EST [facility], [facility] AST 16 <=40 U/L 10/02/2021 8:25 PM EST [facility], [facility] Alk Phos 101 36 - 123 U/L 10/02/2021 8:25 PM EST [facility] eGFR (CKD-EPIcr 2020) 79 >=60 mL/min/1.7 3 m2 10/02/2021 8:25 PM EST [facility] Comment:Estimated GFR was ca lculated using the CKD-EPIcr (2020) equation refit without race. The equation is recommended by the National Kidney Foundation - [place] Society of Nephrology Task Force. Blood VENOUS BLOOD / Unknown 10/02/2021 10:23 AM EST 10/02/2021 6:30 PM EST Fior Armstrong MD CHEMISTRY ORDERABLES Fin al Result Performing Organization Address [facility] de Phone Number [facility], [address] , [place] [address] [facility] [address] [place] [address] * VANCOMYCIN LEVEL TROUGH (10/02/2021 10:23 AM EST) [facility] Vanco Tr 13.0 10.0-<20.0 mcg/mL 10/02/2021 8:31 PM EST [facility], [facility] Blood VENOUS BLOOD / Unknown 10/02/2021 10:23 AM EST 10/02/2021 6:30 PM EST Narrative [facility], [facility] - 10/02/2021 8:31 PM EST Minimum serum concentration for infection control is 10 mcg/mL; a target therapeutic range of 15-20 mcg/mL is recommended for significant infections such as S. aureus. Toxicity does not correlate well with serum concentrations. Supratherapeutic levels are considered to be > 20 mcg/mL. Fior Armstrong MD CHEMISTRY ORDERABLES Fin al Result Performing Organization Address [facility] de Phone Number [facility], [address] , [address] [place] [phone] * C-REACTIVE PROTEIN (10/02/2021 10:23 AM EST) [facility] CRP <3.00 <=5.00 mg/L 10/02/2021 8:27 PM EST [facility] Blood VENOUS BLOOD / Unknown 10/02/2021 10:23 AM EST 10/02/2021 6:30 PM EST Fior Armstrong MD CHEMISTRY ORDERABLES Fin al Result [facility], [address] , [place] [address] * SEDIMENTATION RATE AUTOMATED (10/02/2021 10:23 AM EST) [facility] Sed Rate 25 0 - 30 mm/hr 10/02/2021 7:28 PM EST [facility] Blood VENOUS BLOOD / Unknown 10/02/2021 10:23 AM EST 10/02/2021 6:30 PM EST Fior Armstrong MD HEMATOLOGY ORDERABLES Fi nal Result [facility] [address] [place] [address] * (ABNORMAL) CBC WITH DIFF (10/02/2021 10:23 AM EST) [facility] WBC 4.8 3.7 - 10.3 x10(3)/mcL 10/02/2021 7:12 PM EST [facility] RBC 4.20 3.90 - 5.20 x10(6)/mcL 10/02/2021 7:12 PM EST [facility] Hgb 9.6(L) 11.2 - 15.7 g/dL 10/02/2021 7:12 PM EST [facility] Hct 32.6(L) 34.0 - 45.0 % 10/02/2021 7:12 PM EST [facility] MCV 77.6(L) 80.0 - 100.0 fL 10/02/2021 7:12 PM EST [facility] MCH 22.9(L) 26.0 - 34.0 pg 10/02/2021 7:12 PM EST [facility] MCHC 29.4(L) 30.7 - 35.5 g/dL 10/02/2021 7:12 PM EST [facility] RDW 18.2(H) <=14.9 % 10/02/2021 7:12 PM EST [facility] Platelet 334 155 - 369 x10(3)/mcL 10/02/2021 7:12 PM EST [facility] MPV 10.2 8.8 - 12.5 fL 10/02/2021 7:12 PM EST [facility] Neut Percent 75.5 % 10/02/2021 7:12 PM EST [facility] Comment:Neutrophils equals s egs plus bands Imm Gran% 0.6 % 10/02/2021 7:12 PM EST [facility] Comment:Automated count of m etamyelocytes, myelocytes and promyelocytes. Lymph Percent 20.2 % 10/02/2021 7:12 PM EST [facility] [place] Percent 3.1 % 10/02/2021 7:12 PM EST [facility] Eos Percent 0.2 % 10/02/2021 7:12 PM EST [facility] Baso Percent 0.4 % 10/02/2021 7:12 PM EST [facility] Neut # 3.6 1.6 - 6.1 x10(3)/mcL 10/02/2021 7:12 PM EST [facility] Comment:Neutrophils equals s egs plus bands IMMGRAN# 0.0 0.0 - 0.1 x10(3)/mcL 10/02/2021 7:12 PM EST [facility] Comment:Automated count of m etamyelocytes, myelocytes and promyelocytes. An absolute IG <0.1 is reported as 0.0. Lymph # 1.0(L) 1.2 - 3.9 x10(3)/mcL 10/02/2021 7:12 PM EST [facility] [place] # 0.2(L) 0.3 - 0.9 x10(3)/mcL 10/02/2021 7:12 PM EST [facility] Eos# 0.0 0.0 - 0.5 x10(3)/mcL 10/02/2021 7:12 PM EST [facility] Baso # 0.0 0.0 - 0.1 x10(3)/mcL 10/02/2021 7:12 PM EST [facility] Blood VENOUS BLOOD / Unknown 10/02/2021 10:23 AM EST 10/02/2021 6:30 PM EST us Fior Armstrong MD HEMATOLOGY ORDERABLES Fi nal Result [facility], [facility] [address] [facility] , [place] [address] documented in this encounter Visit Diagnoses Diagnosis Infection and 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, initial encounter nursing home (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 Other staphylococcus as the cause of diseases classified elsewhere documented in this encounter Care Teams Switch Tender Relationship Specialty Start Date End Date Theo Musa [facility] [address] [place] [address] PCP - General 11/10/09 Bronson Raygoza MD [address] [place] [id number] Internal Medicine-Rheumatology 02/07/23 documented as of this encounter
--- OUTSIDE RECORDS SUMMARY | 2025-07-17 12:41 | XMS_ITS | Clinical Summary ---
Author Organization [facility] Address [address] [place] [address] Phone Care Team Providers Care Caustic Operator Name Role Phone Theo Musa Primary Care Provider [phone] Dayna Raygoza MD Unavailable [phone] Allergies Active Allergy Reactions Criticality Noted Date Comments Adhesive Other (See Comments),Swellin g Medium 12/11/2018 Paper tape is acceptable Chocolate Flavor 04/16/2013 [place] Other (See Comments) 12/20/2016 Severe CUEVAS Erythromycin [...] ipratropium (ATROVENT) 42 mcg (0.06 %) Nasl [place], Non-AerosolIndi cations:Acute non-recurrent maxillary sinusitis 2 Sprays [...] (08/25/2021): Added automatically from request for surgery [id number] Allergic rhinitis due to pollen 04/05/2009 Esophageal [...] 04/24/2024 Overview (04/24/2024): Documented on 10/24/2021 by LISESTH ROTHMAN Infection and inflammatory r eaction due to internal right knee prosthesis, initial encounter 09/05/2021 04/24/2024 Epigastric abdominal pain 07/17/2021 Overview (07/17/2021): Added automatically from request for surgery [id number] Leukocytosis 07/12/2012 04/24/2024 Cellulitis of right leg 07/12/201203/30 Encounters Date Type Department Care Team Description 05/31/2025 10:15 AM EST Office Visit [facility] [address] [place] [address] Dayna Raygoza MD Nontraumatic incomplete tear of [...] MATRIXECTOMY ; Surgeon: Romel Rutherford MD; Location: [facility]; Service: Orthopedics HIP SURGERY left pinning [...] of bleeding; Surgeon: David Azar MD; Location: [facility]; Service: Endoscopy KNEE SURGERY total [...] Visit [facility] [address] [place] [address] 09/06/2025 10:30 AM EST Office Visit [facility] [address] [place] [address] Sarita Case MD [address] [place] [address] 11/29/2025 10:15 AM EDT Office Visit [facility] [address] [place] [address] Dayna Raygoza MD [address] [place] [address] Health Maintenance Due Date Last Done Comments Wellness Exam Medicare 1948 Pneumococcal Vaccine 50+ (1 of 1 - PCV) 1994 DTaP/TDaP/Td (1 - Tdap) 10/03/1996 10/02/1996 Zoster (3 of 3) 10/24/2018 08/29/2018, 09/21/2009 RSV or 60+ (1 - 1-dose 75+ series) 2019 COVID-19 Vaccine ( - season) 2025 05/30/2022, 05/29/2021, 10/17/2020, Additional history [...] this topic Medical Devices Implanted Type Area Avionics Systems Engineer Device Identifier Shelf Expiration Date Model / Serial / Lot Hardware Right: Knee Shell Acetabular Trident Ii Tritanium D 50mm Screwhole Clust - [id number] Implanted:Qty: 1 on 12/11/2018 by Donnell Kim MD at [facility] Left: Hip MEME:ORTHOPED ICS 07/30/2023 702-04-50D / / [id number] Insert Trident X 3 0 Degree 36mm D - [id number] Implanted:Qty: 1 on 12/11/2018 by Donnell Kim MD at [facility] Left: Hip MEME:ORTHOPED ICS 09/04/2023 623-00-36D / / [id number] 6.5mm Low Profile Hex Screw 30mm - [id number] Implanted:Qty: 1 on 12/11/2018 by Donnell Kim MD at [facility] Left: Hip MEME:ORTHOPED ICS 11/02/2023 4586-5300 / / [id number] Screw Trident Ii Hex Low Profile 6.5mm X 25mm - [id number] Implanted:Qty: 1 on 12/11/2018 by Donnell iKm MD at [facility] Left: Hip MEME:ORTHOPED BANNER 10/20/2023 [id number] / / [id number] [id number] Hip Angle Neck 132 Degree V40 Accolade Ii Sz #3 30mm Neck 102mm Stem - [id number] Implanted:Qty: 1 on 12/11/2018 by Donnell Kim MD at [facility] Left: Hip MEME:ORTHOPED BANNER 04/10/2022 4515-5836 / / [id number] Head Fem +0mm Ofst Tpr 36mm Hip Blx D V40 Strl - [id number] Implanted:Qty: 1 on 12/11/2018 by Donnell Kim MD at [facility] Left: Hip MEME:ORTHOPED [place]ANNER 01/08/2022 6570-0-136 / / [id number] Pin Speed Non Rim 65 Mm Sterile - [id number] Implanted:Qty: 1 on 09/01/2021 by Cristian Grossman MD at [facility] Right: Knee HERRERA & NEPHEW:ORTHO [id number] 06/13/2031 [id number] / / [id number] Legion Ps Oxin Fem Sz3 Rt - [id number] Implanted:Qty: 1 on 09/01/2021 by Cristian Grossman MD at [facility] Right: Knee HERRERA & NEPHEW:ORTHO 04/06/2027 [id number] / / [id number] Pros Patella Gns Ii Sz 3 - [id number] Implanted:Qty: 1 on 09/01/2021 by Cristian Grossman MD at [facility] Right: Knee HERRERA & NEPHEW:ORTHO 04/10/2031 [id number] / / [id number] Gii Cm Tib Size 2 {} Right - [id number] Implanted:Qty: 1 on 09/01/2021 by Cristian rGossman MD at [facility] Right: Knee HERRERA [employer] NEPHEW:ORTHO 01/22/2031 [id number] / / [id number] G2 Const Insrt Sz1-2 25mm - [id number] Implanted:Qty: 1 on 09/01/2021 by Cristian Grossman MD at [facility] Right: Knee HERRERA [employer] NEPHEW:ORTHO 04/21/2028 [id number] / / [id number] Cement Simplx Hv 20ml 40gm Gent Antbtc Bn Pwdr - [id number] Implanted:Qty: 2 on 09/01/2021 by Cristian Grossman MD at [facility] Right: Knee MEME 12/26/2022 6195-1-010 / / [id number] Pin Speed Rim 45mm Sterile - [id number] Implanted:Qty: 1 on 09/01/2021 by Cristian Grossman MD at [facility] Right: Knee HERRERA [employer] NEPHEW:ORTHO [id number] 05/30/2031 [id number] / / [id number] Procedures Procedure Name Priority Date/Time Associated Diagnosis [...] bone density assessment. Study was performed on [employer] 5. Bone Density: Region BMD T-score Z-score [...] 12/11/2024 10:20:00 AM. us Dayna Raygoza MD IM DEXA ORDERABLES Final Result * COLONOSCOPY (01/23/2024 [...] diverticulosis Staff Staff Role Shereen Mcclelland, RN Brake Press Operator David Azar MD Performing Provider Shauna Retana RN Endoscopy Nurse Shawnee Santiago MD Anesthesiologist Jodie Alejandro, MARKET STALL VENDOR MARKET STALL VENDOR Medications See Anesthesia Record. 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
--- OUTSIDE RECORDS SUMMARY | 2025-07-17 12:41 | XMS_ITS | Clinical Summary ---
Author Organization [facility] Address [address] [place] [address] Care Team Providers Care Finisher Brush Name Role Phone AdiReshma Mendez PEDRAZA Primary Care Provider [phone] Social History Tobacco Use Types Packs/Day Years [...] or (1 - 1-dose 75+ series) 2019 [id number] Vaccine ( season) 2025 05/30/2022, 05/29/2021, 10/17/2020, [...] to complete this topic Insurance Care Teams Finisher Brush Relationship Specialty Start Date End Date Reshma Joshi APRN [address] [place] [address] PCP - General 02/14/23
--- OUTSIDE RECORDS SUMMARY | 2025-07-17 12:41 | XMS_ITS | Clinical Summary ---
Author Organization [facility] Address [address] [place] [address] Care Team Providers Care Over The Road Driver Name Role Phone Nonstaff, Referring MD Primary Care Provider [phone] Will Friedman MD Unavailable [phone] Cristian Grossman MD Unavailable [phone] Allergies Active Allergy Reactions Criticality Noted Date Comments Adhesive Medium 12/11/2018 Other reaction(s): Other (See Comments) Paper tape is acceptable Adhesive Tape-Silicones 12/20/2016 Irritates skin Can use paper tape Chocolate Flavor 04/16/2013 [place] Other (See Comments) 12/20/2016 Severe CUEVAS Erythromycin [...] azelastine (ASTELIN) 137 mcg (0.1 %) Aerosol, [place] USE 2 SPRAYS IN EACH NOSTRIL TWICE A DAY 30 mL 7 9 Active Additional Information Patient taking differently: NIGHTLY, USE 2 SPRAYS IN EACH NOSTRIL TWICE A DAY, Reported on 05/26/2020 diclofenac (VOLTAREN) 75 mg EC tablet Take 75 mg by mouth daily. Active ciclesonide (Zetonna) 37 mcg/actuation HFA Aerosol Inhaler [place] 1 Puff into nose daily. 1 puff [...] Aerosol InhalerIndicatio ns:Seasonal allergic rhinitis, unspecified trigger [place] 2 Sprays into nose daily. 1 Container 6 1 Active triamcinolone (NASACORT) 55 mcg Aerosol, SprayIndications :Seasonal allergic rhinitis, unspecified trigger [place] 2 Sprays into nose daily. 90 day [...] , 05/29/2007 Medical Devices Implanted Type Area Student Accounts Coordinator Device Identifier Shelf Expiration Date Model / Serial / Lot [facility] [employer] Sz 3 - [id number] Implanted:Qty: 1 on 06/02/2020 by Cristian Grossman MD at [facility] Right: Knee * JAVIER \T\ NEPHEW 08/12/2027 [id number] / / [id number] Journey Ii Cruciate Retaining Cr Oxinium Fem Cmpnt Sz 4 Right - [id number] Implanted:Qty: 1 on 06/02/2020 by Cristian Grossman MD at [facility] Right: Knee * JAVIER \T\ NEPHEW 02/13/2030 [id number] / / [id number] Journey Ii Xlpe A/P 48mm,M/L 68mm Deep [facility] Articular Insert 9mm Size 3-4,Right - [id number] Implanted:Qty: 1 on 06/02/2020 by Cristian Grossman MD at [facility] Right: Knee * JAVIER \T\ NEPHEW 02/15/2030 [id number] / / [id number] Jrny Std 35mm 7.5mm Resfc Pat Compt - [id number] Implanted:Qty: 1 on 06/02/2020 by Cristian Grossman MD at [facility] Right: Knee * JAVIER \T\ NEPHEW 08/22/2028 [id number] / / [id number] Simplex Hv Full Dose Us - [id number] Implanted:Qty: 2 on 06/02/2020 by Cristian Grossman MD at [facility] Right: Knee * MEME 08/28/2021 6194-1-001 / / [id number] Knee Sn Upchrg Jrny Ii Oxinium - [id number] Implanted:Qty: 1 on 06/02/2020 by Cristian Grossman MD at [facility] Right: Knee * HERRERA \T\ NEPHEW KNSNOXIN / / Knee Sn Upchrg Adv Pat - [id number] Implanted:Qty: 1 on 06/02/2020 by Cristian Grossman MD at [facility] Right: Knee * HERRERA \T\ NEPHEW KNSNADVPAT / / Knee Sn Cemented Kinemartic - [id number] Implanted:Qty: 1 on 06/02/2020 by Cristian Grossman MD at [facility] Right: Knee * HERRERA \T\ NEPHEW COURTNEYSDARNELLEMKIN / / Insurance [place] [id number] [facility] MEDICARE [facility] MEDICARE [place] [id number] Care Teams Over The Road Driver Relationship Specialty Start Date End Date RenaetaTay proctor MD [address] [facility] PCP - General 09/24/17 Will Friedman MD [address] [place] [address] [address] [place] [address] Otolaryngology 09/19/20 Cristian Grossman MD [address] [place] [address] Orthopedic Surgery 08/05/22
--- OUTSIDE RECORDS SUMMARY | 2025-07-17 12:41 | XMS_ITS | Encounter Summary ---
Author Organization [place] [address] Care Team Providers Care Desk Representative Name Role Phone Theo Musa Primary Care Provider [phone] Bronson Raygoza MD Unavailable [phone] Encounter Details Date Type Department Care Team (Latest Contact Info) Description 09/18/2021 Lab Requisition [facility] [address] [place] [id number] Fior Armstrong MD [address] [place] [address] Infection and 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, initial encounter; [facility] (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; Other staphylococcus as [...] Visit [facility] [address] [place] [address] 09/06/2025 10:30 AM EST Office Visit [facility] [address] [place] [id number] Sarita Case MD [address] [place] [address] 11/29/2025 10:15 AM EDT Office Visit [facility] [address] [place] [address] Bronson Raygoza MD [address] [place] [address] documented as of this encounter Procedures Procedure Name Priority Date/Time Associated Diagnosis Comments C-REACTIVE PROTEIN Routine 09/18/2021 10 :30 AM EST Infection and 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, 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 Other staphylococcus as the cause of diseases classified elsewhere VANCOMYCIN LEVEL TROUGH Routine 09/18/2021 10:30 AM EST Infection and 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, initial encounter (HCC) [facility] (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 Other staphylococcus as the cause of diseases classified elsewhere COMPREHENSIVE METABOLIC PANEL Routine 09/18/2021 10:30 AM EST Infection and 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, 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 Glucose Lvl 119(H) 82 - 100 mg/dL 09/18/2021 7:18 PM EST [facility] BUN 12 8 - 23 mg/dL 09/18/2021 7:18 PM EST [facility] Creatinine 0.77 0.51 - 1.30 mg/dL 09/18/2021 7:18 PM EST [facility] Albumin 3.9 3.2 - 4.6 gm/dL 09/18/2021 [...] mL/min/1.7 3 m2 09/18/2021 7:18 PM EST [facility] Comment:Estimated GFR was ca lculated using the CKD-EPIcr (2020) equation refit without race. The equation is recommended by the National Kidney Foundation - [place] Society of Nephrology Task Force. Blood VENOUS BLOOD / Unknown 09/18/2021 10:30 AM EST 09/18/2021 6:16 PM EST us Fior Armstrong MD CHEMISTRY ORDERABLES Fin al Result [facility] [employer] [address] , [place] [address] [facility] [address] [place] [address] * (ABNORMAL) C-REACTIVE PROTEIN (09/18/2021 10:30 AM EST) CRP 89.21(H) <=5.00 mg/L 09/18/2021 7:18 PM EST [facility] [employer] Blood VENOUS BLOOD / Unknown 09/18/2021 10:30 AM EST 09/18/2021 6:16 PM EST Fior Armstrong MD CHEMISTRY ORDERABLES Fin al Result Performing Organization Address [facility] de Phone Number [facility] [employer] , [place] [address] * (ABNORMAL) VANCOMYCIN LEVEL TROUGH (09/18/2021 10:30 AM EST) Vanco Tr 33.0(HH) 10.0-<20.0 mcg/mL 09/18/2021 7:23 PM EST [facility] [employer] Blood VENOUS BLOOD / Unknown 09/18/2021 10:30 AM EST 09/18/2021 6:16 PM EST Narrative [facility] - 09/18/2021 7:23 PM EST Minimum serum concentration for infection control is 10 mcg/mL; a target therapeutic range of 15-20 mcg/mL is recommended for significant infections such as S. aureus. Toxicity does not correlate well with serum concentrations. Supratherapeutic levels are considered to be > 20 mcg/mL. 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
--- OUTSIDE RECORDS SUMMARY | 2025-07-17 12:41 | XMS_ITS | Encounter Summary ---
Author Organization [place] [address] Care Team Providers Care Ethanol Maintenance Mechanic Name Role Phone Theo Musa Primary Care Provider [phone] Bronson Raygoza MD Unavailable [phone] Encounter Details Date Type Department Care Team (Latest Contact Info) Description 09/20/2021 Lab Requisition [facility] [address] 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 Social History [...] Visit [facility] [address] [place] [address] 09/06/2025 10:30 AM EST [facility] [address] [place] [address] Sarita Case MD [address] [place] [address] 11/29/2025 10:15 AM EDT Office Visit [facility] [address] [place] [address] Bronson Raygoza MD [address] [place] [address] documented as of this encounter Procedures Procedure Name Priority Date/Time Associated Diagnosis Comments VANCOMYCIN LEVEL TROUGH Routine 09/20/2021 10:45 AM EST Other staphylococcus as the cause of diseases classified elsewhere documented in this encounter Results * (ABNORMAL) VANCOMYCIN LEVEL TROUGH (09/20/2021 10:45 AM EST) Vanco Tr 7.9(L) 10.0-<20.0 mcg/mL 09/20/2021 5:38 PM EST [facility] Blood VENOUS BLOOD / Unknown 09/20/2021 10:45 AM EST 09/20/2021 3:34 PM EST Narrative PREFERRED [employer] - 09/20/2021 5:38 PM EST Minimum serum concentration for infection control is 10 mcg/mL; a target therapeutic range of 15-20 mcg/mL is recommended for significant infections such as S. aureus. Toxicity does not correlate well with serum concentrations. Supratherapeutic levels are considered to be > 20 mcg/mL. 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
--- OUTSIDE RECORDS SUMMARY | 2025-07-17 12:41 | XMS_ITS | Encounter Summary ---
Author Organization [facility] Address [address] [facility], [address] [place] [address] Care Team Providers Care Loading Unit Operator Powder Charging Name Role Phone Shaun Musa MD Primary Care Provider [phone] Encounter Details Date Type Department Care Team [...] documented as of this encounter Care Teams Loading Unit Operator Powder Charging Relationship Specialty Start Date End Date Shaun Musa MD [address] [place] [address] PCP - General 12/12/16 documented as of this encounter
--- OUTSIDE RECORDS SUMMARY | 2025-07-17 12:41 | XMS_ITS | Encounter Summary ---
Author Organization [facility] [address] Care Team Providers Care Heating And Ventilation Engineer Name Role Phone Theo Musa Primary Care Provider [phone] Bronson Raygoza MD Unavailable [phone] Encounter Details Date Type Department Care Team (Latest Contact Info) Description 09/25/2021 Lab Requisition [facility] [address] 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 Social History Tobacco [...] Visit [facility] [address] [place] [address] 09/06/2025 10:30 AM EST [facility] [address] [place] [address] [phone] Sarita Case MD [address] [place] [address] 11/29/2025 10:15 AM EDT Office Visit [facility] [address] [place] [address] Bronson Raygoza MD [address] [place] [address] documented as of this encounter Procedures Procedure Name Priority Date/Time Associated Diagnosis Comments EXTRA GOLD SST Routine 09/25/2021 10:44 AM EST Infection and 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, initial encounter (HCC) Other staphylococcus as the cause of diseases classified elsewhere 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 SEDIMENTATION RATE AUTOMATED Routine 09/25/2021 10:44 AM EST Infection and 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, initial encounter (HCC) Other staphylococcus as the cause of diseases classified elsewhere assisted (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 CBC WITH DIFF Routine 09/25/2021 10:44 AM EST Infection and 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, initial encounter (HCC) Other staphylococcus as the cause of diseases classified elsewhere assisted (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 C-REACTIVE PROTEIN Routine 09/25/2021 10 :44 AM EST Infection and 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, initial encounter (HCC) Other staphylococcus as the cause of diseases classified elsewhere assisted (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 VANCOMYCIN LEVEL TROUGH Routine 09/25/2021 10:44 AM EST Infection and 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, initial encounter (HCC) Other staphylococcus as the cause of diseases classified elsewhere 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 COMPREHENSIVE METABOLIC PANEL Routine 09/25/2021 10:44 AM EST Infection and 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, initial encounter (HCC) Other staphylococcus as the cause of diseases classified elsewhere 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 documented in this encounter Results * EXTRA GOLD SST (09/25/2021 10:44 AM EST) Blood VENOUS BLOOD / Unknown 09/25/2021 10:44 AM EST 09/25/2021 3:04 PM EST Fior Armstrong MD CHEMISTRY ORDERABLES Fin al Result Performing Organization Address [facility] Co de Phone Number [address] [address] * (ABNORMAL) VANCOMYCIN LEVEL TROUGH (09/25/2021 10:44 AM EST) Vanco Tr 8.4(L) 10.0-<20.0 mcg/mL 09/25/2021 5:24 PM EST [facility] Blood VENOUS BLOOD / Unknown 09/25/2021 10:44 AM EST 09/25/2021 3:04 PM EST Narrative [facility] - 09/25/2021 5:24 PM EST Minimum serum concentration for infection control is 10 mcg/mL; a target therapeutic range of 15-20 mcg/mL is recommended for significant infections such as S. aureus. Toxicity does not correlate well with serum concentrations. Supratherapeutic levels are considered to be > 20 mcg/mL. Fior Armstrong MD CHEMISTRY ORDERABLES Fin al Result Performing Organization Address [facility] Co de Phone Number [facility] [address] [facility], [place] [address] * (ABNORMAL) C-REACTIVE PROTEIN (09/25/2021 10:44 AM EST) CRP 29.26(H) <=5.00 mg/L 09/25/2021 5:19 PM EST [facility] Blood VENOUS BLOOD / Unknown 09/25/2021 10:44 AM EST 09/25/2021 3:04 PM EST us Fior Armstrong MD CHEMISTRY ORDERABLES Joseph al Result [facility] [address] [facility], [place] [address] * (ABNORMAL) COMPREHENSIVE METABOLIC PANEL (09/25/2021 10:44 AM EST) Pathologist [facility] Sodium 143 136 - 145 mmol/L 09/25/2021 [...] U/L 09/25/2021 5:19 PM EST [facility] Alk Phos 125(H) 36 - 123 U/L 09/25/2021 5:19 PM EST [facility] i[facility], [facility] eGFR (CKD-EPIcr 2020) 78 >=60 mL/min/1.7 3 m2 09/25/2021 5:19 PM EST [facility] Comment:Estimated GFR was ca lculated using the CKD-EPIcr (2020) equation refit without race. The equation is recommended by the National Kidney Foundation - [place] Society of Nephrology Task Force. Blood VENOUS BLOOD / Unknown 09/25/2021 10:44 AM EST 09/25/2021 3:04 PM EST Fior Armstrong MD CHEMISTRY ORDERABLES [facility] al Result Performing Organization Address [facility]/ZIP Co de Phone Number [facility] [employer] , [place] [address] [facility] [address] [place] [address] * (ABNORMAL) SEDIMENTATION RATE AUTOMATED (09/25/2021 10:44 AM EST) Pathologist [facility] Sed Rate 51(H) 0 - 30 mm/hr 09/25/2021 5:10 PM EST [facility] [employer] [place] [employer] [facility] Blood VENOUS BLOOD / Unknown 09/25/2021 10:44 AM EST 09/25/2021 3:04 PM EST Fior Armstrong MD HEMATOLOGY ORDERABLES nal Result Performing Organization Address City/[facility]/ZIP Co de Phone Number [facility] [employer] , [place] [address] * (ABNORMAL) CBC WITH DIFF (09/25/2021 10:44 AM EST) Pathologist [facility] WBC 3.2(L) 3.7 - 10.3 x10(3)/mc L 09/25/2021 5:23 PM EST [facility] [employer], [facility] RBC 3.97 3.90 - 5.20 [...] 5:23 PM EST [facility] [place] Percent 10.9 % 09/25/2021 5:23 PM EST [...] 5:23 PM EST [facility] [place] # 0.4 0.3 - 0.9 x10(3)/mc L [...] nal Result [facility] [address] [facility] , [place] [address] documented in this encounter Visit Diagnoses Diagnosis Infection and 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, initial encounter Other staphylococcus as the cause of diseases classified elsewhere 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
--- OUTSIDE RECORDS SUMMARY | 2025-07-17 12:41 | XMS_ITS | Clinical Summary ---
Author Organization [facility] Address [facility] [place] [address] Care Team Providers Care Loop Drier Operator Name Role Phone Shaun Musa Primary Care [...] therelease of HIV test results or diagnoses. [id number] Active Problems Problem Noted Date Diagnosed [...] of Treatment Not on file Care Teams Loop Drier Operator Relationship Specialty Start Date End Date Shaun Musa PCP - General 08/21/06
--- OUTSIDE RECORDS SUMMARY | 2025-07-17 12:41 | XMS_ITS | Encounter Summary ---
Author Organization [place] [address] Care Team Providers Care Frame Table Operator Helper Name Role Phone Theo Musa Primary Care Provider [phone] Bronson Raygoza MD Unavailable [phone] Encounter Details Date Type Department Care Team (Latest Contact Info) Description 09/19/2021 Lab Requisition [facility] [address] 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 Social History Tobacco [...] Visit [facility] [address] [place] [address] 09/06/2025 10:30 AM EST [facility] [address] [place] [address] [phone] Sarita Case MD [address] [place] [address] 11/29/2025 10:15 AM EDT Office Visit [facility] [address] [place] [address] Bronson Raygoza MD [address] [place] [address] documented as of this encounter Procedures Procedure Name Priority Date/Time Associated Diagnosis Comments EXTRA GOLD SST Routine 09/19/2021 8:15 AM EST Infection and 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, initial encounter (HCC) Other staphylococcus as the cause of diseases classified elsewhere halfway (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 SEDIMENTATION RATE AUTOMATED Routine 09/19/2021 8:15 AM EST Infection and 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, initial encounter (HCC) Other staphylococcus as the cause of diseases classified elsewhere halfway (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 CBC WITH DIFF Routine 09/19/2021 8:15 AM EST Infection and 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, initial encounter (HCC) Other staphylococcus as the cause of diseases classified elsewhere halfway (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 C-REACTIVE PROTEIN Routine 09/19/2021 8: 15 AM EST Infection and 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, initial encounter (HCC) Other staphylococcus as the cause of diseases classified elsewhere 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 COMPREHENSIVE METABOLIC PANEL Routine 09/19/2021 8:15 AM EST Infection and 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, initial encounter (HCC) Other staphylococcus as the cause of diseases classified elsewhere 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 documented in this encounter Results * EXTRA GOLD SST (09/19/2021 8:15 AM EST) Blood VENOUS BLOOD / Unknown 09/19/2021 8:15 AM EST 09/19/2021 3:17 PM EST Fior Armstrong MD CHEMISTRY ORDERABLES Fin al Result Performing Organization Address City/[facility]/ZIP Co de Phone Number [facility] [address] [place] [address] * (ABNORMAL) C-REACTIVE PROTEIN (09/19/2021 8:15 AM EST) CRP 73.25(H) <=5.00 mg/L 09/19/2021 4:29 PM EST [facility] Blood VENOUS BLOOD / Unknown 09/19/2021 8:15 AM EST 09/19/2021 3:16 PM EST Fior Armstrong MD CHEMISTRY ORDERABLES Fin al Result Performing Organization Address City/[facility]/ZIP Co de Phone Number [facility] [address] [facility], [place] [address] * (ABNORMAL) COMPREHENSIVE METABOLIC PANEL (09/19/2021 8:15 [...] 09/19/2021 4:29 PM EST [facility] BUN 12 8 - 23 mg/dL 09/19/2021 4:29 PM EST [facility] Creatinine 0.75 0.51 - 1.30 mg/dL 09/19/2021 4:29 PM EST [facility] Albumin 3.6 3.2 - 4.6 gm/dL 09/19/2021 4:29 PM EST [facility] Total Protein 6.3(L) 6.4 - 8.3 gm/dL 09/19/2021 4:29 PM EST [facility] Bili Total 0.2 0.1 - 1.3 mg/dL 09/19/2021 4:29 PM EST [facility] ALT 6 <=41 U/L 09/19/2021 4:29 PM EST [facility] AST 15 <=40 U/L 09/19/2021 4:29 PM EST [facility] Alk Phos 118 36 - 123 U/L 09/19/2021 4:29 PM EST [facility] eGFR (CKD-EPIcr 2020) 82 >=60 mL/min/1.7 3 m2 09/19/2021 4:29 PM EST [facility] Comment:Estimated GFR was ca lculated using the CKD-EPIcr (2020) equation refit without race. The equation is recommended by the National Kidney Foundation - [place] Society of Nephrology Task Force. Blood VENOUS BLOOD / Unknown 09/19/2021 8:15 AM EST 09/19/2021 3:16 PM EST us Fior Armstrong MD CHEMISTRY ORDERABLES Fin al Result [facility] [address] [facility] , [place] [address] [facility] 1 [place] [address] * (ABNORMAL) SEDIMENTATION RATE AUTOMATED (09/19/2021 8:15 AM EST) Sed Rate 60(H) 0 - 30 mm/hr 09/19/2021 4:25 PM EST [facility] Blood VENOUS BLOOD / Unknown 09/19/2021 8:15 AM EST 09/19/2021 3:16 PM EST us Fior Armstrong MD HEMATOLOGY ORDERABLES Fi nal Result [facility] [address] [place] [address] * (ABNORMAL) CBC WITH DIFF (09/19/2021 8:15 [...] % 09/19/2021 4:06 PM EST [facility], [facility] Comment:Automated count of m etamyelocytes, myelocytes and promyelocytes. Lymph Percent 24.4 % 09/19/2021 4:06 PM EST [facility] [place] Percent 10.0 % 09/19/2021 4:06 PM EST [facility] Eos Percent 3.0 % 09/19/2021 4:06 PM EST [facility] Baso Percent 0.8 % 09/19/2021 4:06 PM EST [facility] Neut # 2.2 1.6 - 6.1 x10(3)/[facility] 09/19/2021 4:06 PM EST [facility] Comment:Neutrophils equals s egs plus bands IMMGRAN# 0.0 0.0 - 0.1 x10(3)/[facility] 09/19/2021 4:06 PM EST [facility] [employer], [facility] Comment:Automated count of m etamyelocytes, myelocytes and promyelocytes. An absolute IG <0.1 is reported as 0.0. Lymph # 0.9(L) 1.2 - 3.9 x10(3)/[facility] 09/19/2021 4:06 PM EST [facility] [place] # 0.4 0.3 - 0.9 x10(3)/[facility] 09/19/2021 4:06 PM EST [facility] Eos# 0.1 0.0 - 0.5 x10(3)/[facility] 09/19/2021 4:06 PM EST [facility], [facility] Baso # 0.0 0.0 - 0.1 x10(3)/[facility] 09/19/2021 4:06 PM EST [facility], [facility] Blood VENOUS BLOOD / Unknown 09/19/2021 8:15 AM EST 09/19/2021 3:16 PM EST us Fior Armstrong MD HEMATOLOGY ORDERABLES Fi nal Result [facility], [facility] [address] [facility] , [place] [address] documented in this encounter Visit Diagnoses Diagnosis Infection and 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, initial encounter Other staphylococcus as the cause of diseases classified elsewhere halfway (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 documented in this encounter Care Teams Frame Table Operator Helper Relationship Specialty Start Date End Date Theo Musa [address] [place] [address] [address] [facility] [address] PCP - General 11/10/09 Bronson Raygoza MD [address] [place] [address] Internal Medicine-Rheumatology 02/07/23 documented as of this encounter
--- OUTSIDE RECORDS SUMMARY | 2025-07-17 12:41 | XMS_ITS | Encounter Summary ---
Author Organization [place] [address] Care Team Providers Care Hebrew Professor Name Role Phone Theo Musa Primary Care Provider [phone] Bronson Raygoza MD Unavailable [phone] Encounter Details Date Type Department Care Team (Late st Contact Info) Description 09/11/2021 Lab Requisition [facility] [place] [address] Fior Armstrong MD [address] [place] [address] [place] [address] Broken internal right knee prosthesis, initial [...] Office Visit [facility] [address] [place] [address] 09/06/2025 10:30 AM EST Office Visit [facility] [address] [facility] [place] [phone] Sarita Case MD [address] [place] [address] 11/29/2025 10:15 AM EDT Office Visit [facility] [address] [place] [address] Bronson Raygoza MD [address] [place] [address] documented as of this encounter [...] Armstrong MD CHEMISTRY ORDERABLES Fin al Result [facility] [facility] [address] [place] [address] * (ABNORMAL) VANCOMYCIN LEVEL TROUGH (09/11/2021 8:20 AM EST) Pathologist [facility] Vanco Tr 25.4(HH) 10.0-<20.0 mcg/mL 09/11/2021 3:47 PM EST [facility] [employer] Blood VENOUS BLOOD / Unknown 09/11/2021 8:20 AM EST 09/11/2021 2:42 PM EST Narrative [facility] [employer] [employer] - 09/11/2021 3:47 PM EST Minimum serum concentration for infection control is 10 mcg/mL; a target therapeutic range of 15-20 mcg/mL is recommended for significant infections such as S. aureus. Toxicity does not correlate well with serum concentrations. Supratherapeutic levels are considered to be > 20 mcg/mL. Fior Armstrong MD CHEMISTRY ORDERABLES Fin al Result Performing Organization Address [facility] Co de Phone Number [facility] [employer] [address] [facility] , [place] [address] * (ABNORMAL) C-REACTIVE PROTEIN (09/11/2021 8:20 AM EST) [facility] CRP 113.75(H) <=5.00 mg/L 09/11/2021 3:44 PM EST [facility] [employer] Blood VENOUS BLOOD / Unknown 09/11/2021 8:20 AM EST 09/11/2021 2:42 PM EST Fior Armstrong MD CHEMISTRY ORDERABLES Fin al Result Performing Organization Address [facility] Co de Phone Number [employer] [address] [facility] , [place] [address] * (ABNORMAL) COMPREHENSIVE METABOLIC PANEL (09/11/2021 8:20 AM EST) Pathologist [facility] Sodium 141 136 - 145 mmol/L 09/11/2021 [...] mL/min/1.7 3 m2 09/11/2021 3:44 PM EST [facility] Comment:Estimated GFR was ca lculated using the CKD-EPIcr (2020) equation refit without race. The equation is recommended by the National Kidney Foundation - [place] Society of Nephrology Task Force. Blood VENOUS BLOOD / Unknown 09/11/2021 8:20 AM EST 09/11/2021 2:42 PM EST Fior Armstrong MD CHEMISTRY ORDERABLES Fin al Result Performing Organization Address City/[facility]/ZIP Co de Phone Number [facility] [address] [facility] , [address] [place] [phone] [facility] [address] [place] [address] * (ABNORMAL) SEDIMENTATION RATE AUTOMATED (09/11/2021 8:20 AM EST) Pathologist [facility] Sed Rate 40(H) 0 - 30 mm/hr 09/11/2021 3:47 PM EST [facility] Blood VENOUS BLOOD / Unknown 09/11/2021 8:20 AM EST 09/11/2021 2:42 PM EST Fior Armstrong MD HEMATOLOGY ORDERABLES Fi nal Result Performing Organization Address City/[facility]/ZIP Co de Phone Number [facility] [address] [facility] , [address] [place] [phone] * (ABNORMAL) CBC WITH DIFF (09/11/2021 8:20 AM EST) Pathologist [facility] WBC 4.9 3.7 - 10.3 x10(3)/mcL 09/11/2021 [...] 09/11/2021 3:13 PM EST [facility] RDW 17.4(H) <=14.9 % 09/11/2021 3:13 PM EST [facility] Platelet 275 155 - 369 x10(3)/mcL 09/11/2021 3:13 PM EST [facility] MPV 10.7 8.8 - 12.5 fL 09/11/2021 3:13 PM EST [facility] Neut Percent 62.5 % 09/11/2021 3:13 PM EST [facility] Comment:Neutrophils equals s egs plus bands Imm Gran% 0.8 % 09/11/2021 3:13 PM EST [facility] Comment:Automated count of m etamyelocytes, myelocytes and promyelocytes. Lymph Percent 23.1 % 09/11/2021 3:13 PM EST [facility] [employer]ard Percent 9.9 % 09/11/2021 3:13 PM EST [facility] Eos Percent 3.1 % 09/11/2021 3:13 PM EST [facility] Baso Percent 0.6 % 09/11/2021 3:13 PM EST [facility] Neut # 3.0 1.6 - 6.1 x10(3)/mcL 09/11/2021 3:13 PM EST [facility] Comment:Neutrophils equals s egs plus bands IMMGRAN# 0.0 0.0 - 0.1 x10(3)/mcL 09/11/2021 3:13 PM EST [facility] Comment:Automated count of m etamyelocytes, myelocytes and promyelocytes. An absolute IG <0.1 is reported as 0.0. Lymph # 1.1(L) 1.2 - 3.9 x10(3)/mcL 09/11/2021 3:13 PM EST [facility] [place] # 0.5 0.3 - 0.9 x10(3)/mcL 09/11/2021 3:13 PM EST [facility] Eos# 0.2 0.0 - 0.5 x10(3)/mcL 09/11/2021 3:13 PM EST [facility] Baso # 0.0 0.0 - 0.1 x10(3)/mcL 09/11/2021 3:13 PM EST [facility] [employer] Blood VENOUS BLOOD / Unknown 09/11/2021 8:20 AM EST 09/11/2021 2:42 PM EST us Fior Armstrong MD HEMATOLOGY ORDERABLES Fi nal Result [facility] [address] [facility] , [place] [address] documented in this encounter Visit Diagnoses Diagnosis Broken internal right knee prosthesis, initial encounter documented in this encounter Care Teams Hebrew Professor Relationship Specialty Start Date End Date Theo Musa [address] [place] [address] [address] [place] [address] PCP - General 11/10/09 Bronson Raygoza MD [address] [place] [id number] Internal Medicine-Rheumatology 02/07/23 documented as of this encounter
[2025-07-17 12:45] VITALS: BP 142/58; PULSE 74; RESP 18; TEMP 36.7; O2SAT 96
[2025-07-17 14:12] VITALS: BP 101/58; PULSE 70; RESP 18; TEMP 36.6; O2SAT 97
== END 2025-07-17 14:20 | disposition home or self-care (01) ==
PROVIDERS: PCP Nurse Practitioner; Visit Provider Nurse Practitioner
DX: N39.0 Urinary tract infection, site not specified (principal)
CPT/HCPCS: 96365; J3260

== ENCOUNTER 2025-07-19 12:37 | Outpatient (CLI) | payer MEDICARE, SELFPAY ==
--- OUTSIDE RECORDS SUMMARY | 2025-05-31 10:15 | XMS_ITS | Encounter Summary ---
Author Organization [facility] Address [address] [place] [address] Care Team Providers Care Tractor Driver Teamster Name Role Phone DimpleTheo munoz Primary Care Provider [phone] Bronson Raygoza MD Unavailable [phone] Reason for Visit * Reason Comments Degenerative Disc Disease Encounter Details Date Type Department Care Team (Late st Contact Info) Description 05/31/2025 10:15 AM EST Office Visit [facility] [address] [place] [address] Bronson Raygoza MD [address] [place] [address] Nontraumatic incomplete tear of right [...] her PCP for Osteopenia 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 # OSTEOARTHRITIS GENERALIZED # OSTEOARTHRITIS RIGHT KNEE [...] on 1st Toe by Dr. Daniels at [place] -Fibromyalgia Features of Widespread Pain in Muscles and Joints, Fatigue, Sleep Disturbance, Headaches, Neuropathic Features. -Degenerative Disc Disease on Imaging. 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 Low Back Pain. Left Hip Pain with a 12/11/[address] Kim. 12/11/2024 Left Hip X-Ray at [facility] without loosening. I advise to follow up with Dr. Kim if it is still causing issues. 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 IMAGING 05/22/2012 MRI of the Right Shoulder at [facility]: IMPRESSION: 1. Full-thickness, full width tear/re-tear of the supraspinatus with retraction and atrophy. 2. Full-thickness partial-width tear of the infraspinatus tendon. 3. Thinning and undermining of the subscapularis. 4. Thinning and tendinopathy of the long head of the biceps proximally. 5. Degenerative changes of the AC joint. 07/25/2018 MRI of the C-Spine at [facility]: IMPRESSION: 1.Multilevel cervical degenerative disc and facet disease as described in detail above. 2. For instance, at C3-4, advanced right-sided facet arthropathy in conjunction with relatively mild discogenic disease contributes to severe right foraminal stenosis. 3. Multilevel thecal sac effacement without cord compression. See above detailed level by level discussion. 02/18/2020 L-S Spine MRI at [facility]: IMPRESSION: 1. Multilevel degenerative disc disease as [...] on 1st Toe by Dr. Daniels at [place] Feet 06/26/2023 Right Foot Surgery on 1st Toe by Dr. Daniels at [place] Today, I reviewed her 06/04/[address] Daniels at [place] Right foot hallux valgus with osteophyte Reviewed [...] Physical Therapy for guidance, I advise a fpc commitment to an exercise program using facilities such as a gym with a sports athletic trainer, Yoga class, or Pilates class, which [...] SPINAL MANAGEMENT Consultation with Dr. Bradford at [place]. Responsive to MARY, but she prefers to Avoid due to SE of Corticosteroids. On the Last MARY, SE of Dryness from the Corticosteroids. Eyes Became Worse. She wants to Avoid MARY. CHRONIC PAIN Failed Tramadol. SE Drowsiness and Itching. SPINAL SURGERY Consultation with Dr. Ortiz at [place]. Right now, Dr. Ortiz does not Advise [...] Today, I reviewed her 12/11/2024 DEXA at [facility]: Right Femoral Neck T Score = -2.0 [...] tape is acceptable ??? Chocolate Flavor ??? [place] Other (See Comments) Severe CUEVAS ??? Erythromycin [...] ipratropium (ATROVENT) 42 mcg (0.06 %) Nasl [place], Non-Aerosol 2 Sprays by Nasal route 4 [...] Visit [facility] [address] [place] [address] 09/06/2025 10:30 AM EST Office Visit [facility] [address] [place] [address] Sarita Case MD [address] [place] [address] 11/29/2025 10:15 AM EDT Office Visit [facility] [address] [place] [address] Bronson Raygoza MD [address] [place] [id number] documented as of this encounter Visit Diagnoses [...] documented as of this encounter Care Teams Tractor Driver Teamster Relationship Specialty Start Date End Date Theo Musa [address] [place] [address] [address] [place] [address] PCP - General 11/10/09 Bronson Raygoza MD [address] [place] [phone] Internal Medicine-Rheumatology 02/07/23 documented as of this encounter
--- OUTSIDE RECORDS SUMMARY | 2025-07-19 12:39 | XMS_ITS | Encounter Summary ---
Author Organization [facility] Address [address] [facility], [address] [place] [address] Care Team Providers Care Ham Trimmer Name Role Phone Shaun Musa MD Primary Care Provider [phone] Encounter Details Date Type Department Care Team [...] documented as of this encounter Care Teams Ham Trimmer Relationship Specialty Start Date End Date Shaun Musa MD [address] [place] [address] PCP - General 12/12/16 documented as of this encounter
--- OUTSIDE RECORDS SUMMARY | 2025-07-19 12:39 | XMS_ITS | Clinical Summary ---
Author Organization [facility] Address [address] [place] [address] Care Team Providers Care Team Manager Name Role Phone Nonstaff, Referring MD Primary Care Provider [phone]- [phone] Will Friedman MD Unavailable [phone] Cristian Grossman MD Unavailable [phone] Allergies Active Allergy Reactions Criticality Noted Date Comments Adhesive Medium 12/11/2018 Other reaction(s): Other (See Comments) Paper tape is acceptable Adhesive Tape-Silicones 12/20/2016 Irritates skin Can use paper tape Chocolate Flavor 04/16/2013 [place] Other (See Comments) 12/20/2016 Severe CUEVAS Erythromycin [...] azelastine (ASTELIN) 137 mcg (0.1 %) Aerosol, Topaz USE 2 SPRAYS IN EACH NOSTRIL TWICE A DAY 30 mL 7 9 Active Additional Information Patient taking differently: NIGHTLY, USE 2 SPRAYS IN EACH NOSTRIL TWICE A DAY, Reported on 05/26/2020 diclofenac (VOLTAREN) 75 mg EC tablet Take 75 mg by mouth daily. Active ciclesonide (Zetonna) 37 mcg/actuation HFA Aerosol Inhaler Topaz 1 Puff into nose daily. 1 puff [...] Aerosol InhalerIndicatio ns:Seasonal allergic rhinitis, unspecified trigger Topaz 2 Sprays into nose daily. 1 Container 6 1 Active triamcinolone (NASACORT) 55 mcg Aerosol, SprayIndications :Seasonal allergic rhinitis, unspecified trigger Topaz 2 Sprays into nose daily. 90 day [...] , 05/29/2007 Medical Devices Implanted Type Area Retail And Promotions Coordinator Device Identifier Shelf Expiration Date Model / Serial / Lot [facility] [employer] Sz 3 - [id number] Implanted:Qty: 1 on 06/02/2020 by Cristian Grossman MD at [facility] Right: Knee * JAVIER \T\ NEPHEW 08/12/2027 [id number] / / [id number] Journey Ii Cruciate Retaining Cr Oxinium Fem Cmpnt Sz 4 Right - [id number] Implanted:Qty: 1 on 06/02/2020 by Cristian Grossman MD at [facility] Right: Knee * JAVIER \T\ NEPHEW 02/13/2030 [id number] / / [id number] Journey Ii Xlpe A/P 48mm,M/L 68mm Deep [employer] Articular Insert 9mm Size 3-4,Right - [id number] Implanted:Qty: 1 on 06/02/2020 by Cristian Grossman MD at [facility] Right: Knee * JAVIER \T\ NEPHEW 02/15/2030 [id number] / / [id number] Jrny Std 35mm 7.5mm Resfc Pat Compt - [id number] Implanted:Qty: 1 on 06/02/2020 by Cristian Grossman MD at [facility] Right: Knee * JAVIER \T\ NEPHEW 08/22/2028 [id number] / / [id number] Simplex Hv Full Dose Us - [id number] Implanted:Qty: 2 on 06/02/2020 by Cristian Grossman MD at [facility] Right: Knee * MEME 08/28/2021 [id number] / / [id number] Knee Sn Upchrg Jrny Ii Oxinium - [id number] Implanted:Qty: 1 on 06/02/2020 by Cristian Grossman MD at [facility] Right: Knee * HERRERA \T\ NEPHEW KNSNOXIN / / Knee Sn Upchrg Adv Pat - [id number] Implanted:Qty: 1 on 06/02/2020 by Cristian Grossman MD at [facility] Right: Knee * HERRERA \T\ NEPHEW KNSNADVPAT / / Knee Sn Cemented [employer] - [id number] Implanted:Qty: 1 on 06/02/2020 by Cristian Grossman MD at [facility] Right: Knee * HERRERA \T\ NEPHEW COURTNEYSDARNELLEMKIN / / Insurance [place] [id number] [facility] MEDICARE [facility] MEDICARE [place] [id number] Care Teams Team Manager Relationship Specialty Start Date End Date RenaetaTay proctor MD [address] [facility] PCP - General 09/24/17 Will Friedman MD [address] [place] [address] [address] [place] [address] Otolaryngology 09/19/20 Cristian Grossman MD [address] [place] [address] Orthopedic Surgery 08/05/22
--- OUTSIDE RECORDS SUMMARY | 2025-07-19 12:39 | XMS_ITS | Encounter Summary ---
Author Organization [place] [address] Care Team Providers Care Program Manager Name Role Phone Theo Musa Primary Care Provider [phone] Bronson Raygoza MD Unavailable [phone] Encounter Details Date Type Department Care Team (Latest Contact Info) Description 09/25/2021 Lab Requisition [facility] [address] 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 Social History Tobacco [...] Visit [facility] [address] [place] [address] 09/06/2025 10:30 AM EST [facility] [address] [place] [address] [id number] Sarita Case MD [address] [place] [address] 11/29/2025 10:15 AM EDT Office Visit [facility] [address] [place] [address] Bronson Raygoza MD [address] [place] [address] documented as of this encounter Procedures Procedure Name Priority Date/Time Associated Diagnosis Comments EXTRA GOLD SST Routine 09/25/2021 10:44 AM EST Infection and 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, initial encounter (HCC) Other staphylococcus as the cause of diseases classified elsewhere 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 SEDIMENTATION RATE AUTOMATED [...] classified elsewhere 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 VANCOMYCIN LEVEL TROUGH Routine 09/25/2021 10:44 AM EST Infection and 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, initial encounter (HCC) Other staphylococcus as the cause of diseases classified elsewhere 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 COMPREHENSIVE METABOLIC PANEL Routine 09/25/2021 10:44 AM EST Infection and 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, initial encounter (HCC) Other staphylococcus as the cause of diseases classified elsewhere 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 documented in this encounter Results * EXTRA GOLD SST (09/25/2021 10:44 AM EST) Blood VENOUS BLOOD / Unknown 09/25/2021 10:44 AM EST 09/25/2021 3:04 PM EST Fior Armstrong MD CHEMISTRY ORDERABLES Fin al Result Performing Organization Address [facility] Co de Phone Number [address] [address] * (ABNORMAL) VANCOMYCIN LEVEL TROUGH (09/25/2021 10:44 AM EST) Vanco Tr 8.4(L) 10.0-<20.0 mcg/mL 09/25/2021 5:24 PM EST [facility] [employer] Blood VENOUS BLOOD / Unknown 09/25/2021 10:44 AM EST 09/25/2021 3:04 PM EST Narrative [facility]REF[facility] [employer] - 09/25/2021 5:24 PM EST Minimum serum concentration for infection control is 10 mcg/mL; a target therapeutic range of 15-20 mcg/mL is recommended for significant infections such as S. aureus. Toxicity does not correlate well with serum concentrations. Supratherapeutic levels are considered to be > 20 mcg/mL. Fior Armstrong MD CHEMISTRY ORDERABLES Fin al Result Performing Organization Address [facility] Co de Phone Number [employer] [address] [facility], [place] [address] * (ABNORMAL) C-REACTIVE PROTEIN (09/25/2021 10:44 AM EST) CRP 29.26(H) <=5.00 mg/L 09/25/2021 5:19 PM EST [employer] Blood VENOUS BLOOD / Unknown 09/25/2021 10:44 AM EST 09/25/2021 3:04 PM EST us Fior Armstrong MD CHEMISTRY ORDERABLES Joseph al Result [facility] [address] [facility], [place] [address] * (ABNORMAL) COMPREHENSIVE METABOLIC PANEL (09/25/2021 10:44 AM EST) Pathologist [facility] Sodium 143 136 - 145 mmol/L 09/25/2021 [...] U/L 09/25/2021 5:19 PM EST [facility] [employer] [facility] Alk Phos 125(H) 36 - 123 U/L 09/25/2021 5:19 PM EST [facility] [employer], [facility] eGFR (CKD-EPIcr 2020) 78 >=60 mL/min/1.7 3 m2 09/25/2021 5:19 PM EST [facility] Comment:Estimated GFR was ca lculated using the CKD-EPIcr (2020) equation refit without race. The equation is recommended by the National Kidney Foundation - [place] [employer] of Nephrology Task Force. Blood VENOUS BLOOD / Unknown 09/25/2021 10:44 AM EST 09/25/2021 3:04 PM EST Fior Armstrong MD CHEMISTRY ORDERABLES [facility] al Result Performing Organization Address [facility]/ZIP Co de Phone Number [facility] [employer] , [place] [address] [facility] [address] [place] [address] * (ABNORMAL) SEDIMENTATION RATE AUTOMATED (09/25/2021 10:44 AM EST) Pathologist [facility] Sed Rate 51(H) 0 - 30 mm/hr 09/25/2021 5:10 PM EST [facility] [employer] [facility] Blood VENOUS BLOOD / Unknown 09/25/2021 10:44 AM EST 09/25/2021 3:04 PM EST Fior Armstrong MD HEMATOLOGY ORDERABLES nal Result Performing Organization Address City/[facility]/ZIP Co de Phone Number [facility] [employer] , [place] [address] * (ABNORMAL) CBC WITH DIFF (09/25/2021 10:44 AM EST) Pathologist [facility] WBC 3.2(L) 3.7 - 10.3 x10(3)/mc L 09/25/2021 5:23 PM EST [facility] [employer], [facility] RBC 3.97 3.90 - 5.20 x10(6)/mc [...] 5:23 PM EST [facility] [place] Percent 10.9 % 09/25/2021 5:23 PM EST [...] 5:23 PM EST [facility] [place] # 0.4 0.3 - 0.9 x10(3)/mc L [...] nal Result [facility] 1 [facility] , [place] [address] documented in this encounter Visit Diagnoses Diagnosis Infection and 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, initial encounter Other staphylococcus as the cause of diseases classified elsewhere 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
--- OUTSIDE RECORDS SUMMARY | 2025-07-19 12:39 | XMS_ITS | Encounter Summary ---
Author Organization [place] [address] Care Team Providers Care Computer Technical Support Specialist Name Role Phone Theo Musa Primary Care Provider [phone] Bronson Raygoza MD Unavailable [phone] Encounter Details Date Type Department Care Team (Latest Contact Info) Description 09/20/2021 Lab Requisition [facility] [address] 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 Social History Tobacco [...] Visit [facility] [address] [place] [address] 09/06/2025 10:30 AM EST [facility] [address] [place] [address] Sarita Case MD [address] [place] [address] 11/29/2025 10:15 AM EDT Office Visit [facility] [address] [place] [address] Bronson Raygoza MD [address] [place] [address] documented as of this encounter Procedures Procedure Name Priority Date/Time Associated Diagnosis Comments VANCOMYCIN LEVEL TROUGH Routine 09/20/2021 10:45 AM EST Other staphylococcus as the cause of diseases classified elsewhere documented in this encounter Results * (ABNORMAL) VANCOMYCIN LEVEL TROUGH (09/20/2021 10:45 AM EST) Vanco Tr 7.9(L) 10.0-<20.0 mcg/mL 09/20/2021 5:38 PM EST [facility]REF[facility] [employer] Blood VENOUS BLOOD / Unknown 09/20/2021 10:45 AM EST 09/20/2021 3:34 PM EST Narrative [facility]REFERR[facility] [employer] - 09/20/2021 5:38 PM EST Minimum serum concentration for infection control is 10 mcg/mL; a target therapeutic range of 15-20 mcg/mL is recommended for significant infections such as S. aureus. Toxicity does not correlate well with serum concentrations. Supratherapeutic levels are considered to be > 20 mcg/mL. us Fior Armstrong MD CHEMISTRY ORDERABLES Fin al Result PREFERRED [employer] 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
--- OUTSIDE RECORDS SUMMARY | 2025-07-19 12:39 | XMS_ITS | Encounter Summary ---
Author Organization [place] [address] Care Team Providers Care Stapler Hand Name Role Phone Theo Musa Primary Care Provider [phone] Bronson Raygoza MD Unavailable [phone] Encounter Details Date Type Department Care Team (Latest Contact Info) Description 10/09/2021 Lab Requisition [facility] [address] 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 Social History [...] Visit [facility] [address] [place] [address] 09/06/2025 10:30 AM EST [facility] [address] [facility] [place] [address] Sarita Case MD [address] [facility] [place] [address] 11/29/2025 10:15 AM EDT Office Visit [facility] [address] [place] [address] Bronson Raygoza MD [address] [place] [address] documented as of this encounter Procedures Procedure Name Priority Date/Time Associated Diagnosis Comments EXTRA GOLD SST Routine 10/09/2021 10:27 AM EDT Infection and 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, initial encounter (HCC) Other staphylococcus as the cause of diseases classified elsewhere senior care (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 SEDIMENTATION RATE AUTOMATED Routine 10/09/2021 10:27 AM EDT Infection and 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, initial encounter (HCC) Other staphylococcus as the cause of diseases classified elsewhere senior care (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 CBC WITH DIFF Routine 10/09/2021 10:27 AM EDT Infection and 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, initial encounter (HCC) Other staphylococcus as the cause of diseases classified elsewhere senior care (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 C-REACTIVE PROTEIN Routine 10/09/2021 10 :27 AM EDT Infection and 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, initial encounter (HCC) Other staphylococcus as the cause of diseases classified elsewhere 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 VANCOMYCIN LEVEL TROUGH Routine 10/09/2021 10:27 AM EDT Infection and 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, initial encounter (HCC) Other staphylococcus as the cause of diseases classified elsewhere senior care (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 COMPREHENSIVE METABOLIC PANEL Routine 10/09/2021 10:27 AM EDT Infection and 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, initial encounter (HCC) Other staphylococcus as the cause of diseases classified elsewhere 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 documented in this encounter Results * EXTRA GOLD SST (10/09/2021 10:27 AM EDT) Blood VENOUS BLOOD / Unknown 10/09/2021 10:27 AM EDT 10/09/2021 7:27 PM EDT Fior Armstrong MD CHEMISTRY ORDERABLES Fin al Result Performing Organization Address [facility] de Phone Number [address] [address] * (ABNORMAL) VANCOMYCIN LEVEL TROUGH (10/09/2021 10:27 AM EDT) Pathologist [facility] Vanco Tr 9.6(L) 10.0-<20.0 mcg/mL 10/09/2021 8:34 PM EDT [facility] [employer] Blood VENOUS BLOOD / Unknown 10/09/2021 10:27 AM EDT 10/09/2021 7:23 PM EDT Narrative [facility] [employer] - 10/09/2021 8:34 PM EDT Minimum serum concentration for infection control is 10 mcg/mL; a target therapeutic range of 15-20 mcg/mL is recommended for significant infections such as S. aureus. Toxicity does not correlate well with serum concentrations. Supratherapeutic levels are considered to be > 20 mcg/mL. Fior Armstrong MD CHEMISTRY ORDERABLES Fin al Result Performing Organization Address [facility] de Phone Number [facility] [employer] [address] [place] [address], [place] [address] * (ABNORMAL) C-REACTIVE PROTEIN (10/09/2021 10:27 AM EDT) Pathologist [facility] CRP 16.27(H) <=5.00 mg/L 10/09/2021 8:33 PM EDT [facility] [employer] Blood VENOUS BLOOD / Unknown 10/09/2021 10:27 AM EDT 10/09/2021 7:23 PM EDT us Fior Armstrong MD CHEMISTRY ORDERABLES Fin al Result [facility] 1 [facility], [address] [place] [phone] * (ABNORMAL) COMPREHENSIVE METABOLIC PANEL (10/09/2021 10:27 [...] - 123 U/L 10/09/2021 8:35 PM EDT [facility] [employer], [facility] eGFR (CKD-EPIcr 2020) 78 >=60 mL/min/1.7 3 m2 10/09/2021 8:35 PM EDT [facility] Comment:Estimated GFR was ca lculated using the CKD-EPIcr (2020) equation refit without race. The equation is recommended by the National Kidney Foundation - [place] Society of Nephrology Task Force. Blood VENOUS BLOOD / Unknown 10/09/2021 10:27 AM EDT 10/09/2021 7:23 PM EDT Fior Armstrong MD CHEMISTRY ORDERABLES [facility] al Result Performing Organization Address [facility] de Phone Number [facility] [employer], [address] , [place] [phone] [facility] [address] [place], [place] [phone] * SEDIMENTATION RATE AUTOMATED (10/09/2021 10:27 AM EDT) Sed Rate 19 0 - 30 mm/hr 10/09/2021 8:05 PM EDT [facility] [employer], [facility] Blood VENOUS BLOOD / Unknown 10/09/2021 10:27 AM EDT 10/09/2021 7:23 PM EDT Fior Armstrong MD HEMATOLOGY ORDERABLES Fi nal Result Performing Organization Address [facility]/ZIP Co de Phone Number [facility] [employer], [address] , [place] [address] * (ABNORMAL) CBC WITH DIFF (10/09/2021 10:27 AM EDT) WBC 3.7 3.7 - 10.3 x10(3)/mcL 10/09/2021 7:53 PM EDT [facility] [employer], [facility] RBC 4.16 3.90 - 5.20 x10(6)/mcL 10/09/2021 [...] 7:53 PM EDT [facility] [place] Percent 8.8 % 10/09/2021 7:53 PM EDT [...] 0.0. Lymph # 0.6(L) 1.2 - 3.9 x10(3)/[facility] 10/09/2021 7:53 PM EDT [facility] [place] # 0.3 0.3 - 0.9 x10(3)/[facility] 10/09/2021 7:53 PM EDT [facility] Eos# 0.1 0.0 - 0.5 x10(3)/[facility] 10/09/2021 7:53 PM EDT [facility] [place] # 0.0 0.0 - 0.1 x10(3)/[facility] 10/09/2021 7:53 PM EDT [facility] [employer] Blood VENOUS BLOOD / Unknown 10/09/2021 10:27 AM EDT 10/09/2021 7:23 PM EDT us Fior Armstrong MD HEMATOLOGY ORDERABLES Fi nal Result [facility] [employer], [facility] [address] 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
--- OUTSIDE RECORDS SUMMARY | 2025-07-19 12:39 | XMS_ITS | Encounter Summary ---
Author Organization [place] [address] Care Team Providers Care Head Filter Tank Tender Helper Name Role Phone Theo Musa Primary Care Provider [phone] Bronson Raygoza MD Unavailable [phone] Encounter Details Date Type Department Care Team (Latest Contact Info) Description 10/02/2021 Lab Requisition [facility] [address] [place] [id number] Fior Armstrong MD [address] [place] [phone] Infection and 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, initial encounter; custodial (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; Other staphylococcus as [...] [facility] [address] [place] [address] 09/06/2025 10:30 AM EST Office Visit [facility] [address] [facility] [place] [address] Sarita Case MD [address] [facility] [place] [address] 11/29/2025 10:15 AM EDT Office Visit [facility] [address] [place] [address] Bronson Raygoza MD [address] [place] [address] documented as of this encounter Procedures Procedure Name Priority Date/Time Associated Diagnosis Comments EXTRA GOLD SST Routine 10/02/2021 10:23 AM EST Infection and 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, initial encounter (HCC) custodial (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 Other staphylococcus as the cause of diseases classified elsewhere SEDIMENTATION RATE AUTOMATED Routine 10/02/2021 10:23 AM EST Infection and 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, initial encounter (HCC) custodial (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 Other staphylococcus as the cause of diseases classified elsewhere CBC WITH DIFF Routine 10/02/2021 10:23 AM EST Infection and 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, initial encounter (HCC) 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 Other staphylococcus as the cause of diseases classified elsewhere C-REACTIVE PROTEIN Routine 10/02/2021 10 :23 AM EST Infection and 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, initial encounter (HCC) 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 Other staphylococcus as the cause of diseases classified elsewhere VANCOMYCIN LEVEL TROUGH Routine 10/02/2021 10:23 AM EST Infection and 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, initial encounter (HCC) custodial (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 Other staphylococcus as the cause of diseases classified elsewhere COMPREHENSIVE METABOLIC PANEL Routine 10/02/2021 10:23 AM EST Infection and 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, initial encounter (HCC) custodial (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 Other staphylococcus as the cause of diseases classified elsewhere documented in this encounter Results * EXTRA GOLD SST (10/02/2021 10:23 AM EST) Blood VENOUS BLOOD / Unknown 10/02/2021 10:23 AM EST 10/02/2021 6:30 PM EST us Fior Armstrong MD CHEMISTRY ORDERABLES Fin al Result [facility] [address] [place], [place] [id number] * (ABNORMAL) COMPREHENSIVE METABOLIC PANEL (10/02/2021 10:23 [...] U/L 10/02/2021 8:25 PM EST [facility] AST 16 <=40 U/L 10/02/2021 8:25 PM EST [facility] [employer], [facility] Alk Phos 101 36 - 123 U/L 10/02/2021 8:25 PM EST [facility] eGFR (CKD-EPIcr 2020) 79 >=60 mL/min/1.7 3 m2 10/02/2021 8:25 PM EST [facility] Comment:Estimated GFR was ca lculated using the CKD-EPIcr (2020) equation refit without race. The equation is recommended by the National Kidney Foundation - [place] Society of Nephrology Task Force. Blood VENOUS BLOOD / Unknown 10/02/2021 10:23 AM EST 10/02/2021 6:30 PM EST Fior Armstrong MD CHEMISTRY ORDERABLES Fin al Result Performing Organization Address [facility] de Phone Number [facility] [employer], [address] , [place] [address] [facility] [address] [place] [address] * VANCOMYCIN LEVEL TROUGH (10/02/2021 10:23 AM EST) [facility] Vanco Tr 13.0 10.0-<20.0 mcg/mL 10/02/2021 8:31 PM EST [facility] [employer], [facility] Blood VENOUS BLOOD / Unknown 10/02/2021 10:23 AM EST 10/02/2021 6:30 PM EST Narrative [facility] [employer], [facility] - 10/02/2021 8:31 PM EST Minimum serum concentration for infection control is 10 mcg/mL; a target therapeutic range of 15-20 mcg/mL is recommended for significant infections such as S. aureus. Toxicity does not correlate well with serum concentrations. Supratherapeutic levels are considered to be > 20 mcg/mL. Fior Armstrong MD CHEMISTRY ORDERABLES Fin al Result Performing Organization Address [facility] de Phone Number [facility] [employer], [address] , [address] [place] [phone] * C-REACTIVE PROTEIN (10/02/2021 10:23 AM EST) [facility] CRP <3.00 <=5.00 mg/L 10/02/2021 8:27 PM EST [facility] [employer], [facility] Blood VENOUS BLOOD / Unknown 10/02/2021 10:23 AM EST 10/02/2021 6:30 PM EST Fior Armstrong MD CHEMISTRY ORDERABLES Fin al Result [facility] [employer], [address] , [place] [address] * SEDIMENTATION RATE AUTOMATED (10/02/2021 10:23 AM EST) [facility] Sed Rate 25 0 - 30 mm/hr 10/02/2021 7:28 PM EST [facility] Blood VENOUS BLOOD / Unknown 10/02/2021 10:23 AM EST 10/02/2021 6:30 PM EST Fior Armstrong MD HEMATOLOGY ORDERABLES Fi nal Result [facility] [address] [place] [address] * (ABNORMAL) CBC WITH DIFF (10/02/2021 10:23 AM EST) [facility] WBC 4.8 3.7 - 10.3 x10(3)/mcL 10/02/2021 7:12 PM EST [facility] RBC 4.20 3.90 - 5.20 x10(6)/mcL 10/02/2021 7:12 PM EST [facility] Hgb 9.6(L) 11.2 - 15.7 g/dL 10/02/2021 7:12 PM EST [facility] Hct 32.6(L) 34.0 - 45.0 % 10/02/2021 7:12 PM EST [facility] MCV 77.6(L) 80.0 - 100.0 fL 10/02/2021 7:12 PM EST [facility] MCH 22.9(L) 26.0 - 34.0 pg 10/02/2021 7:12 PM EST [facility] MCHC 29.4(L) 30.7 - 35.5 g/dL 10/02/2021 7:12 PM EST [facility] RDW 18.2(H) <=14.9 % 10/02/2021 7:12 PM EST [facility] Platelet 334 155 - 369 x10(3)/mcL 10/02/2021 7:12 PM EST [facility] MPV 10.2 8.8 - 12.5 fL 10/02/2021 7:12 PM EST [facility] Neut Percent 75.5 % 10/02/2021 7:12 PM EST [facility] Comment:Neutrophils equals s egs plus bands Imm Gran% 0.6 % 10/02/2021 7:12 PM EST [facility] Comment:Automated count of m etamyelocytes, myelocytes and promyelocytes. Lymph Percent 20.2 % 10/02/2021 7:12 PM EST [facility] [place] Percent 3.1 % 10/02/2021 7:12 PM EST [facility] Eos Percent 0.2 % 10/02/2021 7:12 PM EST [facility] Baso Percent 0.4 % 10/02/2021 7:12 PM EST [facility] Neut # 3.6 1.6 - 6.1 x10(3)/mcL 10/02/2021 7:12 PM EST [facility] Comment:Neutrophils equals s egs plus bands IMMGRAN# 0.0 0.0 - 0.1 x10(3)/mcL 10/02/2021 7:12 PM EST [facility] Comment:Automated count of m etamyelocytes, myelocytes and promyelocytes. An absolute IG <0.1 is reported as 0.0. Lymph # 1.0(L) 1.2 - 3.9 x10(3)/mcL 10/02/2021 7:12 PM EST [facility] [place] # 0.2(L) 0.3 - 0.9 x10(3)/mcL 10/02/2021 7:12 PM EST [facility] Eos# 0.0 0.0 - 0.5 x10(3)/mcL 10/02/2021 7:12 PM EST [facility] Baso # 0.0 0.0 - 0.1 x10(3)/mcL 10/02/2021 7:12 PM EST [facility] Blood VENOUS BLOOD / Unknown 10/02/2021 10:23 AM EST 10/02/2021 6:30 PM EST us Fior Armstrong MD HEMATOLOGY ORDERABLES Fi nal Result [facility] [employer], [facility] [address] [facility] , [place] [address] documented in this encounter Visit Diagnoses Diagnosis Infection and 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, initial encounter custodial (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 Other staphylococcus as the cause of diseases classified elsewhere documented in this encounter Care Teams Head Filter Tank Tender Helper Relationship Specialty Start Date End Date Theo Musa [facility] [address] [place] [address] PCP - General 11/10/09 Bronson Raygoza MD [address] [place] [id number] Internal Medicine-Rheumatology 02/07/23 documented as of this encounter
--- OUTSIDE RECORDS SUMMARY | 2025-07-19 12:39 | XMS_ITS | Clinical Summary ---
Author Organization [employer] [facility] Address [address] [place] [phone] Phone Care Team Providers Care Event Organizer Name Role Phone Unavailable Unavailable Conditions or Problems No information available. Medications No information available. Medications Administered No information available. Allergies, Adverse Reactions, Alerts No information available. Results No information available. Plan of Care No information available. Procedures No information available. Vital Signs No information available. Immunizations No information available. Advance Directives No information available.
--- OUTSIDE RECORDS SUMMARY | 2025-07-19 12:39 | XMS_ITS | Clinical Summary ---
Author Organization [facility] Address [address] [facility], [address] [place] [address] Care Team Providers Care Supervisor Brine Name Role Phone Shaun Musa MD Primary Care Provider [phone] Allergies Active Allergy Reactions Criticality Noted Date [...] Take 1,000 Units by mouth daily Active [place] 3 1000 MG CAPS Take 1 capsule [...] mouth 2 times daily 03/29/2023 Active PEG [id number]- NaCl-NaSulf (PEG-3350/ELECT ROLYTES) 236 g SOLR TAKE [...] patient's age to complete this topic Insurance [facility] [employer] Care Teams Supervisor Brine Relationship Specialty Start Date End Date Shaun Musa MD [facility] [address] [address] PCP - General 12/12/16
--- OUTSIDE RECORDS SUMMARY | 2025-07-19 12:40 | XMS_ITS | Clinical Summary ---
Author Organization [facility] Address [facility] [place] [address] Care Team Providers Care Benefits Consulting Analyst Name Role Phone Shaun Musa Primary Care [...] therelease of HIV test results or diagnoses. [id number] Active Problems Problem Noted Date Diagnosed [...] of Treatment Not on file Care Teams Benefits Consulting Analyst Relationship Specialty Start Date End Date Shaun Musa PCP - General 08/21/06
--- OUTSIDE RECORDS SUMMARY | 2025-07-19 12:40 | XMS_ITS | Clinical Summary ---
Author Organization [facility] Address [address] [place] [address] Care Team Providers Care Gas Station Service Attendant Name Role Phone AdiReshma Mendez PEDRAZA Primary Care Provider [phone] Social History Tobacco Use Types Packs/Day Years [...] or (1 - 1-dose 75+ series) 2019 [id number] Vaccine ( season) 2025 05/30/2022, 05/29/2021, 10/17/2020, [...] to complete this topic Insurance Care Teams Gas Station Service Attendant Relationship Specialty Start Date End Date Reshma Joshi APRN [address] [place] [address] PCP - General 02/14/23
--- OUTSIDE RECORDS SUMMARY | 2025-07-19 12:40 | XMS_ITS | Encounter Summary ---
Author Organization [place] [address] Care Team Providers Care Band Teacher Name Role Phone Theo Musa Primary Care Provider [phone] Bronson Raygoza MD Unavailable [phone] Encounter Details Date Type Department Care Team (Latest Contact Info) Description 09/18/2021 Lab Requisition [facility] [address] [place] [phone] Fior Armstrong MD [address] [place] [phone] Infection and 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, initial encounter; [facility] (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; Other staphylococcus as [...] Visit [facility] [address] [place] [address] 09/06/2025 10:30 AM EST [facility] [address] [place] [phone] Sarita Case MD [address] [place] [address] 11/29/2025 10:15 AM EDT Office Visit [facility] [address] [place] [address] Bronson Raygoza MD [address] [place] [address] documented as of this encounter Procedures Procedure Name Priority Date/Time Associated Diagnosis Comments C-REACTIVE PROTEIN Routine 09/18/2021 10 :30 AM EST Infection and 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, initial encounter (HCC) 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 Other staphylococcus as the cause of diseases classified elsewhere VANCOMYCIN LEVEL TROUGH Routine 09/18/2021 10:30 AM EST Infection and 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, initial encounter (HCC) [facility] (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 Other staphylococcus as the cause of diseases classified elsewhere COMPREHENSIVE METABOLIC PANEL Routine 09/18/2021 10:30 AM EST Infection and 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, initial encounter (HCC) 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 Other staphylococcus as [...] 09/18/2021 7:18 PM EST [facility] Total CO2 20(L) 22 - 29 mmol/L 09/18/2021 7:18 PM EST [facility] Anion Gap 16 7 - 16 mmol/L 09/18/2021 7:18 PM EST [facility] Calcium 9.2 8.8 - 10.4 mg/dL 09/18/2021 7:18 PM EST [facility] Glucose Lvl 119(H) 82 - 100 mg/dL 09/18/2021 7:18 PM EST [facility] BUN 12 8 - 23 mg/dL 09/18/2021 7:18 PM EST [facility] Creatinine 0.77 0.51 - 1.30 mg/dL 09/18/2021 7:18 PM EST [facility] Albumin 3.9 3.2 - 4.6 gm/dL 09/18/2021 7:18 PM EST [facility] Total Protein 6.5 6.4 - 8.3 gm/dL 09/18/2021 7:18 PM EST [facility] Bili Total 0.2 0.1 - 1.3 mg/dL 09/18/2021 7:18 PM EST [facility] ALT 5 <=41 U/L 09/18/2021 7:18 PM EST [facility] AST 10 <=40 U/L 09/18/2021 7:18 PM EST [facility] Alk Phos 137(H) 36 - 123 U/L 09/18/2021 7:18 PM EST [facility] eGFR (CKD-EPIcr 2020) 79 >=60 mL/min/1.7 3 m2 09/18/2021 7:18 PM EST [facility] Comment:Estimated GFR was ca lculated using the CKD-EPIcr (2020) equation refit without race. The equation is recommended by the National Kidney Foundation - [place] Society of Nephrology Task Force. Blood VENOUS BLOOD / Unknown 09/18/2021 10:30 AM EST 09/18/2021 6:16 PM EST us Fior Armstrong MD CHEMISTRY ORDERABLES Fin al Result [facility] [address] , [place] [address] [facility] [address] [place] [address] * (ABNORMAL) C-REACTIVE PROTEIN (09/18/2021 10:30 AM EST) CRP 89.21(H) <=5.00 mg/L 09/18/2021 7:18 PM EST [facility] [employer] Blood VENOUS BLOOD / Unknown 09/18/2021 10:30 AM EST 09/18/2021 6:16 PM EST Fior Armstrong MD CHEMISTRY ORDERABLES Fin al Result Performing Organization Address [facility] de Phone Number [facility] [employer] , [place] [address] * (ABNORMAL) VANCOMYCIN LEVEL TROUGH (09/18/2021 10:30 AM EST) Vanco Tr 33.0(HH) 10.0-<20.0 mcg/mL 09/18/2021 7:23 PM EST [facility] Blood VENOUS BLOOD / Unknown 09/18/2021 10:30 AM EST 09/18/2021 6:[address] [facility] - 09/18/2021 7:23 PM EST Minimum serum concentration for infection control is 10 mcg/mL; a target therapeutic range of 15-20 mcg/mL is recommended for significant infections such as S. aureus. Toxicity does not correlate well with serum concentrations. Supratherapeutic levels are considered to be > 20 mcg/mL. Fior Armstrong MD CHEMISTRY ORDERABLES Joseph al Result Performing Organization Address [facility] de Phone Number 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
--- OUTSIDE RECORDS SUMMARY | 2025-07-19 12:40 | XMS_ITS | Encounter Summary ---
Author Organization [facility] [place] [address] Care Team Providers Care Csr Retail Name Role Phone Theo Musa Primary Care Provider [phone] Bronson Raygoza MD Unavailable [phone] Encounter Details Date Type Department Care Team (Late st Contact Info) Description 09/15/2021 Lab Requisition [facility] [address] [place] [phone] Fior Armstrong MD [address] [place] [address] [address] Infection and inflammatory reaction due [...] [facility] [address] [place] [address] 09/06/2025 10:30 AM EST [facility] [address] [place] [address] Sarita Case MD [address] [place] [address] 11/29/2025 10:15 AM EDT Office Visit [facility] [address] [place] [address] Bronson Raygoza MD [address] [place] [address] documented as of this encounter Procedures Procedure Name Priority Date/Time Associated Diagnosis Comments EXTRA GOLD SST Routine 09/15/2021 10:15 AM EST Infection and 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, initial encounter (HCC) VANCOMYCIN LEVEL TROUGH Routine 09/15/2021 10:15 AM EST Infection and 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, initial encounter ([facility]) documented in this encounter Results * EXTRA GOLD SST (09/15/2021 10:15 AM EST) Blood VENOUS BLOOD / Unknown 09/15/2021 10:15 AM EST 09/15/2021 8:07 PM EST us Fior Armstrong MD CHEMISTRY ORDERABLES Fin al Result [facility] [address] [place] [address] * (ABNORMAL) VANCOMYCIN LEVEL TROUGH (09/15/2021 10:15 AM EST) Vanco Tr 9.1(L) 10.0-<20.0 mcg/mL 09/15/2021 9:30 PM EST [facility] Blood VENOUS BLOOD / Unknown 09/15/2021 [...] Armstrong MD CHEMISTRY ORDERABLES Fin al Result [employer] [address] [facility] , [place] [address] documented in this encounter Visit Diagnoses Diagnosis Infection and 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, initial encounter documented in this encounter Care Teams Csr Retail Relationship Specialty Start Date End Date Theo Musa [address] [place] [address] [address] [place] [address] PCP - General 11/10/09 Bronson Raygoza MD [address] [place] [address] Internal Medicine-Rheumatology 02/07/23 documented as of this encounter
--- OUTSIDE RECORDS SUMMARY | 2025-07-19 12:40 | XMS_ITS | Encounter Summary ---
Author Organization [place] [address] Care Team Providers Care Veterinary Laboratory Technician Name Role Phone Theo Musa Primary Care Provider [phone] Bronson Raygoza MD Unavailable [phone] Encounter Details Date Type Department Care Team (Latest Contact Info) Description 09/19/2021 Lab Requisition [facility] [address] 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 Social History [...] Visit [facility] [address] [place] [address] 09/06/2025 10:30 AM EST [facility] [address] [place] [address] [id number] Sarita Case MD [address] [place] [address] 11/29/2025 10:15 AM EDT Office Visit [facility] [address] [place] [address] Bronson Raygoza MD [address] [place] [address] documented as of this encounter [...] the cause of diseases classified elsewhere superintendent 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 COMPREHENSIVE METABOLIC PANEL Routine 09/19/2021 8:15 AM EST Infection and 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, initial encounter (HCC) Other staphylococcus as the cause of diseases classified elsewhere superintendent 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 documented in this encounter Results * EXTRA GOLD SST (09/19/2021 8:15 AM EST) Blood VENOUS BLOOD / Unknown 09/19/2021 8:15 AM EST 09/19/2021 3:17 PM EST Fior Armstrong MD CHEMISTRY ORDERABLES Fin al Result Performing Organization Address City/[facility]/ZIP Co de Phone Number [facility] [address] [place] [address] * (ABNORMAL) C-REACTIVE PROTEIN (09/19/2021 8:15 AM EST) CRP 73.25(H) <=5.00 mg/L 09/19/2021 4:29 PM EST [facility] Blood VENOUS BLOOD / Unknown 09/19/2021 8:15 AM EST 09/19/2021 3:16 PM EST Fior Armstrong MD CHEMISTRY ORDERABLES Fin al Result Performing Organization Address City/[facility]/ZIP Co de Phone Number [facility] 1 [facility], [place] [address] * (ABNORMAL) COMPREHENSIVE METABOLIC PANEL (09/19/2021 8:15 [...] 09/19/2021 4:29 PM EST [facility] BUN 12 8 - 23 mg/dL 09/19/2021 4:29 PM EST [facility] Creatinine 0.75 0.51 - 1.30 mg/dL 09/19/2021 4:29 PM EST [facility] Albumin 3.6 3.2 - 4.6 gm/dL 09/19/2021 4:29 PM EST [facility] Total Protein 6.3(L) 6.4 - 8.3 gm/dL 09/19/2021 4:29 PM EST [facility] Bili Total 0.2 0.1 - 1.3 mg/dL 09/19/2021 4:29 PM EST [facility] ALT 6 <=41 U/L 09/19/2021 4:29 PM EST [facility] AST 15 <=40 U/L 09/19/2021 4:29 PM EST [facility] Alk Phos 118 36 - 123 U/L 09/19/2021 4:29 PM EST [facility] eGFR (CKD-EPIcr 2020) 82 >=60 mL/min/1.7 3 m2 09/19/2021 4:29 PM EST [facility] Comment:Estimated GFR was ca lculated using the CKD-EPIcr (2020) equation refit without race. The equation is recommended by the National Kidney Foundation - [place] Society of Nephrology Task Force. Blood VENOUS BLOOD / Unknown 09/19/2021 8:15 AM EST 09/19/2021 3:16 PM EST us Fior Armstrong MD CHEMISTRY ORDERABLES Fin al Result [facility] [address] [facility] , [place] [address] [facility] 1 [place] [address] * (ABNORMAL) SEDIMENTATION RATE AUTOMATED (09/19/2021 8:15 AM EST) Sed Rate 60(H) 0 - 30 mm/hr 09/19/2021 4:25 PM EST [facility] Blood VENOUS BLOOD / Unknown 09/19/2021 8:15 AM EST 09/19/2021 3:16 PM EST us Fior Armstrong MD HEMATOLOGY ORDERABLES Fi nal Result [facility] 1 [place] [address] * (ABNORMAL) CBC WITH DIFF (09/19/2021 8:15 [...] % 09/19/2021 4:06 PM EST [facility] [employer] Comment:Automated count of m etamyelocytes, myelocytes and promyelocytes. Lymph Percent 24.4 % 09/19/2021 4:06 PM EST [facility] [place] Percent 10.0 % 09/19/2021 4:06 PM EST [facility] Eos Percent 3.0 % 09/19/2021 4:06 PM EST [facility] Baso Percent 0.8 % 09/19/2021 4:06 PM EST [facility] Neut # 2.2 1.6 - 6.1 x10(3)/[facility] 09/19/2021 4:06 PM EST [facility] Comment:Neutrophils equals s egs plus bands IMMGRAN# 0.0 0.0 - 0.1 x10(3)/[facility] 09/19/2021 4:06 PM EST [facility] [employer] Comment:Automated count of m etamyelocytes, myelocytes and promyelocytes. An absolute IG <0.1 is reported as 0.0. Lymph # 0.9(L) 1.2 - 3.9 x10(3)/[facility] 09/19/2021 4:06 PM EST [facility] [place] # 0.4 0.3 - 0.9 x10(3)/[facility] 09/19/2021 4:06 PM EST [facility] Eos# 0.1 0.0 - 0.5 x10(3)/[facility] 09/19/2021 4:06 PM EST [facility], [facility] Baso # 0.0 0.0 - 0.1 x10(3)/[facility] 09/19/2021 4:06 PM EST [facility], [facility] Blood VENOUS BLOOD / Unknown 09/19/2021 8:15 AM EST 09/19/2021 3:16 PM EST us Fior Armstrong MD HEMATOLOGY ORDERABLES Fi nal Result [facility] [employer] [address] [facility] , [place] [address] documented in this encounter Visit Diagnoses Diagnosis Infection and 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, initial encounter Other staphylococcus as the cause of diseases classified elsewhere 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
--- OUTSIDE RECORDS SUMMARY | 2025-07-19 12:40 | XMS_ITS | Encounter Summary ---
Author Organization [place] [address] Care Team Providers Care Electrician Radio Name Role Phone Theo Musa Primary Care Provider Bronson Raygoza MD Unavailable [phone] Encounter Details Date Type Department Care Team (Late st Contact Info) Description 09/11/2021 Lab Requisition [facility] [place] [address] Fior Armstrong MD [address] [place] [address] DR MERLOS [address] [place] [address] Broken internal right knee prosthesis, initial [...] Office Visit [facility] [address] [place] [address] 09/06/2025 10:30 AM EST [facility] [address] [facility] [place] [phone] Sarita Case MD [address] [facility] [place] [address] 11/29/2025 10:15 AM EDT Office Visit [facility] [address] [place] [address] Bronson Raygoza MD [address] [place] [address] documented as of this encounter [...] ORDERABLES Fin al Result [facility] 1 [place] [address] * (ABNORMAL) VANCOMYCIN LEVEL TROUGH (09/11/2021 8:20 AM EST) Pathologist [facility] Vanco Tr 25.4(HH) 10.0-<20.0 mcg/mL 09/11/2021 3:47 PM EST [facility] Blood VENOUS BLOOD / Unknown 09/11/2021 8:20 AM EST 09/11/2021 2:42 PM EST Narrative [facility] [place] - 09/11/2021 3:47 PM EST Minimum serum concentration for infection control is 10 mcg/mL; a target therapeutic range of 15-20 mcg/mL is recommended for significant infections such as S. aureus. Toxicity does not correlate well with serum concentrations. Supratherapeutic levels are considered to be > 20 mcg/mL. Fior Armstrong MD CHEMISTRY ORDERABLES Fin al Result Performing Organization Address [facility] Co de Phone Number [facility] [address] [facility] , [place] [address] * (ABNORMAL) C-REACTIVE PROTEIN (09/11/2021 8:20 AM EST) [facility] CRP 113.75(H) <=5.00 mg/L 09/11/2021 3:44 PM EST [facility] Blood VENOUS BLOOD / Unknown 09/11/2021 8:20 AM EST 09/11/2021 2:42 PM EST Fior Armstrong MD CHEMISTRY ORDERABLES Fin al Result Performing Organization Address [facility] Co de Phone Number [email or web address] [address] [facility] , [place] [address] * (ABNORMAL) COMPREHENSIVE METABOLIC PANEL (09/11/2021 8:20 AM EST) Pathologist [facility] Sodium 141 136 - 145 mmol/L 09/11/2021 [...] mL/min/1.7 3 m2 09/11/2021 3:44 PM EST [facility] Comment:Estimated GFR was ca lculated using the CKD-EPIcr (2020) equation refit without race. The equation is recommended by the National Kidney Foundation - [place] Society of Nephrology Task Force. Blood VENOUS BLOOD / Unknown 09/11/2021 8:20 AM EST 09/11/2021 2:42 PM EST Fior Armstrong MD CHEMISTRY ORDERABLES Fin al Result Performing Organization Address City/[facility]/ZIP Co de Phone Number [facility] [address] [facility] , [address] [place] [phone] [facility] [address] [place] [address] * (ABNORMAL) SEDIMENTATION RATE AUTOMATED (09/11/2021 8:20 AM EST) Pathologist [facility] Sed Rate 40(H) 0 - 30 mm/hr 09/11/2021 3:47 PM EST [facility] Blood VENOUS BLOOD / Unknown 09/11/2021 8:20 AM EST 09/11/2021 2:42 PM EST Fior Armstrong MD HEMATOLOGY ORDERABLES Fi nal Result Performing Organization Address City/[facility]/ZIP Co de Phone Number [facility] [address] [facility] , [address] [place] [id number] * (ABNORMAL) CBC WITH DIFF (09/11/2021 8:20 AM EST) Pathologist [facility] WBC 4.9 3.7 - 10.3 x10(3)/mcL 09/11/2021 [...] 09/11/2021 3:13 PM EST [facility] RDW 17.4(H) <=14.9 % 09/11/2021 3:13 PM EST [facility] Platelet 275 155 - 369 x10(3)/mcL 09/11/2021 3:13 PM EST [facility] MPV 10.7 8.8 - 12.5 fL 09/11/2021 3:13 PM EST [facility] Neut Percent 62.5 % 09/11/2021 3:13 PM EST [facility] Comment:Neutrophils equals s egs plus bands Imm Gran% 0.8 % 09/11/2021 3:13 PM EST [facility] Comment:Automated count of m etamyelocytes, myelocytes and promyelocytes. Lymph Percent 23.1 % 09/11/2021 3:13 PM EST [facility] [place] Percent 9.9 % 09/11/2021 3:13 PM EST [facility] Eos Percent 3.1 % 09/11/2021 3:13 PM EST [facility] Baso Percent 0.6 % 09/11/2021 3:13 PM EST [facility] Neut # 3.0 1.6 - 6.1 x10(3)/mcL 09/11/2021 3:13 PM EST [facility] Comment:Neutrophils equals s egs plus bands IMMGRAN# 0.0 0.0 - 0.1 x10(3)/mcL 09/11/2021 3:13 PM EST [facility] Comment:Automated count of m etamyelocytes, myelocytes and promyelocytes. An absolute IG <0.1 is reported as 0.0. Lymph # 1.1(L) 1.2 - 3.9 x10(3)/mcL 09/11/2021 3:13 PM EST [facility] [place] # 0.5 0.3 - 0.9 x10(3)/mcL 09/11/2021 3:13 PM EST [facility] Eos# 0.2 0.0 - 0.5 x10(3)/mcL 09/11/2021 3:13 PM EST [facility] Baso # 0.0 0.0 - 0.1 x10(3)/mcL 09/11/2021 3:13 PM EST [facility] Blood VENOUS BLOOD / Unknown 09/11/2021 8:20 AM EST 09/11/2021 2:42 PM EST us Fior Armstrong MD HEMATOLOGY ORDERABLES Fi nal Result [facility] [address] [facility] , [place] [address] documented in this encounter Visit Diagnoses Diagnosis Broken internal right knee prosthesis, initial encounter documented in this encounter Care Teams Electrician Radio Relationship Specialty Start Date End Date Theo Musa [address] [place] [address] [address] [place] [address] PCP - General 11/10/09 Bronson Raygoza MD [address] [place] [id number] Internal Medicine-Rheumatology 02/07/23 documented as of this encounter
--- OUTSIDE RECORDS SUMMARY | 2025-07-19 12:40 | XMS_ITS | Clinical Summary ---
Author Organization [facility] Address [address] [place] [address] Phone Care Team Providers Care Screen Examiner Name Role Phone Theo Musa Primary Care Provider [phone] Dayna Raygoza MD Unavailable [phone] Allergies Active Allergy Reactions Criticality Noted Date Comments Adhesive Other (See Comments),Swellin g Medium 12/11/2018 Paper tape is acceptable Chocolate Flavor 04/16/2013 [place] Other (See Comments) 12/20/2016 Severe CUEVAS Erythromycin [...] ipratropium (ATROVENT) 42 mcg (0.06 %) Nasl [place], Non-AerosolIndi cations:Acute non-recurrent maxillary sinusitis 2 Sprays [...] (08/25/2021): Added automatically from request for surgery [id number] Allergic rhinitis due to pollen 04/05/2009 Esophageal [...] (07/17/2021): Added automatically from request for surgery [id number] Leukocytosis 07/12/2012 04/24/2024 Cellulitis of right leg 07/12/201203/30 Encounters Date Type Department Care Team Description 05/31/2025 10:15 AM EST Office Visit [facility] [address] [place] [address] Dayna Raygoza MD Nontraumatic incomplete tear of [...] MATRIXECTOMY ; Surgeon: Romel Rutherford MD; Location: [facility]; Service: Orthopedics HIP SURGERY left pinning / [...] of bleeding; Surgeon: David Azar MD; Location: [facility]; Service: Endoscopy KNEE SURGERY total knee [...] Visit [facility] [address] [place] [address] 09/06/2025 10:30 AM EST [facility] [address] [place] [address] Sarita Case MD [address] [place] [address] 11/29/2025 10:15 AM EDT Office Visit [facility] [address] [place] [address] Dayna Raygoza MD [address] [place] [address] Health Maintenance Due Date Last [...] this topic Medical Devices Implanted Type Area Repair Order Clerk Device Identifier Shelf Expiration Date Model / Serial / Lot Hardware Right: Knee Shell Acetabular Trident Ii Tritanium D 50mm Screwhole Clust - [id number] Implanted:Qty: 1 on 12/11/2018 by Donnell Kim MD at [facility] Left: Hip MEME:ORTH[employer] 07/30/2023 702-04-50D / / [id number] Insert Trident X 3 0 Degree 36mm D - [id number] Implanted:Qty: 1 on 12/11/2018 by Donnell Kim MD at [facility] Left: Hip MEME:ORTH[employer] 09/04/2023 623-00-36D / / [id number] 6.5mm Low Profile Hex Screw 30mm - [id number] Implanted:Qty: 1 on 12/11/2018 by Donnell Kim MD at [facility] Left: Hip MEME:ORTH[employer] 11/02/2023 [id number] / / [id number] Screw Trident Ii Hex Low Profile 6.5mm X 25mm - [id number] Implanted:Qty: 1 on 12/11/2018 by Donnell Kim MD at [facility] Left: Hip MEME:ORTHOPED [facility] 10/20/2023 [id number] / / [id number] Stem Hip Angle Neck 132 Degree V40 Accolade Ii Sz #3 30mm Neck 102mm Stem - [id number] Implanted:Qty: 1 on 12/11/2018 by Donnell Kim MD at [facility] Left: Hip MEME:ORTHOPED [facility] 04/10/2022 [id number] / / [id number] Head Fem +0mm Ofst Tpr 36mm Hip Blx D V40 Strl - [id number] Implanted:Qty: 1 on 12/11/2018 by Donnell Kim MD at [facility] Left: Hip MEME:ORTHOPED [facility] 01/08/2022 6570-0-136 / / [id number] Pin Speed Non Rim 65 Mm Sterile - [id number] Implanted:Qty: 1 on 09/01/2021 by Cristian Grossman MD at [facility] Right: Knee [employer]:ORTHO [id number] 06/13/2031 [id number] / / [id number] Legion Ps Oxin Fem Sz3 Rt - [id number] Implanted:Qty: 1 on 09/01/2021 by Cristian Grossman MD at [facility] Right: Knee [employer]:ORTHO 04/06/2027 [id number] / / [id number] Pros Patella Gns Ii Sz 3 - [id number] Implanted:Qty: 1 on 09/01/2021 by Cristian Grossman MD at [facility] Right: Knee [employer]:ORTHO 04/10/2031 [id number] / / [id number] Gii Cm Tib Size 2 {} Right - [id number] Implanted:Qty: 1 on 09/01/2021 by Cristian Grossman MD at [facility] Right: Knee [employer]:ORTHO 01/22/2031 [id number] / / [id number] G2 Const Insrt Sz1-2 25mm - [id number] Implanted:Qty: 1 on 09/01/2021 by Cristian Grossman MD at [facility] Right: Knee [employer]:ORTHO 04/21/2028 [id number] / / [id number] Cement Simplx Hv 20ml 40gm Gent Antbtc Bn Pwdr - [id number] Implanted:Qty: 2 on 09/01/2021 by Cristian Grossman MD at [facility] Right: Knee MEME 12/26/2022 6195-1-010 / / [id number] Pin Speed Rim 45mm Sterile - [id number] Implanted:Qty: 1 on 09/01/2021 by Cristian Grossman MD at [facility] Right: Knee [employer]:ORTHO [id number] 05/30/2031 [id number] / / [id number] Procedures Procedure Name Priority Date/Time Associated Diagnosis [...] bone density assessment. Study was performed on Picturelife 5. Bone Density: Region BMD T-score Z-score [...] diverticulosis Staff Staff Role Shereen Mcclelland, RN Implementation Lead David Azar MD Performing Provider Shauna Retana RN Endoscopy Nurse Shawnee Santiago MD Anesthesiologist Jodie Alejandro, SALES ORDER PROCESSOR SALES ORDER PROCESSOR Medications See Anesthesia Record. Preprocedure A history [...] MEDICARE PPO [place] [address] [facility] MEDICARE PPO MR Advance Directives For more information, please contact: [phone] Documents on File Type Date Recorded Patient Privacy Analyst Expl anation Power of Inductor Tester 04/07/2025 11:28 AM 03/31 exp * Full Code (Latest Code Status on File) Date Activated Date Inactivated Comments 09/02/2021 4:48 AM 09/05/2021 8:26 PM * Full Code Date Activated Date Inactivated Comments 12/11/2018 3:49 PM 12/14/2018 8:12 PM Care Teams Screen Examiner Relationship Specialty Start Date End Date Theo Musa [facility] [place] [address] [address] [place] [address] PCP - General 11/10/09 Dayna Raygoza MD [address] [place] [address] Internal Medicine-Rheumatology 02/07/23
[2025-07-19 12:50] VITALS: BP 125/56; PULSE 74; RESP 18; O2SAT 96
[2025-07-19 13:55] VITALS: BP 136/81; PULSE 79; RESP 18; O2SAT 96
== END 2025-07-19 23:59 | disposition home or self-care (01) ==
PROVIDERS: PCP Nurse Practitioner; Visit Provider Nurse Practitioner
DX: N39.0 Urinary tract infection, site not specified (principal)
CPT/HCPCS: 96365; J3260